=== PATIENT | female | born 2000 | race Caucasian/White ===

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

== ENCOUNTER 2020-03-06 09:38 | Outpatient (RCR) | payer MEDICAID, SELFPAY | END 2020-03-13 23:59 | LOC: EMPH 09:38 | PROVIDERS: Referring Provider Family Medicine Geriatric Medicine; Visit Provider Family Medicine Geriatric Medicine | DX: Z03.818 Encounter for observation for suspected exposure to other biological agents ruled out (principal) | CPT/HCPCS: 87426 ==

== ENCOUNTER 2020-04-12 14:08 | Outpatient (RCR) | payer MEDICAID, SELFPAY | END 2020-04-13 23:59 | LOC: EMPH 14:08 | PROVIDERS: Referring Provider Family Medicine Geriatric Medicine; Visit Provider Family Medicine Geriatric Medicine | DX: Z03.818 Encounter for observation for suspected exposure to other biological agents ruled out (principal) | CPT/HCPCS: 87426 ==

== ENCOUNTER 2020-05-25 10:51 | Outpatient (RCR) | payer MEDICAID, SELFPAY | END 2020-06-11 23:59 | LOC: EMPH 10:51 | PROVIDERS: Visit Provider Family Medicine Geriatric Medicine | DX: Z03.818 Encounter for observation for suspected exposure to other biological agents ruled out (principal) | CPT/HCPCS: 87426 ==

== ENCOUNTER 2020-06-01 08:47 | Emergency (ER) | payer OTHER, MEDICAID, SELFPAY ==
[2020-06-01 08:48] VITALS: BP 156/98; PULSE 98; RESP 18; TEMP 35.5; O2SAT 98; BMI 30.8
--- NOTE | 2020-06-01 09:03 | ED.DCSUM_ITS ---
- ER Visit Summary Date of Service: 06/01/20 Chief Complaint: Sore throat, cough, congestion History of Present Illness: The patient is a 19 F who presents with sore throat, cough, and congestion that has been getting worse over the past 5 days. Patient describes her pain as a burning sensation in her throat. Patient states nothing makes it worse. Patient states Advil does help with the pain. Patient states she does have some pain in her chest whenever she coughs. Patient states she is coughing up some green sputum. Patient admits to low-grade fever at home. Patient admits to nausea but denies any vomiting. Patient also admits to some bilateral ear pain. Physical Examination: Vital signs are stable. Patient is afebrile. Patient is in no acute distress. Oral mucosa is pink and moist. Oropharynx is mildly erythematous. There are no exudates noted. Neck is supple. Trachea is midline. There is some mild tender anterior cervical lymphadenopathy. Heart was regular rate and rhythm. Lungs are clear and equal bilateral. Abdomen is soft. Bowel sounds are normal. There is some mild lower abdominal tenderness. There is no rebound or guarding noted. Cranial nerves II through XII are intact. There are no focal motor or sensory deficits noted. Extremities are intact. There is no calf tenderness or edema. Test Results: CBC and comprehensive metabolic profile were obtained and were within normal limits. Portable 1 view chest x-ray was obtained. On my interpretation, lung mayres are clear. There is normal cardiac silhouette. Bony thorax is normal. There is no acute process noted. Radiologist also interpreted the x-ray and agrees. Rapid strep was negative. Influenza swab was negative. COVID-19 rapid antigen was obtained and was negative. Urinalysis was obtained and was within normal limits. Emergency Department Course and Treatment: Patient was advised of her findings. Patient was instructed to drink plenty of fluids. Patient was advised that this is most likely a viral upper respiratory infection. Patient was instructed to take Tylenol or ibuprofen as needed for any aches or fevers. Patient was instructed to follow-up with her primary care physician in 5 to 7 days. Patient understood and was agreeable with the plan. All questions were answered. Disposition: Discharge home Impression: 1. Viral upper respiratory infection This note was generated with [employer] dictation software. It may contain incorrect words, spelling, and punctuation that were not noted in review of the chart prior to signing ED Disposition - Plan for ED Patient: Disposition: Home or Assisted Living Diagnosis: Viral upper respiratory infection Instructions: ED URI, Viral, No Abx (Adult) Referrals: Dylan Harrison MD [STAFF PHYSICIAN] - 5-7 Days
[2020-06-01 09:16] VITALS: BP 156/98; PULSE 98; RESP 16; TEMP 35.5; O2SAT 98
[2020-06-01 09:17] LABS: Absolute Lymphocyte Count 1.29 X10^3/uL (0.83-4.51); Absolute Neutrophil Count 8.1 X10^3/uL (2.0-7.7); Basophil# 0.05 X10^3/uL; Basophil% 0.5 % (0-1); Eosinophil# 0.16 X10^3/uL; Eosinophils% 1.6 % (0-5); Hematocrit 40.3 % (37-47); Hemoglobin 13.8 g/dL (12.0-15.0); Lymphocyte # 1.29 X10^3/ul (4.0); Lymphocyte % 12.7 % (19-41); Mean Corp Hgb Conc 34.2 g/dL (32-36); Mean Corpuscular Hgb 30.5 pg (27.0-32.0); Mean Corpuscular Volume 89.2 fL (81-99); Mean Platelet Vol. 10.6 fl (6.2-12.0); Monocyte# 0.52 X10^3/uL; Monocyte% 5.1 % (0-10); NRBC Flagged by Analyzer 0 % (0-5); Neutrophil # 8.13 X10^3/uL (2.7-7.7); Neutrophil % 79.7 % (47-70); Platelet Count 244 K/mm3 (150-450); RBC Distribution Width CV 11.9 % (11.6-14.6); RBC Distribution Width SD 38.7 fl (35.1-43.9); Red Blood Count 4.52 M/mm3 (4.2-5.4); White Blood Count 10.2 K/mm3 (4.4-11.0)
--- NOTE | 2020-06-01 09:20 | RAD_ITS ---
STUDY: X-RAY CHEST REASON FOR EXAM: Female, 19 years old. SORE THROAT, COUGH, CONGESTION, AND CHEST PAIN TECHNIQUE: Single AP portable view of the chest. COMPARISON: None. FINDINGS: EKG electrodes are seen. The lungs are clear and expanded. There is no demonstrated pleural abnormality. Normal size heart. Normal mediastinum and josé miguel. Normal visualized pulmonary arteries. Normal visualized aortic arch and descending thoracic aorta. Normal visualized thoracic spine. Normal visualized ribs, clavicles, and shoulders. There is no demonstrated abnormality of the visualized soft tissue structures of the upper abdomen. RAD/Chest 1 View (Portable) IMPRESSION: Normal x-ray examination of the chest. Electronically Signed: Florian Kwan MD at 9:38 EST , Service support ,
[2020-06-01 09:34] LABS: ALB/GLOB Ratio 1.1 RATIO (0.9-2.4); AST(SGOT) 16 U/L (15-37); Alanine Aminotransfer ALT/SGPT 20 U/L (13-56); Albumin, Serum 3.9 g/dL (3.2-5.0); Alkaline Phosphatase 62 U/L (45-117); Anion Gap 5 (5-15); BUN 7 mg/dL (7-18); BUN/Creat Ratio 9.2 RATIO (10-20); Calcium,Total 8.9 mg/dL (8.5-10.1); Chloride 105 mmol/L (98-107); Creatinine, Serum 0.76 mg/dL (0.55-1.02); EST Glomerular Filtration Rate 103 mL/min (>60); Est Glom Filt Rate - Afr Amer 125 mL/min (>60); Estimated Creatinine Clearance 115.78 ml/min; Globulin 3.7 g/dL (2.2-4.2); Glucose 111 mg/dL (74-106); Potassium 3.8 mmol/L (3.5-5.1); Protein, Total 7.6 g/dL (6.4-8.2); Sodium Level 138 mmol/L (136-145)
[2020-06-01 09:58] LABS: Bacteria 0 SEEN /hpf (None Seen); Mucous, Urine 0 SEEN /hpf (<or=2+); Red Blood Cells-Urine 0 SEEN /hpf (0-5); Squamous Epithelial Cells - UA 0 SEEN /hpf (5-10); White Blood Cells 0 SEEN /hpf (0-5)
[2020-06-01 10:01] LABS: Color, Urine Yellow (Yellow); Glucose, Dipstick Normal (Normal); Ketone-Dipstick Negative (Negative); Leukocyte Esterase-Dipstick 25 /ul (Negative); Nitrite-Dipstick Negative (Negative); Occult Blood-Urine 250 /ul (Negative); Protein-Dipstick Negative (Negative); Specific Gravity, Urine 1.005 (1.002-1.030); Urine Bilirubin Dipstick Negative (Negative); Urine Clarity Clear (Clear); Urine Urobilinogen Normal (Normal)
[2020-06-01 10:32] VITALS: BP 134/97; PULSE 71; RESP 18; O2SAT 97
== END 2020-06-01 10:36 | disposition home or self-care (01) ==
PROVIDERS: Emergency Provider Emergency Medicine
DX: J06.9 Acute upper respiratory infection, unspecified (principal)
CPT/HCPCS: 71045; 80053; 81001; 85025; 87426; 87804; 87880; 99283; A4216

== ENCOUNTER 2020-06-20 13:15 | Outpatient (RCR) | payer OTHER, MEDICAID, SELFPAY | END 2020-07-12 23:59 | LOC: EMPH 13:15 | PROVIDERS: Visit Provider Family Medicine Geriatric Medicine | DX: Z03.818 Encounter for observation for suspected exposure to other biological agents ruled out (principal) | CPT/HCPCS: 87426 ==

== ENCOUNTER 2020-08-11 13:57 | Outpatient (RCR) | payer OTHER, MEDICAID, SELFPAY | END 2020-08-11 23:59 | LOC: EMPH 13:57 | PROVIDERS: Visit Provider Family Medicine Geriatric Medicine | DX: Z03.818 Encounter for observation for suspected exposure to other biological agents ruled out (principal) | CPT/HCPCS: 87426 ==

== ENCOUNTER 2020-08-24 12:36 | Outpatient (RCR) | payer OTHER, MEDICAID, SELFPAY | END 2020-09-11 23:59 | LOC: EMPH 12:36 | PROVIDERS: Referring Provider Family Medicine Geriatric Medicine; Visit Provider Family Medicine Geriatric Medicine | DX: Z03.818 Encounter for observation for suspected exposure to other biological agents ruled out (principal) | CPT/HCPCS: 87426 ==

== ENCOUNTER 2020-10-05 11:19 | Outpatient (RCR) | payer OTHER, MEDICAID, SELFPAY | END 2020-10-11 23:59 | LOC: EMPH 11:19 | PROVIDERS: Referring Provider Family Medicine Geriatric Medicine; Visit Provider Family Medicine Geriatric Medicine | DX: Z03.818 Encounter for observation for suspected exposure to other biological agents ruled out (principal) | CPT/HCPCS: 87426 ==

== ENCOUNTER 2020-10-08 15:56 | Emergency (ER) | payer OTHER, MEDICAID, SELFPAY ==
[2020-10-08 15:56] VITALS: BP 163/103; PULSE 66; RESP 16; TEMP 36.1; O2SAT 99; BMI 30.9
--- NOTE | 2020-10-08 16:07 | RAD_ITS ---
STUDY: X-RAY - LEFT FOOT CLINICAL: Female, 19 years old. injury TECHNIQUE: 3 view(s) of the foot. COMPARISON: None. FINDINGS: Normal talus, calcaneus, and tarsal bones. Normal visualized subtalar, talonavicular, calcaneocuboid, tarsal and tarsometatarsal articulations. Normal metatarsi. Normal metatarsophalangeal joint of the great toe. Normal tibial and fibular sesamoid bones. Normal interphalangeal joint of the great toe. Normal phalanges of the great toe. Normal second through fifth metatarsophalangeal joints. Normal interphalangeal joints and phalanges of the lesser toes. The soft tissue structures are unremarkable. There is no demonstrated fracture. RAD/Foot min 3 Views IMPRESSION: Normal x-ray examination of the foot. Electronically Signed: Bobby Zhao MD at 16:31 EDT , Service support ,
--- NOTE | 2020-10-08 16:08 | ED.VIS.LOWEX ---
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 She notes some pain to palpation. She denies any other injuries PFSH PFSH Home Medications amoxicillin 500 mg PO TID #21 tab 11/14/19 [Rx Last Taken Unknown] ciprofloxacin-dexamethasone 4 drp OTIC (EAR) BID #1 bottle 11/14/19 [Rx Last Taken Unknown] Allergy/AdvReac Type Severity Reaction Status Date / Time No Known Allergies Allergy Verified 10/08/20 15:59 Social History (Updated 10/08/20 @ 16:[address] Tramaine Swartz, DO) Smoking Status: Current every day smoker substance use type: does not use ROS ROS ED Constitutional Constitutional ED: Denies chills or weight loss Eyes Eyes: Denies change in vision or diplopia ENT ENT ED: Denies ear pain, rhinorrhea or sore throat Cardiovascular Cardiovascular: Denies chest pain, orthopnea, palpitations or racing heartbeat Respiratory/Chest Respiratory/Chest: Denies cough, dyspnea or orthopnea Gastrointestinal Gastrointestinal: Denies abdominal pain, diarrhea, nausea or vomiting Genitourinary Genitourinary ED: Denies dysuria, hematuria or urinary frequency Musculoskeletal Musculoskeletal: Reports other Details: See history of present illness ; Denies arthralgias or myalgias Integumentary Denies abscess or rash Neurologic Neurologic: Denies headache(s) or weakness Psychiatric Psychiatric: Denies anxiety, depression, suicidal ideation or suicidal thoughts Endocrine Endocrinology: Denies polydipsia, polyphagia or polyuria Allergic/Immunologic Allergic/Immunologic ED: Denies mouth swelling, tongue swelling or urticaria EXAM Physical Exam Const Vital Signs: 10/08/20 15:56 Temperature 97.0 F L Temperature Source Temporal Pulse Rate 66 Respiratory Rate 16 Blood Pressure 163/103 H Blood Pressure Mean 123 Pulse Ox 99 Oxygen Delivery Method Room Air Positive well nourished and well developed General Appearance ED: well developed HEENT Reports normocephalic, head/scalp atraumatic and moist mucous membranes Eyes PERRL and EOMs intact bilaterally Neck no lymphadenopathy, supple and no JVD Resp normal respiratory effort and clear to auscultation bilaterally Cardio regular rate, regular rhythm and no murmurs GI normal to inspection, nondistended, normoactive bowel sounds and non-tender Palpation: soft Back/Spine no CVA tenderness and normal ROM Extremity Extremity Narrative: Patient is tenderness palpation along the first metatarsal over the dorsal surface. There is mild ecchymosis seen General Extremety ED: Negative for edema General Extremity: Negative for edema Neuro oriented x3 and CN's II-XII intact bilaterally Sensorium / Orientation: alert Motor Exam: strength 5/5 throughout Psych mental status grossly normal Mood & Affect: Negative for depressed or tearful Skin no rashes or lesions noted and no wounds MDM MDM MDM Narrative Medical decision making narrative: My interpretation of the plain films of the left foot is no acute fracture. Patient be discharged home with conservative care. Return if worsening or concerns Discharge Plan Triage Chief Complaint: Lower Extremity Injury ED Provider: Tramaine Swartz Dx/Rx/DC Orders Clinical Impression: Contusion of foot, left Instructions: ED Foot Contusion Prescriptions: No Action amoxicillin 500 MG tablet 500 mg PO TID Qty: 21 RF: 0 ciprofloxacin-dexamethasone 1 DROP bottle 4 drp otic (ear) BID Qty: 1 RF: 0 Primary Care Provider: Care Physician,No Primary Referrals: [facility] [GROUP OF PHYSICIANS] - As Needed Care Physician,No Primary [Primary Care Provider] - Disposition Disposition: Home, Self Care
== END 2020-10-08 16:37 | disposition home or self-care (01) ==
LOC: ED 16:18
PROVIDERS: Emergency Provider Emergency Medicine
DX: S90.32XA Contusion of left foot, initial encounter (principal); W06.XXXA Fall from bed, initial encounter; W22.03XA Walked into furniture, initial encounter; F17.200 Nicotine dependence, unspecified, uncomplicated; Z79.52 Long term (current) use of systemic steroids
CPT/HCPCS: 73630; 99282

== ENCOUNTER 2020-10-22 20:30 | Emergency (ER) | payer OTHER, MEDICAID, SELFPAY ==
[2020-10-22 20:31] VITALS: BP 164/104; PULSE 91; RESP 18; TEMP 36.6; O2SAT 100; BMI 32.8
--- NOTE | 2020-10-22 20:53 | EX.ED.DYSGE1 ---
HPI History of Present Illness Chief Complaint: Abscess Detail of Chief Complaint: Lump on right thigh and muffled sounds to right ear Informant: patient Narrative Narrative: Patient presents to the emergency department with a lump on her right thigh that she noticed today. Patient states that she has had these lumps in the past. She is not had to have them drained. Patient denies any fevers. She also states that she has had some muffling sounds to the right ear for about 2 weeks off-and-on. Patient used to see an ear nose and throat physician 2 years ago but none since. Patient denies any ear pain. Prior similar symptoms: Yes PFSH PFSH Home Medications clindamycin HCl [Cleocin HCl] 300 mg PO Q6H #40 capsule 10/22/20 [Rx Last Taken Unknown] Allergy/AdvReac Type Severity Reaction Status Date / Time No Known Allergies Allergy Verified 10/22/20 20:32 Social History (Updated 10/08/20 @ 16:[address] Tramaine Swartz, DO) Smoking Status: Current every day smoker tobacco type: cigarettes substance use type: does not use ROS ROS ED Constitutional Constitutional ED: Reports systems reviewed and no addt'l complaints, except as documented; Denies body ache(s), change in weight or chills Eyes Eyes: Denies acute decrease in peripheral vision, change in vision, double vision or loss of vision ENT ENT ED: Reports none and other Details: Right ear sounds muffled ; Denies ear pain, lip swelling, loss taste/smell, neck pain, otalgia or sore throat Cardiovascular Cardiovascular: Reports none; Denies abdominal pain, chest pain with activity, leg edema, lightheadedness, palpitations, rapid heart rate or syncope Respiratory/Chest Respiratory/Chest: Reports none; Denies change in mental status, dry cough, dyspnea, hemoptysis, shortness of breath at rest or shortness of breath with exertion Gastrointestinal Gastrointestinal: Reports none; Denies abdominal pain, change in stool character, diarrhea, hematemesis, hematochezia, melena, rectal bleeding or vomiting Genitourinary Genitourinary ED: Reports none; Denies abdominal discomfort, anuria, dysuria, genital pain or polyuria Musculoskeletal Musculoskeletal: Reports none; Denies arthralgias, back pain, difficulty walking, extremity pain, muscle weakness or myalgias Integumentary Reports none and other Details: Lump on right thigh ; Denies abscess or rash Neurologic Neurologic: Reports none; Denies abnormal gait, confusion, focal weakness, frequent falls, headache(s), loss of vision, numbness, paresthesias, radicular pain, vertigo or weakness Psychiatric Psychiatric: Reports systems reviewed and no addt'l complaints, except as documented and none; Denies behavioral changes, confusion, difficulty concentrating, hallucinations, suicidal ideation, tactile hallucinations or visual hallucinations Endocrine Endocrinology: Denies none, cold intolerance, excessive sweating, fatigue or heat intolerance Hematologic/Lymphatic Hematologic/Lymphatic: Reports none; Denies anemia, easy bleeding or easy bruising Allergic/Immunologic Allergic/Immunologic ED: Denies as per HPI, none, lip swelling, mouth swelling, throat swelling, tongue swelling or hives EXAM Physical Exam Const Vital Signs: 10/22/20 20:31 Temperature 97.8 F Temperature Source Temporal Pulse Rate 91 Respiratory Rate 18 Blood Pressure 164/104 H Blood Pressure Mean 124 Pulse Ox 100 Oxygen Delivery Method Room Air Positive well nourished and well developed General Appearance ED: well developed and NAD HEENT Reports TM's clear and moist mucous membranes HEENT Narrative: Evaluation of the right ear reveals that the eardrum is retracted without signs of infection. normocephalic and atraumatic; Negative for trauma or tenderness Tympanic Membrane ED: Yes TM's clear Eyes PERRL and EOMs intact bilaterally General Eye ED: Negative for pale conjunctiva or scleral icterus Neck no lymphadenopathy, supple and no JVD General: Negative for tenderness Chest Wall inspection of chest normal and palpation of chest normal Chest: Negative for tenderness Resp normal respiratory effort and clear to auscultation bilaterally Effort and Inspection: Negative for respiratory distress or pain with movement Auscultation: Negative for rhonchi, wheezes or diminished lung sounds Cardio regular rate, regular rhythm, S1 normal heart sound, S2 normal heart sound and no murmurs Peripheral Pulses: pulses 2+ throughout GI normal to inspection, nondistended, normoactive bowel sounds, soft to palpation, non-tender, non-distended and no masses Back/Spine no CVA tenderness and no thoracic nor lumbar tenderness Extremity normal to inspection General Extremety ED: Negative for edema General Extremity: Negative for edema Neuro oriented x3, CN's II-XII intact bilaterally, no sensory deficits noted and gait normal Sensorium / Orientation: awake, alert, oriented to person, oriented to place and oriented to time Motor Exam: strength 5/5 throughout and strength abnormal Psych mental status grossly normal Skin no rashes or lesions noted and no wounds Skin Narrative: Patient has a soft tissue swelling on the right medial thigh proximally measuring approximately 1.5 cm in diameter and is somewhat firm and slightly indurated. There is no cellulitic changes noted. There is no fluctuance. MDM MDM MDM Narrative Medical decision making narrative: Regarding the lump on her thigh I suspect she has a start of an early abscess. We discussed attempted I&D although this is very early and there is no fluctuance. We discussed doing antibiotics only initially. Patient would prefer to try the antibiotics initially. Regarding her ear I suspect patient likely has eustachian tube dysfunction. She will be referred to ENT for follow-up. Patient advised to use Zyrtec or Claritin. Discharge Plan Triage Chief Complaint: Abscess ED Provider: Chan Lyons Dx/Rx/DC Orders Clinical Impression: Acute dysfunction of eustachian tube, Abscess Instructions: ED Abscess Antibiotic Treatment Only, ED Earache Without Infection (Adult) Prescriptions: New clindamycin HCl [Cleocin HCl] 300 MG capsule 300 mg PO Q6H Qty: 40 RF: 0 Primary Care Provider: Care Physician,No Primary Referrals: Jan Bartlett MD [STAFF PHYSICIAN] - 3-5 Days Care Physician,No Primary [Primary Care Provider] -
[2020-10-22] MEDS: Clindamycin HCl 150 MG Capsule 300 MG PO (21:14)
== END 2020-10-22 21:17 | disposition home or self-care (01) ==
LOC: ED 20:56
PROVIDERS: Emergency Provider Emergency Medicine
DX: L02.415 Cutaneous abscess of right lower limb (principal); F17.210 Nicotine dependence, cigarettes, uncomplicated
CPT/HCPCS: 99283

== ENCOUNTER 2020-11-03 09:57 | Outpatient (RCR) | payer OTHER, MEDICAID, SELFPAY | END 2020-11-11 23:59 | LOC: EMPH 09:57 | PROVIDERS: Referring Provider Family Medicine Geriatric Medicine; Visit Provider Family Medicine Geriatric Medicine | DX: Z03.818 Encounter for observation for suspected exposure to other biological agents ruled out (principal) | CPT/HCPCS: 87426 ==

== ENCOUNTER 2020-11-17 14:52 | Outpatient (RCR) | payer OTHER, MEDICAID, SELFPAY | END 2020-12-12 23:59 | LOC: EMPH 14:52 | PROVIDERS: Referring Provider Family Medicine Geriatric Medicine; Visit Provider Family Medicine Geriatric Medicine | DX: Z03.818 Encounter for observation for suspected exposure to other biological agents ruled out (principal) | CPT/HCPCS: 87426 ==

== ENCOUNTER 2020-12-25 09:49 | Outpatient (RCR) | payer OTHER, MEDICAID, SELFPAY ==
[2020-12-13 00:31] VITALS: BMI 32.8
== END 2021-01-11 23:59 ==
LOC: EMPH 09:49
PROVIDERS: Referring Provider Family Medicine Geriatric Medicine; Visit Provider Family Medicine Geriatric Medicine
DX: Z03.818 Encounter for observation for suspected exposure to other biological agents ruled out (principal)
CPT/HCPCS: 87426

== ENCOUNTER 2021-01-21 20:56 | Emergency (ER) | payer OTHER, MEDICAID, SELFPAY ==
[2021-01-21 20:57] VITALS: BP 155/97; PULSE 93; RESP 18; TEMP 37.1; O2SAT 99; BMI 32.1
[2021-01-21 21:30] LABS: Bacteria 0 SEEN /hpf (None Seen); Mucous, Urine 0 SEEN /hpf (<or=2+); Red Blood Cells-Urine 0 SEEN /hpf (0-5)
[2021-01-21 21:31] LABS: Color, Urine Yellow (Yellow); Glucose, Dipstick Normal (Normal); Ketone-Dipstick Negative (Negative); Leukocyte Esterase-Dipstick 25 /ul (Negative); Nitrite-Dipstick Negative (Negative); Occult Blood-Urine 150 /ul (Negative); Protein-Dipstick Negative (Negative); Urine Bilirubin Dipstick Negative (Negative); Urine Clarity Clear (Clear); Urine Urobilinogen Normal (Normal)
[2021-01-21 21:32] LABS: Hematocrit 39.2 % (37-47); Hemoglobin 13.4 g/dL (12.0-15.0); Mean Corp Hgb Conc 34.2 g/dL (32-36); Mean Corpuscular Volume 87.7 fL (81-99); Mean Platelet Vol. 10.4 fl (6.2-12.0); Platelet Count 251 K/mm3 (150-450); RBC Distribution Width CV 12.5 % (11.6-14.6); RBC Distribution Width SD 39.8 fl (35.1-43.9); Red Blood Count 4.47 M/mm3 (4.2-5.4); White Blood Count 9.1 K/mm3 (4.4-11.0)
[2021-01-21 21:49] LABS: Squamous Epithelial Cells - UA 0-5 SEEN /hpf (5-10); White Blood Cells 0-5 SEEN /hpf (0-5)
[2021-01-21 21:50] LABS: Internal QC Validated? YES +Cl - CLEAR BKGD; Pregnancy, Serum, hCG Quali. NEGATIVE Negative
--- NOTE | 2021-01-22 00:05 | ED.VIS.GI ---
HPI HPI - GI History of Present Illness Chief Complaint: Abd Pain Informant: patient Abdominal Pain/Flank Pain Onset: Hours Context: Sudden Onset Timing: Continuous Quality: Aching Location: - (Infraumbilical midline abdominal pain) Current Severity: Moderate Maximum Severity: Severe Worsened by: Nothing Relieved by: Nothing Nausea/Vomiting/Emesis GI Symptom: Negative for Nausea and Vomiting Diarrhea/Melena/Hematochezia GI Symptom: Negative for Diarrhea, Melena and Hematochezia Associated Symptoms Associated Symptoms: Negative for Dysuria, Frequency, Hematuria and Urgency LMP: Last month Narrative Narrative: Patient is a 20-year-old sexually active woman who does not use any form of control who presented because of significant midline and umbilical pain after intercourse. She denies vaginal bleeding or discharge. She denies symptoms of . She denies history of ovarian cyst, endometriosis or STI. She denies history of rough intercourse or use of instruments. She denies prior history of pain with intercourse. Prior similar symptoms: No Recent Illness/Hospitalization: No PFSH PFSH Medical History Former smoker Home Medications clindamycin HCl [Cleocin HCl] 300 mg PO Q6H #40 capsule 10/22/20 [Rx Last Taken Unknown] Allergy/AdvReac Type Severity Reaction Status Date / Time No Known Allergies Allergy Verified 01/21/21 20:57 Surgical History no surgical history no surgical history Social History (Updated 01/22/21 @ 00:[address] Aashish Iqbal MD) household members: none Smoking Status: Former smoker alcohol intake: current alcohol intake frequency: other substance use type: does not use ROS ROS ED Constitutional Constitutional ED: Denies chills, fever(s), subjective or sweats Gastrointestinal Gastrointestinal: Reports abdominal pain; Denies constipation, diarrhea, nausea or vomiting Genitourinary Genitourinary ED: Denies dysuria, hematuria or urinary frequency Musculoskeletal Musculoskeletal: Denies arthralgias, back pain, myalgias or neck pain Integumentary Denies rash Hematologic/Lymphatic Hematologic/Lymphatic: Denies easy bleeding or easy bruising EXAM Physical Exam Const Vital Signs: 01/21/21 20:57 Temperature 98.7 F Temperature Source Oral Pulse Rate 93 Respiratory Rate 18 Blood Pressure 155/97 H Blood Pressure Mean 116 Pulse Ox 99 Positive well nourished, well developed and obese General Appearance ED: well developed Nutritional Appearance: obese HEENT normocephalic and atraumatic Eyes PERRL and EOMs intact bilaterally General Eye ED: Negative for pale conjunctiva Neck no lymphadenopathy and supple Resp normal respiratory effort and clear to auscultation bilaterally Cardio regular rate, regular rhythm, S1 normal heart sound, S2 normal heart sound and no murmurs GI non-distended and no masses; Negative for non-tender Auscultation: normoactive bowel sounds Palpation: soft and tender other (Infraumbilical midline.); Negative for guarding or rigid Back/Spine no CVA tenderness Neuro CN's II-XII intact bilaterally Sensorium / Orientation: alert and oriented to person Psych mental status grossly normal and thought process normal Skin no wounds Lesions: no lesions Rashes: no rashes MDM MDM MDM Narrative Medical decision making narrative: She presents with abrupt onset of pain. This may be due to numerous things. Since she is sexually active will obtain process to rule out . Will obtain UA. With no history of any instrumentation or rough sex there is no concern for vaginal or uterine injury. Patient was reassessed at 0001. Patient was asleep. Her pain has improved. She was informed that her test results were unremarkable. Lab Data Attestation: I reviewed the patient's lab results. Labs: Laboratory Results - last 24 hr 01/21/21 01/21/21 01/21/21 21:25 21:25 21:25 WBC 9.1 RBC 4.47 Hgb 13.4 Hct 39.2 MCV 87.7 MCH 30.0 MCHC 34.2 RDW Std Deviation 39.8 RDW Coeff of Ej 12.5 Plt Count 251 MPV 10.4 Serum , Qual NEGATIVE Urine Color Yellow Urine Clarity Clear Urine pH 7.0 Ur Specific [place] 1.010 Urine Protein Negative Urine Glucose (UA) Normal Urine Ketones Negative Urine Occult Blood 150 H Urine Nitrite Negative Urine Bilirubin Negative Urine Urobilinogen Normal Ur Leukocyte Esterase 25 H Urine RBC 0 SEEN Urine WBC 0-5 SEEN Ur Squamous Epith Cells 0-5 SEEN Urine Bacteria 0 SEEN Urine Mucus 0 SEEN Discharge Plan Triage Chief Complaint: Abd Pain Other Complaint: Female C/O ED Provider: Aashish Iqbal Dx/Rx/DC Orders Clinical Impression: Bilateral lower abdominal pain Instructions: ED Abdominal Pain Unkn Cause Fem Prescriptions: No Action clindamycin HCl [Cleocin HCl] 300 MG capsule 300 mg PO Q6H Qty: 40 RF: 0 Primary Care Provider: Care Physician,No Primary Referrals: Leticia Castle MD [STAFF PHYSICIAN] - 3-5 Days if not improving Care Physician,No Primary [Primary Care Provider] - Activity Restrictions/Additional Instructions: Recommend taking either 4 Advil every 8 hours or 2 Aleve every 12 hours for the next 2 to 3 days for your pain
[2021-01-22 00:20] VITALS: PULSE 76; RESP 16; O2SAT 98
== END 2021-01-22 00:21 ==
PROVIDERS: Emergency Provider Emergency Medicine
DX: R10.30 Lower abdominal pain, unspecified (principal); Z87.891 Personal history of nicotine dependence; R10.33 Periumbilical pain
CPT/HCPCS: 81001; 84703; 85027; 99284; A4216

== ENCOUNTER → 2021-01-31 07:53 | Outpatient (CLI) | payer OTHER, MEDICAID, SELFPAY ==
--- NOTE | 2021-01-31 07:56 | CT_ITS ---
STUDY: CT ABDOMEN AND PELVIS WITH CONTRAST REASON FOR EXAM: Female, 20 years old. Left-sided abdominal pain and constipation. RADIATION DOSAGE (If Supplied By Facility): CTDIvol = ( 14.16 ) mGy, DLP = ( 831.71 ) mGycm TECHNIQUE: Transaxial images were obtained from the dome of the diaphragm to the symphysis pubis without oral contrast. Oral and amp;amp; IV Readi-CAT and amp;amp; 100mL Isovue-370 was administered. Sagittal and coronal images were reconstructed. Individualized dose optimization techniques were used for this CT. COMPARISON: None. FINDINGS: The visualized lung bases are unremarkable. The visualized portions of the heart are within normal limits. Normal liver. Normal gallbladder and extrahepatic biliary system. Borderline splenomegaly. Normal pancreas. Normal bilateral adrenal glands. Normal right kidney. Normal left kidney. Normal visualized stomach. Normal small intestine. Moderate amount of fecal material is seen in the colon. The appendix is visualized and appears normal. Small lymph nodes are seen in the mesenteric fat in the right lower quadrant. This is suggestive of mesenteric adenitis. Normal abdominal aorta. Normal inferior vena cava. Normal retroperitoneum. Normal urinary bladder. Small follicles are seen in the ovaries. Minimal amount of free fluid in the cul-de-sac. Normal abdominal wall. Normal osseous structures. CT/Abdomen/Pelvis WITH Contrast IMPRESSION: Small follicles are seen in both ovaries. Minimal amount of free fluid in the cul-de-sac. Electronically Signed: Florian Kwan MD at 9:12 EDT , Service support ,
== END ==
PROVIDERS: Referring Provider Family Medicine; Visit Provider Family Medicine
DX: R10.9 Unspecified abdominal pain (principal)
CPT/HCPCS: 74177; Q9967

== ENCOUNTER 2021-02-01 09:54 | Emergency (ER) | payer OTHER, MEDICAID, SELFPAY ==
[2021-02-01 09:55] VITALS: BP 161/112; PULSE 87; RESP 18; TEMP 36.3; O2SAT 97; BMI 32.0
--- NOTE | 2021-02-01 10:16 | EX.ED.DYSGE1 ---
HPI History of Present Illness Chief Complaint: Abd Pain Narrative Narrative: Patient presents with pelvic pain that has been intermittent for the past 2 weeks. No fevers chills cough or congestion. No upper abdominal pain. She was seen here had normal urinalysis was discharged with follow-up to PCP, she had an abdominal CAT scan done yesterday which was unremarkable other than ovarian follicles. Most of her pain is the left pelvic region. No flank pain. No dysuria hematuria. PFSH PFSH Medical History Former smoker Home Medications clindamycin HCl [Cleocin HCl] 300 mg PO Q6H #40 capsule 10/22/20 [Rx Last Taken Unknown] naproxen [Naprosyn] 500 mg PO BID #20 tab 02/01/21 [Rx Last Taken Unknown] Allergy/AdvReac Type Severity Reaction Status Date / Time No Known Allergies Allergy Verified 01/21/21 20:57 Social History (Updated 01/22/21 @ 00:[address] Asahish Iqbal MD) household members: none Smoking Status: Former smoker alcohol intake: current alcohol intake frequency: other substance use type: does not use ROS ROS ED ROS Narrative Past medical history: Reviewed Medications: Reviewed Social history: Noncontributory Review of systems: All systems negative except as indicated General: No fever Cardiovascular: No chest pain Respiratory: No shortness of breath or cough Gastrointestinal: Pelvic pain as in HPI Genitourinary: No dysuria. No hematuria. No vaginal discharge or dyspareunia. Musculoskeletal: Denies myalgias no difficulty with ambulation Skin: No rash Neurological: No memory loss, confusion or any focal weakness EXAM Physical Exam Narrative Exam Narrative: Physical exam General: Patient appears relatively comfortable in the bed. Head: Normocephalic, Atraumatic Cardiovascular: Regular rate, Regular rhythm Respiratory: No distress, CTA bilaterally Abdomen: Soft, most of the pain is in the pelvic region on the left side. It is suprapubic. There is no right upper quadrant or right lower quadrant tenderness especially no pain at McBurney's. No guarding or rebound. Back: Nontender, Normal Inspection. Negative for: CVA tenderness Skin: Normal color, No rash Neurological: Alert, Normal Strength, Normal Sensation Psychological: Normal affect Const Vital Signs: 02/01/21 09:55 Temperature 97.3 F L Temperature Source Temporal Pulse Rate 87 Respiratory Rate 18 Blood Pressure 161/112 H Blood Pressure Mean 128 Pulse Ox 97 Oxygen Delivery Method Room Air MDM MDM MDM Narrative Medical decision making narrative: Patient has a normal CT, she appears well, the CT does show some follicles, she does have features of possible polycystic ovarian disease she may need to be worked up for this. I will refer her to [facility]. She has no signs or symptoms of an infectious etiology at this time. Discharge Plan Triage Chief Complaint: Abd Pain ED Provider: Dylan Cotter Dx/Rx/DC Orders Clinical Impression: Pelvic pain Instructions: ED Abdominal Pain Unkn Cause Fem Prescriptions: New naproxen [Naprosyn] 500 mg tablet 500 mg PO BID Qty: 20 RF: 0 No Action clindamycin HCl [Cleocin HCl] 300 MG capsule 300 mg PO Q6H Qty: 40 RF: 0 Primary Care Provider: Care Physician,No Primary Referrals: Jono Booker MD [STAFF PHYSICIAN] - Care Physician,No Primary [Primary Care Provider] - Disposition Disposition: Home, Self Care
[2021-02-01] MEDS: Ketorolac 30 MG/ML Syringe IM (10:30)
--- NOTE | 2021-02-01 10:31 | ED.RN ---
STAFF UNABLE TO ACCESS [facility]. MEDS GIVEN PER RENETTA RN. CHARTED BY THIS RN, VERIFIED PER RENETTA RN AND THIS RN
[2021-02-01 10:47] VITALS: BP 150/90; PULSE 87; RESP 18
[2021-02-01 10:48] VITALS: BP 150/90; PULSE 78; RESP 18
== END 2021-02-01 10:50 | disposition home or self-care (01) ==
PROVIDERS: Emergency Provider Emergency Medicine
DX: R10.2 Pelvic and perineal pain (principal); Z87.891 Personal history of nicotine dependence
CPT/HCPCS: 96372; 99283

== ENCOUNTER 2021-02-13 15:37 | Outpatient (RCR) | payer OTHER, MEDICAID, SELFPAY ==
[2021-01-12 00:24] VITALS: BMI 32.8
== END 2021-03-13 23:59 ==
LOC: EMPH 15:37
PROVIDERS: Referring Provider Family Medicine Geriatric Medicine; Visit Provider Family Medicine Geriatric Medicine
DX: Z03.818 Encounter for observation for suspected exposure to other biological agents ruled out (principal)
CPT/HCPCS: 87426

== ENCOUNTER 2021-03-23 14:07 | Outpatient (RCR) | payer OTHER, MEDICAID, SELFPAY ==
[2021-03-14 00:07] VITALS: BMI 32.8
== END 2021-04-13 23:59 ==
LOC: EMPH 14:07
PROVIDERS: Referring Provider Family Medicine Geriatric Medicine; Visit Provider Family Medicine Geriatric Medicine
DX: Z03.818 Encounter for observation for suspected exposure to other biological agents ruled out (principal)
CPT/HCPCS: 87426; 87635; U0003

== ENCOUNTER 2021-04-08 08:41 | Emergency (ER) | payer OTHER, MEDICAID, SELFPAY ==
[2021-04-08 08:42] VITALS: BP 163/116; PULSE 106; RESP 16; TEMP 36.8; O2SAT 99; BMI 32.1
--- NOTE | 2021-04-08 09:00 | EKG12_ITS ---
Test Reason : CP W/ DEEP BREATHING Blood Pressure : / mmHG Vent. Rate : 084 BPM Atrial Rate : 084 BPM P-R Int : 158 ms QRS Dur : 082 ms QT Int : 364 ms P-R-T Axes : 038 060 050 degrees QTc Int : 430 ms Normal sinus rhythm Normal ECG Confirmed by TIKA PAULINO, ADELFO ([id number]), editorial director JADE CASTANO ([id number]) on 04/10/2021 9:56:07 AM Referred By: SHANE Confirmed By:ADELFO VILLELA MD
--- NOTE | 2021-04-08 09:01 | EX.ED.DYSGE1 ---
HPI History of Present Illness Chief Complaint: Chest Other Informant: patient Narrative Narrative: 20-year-old female presents to the emergency room with a chief complaint of chest pain. Patient states that about 5 days ago she got her second Covid vaccination and has been ill since. She notes cough due to tickle in the throat, fatigue and pain just to the left of her sternum when she takes a deep breath. Also hurts when she coughs. She notes tenderness to palpation. No fevers. PFSH PFSH Medical History Former smoker Allergy/AdvReac Type Severity Reaction Status Date / Time No Known Allergies Allergy Verified 04/08/21 08:42 Social History household members: none Smoking Status: Former smoker alcohol intake: current alcohol intake frequency: other substance use type: does not use ROS ROS ED ROS Narrative Fatigue Constitutional Constitutional ED: Denies chills or weight loss Eyes Eyes: Denies change in vision or diplopia ENT ENT ED: Denies ear pain, rhinorrhea or sore throat Cardiovascular Cardiovascular: Reports chest pain; Denies orthopnea, palpitations or racing heartbeat Respiratory/Chest Respiratory/Chest: Reports cough; Denies dyspnea or orthopnea Gastrointestinal Gastrointestinal: Denies abdominal pain, diarrhea, nausea or vomiting Genitourinary Genitourinary ED: Denies dysuria, hematuria or urinary frequency Musculoskeletal Musculoskeletal: Denies arthralgias or myalgias Integumentary Denies abscess or rash Neurologic Neurologic: Denies headache(s) or weakness Psychiatric Psychiatric: Denies anxiety, depression, suicidal ideation or suicidal thoughts Endocrine Endocrinology: Denies polydipsia, polyphagia or polyuria Allergic/Immunologic Allergic/Immunologic ED: Denies mouth swelling, tongue swelling or urticaria EXAM Physical Exam Const Vital Signs: 04/08/21 08:42 04/08/21 09:12 04/08/21 11:01 Temperature 98.2 F Temperature Source Temporal Pulse Rate 106 H 88 Respiratory Rate 16 18 Respiratory Effort Normal Non-Labored Blood Pressure 163/116 H 136/83 H Blood Pressure Mean 131 100 Pulse Ox 99 99 Oxygen Delivery Method Room Air Room Air Positive well nourished and well developed General Appearance ED: well developed HEENT Reports normocephalic, head/scalp atraumatic, TM's clear and moist mucous membranes Negative for trauma Tympanic Membrane ED: Yes TM's clear Eyes PERRL and EOMs intact bilaterally Neck no lymphadenopathy, supple and no JVD Chest Wall Chest Narrative: Tenderness to palpation just to the left of her middle aspect of the manubrium Resp normal respiratory effort and clear to auscultation bilaterally Cardio regular rate, regular rhythm and no murmurs GI normal to inspection, nondistended, normoactive bowel sounds and non-tender Palpation: soft Back/Spine no CVA tenderness and normal ROM Extremity normal to inspection General Extremety ED: Negative for edema General Extremity: Negative for edema Neuro oriented x3 and CN's II-XII intact bilaterally Sensorium / Orientation: alert Motor Exam: strength 5/5 throughout Psych mental status grossly normal Mood & Affect: Negative for depressed or tearful Skin no rashes or lesions noted and no wounds MDM MDM MDM Narrative Medical decision making narrative: Basic blood work showed a troponin level of 3 and elevated D-dimer 2.47. My interpretation of the chest x-ray is no acute process. Because the elevated D-dimer and her chest pain CTA was obtained which is negative for PE. At this point patient be discharged home. Tylenol Motrin for pain return if worsening or concerns Lab Data Attestation: I reviewed the patient's lab results. Labs: Laboratory Results - last 24 hr 04/08/21 04/08/21 04/08/21 09:10 09:10 09:10 WBC 4.7 RBC 4.70 Hgb 13.8 Hct 42.4 MCV 90.2 MCH 29.4 MCHC 32.5 RDW Std Deviation 41.8 RDW Coeff of Ej 12.6 Plt Count 202 MPV 11.1 Immature Gran % (Auto) 0.400 Neut % (Auto) 57.3 Lymph % (Auto) 28.5 [place] % (Auto) 9.7 Eos % (Auto) 3.2 Baso % (Auto) 0.9 Absolute Neuts (auto) 2.7 Absolute Lymphs (auto) 1.33 Nucleated RBC % 0 D-Dimer Quant (PE/DVT) 2.47 H* Sodium 139 Potassium 3.5 Chloride 105 Carbon Dioxide 26.0 Anion Gap 8 BUN 8 Creatinine 0.70 Estim Creat Clear Calc 120.01 Est GFR (MDRD) Af Amer 136 Est GFR (MDRD) Non-Af 112 BUN/Creatinine Ratio 11.4 Glucose 105 Calcium 8.8 Troponin I High Sens 3 Radiography Diagnostic Testing: Clinical Impression(s) from Imaging Studies Chest X-Ray 04/08/21 09:08 IMPRESSION: Normal x-ray examination of the chest. Electronically Signed: Ruddy Morrison MD at 10:46 EST Tel , Service support , Chest CTA 04/08/21 09:50 IMPRESSION: Normal CTA chest examination, without a demonstrated pulmonary embolism or arterial dissection. Electronically Signed: Ruddy Morrison MD at 10:59 EST Tel , Service support , EKG Initial EKG: Attestation: I personally reviewed and interpreted this EKG as follows: Comments: Normal sinus rhythm with a ventricular rate of 84 bpm Discharge Plan Triage Chief Complaint: Chest Other ED Provider: Tramaine Swartz Dx/Rx/DC Orders Clinical Impression: Chest pain Instructions: ED Chest Wall Pain, Costochondritis Primary Care Provider: Care Physician,No Primary Referrals: Care Physician,No Primary [Primary Care Provider] - Activity Restrictions/Additional Instructions: Follow-up with primary care if not improving return if worsening or concerns Disposition Disposition: Home, Self Care
--- NOTE | 2021-04-08 09:08 | RAD_ITS ---
STUDY: X-RAY CHEST REASON FOR EXAM: Female, 20 years old. chest pain TECHNIQUE: Single AP portable view of the chest. COMPARISON: FINDINGS: The lungs are clear and expanded. There is no demonstrated pleural abnormality. Normal size heart. Normal mediastinum and josé miguel. Normal visualized pulmonary arteries. Normal visualized aortic arch and descending thoracic aorta. Normal visualized thoracic spine. Normal visualized ribs, clavicles, and shoulders. There is no demonstrated abnormality of the visualized soft tissue structures of the upper abdomen. RAD/Chest 1 View (Portable) IMPRESSION: Normal x-ray examination of the chest. Electronically Signed: Ruddy Morrison MD at 10:46 EST Tel , Service support ,
--- NOTE | 2021-04-08 09:26 | NURSING ---
NO OLD EKG
[2021-04-08 09:33] LABS: Anion Gap 8 (5-15); BUN 8 mg/dL (7-18); BUN/Creat Ratio 11.4 RATIO (10-20); Calcium,Total 8.8 mg/dL (8.5-10.1); Chloride 105 mmol/L (98-107); EST Glomerular Filtration Rate 112 mL/min (>60); Est Glom Filt Rate - Afr Amer 136 mL/min (>60); Estimated Creatinine Clearance 120.01 ml/min; Glucose 105 mg/dL (74-106); Potassium 3.5 mmol/L (3.5-5.1); Sodium Level 139 mmol/L (136-145); Troponin-I HS 3 pg/mL (3.0-54.0)
[2021-04-08 09:36] LABS: Absolute Lymphocyte Count 1.33 X10^3/uL (0.83-4.51); Absolute Neutrophil Count 2.7 X10^3/uL (2.0-7.7); Basophil# 0.04 X10^3/uL; Basophil% 0.9 % (0-1); Eosinophil# 0.15 X10^3/uL; Eosinophils% 3.2 % (0-5); Hematocrit 42.4 % (37-47); Hemoglobin 13.8 g/dL (12.0-15.0); Lymphocyte # 1.33 X10^3/ul (0.83-4.51); Lymphocyte % 28.5 % (19-41); Mean Corp Hgb Conc 32.5 g/dL (32-36); Mean Corpuscular Hgb 29.4 pg (27.0-32.0); Mean Corpuscular Volume 90.2 fL (81-99); Mean Platelet Vol. 11.1 fl (6.2-12.0); Monocyte# 0.45 X10^3/uL; Monocyte% 9.7 % (0-10); NRBC Flagged by Analyzer 0 % (0-5); Neutrophil # 2.67 X10^3/uL (2.7-7.7); Neutrophil % 57.3 % (47-70); Platelet Count 202 K/mm3 (150-450); RBC Distribution Width CV 12.6 % (11.6-14.6); RBC Distribution Width SD 41.8 fl (35.1-43.9); White Blood Count 4.7 K/mm3 (4.4-11.0)
--- NOTE | 2021-04-08 09:50 | CT_ITS ---
STUDY: CTA CHEST REASON FOR EXAM: Female, 20 years old. chest pain elevated d dimer RADIATION DOSAGE (If Supplied By Facility): CTDIvol = ( 12.21 ) mGy, DLP = ( 482.28 ) mGycm TECHNIQUE: The examination was performed with the intravenous administration of IV 100mL Isovue-370. Post-processing of the angiographic images was performed, with multiplanar reformation and 3D reconstruction. Individualized dose optimization techniques were used for this CT. COMPARISON: Chest x-ray earlier today FINDINGS: Normal enhancement of the main pulmonary artery and right and left pulmonary arteries. Normal enhancement of the bilateral peripheral pulmonary arteries. There is no demonstrated pulmonary embolism. Normal thoracic aorta and visualized great vessels. There is no demonstrated aortic dissection. Normal heart and pericardium. Normal mediastinum. Normal hilar regions. Normal visualized trachea and bronchi. The lungs are well expanded. Normal pulmonary parenchyma. Normal pleura. Normal chest wall structures. Normal osseous structures. Normal visualized upper abdomen. CT/CTA Chest W/WO Contrast IMPRESSION: Normal CTA chest examination, without a demonstrated pulmonary embolism or arterial dissection. Electronically Signed: Ruddy Morrison MD at 10:59 EST Tel , Service support ,
[2021-04-08 09:51] LABS: D-Dimer Quantitative (DVT/PE) 2.47 FEU/ug/m (0.27-0.49)
[2021-04-08 11:01] VITALS: BP 136/83; PULSE 88; RESP 18; O2SAT 99
== END 2021-04-08 11:21 | disposition home or self-care (01) ==
PROVIDERS: Emergency Provider Emergency Medicine
DX: R07.9 Chest pain, unspecified (principal); R53.83 Other fatigue; R05.9 Cough, unspecified; Z87.891 Personal history of nicotine dependence
CPT/HCPCS: 71045; 71275; 80048; 84484; 85025; 85379; 93005; 99284; Q9967; A4216

== ENCOUNTER 2021-04-11 14:47 | Outpatient (CLI) | payer OTHER, MEDICAID, SELFPAY ==
[2021-04-11 15:18] VITALS: BP 144/98; PULSE 56; RESP 16; TEMP 36.6; O2SAT 100; BMI 32.4
[2021-04-11] MEDS: 0.9% Saline Lock 10 ML Syringe IV (15:22)
[2021-04-11 15:54] VITALS: BP 138/84; PULSE 67; RESP 16; TEMP 37; O2SAT 99
[2021-04-11 16:47] VITALS: BP 133/91; PULSE 76; RESP 16; TEMP 36.8; O2SAT 100
== END 2021-04-11 16:52 | disposition home or self-care (01) ==
LOC: MS3OUT 14:48 → MS3 14:48
PROVIDERS: Referring Provider Nurse Practitioner Adult Health; Visit Provider Nurse Practitioner Adult Health
DX: Z23 Encounter for immunization (principal); U07.1 COVID-19
CPT/HCPCS: J7050; M0245; Q0245; A4216

== ENCOUNTER 2021-06-01 15:32 | Outpatient (CLI) | payer OTHER, MEDICAID, SELFPAY ==
--- NOTE | 2021-06-01 15:34 | US_ITS ---
STUDY: ULTRASOUND OF THE FEMALE PELVIS - COMPLETE REASON FOR EXAM: Female, 20 years old. pain LMP: 04/14/2021 TECHNIQUE: Transabdominal and Transvaginal TECHNICAL QUALITY: Adequate. COMPARISON: None. FINDINGS: The uterus is anteverted and is in a midline position. The uterus measures 8.0 x 5.2 x 3.6 cm. Normal uterine cervix. The endometrium measures 8 mm in thickness, and is hyperechoic. There is no demonstrated endometrial mass. There is no demonstrated myometrial mass. I.U.D. - The patient does not have an I.U.D. The right ovary is visualized. The right ovary measures 3.3 x 2.4 x 2.5 cm. There is no right ovarian cyst or ovarian mass. There is no visualized right adnexal mass or complex lesion. There is normal arterial and normal venous vascularity. The left ovary is visualized. The left ovary measures 2.2 x 1.5 x 1.5 cm. There is no left ovarian cyst or ovarian mass. There is no visualized left adnexal mass or complex lesion. There is normal arterial and normal venous vascularity. There is no fluid in the cul-de-sac. The pre void volume of the bladder was ml. The post void volume of the bladder was ml. Polycystic ovary disease: No. US/Pelvic (Non ) IMPRESSION: Normal female pelvis. Electronically Signed: Ruddy Morrison MD at 6:15 EST ,
--- NOTE | 2021-06-01 15:34 | US_ITS ---
STUDY: ULTRASOUND OF THE FEMALE PELVIS - COMPLETE REASON FOR EXAM: Female, 20 years old. pain LMP: 04/14/2021 TECHNIQUE: Transabdominal and Transvaginal TECHNICAL QUALITY: Adequate. COMPARISON: None. FINDINGS: The uterus is anteverted and is in a midline position. The uterus measures 8.0 x 5.2 x 3.6 cm. Normal uterine cervix. The endometrium measures 8 mm in thickness, and is hyperechoic. There is no demonstrated endometrial mass. There is no demonstrated myometrial mass. I.U.D. - The patient does not have an I.U.D. The right ovary is visualized. The right ovary measures 3.3 x 2.4 x 2.5 cm. There is no right ovarian cyst or ovarian mass. There is no visualized right adnexal mass or complex lesion. There is normal arterial and normal venous vascularity. The left ovary is visualized. The left ovary measures 2.2 x 1.5 x 1.5 cm. There is no left ovarian cyst or ovarian mass. There is no visualized left adnexal mass or complex lesion. There is normal arterial and normal venous vascularity. There is no fluid in the cul-de-sac. The pre void volume of the bladder was ml. The post void volume of the bladder was ml. Polycystic ovary disease: No. US/Transvaginal Non- IMPRESSION: Normal female pelvis. Electronically Signed: Ruddy Morrison MD at 6:15 EST ,
== END 2021-06-01 23:59 | disposition home or self-care (01) ==
LOC: US 15:33
PROVIDERS: Referring Provider Nurse Practitioner Women's Health; Visit Provider Nurse Practitioner Women's Health
DX: R10.2 Pelvic and perineal pain (principal); Z87.42 Personal history of other diseases of the female genital tract
CPT/HCPCS: 76830; 76856; 93976

== ENCOUNTER 2021-08-07 17:39 | Emergency (ER) | payer OTHER, MEDICAID, SELFPAY ==
[2021-08-07 17:40] VITALS: BP 169/108; PULSE 68; RESP 18; TEMP 35.9; O2SAT 98; BMI 32.3
--- NOTE | 2021-08-07 17:57 | EDS_ITS ---
HPI History of Present Illness Chief Complaint: Lower Extremity Injury Detail of Chief Complaint: Patient presents with left ankle pain that started 2 weeks ago Informant: patient Narrative Narrative: Patient presents to the emergency department left ankle pain that started 2 weeks ago. She denies any injury. Patient states the pain had been intermittent but since last night it comes and goes in waves and is worse with walking. She denies any chest pain or shortness of breath. No history of blood clots. PFSH PFSH Medical History Former smoker Home Medications multivitamin with minerals-folic acid 200 mcg chewable tablet tab PO 05/24/21 [History Last Taken Unknown] norelgestromin 150 mcg-e.estradiol 35 mcg/24 hr weekly transderm patch 1 patch TRANSDERMAL Q7D #3 ea 05/24/21 [Rx Last Taken Unknown] naproxen 500 mg PO BID #14 tab 08/07/21 [Rx Last Taken Unknown] Allergy/AdvReac Type Severity Reaction Status Date / Time No Known Allergies Allergy Verified 08/07/21 17:43 Social History (Updated 05/24/21 @ 14:13 by Diamond Jamil) household members: significant other and none number of children: 0 current occupational status: employed current occupation: [employer] Smoking Status: Current every day smoker tobacco type: cigarettes alcohol intake: never substance use type: does not use what type of physical activity do you participate in: running and bicycling frequency: 1-2 times per week seatbelt use: always do you feel safe at home: Yes additional social history: single ROS ROS ED Constitutional Constitutional ED: Reports systems reviewed and no addt'l complaints, except as documented; Denies body ache(s), change in weight or chills Eyes Eyes: Denies acute decrease in peripheral vision, change in vision, double vision or loss of vision ENT ENT ED: Reports none; Denies ear pain, lip swelling, loss taste/smell, neck pain, otalgia or sore throat Cardiovascular Cardiovascular: Reports none; Denies abdominal pain, chest pain with activity, leg edema, lightheadedness, palpitations, rapid heart rate or syncope Respiratory/Chest Respiratory/Chest: Reports none; Denies change in mental status, dry cough, dyspnea, hemoptysis, shortness of breath at rest or shortness of breath with exertion Gastrointestinal Gastrointestinal: Reports none; Denies abdominal pain, change in stool character, diarrhea, hematemesis, hematochezia, melena, rectal bleeding or vomiting Genitourinary Genitourinary ED: Reports none; Denies abdominal discomfort, anuria, dysuria, ge nital pain or polyuria Musculoskeletal Musculoskeletal: Reports none and other Details: Left ankle pain ; Denies arthralgias, back pain, difficulty walking, extremity pain, muscle weakness or myalgias Integumentary Reports none; Denies abscess or rash Neurologic Neurologic: Reports none; Denies abnormal gait, confusion, focal weakness, frequent falls, headache(s), loss of vision, numbness, paresthesias, radicular pain, vertigo or weakness Psychiatric Psychiatric: Reports systems reviewed and no addt'l complaints, except as documented and none; Denies behavioral changes, confusion, difficulty concentrating, hallucinations, suicidal ideation, tactile hallucinations or visual hallucinations Endocrine Endocrinology: Denies none, cold intolerance, excessive sweating, fatigue or heat intolerance Hematologic/Lymphatic Hematologic/Lymphatic: Reports none; Denies anemia, easy bleeding or easy bruising Allergic/Immunologic Allergic/Immunologic ED: Denies as per HPI, none, lip swelling, mouth swelling, throat swelling, tongue swelling or hives EXAM Physical Exam Const Vital Signs: 08/07/21 17:40 Temperature 96.6 F L Temperature Source Temporal Pulse Rate 68 Respiratory Rate 18 Blood Pressure 169/108 H Blood Pressure Mean 128 Pulse Ox 98 Oxygen Delivery Method Room Air Positive well nourished and well developed General Appearance ED: well developed and NAD HEENT Reports TM's clear and moist mucous membranes normocephalic and atraumatic; Negative for trauma or tenderness Tympanic Membrane ED: Yes TM's clear Eyes PERRL and EOMs intact bilaterally General Eye ED: Negative for pale conjunctiva or scleral icterus Neck no lymphadenopathy, supple and no JVD General: Negative for tenderness Chest Wall inspection of chest normal and palpation of chest normal Chest: Negative for tenderness Resp normal respiratory effort and clear to auscultation bilaterally Effort and Inspection: Negative for respiratory distress or pain with movement Auscultation: Negative for rhonchi, wheezes or diminished lung sounds Cardio regular rate, regular rhythm, S1 normal heart sound, S2 normal heart sound and no murmurs Peripheral Pulses: pulses 2+ throughout GI normal to inspection, nondistended, normoactive bowel sounds, soft to palpation, non-tender, non-distended and no masses Back/Spine no CVA tenderness and no thoracic nor lumbar tenderness Extremity Extremity Narrative: Patient has tenderness palpation over the lateral malleolus. There is no ecchymosis or bruising. No significant soft tissue swelling noted. She is neurovascular intact distally. She has no ropes or cords palpated in the calf. No tenderness at the proximal fibular head or base of the fifth metatarsal. General Extremety ED: Negative for edema General Extremity: Negative for edema Neuro oriented x3, CN's II-XII intact bilaterally, no sensory deficits noted and gait normal Sensorium / Orientation: awake, alert, oriented to person, oriented to place and oriented to time Motor Exam: strength 5/5 throughout and strength abnormal Psych mental status grossly normal Skin no rashes or lesions noted and no wounds MDM MDM MDM Narrative Medical decision making narrative: Patient will be given an air splint and she did not want crutches. I will give her a prescription for naproxen and referral to podiatry for follow-up if symptoms do not improve. Etiology of her ankle pain is unclear. Radiography Diagnostic Testing: Three-view x-rays of the left ankle obtained interpreted by myself as no acute fractures or dislocations. No lytic lesions noted. Official report from radiology pending. Discharge Plan Triage Chief Complaint: Lower Extremity Injury ED Provider: Chan Lyons Dx/Rx/DC Orders Clinical Impression: Acute ankle pain Instructions: ED Pain, Acute, Uncertain Cause Prescriptions: New naproxen 500 MG tablet 500 mg PO BID Qty: 14 RF: 0 No Action Women's Multivitamin Gummies 200 mcg tablet,chewable PO RF: 0 Xulane 150-35 mcg/24 hr patch weekly 1 patch transdermal Q7D Qty: 3 RF: 3 Primary Care Provider: Care Physician,No Primary Referrals: Isauro Frey DPM [STAFF PHYSICIAN] - 3-5 Days Care Physician,No Primary [Primary Care Provider] - Disposition Disposition: Home, Self Care
--- NOTE | 2021-08-07 18:00 | RAD_ITS ---
STUDY: X-RAY - LEFT ANKLE REASON FOR EXAM: Female, 20 years old. Pain TECHNIQUE: 3 view(s) of the ankle. COMPARISON: None. FINDINGS: Normal visualized distal tibia and fibula. Normal medial and lateral malleoli. Normal tibiotalar articulation and ankle mortise. Normal visualized talus and calcaneus. The visualized subtalar, talonavicular, calcaneocuboid and tarsal articulations are normal. The soft tissue structures are unremarkable. RAD/Ankle min 3 Views IMPRESSION: Normal x-ray examination of the ankle. Electronically Signed: Anastacio Denney MD at 18:16 EDT ,
== END 2021-08-07 18:26 | disposition home or self-care (01) ==
LOC: ED 18:17
PROVIDERS: Emergency Provider Emergency Medicine; Visit Provider Emergency Medicine
DX: M25.572 Pain in left ankle and joints of left foot (principal); F17.210 Nicotine dependence, cigarettes, uncomplicated
CPT/HCPCS: 73610; 99283

== ENCOUNTER → 2021-08-21 | Outpatient (CLI) | payer OTHER, SELFPAY ==
[2021-08-21 17:04] LABS: Absolute Lymphocyte Count 2.44 X10^3/uL (0.83-4.51); Absolute Neutrophil Count 6.8 X10^3/uL (2.0-7.7); Basophil# 0.06 X10^3/uL; Basophil% 0.6 % (0-1); Eosinophil# 0.34 X10^3/uL; Eosinophils% 3.3 % (0-5); Hematocrit 38.9 % (37-47); Hemoglobin 12.9 g/dL (12.0-15.0); Lymphocyte # 2.44 X10^3/ul (0.83-4.51); Lymphocyte % 23.9 % (19-41); Mean Corp Hgb Conc 33.2 g/dL (32-36); Mean Corpuscular Hgb 30.1 pg (27.0-32.0); Mean Corpuscular Volume 90.7 fL (81-99); Mean Platelet Vol. 10.8 fl (6.2-12.0); Monocyte# 0.53 X10^3/uL; Monocyte% 5.2 % (0-10); NRBC Flagged by Analyzer 0 % (0-5); Neutrophil # 6.81 X10^3/uL (2.7-7.7); Neutrophil % 66.7 % (47-70); Platelet Count 250 K/mm3 (150-450); RBC Distribution Width CV 12.7 % (11.6-14.6); RBC Distribution Width SD 41.5 fl (35.1-43.9); Red Blood Count 4.29 M/mm3 (4.2-5.4); White Blood Count 10.2 K/mm3 (4.4-11.0)
[2021-08-21 17:57] LABS: ALB/GLOB Ratio 1.1 RATIO (0.9-2.4); AST(SGOT) 19 U/L (15-37); Alanine Aminotransfer ALT/SGPT 27 U/L (13-56); Albumin, Serum 3.9 g/dL (3.2-5.0); Alkaline Phosphatase 62 U/L (45-117); Anion Gap 7 (5-15); BUN 12 mg/dL (7-18); BUN/Creat Ratio 17.5 RATIO (10-20); Chloride 103 mmol/L (98-107); Cholesterol 193 mg/dL (200); Creatinine, Serum 0.69 mg/dL (0.55-1.02); EST Glomerular Filtration Rate 115 mL/min (>60); Est Glom Filt Rate - Afr Amer 139 mL/min (>60); Globulin 3.6 g/dL (2.2-4.2); Glucose 84 mg/dL (74-106); High Density Lipoprotein 35 mg/dL; Protein, Total 7.5 g/dL (6.4-8.2); Sodium Level 138 mmol/L (136-145); Thyroid Stim Hormone (TSH) 0.95 uIU/mL (0.358-3.74); Triglycerides 150 mg/dL; Very Low Density Lipoprotein 30 mg/dL (5-40)
== END | disposition home or self-care (01) ==
LOC: BIMLAB 16:13
PROVIDERS: PCP Internal Medicine; Referring Provider Physician Assistant; Visit Provider Physician Assistant
DX: I10 Essential (primary) hypertension (principal); F17.200 Nicotine dependence, unspecified, uncomplicated
CPT/HCPCS: 36415; 80053; 80061; 84443; 85025

== ENCOUNTER 2021-10-01 18:05 | Emergency (ER) | payer OTHER, MEDICAID, SELFPAY ==
[2021-10-01 18:05] VITALS: BP 163/101; PULSE 99; RESP 16; TEMP 36.4; O2SAT 100; BMI 32.3
[2021-10-01 18:14] VITALS: BP 167/102; PULSE 103; RESP 17; O2SAT 99
--- NOTE | 2021-10-01 18:41 | EKG12_ITS ---
Test Reason : CP Blood Pressure : / mmHG Vent. Rate : 099 BPM Atrial Rate : 099 BPM P-R Int : 152 ms QRS Dur : 094 ms QT Int : 370 ms P-R-T Axes : 041 054 056 degrees QTc Int : 474 ms Normal sinus rhythm with sinus arrhythmia Normal ECG Confirmed by JAIME PAULINO, EFFIE ([id number]), news editor JADE CASTANO ([id number]) on 10/02/2021 9:05:04 AM Referred By: LENORA Confirmed By:EFFIE SANDOVAL MD
--- NOTE | 2021-10-01 18:44 | EDS_ITS ---
HPI History of Present Illness Chief Complaint: Chest Pain Narrative Narrative: 20-year-old female presenting with chest pain. She describes it as sharp and retrosternal. She states is worse with a deep breath. She states she has no history of DVT/PE but does take control currently. She states he had an elevated D-dimer in March when she had COVID and had a negative CTA for PE but did have inflammation in her sternum. She states it feels similar. She denies any cardiac history. [facility] Medical History Former smoker Hypertension Home Medications multivitamin with minerals-folic acid 200 mcg chewable tablet (Women's Multivitamin Gummies) tab PO 05/24/21 [History Last Taken Unknown] naproxen 500 mg tablet 500 mg PO BID #14 tabs 08/07/21 [Rx Last Taken Unknown] norethindrone (contraceptive) 0.35 mg tablet (Stephanie) 0.35 mg PO QDAY #84 tabs 08/20/21 [Rx Last Taken Unknown] bupropion HCl 150 mg tablet,12 hr sustained-release 150 mg PO BID #180 ea 08/21/21 [Rx Last Taken Unknown] hydrochlorothiazide 12.5 mg tablet 12.5 mg PO QAM #90 tabs 08/21/21 [Rx Last Taken Unknown] miscellaneous medical supply (Blood Pressure Cuff) #1 ea 08/22/21 [Rx Last Taken Unknown] Allergy/AdvReac Type Severity Reaction Status Date / Time No Known Allergies Allergy Verified 10/01/21 18:07 Family History Father Hypertension Grandfather Myocardial infarction Social History household members: significant other and none number of children: 0 current occupational status: employed current occupation: [employer] Smoking Status: Former smoker Electronic Cigarette Use: with nicotine alcohol intake: never substance use type: does not use what type of physical activity do you participate in: running and bicycling frequency: 1-2 times per week seatbelt use: always do you feel safe at home: Yes additional social history: single ROS ROS ED Constitutional Constitutional ED: Denies chills or subjective Eyes Eyes: Denies none or blurry vision ENT ENT ED: Denies ear pain or rhinorrhea Cardiovascular Cardiovascular: Reports as per HPI Respiratory/Chest Respiratory/Chest: Denies cough or dyspnea Gastrointestinal Gastrointestinal: Denies abdominal pain or constipation Genitourinary Genitourinary ED: Denies dysuria or hematuria Musculoskeletal Musculoskeletal: Denies arthralgias or back pain Integumentary Denies abscess or Abrasions Neurologic Neurologic: Denies headache(s) or paresthesias Psychiatric Psychiatric: Denies anxiety or depression EXAM Physical Exam Const Vital Signs: 10/01/21 18:05 10/01/21 18:14 10/01/21 19:06 Temperature 97.6 F L Temperature Source Temporal Pulse Rate 99 103 H Respiratory Rate 16 17 Blood Pressure 163/101 H 167/102 H Blood Pressure Mean 121 123 Pulse Ox 100 99 Oxygen Delivery Method Room Air Room Air Room Air 10/01/21 20:30 Temperature Temperature Source Pulse Rate 73 Respiratory Rate Blood Pressure 147/80 H Blood Pressure Mean Pulse Ox Oxygen Delivery Method Positive well nourished General Appearance ED: NAD; Negative for pallor HEENT Reports moist mucous membranes normocephalic and atraumatic Eyes PERRL and EOMs intact bilaterally Chest Wall inspection of chest normal and palpation of chest normal Resp normal respiratory effort and clear to auscultation bilaterally Effort and Inspection: Negative for respiratory distress Auscultation: Negative for rales, rhonchi or wheezes Cardio regular rhythm Rate: tachycardic Peripheral Pulses: pulses 2+ throughout Extremity General Extremety ED: Yes pulses abnormal; Negative for edema or tenderness General Extremity: pulses abnormal; Negative for edema Neuro oriented x3, CN's II-XII intact bilaterally and no sensory deficits noted Sensorium / Orientation: awake, alert, oriented to person, oriented to place and oriented to time Motor Exam: strength 5/5 throughout Psych mental status grossly normal Attitude: No agitated Skin General Skin Exam: Negative for jaundice or pallor Heart Score History: Slightly/Non-Suspicious ECG: Normal Age: </= 45 years Risk Factors: No Risk Factors Troponin: </= Normal Limit Score: 0 MDM MDM MDM Narrative Medical decision making narrative: 20-year-old otherwise healthy female presenting with sharp chest pain which is retrosternal. She does not have any cardiac risk factors. She did not have family history of early heart disease. She is on control. She is tachycardic on arrival so I cannot PERC her. EKG obtained is sinus rhythm with a ventricular rate of 99 bpm without sign of ST elevation or depression. Chest x-ray on my interpretation shows no acute cardiopulmonary process in the radiologist does agree. CBC is unremarkable. BMP shows slight hypokalemia 3.3 but I do not believe I need to replete this in the ER. Renal function electrolytes are otherwise normal. High-sensitivity troponin is less than 3. I do not believe patient needs a delta troponin after days of chest pain. Her D- dimer was elevated at 1.72 today however CTA of the chest shows no evidence of PE or dissection. There is no acute pulmonary process interpreted by the radiologist and reviewed by myself. Given this patient is discharged home. She is given return precautions. She will follow-up with her PCP. Impression: 1. Chest pain 2. Costochondritis Lab Data Attestation: I reviewed the patient's lab results. Labs: Laboratory Results - last 24 hr 10/01/21 10/01/21 10/01/21 18:40 18:40 18:40 WBC 9.7 RBC 4.38 Hgb 13.2 Hct 38.2 MCV 87.2 MCH 30.1 MCHC 34.6 RDW Std Deviation 38.5 RDW Coeff of Ej 12.0 Plt Count 257 MPV 10.7 Immature Gran % (Auto) 0.300 Neut % (Auto) 67.0 Lymph % (Auto) 23.5 [place] % (Auto) 6.4 Eos % (Auto) 2.3 Baso % (Auto) 0.5 Absolute Neuts (auto) 6.5 Absolute Lymphs (auto) 2.27 Nucleated RBC % 0 D-Dimer Quant (PE/DVT) 1.72 H* Sodium 137 Potassium 3.3 L Chloride 105 Carbon Dioxide 26.0 Anion Gap 6 BUN 7 Creatinine 0.80 Estim Creat Clear Calc 105.01 Est GFR (MDRD) Af Amer 117 Est GFR (MDRD) Non-Af 97 BUN/Creatinine Ratio 8.8 L Glucose 107 H Calcium 8.6 Troponin I High Sens < 3 L Radiography Diagnostic Testing: Clinical Impression(s) from Imaging Studies Chest X-Ray 10/01/21 18:49 IMPRESSION: No acute cardiopulmonary process. Electronically Signed: Shubham Chandra MD at 20:14 EDT , Chest CTA 10/01/21 19:07 IMPRESSION: Suboptimal opacification of the pulmonary arteries with no demonstrated gross pulmonary embolism or arterial dissection. No acute cardiopulmonary process. Electronically Signed: Melody Richards MD at 20:01 EDT , Discharge Plan Triage Chief Complaint: Chest Pain ED Provider: Wilton Nielsen Dx/Rx/DC Orders Instructions: Costochondritis, ED Chest Pain, Noncardiac Prescriptions: No Action Women's Multivitamin Gummies 200 mcg tablet,chewable PO norethindrone (contraceptive) [Stephanie] 0.35 mg tablet 0.35 mg PO QDAY Qty: 84 4RF Rx Instructions: start day 1 of menstrual cycle bupropion HCl 150 mg tablet sustained-release 12 hr 150 mg PO BID Qty: 180 0RF Rx Instructions: Take 1 tablet once a day for 5 days then increase to twice a day. Separate doses by at least 8 hours. Stop smoking after 5-7 days of treatment. hydrochlorothiazide 12.5 mg tablet 12.5 mg PO QAM Qty: 90 0RF (DME) Blood Pressure Cuff Misc See Rx Instructions .ROUTE .MEDSUPPLY Qty: 1 0RF Rx Instructions: Check Blood Pressure Twice a Day naproxen 500 MG tablet 500 mg PO BID Qty: 14 0RF Primary Care Provider: Care Physician,No Primary Referrals: Xin Cardona MD [STAFF PHYSICIAN] - Disposition Disposition: Home, Self Care Discharge Date/Time: 10/01/21 20:31
--- NOTE | 2021-10-01 18:49 | RAD_ITS ---
STUDY: X-RAY CHEST REASON FOR EXAM: Female, 20 years old. chest pain TECHNIQUE: 1 view COMPARISON: 04/08/2021 FINDINGS: Cardiomediastinal silhouette is unremarkable. Costophrenic angles are sharp. Lungs are clear. The trachea is midline. There is no pneumothorax. The bones are grossly intact. RAD/Chest 1 View (Portable) IMPRESSION: No acute cardiopulmonary process. Electronically Signed: Shubham Chandra MD at 20:14 EDT ,
[2021-10-01 18:53] LABS: Absolute Lymphocyte Count 2.27 X10^3/uL (0.83-4.51); Absolute Neutrophil Count 6.5 X10^3/uL (2.0-7.7); Basophil# 0.05 X10^3/uL; Basophil% 0.5 % (0-1); Eosinophil# 0.22 X10^3/uL; Eosinophils% 2.3 % (0-5); Hematocrit 38.2 % (37-47); Hemoglobin 13.2 g/dL (12.0-15.0); Lymphocyte # 2.27 X10^3/ul (0.83-4.51); Lymphocyte % 23.5 % (19-41); Mean Corp Hgb Conc 34.6 g/dL (32-36); Mean Corpuscular Hgb 30.1 pg (27.0-32.0); Mean Corpuscular Volume 87.2 fL (81-99); Mean Platelet Vol. 10.7 fl (6.2-12.0); Monocyte# 0.62 X10^3/uL; Monocyte% 6.4 % (0-10); NRBC Flagged by Analyzer 0 % (0-5); Neutrophil # 6.48 X10^3/uL (2.7-7.7); Platelet Count 257 K/mm3 (150-450); RBC Distribution Width SD 38.5 fl (35.1-43.9); Red Blood Count 4.38 M/mm3 (4.2-5.4); White Blood Count 9.7 K/mm3 (4.4-11.0)
[2021-10-01 19:06] LABS: D-Dimer Quantitative (DVT/PE) 1.72 FEU/ug/m (0.27-0.49)
--- NOTE | 2021-10-01 19:07 | CT_ITS ---
STUDY: CTA CHEST REASON FOR EXAM: Female, 20 years old. Chest pain RADIATION DOSAGE (If Supplied By Facility): CTDIvol = ( 13.53 ) mGy, DLP = ( 499.47 ) mGycm TECHNIQUE: The examination was performed with the intravenous administration of IV 100mL Isovue-370. Post-processing of the angiographic images was performed, with multiplanar reformation and 3D reconstruction. Individualized dose optimization techniques were used for this CT. COMPARISON: 04/08/2021 FINDINGS: Motion artifact degrades anatomic detail. Normal enhancement of the main pulmonary artery and right and left pulmonary arteries. There is suboptimal enhancement of the bilateral peripheral pulmonary arteries. There is no demonstrated gross pulmonary embolism. Normal thoracic aorta and visualized great vessels. There is no demonstrated aortic dissection. Normal heart and pericardium. There are no coronary artery calcifications. Normal mediastinum. Normal hilar regions. Normal visualized trachea and bronchi. The lungs are well expanded. Normal pulmonary parenchyma. Normal pleura. Normal chest wall structures. Normal osseous structures. Normal visualized upper abdomen. CT/CTA Chest W/WO Contrast IMPRESSION: Suboptimal opacification of the pulmonary arteries with no demonstrated gross pulmonary embolism or arterial dissection. No acute cardiopulmonary process. Electronically Signed: Melody Richards MD at 20:01 EDT ,
[2021-10-01 19:13] LABS: Anion Gap 6 (5-15); BUN 7 mg/dL (7-18); BUN/Creat Ratio 8.8 RATIO (10-20); Calcium,Total 8.6 mg/dL (8.5-10.1); Chloride 105 mmol/L (98-107); EST Glomerular Filtration Rate 97 mL/min (>60); Est Glom Filt Rate - Afr Amer 117 mL/min (>60); Estimated Creatinine Clearance 105.01 ml/min; Glucose 107 mg/dL (74-106); Potassium 3.3 mmol/L (3.5-5.1); Sodium Level 137 mmol/L (136-145); Troponin-I HS (w/2H Reflex) < 3 pg/mL (3.0-54.0)
[2021-10-01 20:30] VITALS: BP 147/80; PULSE 73
[2021-10-01 20:49] LABS: Reflex Troponin-HS? (from REC) Y
== END 2021-10-01 20:31 | disposition home or self-care (01) ==
PROVIDERS: Emergency Provider Student in an Organized Health Care Education/Training Program; Visit Provider Student in an Organized Health Care Education/Training Program
DX: R07.9 Chest pain, unspecified (principal); M94.0 Chondrocostal junction syndrome [Tietze]; E87.6 Hypokalemia; Z87.891 Personal history of nicotine dependence; I10 Essential (primary) hypertension; Z82.49 Family history of ischemic heart disease and other diseases of the circulatory system
CPT/HCPCS: 71045; 71275; 80048; 84484; 85025; 85379; 93005; 99284; Q9967; A4216

== ENCOUNTER → 2021-11-16 | Outpatient (CLI) | payer OTHER, MEDICAID, SELFPAY ==
[2021-11-16 12:45] LABS: Anion Gap 4 (5-15); BUN 6 mg/dL (7-18); BUN/Creat Ratio 7.6 RATIO (10-20); Calcium,Total 8.7 mg/dL (8.5-10.1); Chloride 105 mmol/L (98-107); Creatinine, Serum 0.79 mg/dL (0.55-1.02); EST Glomerular Filtration Rate 98 mL/min (>60); Est Glom Filt Rate - Afr Amer 118 mL/min (>60); Glucose 102 mg/dL (74-106); Potassium 3.9 mmol/L (3.5-5.1); Sodium Level 137 mmol/L (136-145)
== END | disposition home or self-care (01) ==
LOC: BIMLAB 11:04
PROVIDERS: PCP Internal Medicine; Referring Provider Internal Medicine; Visit Provider Internal Medicine
DX: I10 Essential (primary) hypertension (principal)
CPT/HCPCS: 36415; 80048

== ENCOUNTER → 2021-11-22 | Outpatient (CLI) | payer OTHER, MEDICAID, SELFPAY ==
--- NOTE | 2021-11-22 13:16 | CT_ITS ---
STUDY: CT TEMPORAL BONES WITHOUT CONTRAST REASON FOR EXAM: Female, 21 years old. Right cholesteatoma. RADIATION DOSAGE (If Supplied By Facility): CTDIvol = ( 67.58 ) mGy, DLP = ( 582.46 ) mGycm TECHNIQUE: The patient was scanned in a multi detector CT scanner. High resolution transaxial imaging was performed without the administration of intravenous contrast material. Sagittal and coronal images were reconstructed. Individualized dose optimization techniques were used for this CT. COMPARISON: None. FINDINGS: RIGHT TEMPORAL BONE Normal right external auditory canal. Minimal erosion of the head of the malleus when compared to the left. Minimal erosion of the posterior and of the posterior aspect of the long process of the incus. The stapes is not visualized and may be eroded. Normal malleoincudal articulation. Nonvisualization of the incudostapedial articulation. Soft tissue density in the epitympanum. Normal mesotympanum and hypotympanum. Normal right posterior, superior and lateral semicircular canals. Normal right vestibule and cochlea. Normal tympanic segment of the facial nerve. Erosion in the lateral wall of the right aditus ad antrum when compared to the left. Partial erosion of the Korner''s septum. Minimal erosion in the lateral roof of the tegmen. Normal arcuate eminence. Mucosal edema of the right mastoid air cells are noncoalescent. Normal right petrous apex. Normal right petrous carotid artery. Normal right jugular fossa. Normal right internal auditory canal. Normal right vestibular and cochlear aqueducts. LEFT TEMPORAL BONE Normal left external auditory canal. Normal malleus, incus and stapedius. Normal malleoincudal and incudostapedial articulations. Normal epitympanum, mesotympanum, and hypotympanum. Normal left posterior, superior and lateral semicircular canals. Normal left vestibule and cochlea. Normal tympanic segment of the facial nerve. Normal Korner''s septum, tegmen tympani, arcuate eminence and aditus ad antrum. Normal left mastoid air cells. Normal left petrous apex. Normal left petrous carotid artery. Normal left jugular fossa. Normal left internal auditory canal. Normal left vestibular and cochlear aqueducts. OPINION: 1. Right middle ear cholesteatoma in the epitympanum with minimal erosion of the head of the malleus, the posterior aspect of the long process of the incus, presumably the stapes which is not visualized, the lateral roof of the tegmen and the lateral wall of the aditus ad antrum. Comparison with prior CT temporal bones will be helpful in determining interval changes if available. 2. Normal CT of the left temporal bone. 3. Incidentally included are retention cysts in the left sphenoid sinus. Electronically Signed: Sherman Segura MD at 16:27 EDT , CT/Orb Sella Post Fossa Ear w/o IMPRESSION: undefined
== END | disposition home or self-care (01) ==
LOC: CT 13:14
PROVIDERS: PCP Internal Medicine; Referring Provider Otolaryngology; Visit Provider Otolaryngology
DX: H71.91 Unspecified cholesteatoma, right ear (principal)
CPT/HCPCS: 70480

== ENCOUNTER 2022-01-22 10:47 | Day surgery (SDC) | payer OTHER, MEDICAID, SELFPAY ==
[2022-01-22] MEDS: Lactated Ringers 1,000 ML 15 ML IV ×2 (11:20→15:45)
[2022-01-22 11:33] LABS: Internal QC Validated? YES +Cl - CLEAR BKGD; Pregnancy, Urine Negative Negative
[2022-01-22 11:34] VITALS: BP 141/102; PULSE 86; RESP 18; TEMP 36.4; O2SAT 100; BMI 31.7
[2022-01-22] MEDS: Clindamycin 900 MG/50 ML BAG 75 MG IV (14:09)
--- NOTE | 2022-01-22 14:21 | PCM.OPRPT ---
Problems Associated Problem List Diagnoses (1) Cholesteatoma of attic of right ear: Report of Operation Date of Procedure: 01/22/22 Pre-Operative Diagnosis: right middle ear cholesteatoma Post-Operative Diagnosis: right middle ear cholesteatoma Surgery/Procedure Performed:: 1. tympanoplasty with mastoidectomy, right ear Surgeon: Joel Kingston Type of Anesthesia: General Description of Procedure: On the date of the procedure, after appropriate informed consent was obtained, the patient was brought to the operating room, placed in the supine position on the operating table. The patient was placed under general endotracheal anesthesia by the anesthesiologist.? The endotracheal tube was secured.? Facial nerve electrodes were placed in the patient's right side.? The postauricular area was shaved and the canal and postauricular area were both injected with 1% lidocaine with epinephrine.? A postauricular incision was made with a #15 blade down to the periosteum, where flaps were raised and the periosteum was exposed.? At this point, a T-shaped incision was made along the temporal line as well as the superior to inferior limb.? A #15 blade and iris scissor and Adson forceps were used to dissect into the temporal fascia and take a temporalis fascia graft.? This was placed on the fascia press and saved for future use.? A Salbadorpert periosteal elevator was used to remove the periosteum and expose the cortical mastoid bone.? Cortical mastoidectomy was performed using the saber drill.? The tegmen and sinodural angle were dissected and the horizontal semicircular canal was readily seen.? The antrum was drilled out and the cholesteatoma sac was visualized.? At this point, the attention was then taken to the ear canal, where a posterior canal incision was made with a large round knife and the annulus was lifted up; however, the superior portion of the annulus encompassing roughly 40% of the tympanic membrane was involved in cholesteatoma, this was excised and portion of the cholesteatoma was removed through the ear canal.? At this point, the tympanic membrane was raised, the annulus was elevated and tympanomeatal flap was created.? The chorda tympani was located and preserved.? Of note, the middle ear cholesteatoma was then elevated off of the promontory and it was seen to be abutting the facial nerve.? This was slowly dissected off of the tympanic segment of the facial nerve and the facial nerve was completely preserved. ?Remnants of the malleus and incus were seen and they were completely nonfunctional and necrosed, these were both removed.? Once the entirety of the cholesteatoma was removed, the middle ear and mastoid spaces were reexamined and no additional cholesteatoma was seen.? Of note, the saber drill was used to remove a portion of the posterior canal wall along the scutum that was not already eroded and no stapes remnant was seen the area where the foot plate of the stapes exists and thus the oval window was palpated, but due to scar tissue and inflamed middle ear mucosa, this could not be located.? The temporalis fascia graft was laid over top of the stapes remnant with no cartilage graft as a second look procedure in 6 months was probable.? The remainder of the tympanic membrane was laid over the fascia graft.? The mastoid was irrigated with normal saline.? Gelfoam was placed along the annulus and the external auditory canal was filled with bacitracin.? The postauricular incision was closed with a combination of 3-0 Vicryl and 3-0 nylon.? A cotton ball was placed and a mastoid dressing was placed.? The table was rotated 90 degrees toward the anesthesiologist where the patient was subsequently extubated uneventfully.? The patient was transferred to the postanesthesia care unit in stable condition.
[2022-01-22] MEDS: Lidocaine 1% (20 ml mdv) 20 ML Vial INFILT (14:45)
--- NOTE | 2022-01-22 15:21 | OP.PCM_ITS ---
Report of Operation Date of Procedure: 01/22/22 Pre-Operative Diagnosis: cholesteatoma, right middle ear Post-Operative Diagnosis: cholesteatoma, right middle ear Surgery/Procedure Performed:: mastoidectomy, right Surgeon: Joel Kingston Type of Anesthesia: General Specimen's removed: middle ear mass Description of Procedure: On the date of the procedure, after appropriate informed consent was obtained, the patient was brought to the operating room, placed in the supine position on the operating table. The patient was placed under general endotracheal anesthe brian by the anesthesiologist.? The endotracheal tube was secured.? Facial nerve electrodes were placed in the patient's right side.? The postauricular area was shaved and the canal and postauricular area were both injected with 1% lidocaine with epinephrine.? A postauricular incision was made with a #15 blade down to the periosteum, where flaps were raised and the periosteum was exposed.? At this point, a T-shaped incision was made along the temporal line as well as the superior to inferior limb.? A [place] periosteal elevator was used to remove the periosteum and expose the cortical mastoid bone.? Cortical mastoidectomy was performed using the saber drill.? The tegmen and sinodural angle were dissected and the cholesteatoma was encountered in the mastoid. this was roughly 1.5 cm in diameter. The antrum was drilled out and the cholesteatoma sac was visualized.? The incus was not visualized, as was assumed to be destroyed. a apple drill was used to further develop the mastoid cavity and the lateral canal was seen. using a gimmick and a 5 suction, the cholesteatoma sac was teased free, however it was very inflamed and adherent. a considerable amount of time was spent dissecting out the mass, which filled the middle ear space. At this point after seeing the extent of her disease, it was certain that she would need a second look and likely a canal wall down procedure with removal of all ossicles and placement of a prosthesis. Given this, the decision was made to remove the mass and all possible squamous fragments and return to the OR in six months for a second look. No ossicles were removed. A speculum was placed in the external auditory canal where the mass remnants could be seen through an attic retraction pocket. Any visualized debris was removed with a gimmick and the suction. Again, a canal incision was not made as this will be performed during the second look procedure. The mastoid bowl was revisited and no squamous debris could be visualized. The postauricular incision was closed with a combination of 3-0 Vicryl and 3-0 nylon.? A cotton ball was placed and a mastoid dressing was placed.? The table was rotated 90 degrees toward the anesthesiologist where the patient was subsequently extubated uneventfully.? The facial nerve was intact on the right. The patient was transferred to the postanesthesia care unit in stable condition.
[2022-01-22] MEDS: Ciprofloxacin 0.3% 2.5ml Bottle 1 DRP (15:54)
[2022-01-22] MEDS: Neomycin/Bacitracin/Polymyxin Ointment 1 APPLIC (15:55)
[2022-01-22 16:50] VITALS: BP 141/102; BP 166/99; PULSE 104; RESP 18; TEMP 36.9; O2SAT 96
--- NOTE | 2022-01-22 16:54 | DCINST_ITS ---
Discharge Instructions Diet Discharge Diet: No restrictions Activity Discharge Activity: Return to Normal Activity Dressing / Incision Call your doctor if your incision/area has: Continuous Slow Oozing and Foul Smelling Discharge Additional Dressing/Incision Instructions:: wear the head dressing until afternoon then remove it. after that, you may wash the incision with soap and water. use the ointment given on the incision twice daily. you were given ear drops - hold onto these, they will be used in the future, but do not use them now. Follow Up Care Please Follow Up With: Joel Kingston MD Test Results: Test results from this visit will be discussed in further detail at your follow- up appointment, if applicable. Discharge Plan Admission Attending Provider: Joel Kingston Primary Care Provider: Xin Cardona Discharge Orders/Prescriptions Prescriptions: No Action Women's Multivitamin Gummies 200 mcg tablet,chewable 1 tab PO DAILY (DME) Blood Pressure Cuff Misc See Rx Instructions .ROUTE .MEDSUPPLY Qty: 1 0RF Rx Instructions: Check Blood Pressure Twice a Day sertraline 25 mg tablet 25 mg PO DAILY Qty: 90 1RF triamterene-hydrochlorothiazid 37.5-25 mg tablet 2 tab PO QAM Referrals / Follow Up: Xin Cardona MD [Primary Care Provider] -
[2022-01-22 17:00] VITALS: BP 141/102; BP 152/91; PULSE 98; RESP 18; O2SAT 98
[2022-01-22 17:15] VITALS: BP 141/102; BP 148/91; PULSE 89; RESP 18; O2SAT 96
[2022-01-22 17:20] VITALS: BP 141/102; BP 160/80; PULSE 98; RESP 18; TEMP 36.9; O2SAT 97
[2022-01-22] MEDS: HYDROcodone Bitartrate/Apap 5/325 Tablet PO (18:03)
[2022-01-22 18:26] VITALS: BP 139/78; BP 141/102; PULSE 82; RESP 16; TEMP 36.7; O2SAT 97
--- NOTE | 2022-01-23 | MASS_PTH ---
PATIENT: HYACINTH CERRATO LOC: [facility] [place] U#:[id number] AGE/SX: 21/ ROOM: RE01/22/[address]: Dr. Joel Kingston MD : 2000 BED: DIS: 01/22/2022 SPEC #: [id number] RECD: 01/23/22 13:26 STATUS: DANNY REWes #: [id number] JAMES: 01/23/22 00:[address]: Joel Kingston DEPT: SURGICAL PATHOLOGY RECD BY: Adrian Cody ENTERED: 01/23/22 13:26 SP TYPE: Mass OTHR DR: Dr. Xin Cardona MD Tissues: Ear, NOS Procedures: Surgery Specimen Level III HEADER OPERATION: Mastoidectomy PRE-OP DIAGNOSIS: Cholesteatoma of attic, right ear TISSUE SUBMITTED: Right ear mass MICROSCOPIC DIAGNOSIS Right ear mass, biopsy: Fragments of epidermal inclusion cyst, mildly inflamed. AM:oriana 01/24/2022 MICROSCOPIC DESCRIPTION Slides are reviewed. GROSS DESCRIPTION Received in fixative is one container labeled with the patient's name and designated right ear mass. The specimen consists of multiple pieces of polanco-white to yellow soft tissue that in aggregate measure 1.5 x 1 x 0.2 cm. The specimen is totally submitted in one cassette. / SJ:oriana 01/23/2022 TC:5 CPT: 80956
== END 2022-01-22 18:29 | disposition home or self-care (01) ==
LOC: SDC 10:48 → AC 10:51
PROVIDERS: Anesthesiology; PCP Internal Medicine; Referring Provider Otolaryngology; Visit Provider Otolaryngology
PROC: (CPT 69643; principal; 2022-01-22 12:15)
DX: H71.01 Cholesteatoma of attic, right ear (principal); I10 Essential (primary) hypertension; K21.9 Gastro-esophageal reflux disease without esophagitis; Z87.42 Personal history of other diseases of the female genital tract; Z86.16 Personal history of COVID-19; F41.9 Anxiety disorder, unspecified
CPT/HCPCS: 69501; 00120; 81025; 88304; 88305; J7120; J2405

== ENCOUNTER 2022-02-20 23:09 | Emergency (ER) | payer OTHER, SELFPAY ==
[2022-02-20 23:11] VITALS: BP 167/102; PULSE 86; RESP 16; TEMP 36.7; O2SAT 100; BMI 33.7
--- NOTE | 2022-02-20 23:42 | EDS_ITS ---
HPI History of Present Illness Chief Complaint: Wound Check Narrative Narrative: 21-year-old female with history of Johanna stoma of the right ear status post surgery with Dr. Barriga about a month ago presenting with pain in the right ear. She states there is been some drainage coming out of the ear. She is on Ciprodex. She is applying bacitracin to the surgical scar behind her right ear. She states that she is having increasing pain over the last few days. She has not spoken with ENT. No systemic signs or symptoms. She is concerned she might of seen a worm around her incision site as well. [facility] Medical History Anxiety Former smoker Generalized anxiety disorder with panic attacks Heartburn Hypertension Restless legs Smoker Tobacco abuse counseling Home Medications multivitamin with minerals-folic acid 200 mcg chewable tablet (Women's Multivitamin Gummies) 1 tab PO DAILY 05/24/21 [History Last Taken Unknown] sertraline 25 mg tablet 25 mg PO DAILY #90 tabs 01/18/22 [Rx Last Taken Unknown] triamterene 37.5 mg-hydrochlorothiazide 25 mg tablet 2 tab PO QAM 01/22/22 [History Last Taken Unknown] amoxicillin 875 mg-potassium clavulanate 125 mg tablet 1 tab PO BID #20 tabs 02/21/22 [Rx Last Taken Unknown] Allergy/AdvReac Type Severity Reaction Status Date / Time No Known Allergies Allergy Verified 02/20/22 23:10 Family History Father Hypertension Grandfather Myocardial infarction Surgical History No pertinent past surgical history Social History household members: significant other and none number of children: 0 current occupational status: employed current occupation: [employer] Smoking Status: Light Smoker (<10/day) Electronic Cigarette Use: with nicotine alcohol intake: never substance use type: does not use what type of physical activity do you participate in: running and bicycling frequency: 1-2 times per week seatbelt use: always do you feel safe at home: Yes additional social history: single ROS ROS ED Constitutional Constitutional ED: Denies chills or fever(s) Eyes Eyes: Denies blurry vision or change in vision ENT ENT ED: Reports ear pain right; Denies rhinorrhea Cardiovascular Cardiovascular: Denies chest pain or palpitations Respiratory/Chest Respiratory/Chest: Denies cough or dyspnea Gastrointestinal Gastrointestinal: Denies abdominal pain or constipation Genitourinary Genitourinary ED: Denies dysuria or hematuria Musculoskeletal Musculoskeletal: Denies arthralgias Integumentary Denies abscess or Abrasions Neurologic Neurologic: Denies headache(s) or paresthesias EXAM Physical Exam Const Vital Signs: 02/20/22 23:11 Temperature 98.0 F Temperature Source Temporal Pulse Rate 86 Respiratory Rate 16 Blood Pressure 167/102 H Blood Pressure Mean 123 Pulse Ox 100 Oxygen Delivery Method Room Air Positive well nourished General Appearance ED: NAD; Negative for pallor HEENT Reports moist mucous membranes HEENT Narrative: Surgical scar behind the right ear appears to be clean, dry, intact. There is no drainage. I do not visualize any worms in the incision which was the patient's concerned. Right TM appears normal. There is no erythema, bulging, other abnormalities. External auditory canal minimally erythematous. There is no raul drainage that I can see, out of the ear. Patient does have general pain with movement of the ear. Negative for trauma Eyes PERRL and EOMs intact bilaterally Neck no lymphadenopathy and supple Resp normal respiratory effort Cardio regular rate and regular rhythm GI normal to inspection, nondistended, normoactive bowel sounds Extremity normal to inspection Neuro oriented x3 and CN's II-XII intact bilaterally Psych mental status grossly normal Skin General Skin Exam: Negative for jaundice or pallor MDM MDM MDM Narrative Medical decision making narrative: Patient presenting with right ear pain. She is on Ciprodex every day since the surgery. She also applies bacitracin ointment to the surgical scar behind her right ear. I do not see any evidence of any redness of the ear. There is pain with movement of the ear. The TM looks normal. She does have pain when I look into her right ear. Her surgical scar looks well-healing. I spoke with Dr. Barriga who recommended putting her on Augmentin. He can follow-up with her in the office. This was prescribed for her. She is amenable to this plan. She is discharged home in stable condition. Impression: 1. Right ear pain 2. Postop wound check Lab Data Attestation: I reviewed the patient's lab results. Discharge Plan Triage Chief Complaint: Wound Check ED Provider: Wilton Nielsen Dx/Rx/DC Orders Instructions: ED Post Op Wound Check, Pain Prescriptions: New amoxicillin-pot clavulanate 875-125 mg tablet 1 tab PO BID Qty: 20 0RF No Action Women's Multivitamin Gummies 200 mcg tablet,chewable 1 tab PO DAILY sertraline 25 mg tablet 25 mg PO DAILY Qty: 90 1RF triamterene-hydrochlorothiazid 37.5-25 mg tablet 2 tab PO QAM Primary Care Provider: Xin Cardona Referrals: Joel Kingston MD [Med Staff - Active Staff] - As soon as possible Xin Cardona MD [Primary Care Provider] - Disposition Disposition: Home, Self Care
[2022-02-21] MEDS: Amox/Clavulanate 875 MG Tablet PO (00:36)
== END 2022-02-21 00:51 | disposition home or self-care (01) ==
PROVIDERS: Emergency Provider Student in an Organized Health Care Education/Training Program; PCP Internal Medicine; Visit Provider Student in an Organized Health Care Education/Training Program
DX: H92.01 Otalgia, right ear (principal); I10 Essential (primary) hypertension; Z87.891 Personal history of nicotine dependence
CPT/HCPCS: 99283

== ENCOUNTER → 2022-06-18 | Outpatient (CLI) | payer OTHER, MEDICAID, SELFPAY ==
--- NOTE | 2022-06-18 08:00 | CT_ITS ---
STUDY: CT TEMPORAL BONES WITHOUT CONTRAST - ATTN: I.A.C. S REASON FOR EXAM: Female, 21 years old. R CHOLESTERETOMA RADIATION DOSAGE (If Supplied By Facility): CTDIvol = ( 67.58 ) mGy, DLP = ( 624.70 ) mGycm TECHNIQUE: The patient was scanned in a multi detector CT scanner. Transaxial imaging was performed without the administration of intravenous contrast material. Sagittal and coronal images were reconstructed. Individualized dose optimization techniques were used for this CT. COMPARISON: None. FINDINGS: RIGHT TEMPORAL BONE Normal right internal auditory canal. Normal visualized ossicles and tympanic cavity. Normal right cochlea and semicircular canals. Normal vestibular aqueduct. Normal right petrous carotid artery. Normal right jugular fossa. There are extensive inflammatory changes of the right mastoid air cells consistent with severe chronic otomastoiditis. There is bony destruction of the mastoid air cells and the right temporal bone. Normal right petrous apex. LEFT TEMPORAL BONE Normal left internal auditory canal. Normal visualized ossicles and tympanic cavity. Normal left cochlea and semicircular canals. Normal vestibular aqueduct. Normal left petrous carotid artery. Normal right jugular fossa. Normal left mastoid air cells. Normal left petrous apex. CT/Orb Sella Post Fossa Ear w/o IMPRESSION: Extensive soft tissue prominence in the right mastoid air cells and the temporal bone with bony destruction. The middle ear cavities are clear. Electronically Signed: Florian Kwan MD at 8:48 EST ,
== END | disposition home or self-care (01) ==
LOC: CT 07:58
PROVIDERS: PCP Internal Medicine; Referring Provider Otolaryngology; Visit Provider Otolaryngology
DX: H71.01 Cholesteatoma of attic, right ear (principal)
CPT/HCPCS: 70480

== ENCOUNTER 2022-06-24 21:14 | Emergency (ER) | payer OTHER, MEDICAID, SELFPAY ==
[2022-06-24 21:15] VITALS: BP 183/107; PULSE 86; RESP 18; TEMP 35.8; O2SAT 100; BMI 33.3
--- NOTE | 2022-06-24 21:28 | EDS_ITS ---
HPI HPI - GI History of Present Illness Chief Complaint: GI Bleed Informant: patient Narrative Narrative: Patient presents with bright red blood per rectum. About 30 minutes ago she had some bright red blood on the tissue when she was wiping. It was about an area inch to inch and half around. No clots. She had had a firm bowel movement a few hours earlier. Her stools have been harder recently. She has had this happen before but normally it is only a small streak of blood on the tissue and this was a larger amount. She does not have diarrhea. She does not have nausea vomiting. No history of abdominal surgery. No urinary symptoms. Last menstrual period ended on about the 10th she is not having bleeding or discharge now. There is no family history of ulcerative colitis or Crohn's disease. She has never had irritable bowel or chronic bowel problems. She is not on any blood thinners. She states that there is soreness at the rectum now. It does hurt a bit. She has not felt a mass. There is been no fevers or chills. PFSH [facility] Medical History Anxiety Contact with and (suspected) exposure to other viral communicable diseases Former smoker Generalized anxiety disorder with panic attacks Heartburn Hypertension Restless legs Smoker Tobacco abuse counseling URI (upper respiratory infection) Home Medications multivitamin with minerals-folic acid 200 mcg chewable tablet (Women's Multivitamin Gummies) 1 tab PO DAILY 05/24/21 [History Last Taken Unknown] triamterene 37.5 mg-hydrochlorothiazide 25 mg tablet 2 tab PO QAM 01/22/22 [History Last Taken Unknown] sertraline 25 mg tablet 25 mg PO DAILY #90 tabs 03/13/22 [Rx Last Taken Unknown] prednisone 10 mg tablet 10 mg PO BID #10 tabs 03/21/22 [Rx Last Taken Unknown] Allergy/AdvReac Type Severity Reaction Status Date / Time No Known Allergies Allergy Verified 06/24/22 21:16 Family History Father Hypertension Grandfather Myocardial infarction Surgical History No pertinent past surgical history Social History household members: significant other and none number of children: 0 current occupational status: employed current occupation: [employer] Smoking Status: Light Smoker (<10/day) Electronic Cigarette Use: with nicotine alcohol intake: never substance use type: does not use what type of physical activity do you participate in: running and bicycling frequency: 1-2 times per week seatbelt use: always do you feel safe at home: Yes additional social history: single ROS ROS ED Constitutional Constitutional ED: Denies chills or fever(s) Cardiovascular Cardiovascular: Denies chest pain or racing heartbeat Respiratory/Chest Respiratory/Chest: Denies cough or dyspnea Gastrointestinal Gastrointestinal: Reports constipation and other Details: See history of present illness ; Denies abdominal pain, diarrhea, melena, nausea or vomiting Genitourinary Genitourinary ED: Denies hematuria Musculoskeletal Musculoskeletal: Denies back pain Integumentary Denies Abrasions Neurologic Neurologic: Denies headache(s) Psychiatric Psychiatric: Denies anxiety Endocrine Endocrinology: Denies polyphagia or polyuria Hematologic/Lymphatic Hematologic/Lymphatic: Denies easy bleeding or easy bruising Allergic/Immunologic Allergic/Immunologic ED: Denies urticaria EXAM Physical Exam Narrative Exam Narrative: Patient awake alert no acute distress. She walked back to the room without any difficulties. HEENT shows moist mucous membranes. No rashes or trauma. Eyes show no pallor. Lungs are clear bilaterally. Saturations are 100% on room air. Heart is regular. Pulse is about 80. No murmur. Abdomen is soft completely nontender no rebound or guarding. Rectal exam will be done separately with nurse in attendance. Extremities show no tenderness or pallor Skin is not diaphoretic pale showing petechiae or purpura. Const Vital Signs: 06/24/22 21:15 Temperature 96.5 F L Temperature Source Temporal Pulse Rate 86 Respiratory Rate 18 Blood Pressure 183/107 H Blood Pressure Mean 132 Pulse Ox 100 Oxygen Delivery Method Room Air MDM MDM MDM Narrative Medical decision making narrative: Rectal exam was done with nurse Lynette in attendance. I explained the process to the patient. We kept her is covered as possible. Exam shows no sign at all of infection. There is no hemorrhoid. There is really no notable tenderness. There is no bleeding. She does have both a skin tag as a sign of a prior fissure and what looks to be an acute fissure. It is a little bit red and irritated. But is not bleeding at this time. Since she had a small amount of blood, no clots, her conjunctive is not pale and palms are not pale, heart rate is not high and she has no orthostatic symptoms, I do not think we need to do a CBC. I think we need to treat this fissure. It was explained that she can get [id number] medicine such as Preparation H will will calm the area down. But the primary treatment is hydration and stool softeners to avoid straining with hard stool. Discharge Plan Triage Chief Complaint: GI Bleed ED Provider: Joseph Andrade Dx/Rx/DC Orders Clinical Impression: Rectal fissure, History of rectal bleeding Instructions: ED Understanding Anal Fissures Prescriptions: No Action Women's Multivitamin Gummies 200 mcg tablet,chewable 1 tab PO DAILY prednisone 10 mg tablet 10 mg PO BID Qty: 10 0RF diphenhydramine HCl [Benadryl] 25 mg capsule 25 mg PO QHS PRN naproxen sodium [Aleve] 220 mg capsule 220 mg PO BID PRN triamterene-hydrochlorothiazid 37.5-25 mg tablet 2 tab PO QAM sertraline 25 mg tablet 25 mg PO DAILY Qty: 90 1RF Primary Care Provider: Xin Cardona Referrals: iXn Cardona MD [Primary Care Provider] - 1 Week Activity Restrictions/Additional Instructions: Increased water and fiber in diet. May use MiraLAX to keep stools soft. Disposition Disposition: Home, Self Care
== END 2022-06-24 21:51 | disposition home or self-care (01) ==
PROVIDERS: Emergency Provider Emergency Medicine; PCP Internal Medicine; Visit Provider Emergency Medicine
DX: K60.2 Anal fissure, unspecified (principal); I10 Essential (primary) hypertension
CPT/HCPCS: 99282

== ENCOUNTER 2022-07-07 14:37 | Emergency (ER) | payer OTHER, MEDICAID, SELFPAY ==
[2022-07-07 14:38] VITALS: BP 169/117; PULSE 138; RESP 18; TEMP 36.6; O2SAT 99; BMI 32.3
[2022-07-07 15:16] VITALS: BP 158/99
[2022-07-07 15:48] VITALS: BP 168/105
--- NOTE | 2022-07-07 17:08 | EDS_ITS ---
HPI <ANITA Foster - Last Filed: 07/07/22 17:19> History of Present Illness Chief Complaint: Ear Problem Narrative Narrative: Patient presenting today with pain in her right ear that she has had for the past day as well as throat pain that she has had for the past 2 weeks. She states that she has tried taking Benadryl, throat spray, and DayQuil without relief. She also reports having nasal congestion and a slight dry cough. She denies any fever, chills, facial pain, headaches, abdominal pain, nausea, and vomiting. She states that last week she was tested for COVID, flu, and RSV and was negative for all of them. PMH includes hypertension and cholesteatoma of R ear. PFSH <ANITA Foster - Last Filed: 07/07/22 17:19> PFSH Medical History Anxiety Contact with and (suspected) exposure to other viral communicable diseases Former smoker Generalized anxiety disorder with panic attacks Heartburn Hypertension Restless legs Smoker Tobacco abuse counseling URI (upper respiratory infection) Home Medications triamterene 37.5 mg-hydrochlorothiazide 25 mg tablet 2 tab PO QAM 01/22/22 [History Last Taken Unknown] sertraline 25 mg tablet 25 mg PO DAILY #90 tabs 03/13/22 [Rx Last Taken Unknown] fpeozdfm-ksnfay-DY-thonzonm 3.3 mg-3 mg-10 mg-0.5 mg/mL ear drops,susp (Cortisporin-TC) 1 applic RIGHT EAR Q6H 7 days #10 mL 07/07/22 [Rx Last Taken Unknown] ofloxacin 0.3 % ear drops 10 drp EACH EAR DAILY 7 days #5 mL 07/07/22 [Rx Last Taken Unknown] ofloxacin 0.3 % ear drops 10 drp RIGHT EAR DAILY 7 days #5 mL 07/07/22 [Rx Last Taken Unknown] Allergy/AdvReac Type Severity Reaction Status Date / Time No Known Allergies Allergy Verified 07/07/22 14:38 Family History Father Hypertension Grandfather Myocardial infarction Surgical History No pertinent past surgical history Social History household members: significant other and none number of children: 0 current occupational status: employed current occupation: [employer] Smoking Status: Former smoker Electronic Cigarette Use: with nicotine alcohol intake: never substance use type: does not use what type of physical activity do you participate in: running and bicycling frequency: 1-2 times per week seatbelt use: always do you feel safe at home: Yes additional social history: single ROS <ANITA Foster - Last Filed: 07/07/22 17:19> ROS ED Constitutional Constitutional ED: Denies chills, fever(s) or sweats Eyes Eyes: Denies blurry vision or diplopia ENT ENT ED: Reports ear pain right and sore throat Cardiovascular Cardiovascular: Denies chest pain or palpitations Respiratory/Chest Respiratory/Chest: Reports cough; Denies dyspnea Gastrointestinal Gastrointestinal: Denies abdominal pain, nausea or vomiting Musculoskeletal Musculoskeletal: Denies arthralgias, myalgias or neck pain Integumentary Denies abscess, Abrasions or rash Neurologic Neurologic: Denies weakness Psychiatric Psychiatric: Denies anxiety, depression, suicidal ideation or suicidal thoughts EXAM <ANITA Foster - Last Filed: 07/07/22 17:19> Physical Exam Const Vital Signs: 07/07/22 14:38 07/07/22 15:16 07/07/22 15:48 Temperature 98 F Temperature Source Temporal Pulse Rate 138 H Respiratory Rate 18 Blood Pressure 169/117 H 158/99 H 168/105 H Blood Pressure Mean 134 118 Pulse Ox 99 Oxygen Delivery Method Room Air Positive well nourished, well developed and no apparent distress General Appearance ED: well developed HEENT Reports normocephalic and head/scalp atraumatic HEENT Narrative: External auditory canal slightly erythemic on the right side. TMs clear bilaterally. Patient has pain and irritation with insertion of the otoscope on the right side. Posterior pharynx mildly erythemic without any tonsillar exudates, uvula midline, no trismus or drooling Mouth ED: Yes moist mucous membranes normal Eyes PERRL and EOMs intact bilaterally Neck full ROM and supple Chest Wall inspection of chest normal Resp normal respiratory effort and clear to auscultation bilaterally Cardio regular rate and regular rhythm GI soft to palpation, non-tender, non-distended and no masses Back/Spine normal ROM and normal to inspection Extremity normal to inspection and full ROM Neuro oriented x3, CN's II-XII intact bilaterally, moves all extremities, no focal motor deficits and no sensory deficits noted Sensorium / Orientation: awake and alert Psych mental status grossly normal and thought process normal Skin no rashes or lesions noted and no wounds <Dr. Luis Enrique Irizarry MD - Last Filed: 07/07/22 19:02> Physical Exam Const Vital Signs: 07/07/22 14:38 07/07/22 15:16 07/07/22 15:48 Temperature 98 F Temperature Source Temporal Pulse Rate 138 H Respiratory Rate 18 Blood Pressure 169/117 H 158/99 H 168/105 H Blood Pressure Mean 134 118 Pulse Ox 99 Oxygen Delivery Method Room Air MDM <ANITA Foster - Last Filed: 07/07/22 17:19> [facility] Narrative Medical decision making narrative: Patient presenting today with ear pain on the right side and a sore throat that she has had for the past 2 weeks. She is well-appearing and in no acute distress. She is afebrile. she does have otitis externa on the right side. I do not feel that strep test is indicated as patient has had symptoms for 2 weeks and she has a Centor score of 0. She will be given drops for her right ear and will be discharged home in stable condition. Patient does not have symptoms con sistent with sinusitis. She is to use supportive care measures. She likely has a viral illness. She is comfortable with plan. Patient is hypertensive here in the emergency department but she states that she missed her medication this afternoon. Pulse was rechecked and patient was no longer tachycardic. <Dr. Luis Enrique Irizarry MD - Last Filed: 07/07/22 19:02> [facility] Treatment and Re-Evaluation Comments:: Seen and evaluated independently and in conjunction with physician plastic surgery assistant. Agree with notes above unless documented otherwise. Patient with 1-2 weeks of URI symptoms no dyspnea, fevers, headache, sinus pressure, and for the last day or 2 she has had discomfort in her right ear without changes in her hearing. 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 She states that she has had water in her ear from the shower but no swimming anywhere else lately. Exam: Well-appearing, lungs clear to auscultation no sinus tenderness or retropharyngeal exudates. Right TM is abnormal appearing but without any erythema or signs of a purulent effusion. The right EAC is mildly erythematous and tender with speculum examination, no edema or purulent discharge. There is pain with manipulation of the pinna, patient states this is not typical for her. Suspect viral URI and otitis externa which we will prescribe antibiotic drops for. Discharge Plan Triage Chief Complaint: Ear Problem ED Midlevel Provider: Comfort Mccollum ED Provider: Luis Enrique Irizarry Dx/Rx/DC Orders Clinical Impression: Otitis externa, Viral URI Instructions: ED External Ear Infection (Adult) Prescriptions: New ofloxacin 0.3 % drops 10 drp EACH EAR DAILY 7 Days Qty: 5 0RF Cortisporin-TC 3.3-3-10-0.5 mg/mL drops,suspension 1 applic RIGHT EAR Q6H 7 Days Qty: 10 0RF Rx Instructions: 4 drops 4 times a day in the right ear ofloxacin 0.3 % drops 10 drp RIGHT EAR DAILY 7 Days Qty: 5 0RF No Action triamterene-hydrochlorothiazid 37.5-25 mg tablet 2 tab PO QAM sertraline 25 mg tablet 25 mg PO DAILY Qty: 90 1RF Primary Care Provider: Xin Cardona Referrals: Xin Cardona MD [Primary Care Provider] - 3-5 Days Activity Restrictions/Additional Instructions: Apply 10 drops to the right ear once daily for the next 7 days. Disposition Disposition: Home, Self Care Discharge Date/Time: 07/07/22 16:13
== END 2022-07-07 16:13 | disposition home or self-care (01) ==
PROVIDERS: Emergency Provider Emergency Medicine; PCP Internal Medicine; Visit Provider Emergency Medicine
DX: J06.9 Acute upper respiratory infection, unspecified (principal); H60.91 Unspecified otitis externa, right ear; H71.91 Unspecified cholesteatoma, right ear; I10 Essential (primary) hypertension; Z87.891 Personal history of nicotine dependence
CPT/HCPCS: 99282

== ENCOUNTER → 2022-07-31 | Outpatient (CLI) | payer OTHER, MEDICAID, SELFPAY ==
[2022-08-07 17:16] LABS: HPV Reflexed? NOT INDICATED
== END | disposition home or self-care (01) ==
LOC: LABSPEC 16:16
PROVIDERS: PCP Internal Medicine; Referring Provider Registered Nurse; Visit Provider Registered Nurse
DX: Z12.4 Encounter for screening for malignant neoplasm of cervix (principal)
CPT/HCPCS: 88175; G0145

== ENCOUNTER → 2022-09-25 | Outpatient (CLI) | payer OTHER, MEDICAID, SELFPAY | END | disposition home or self-care (01) | LOC: LABSPEC 16:30 | PROVIDERS: PCP Internal Medicine; Visit Provider Otolaryngology | DX: H92.10 Otorrhea, unspecified ear (principal) | CPT/HCPCS: 87070; 87075; 87077; 87186; 87205 ==

== ENCOUNTER → 2022-11-01 | Outpatient (CLI) | payer OTHER, MEDICAID, SELFPAY ==
[2022-11-01 12:32] LABS: Absolute Lymphocyte Count 1.82 X10^3/uL (0.83-4.51); Absolute Neutrophil Count 5.3 X10^3/uL (2.0-7.7); Basophil# 0.06 X10^3/uL; Basophil% 0.8 % (0-1); Eosinophils% 1.3 % (0-5); Hematocrit 42.1 % (37-47); Hemoglobin 13.8 g/dL (12.0-15.0); Lymphocyte # 1.82 X10^3/ul (0.83-4.51); Lymphocyte % 23.6 % (19-41); Mean Corp Hgb Conc 32.8 g/dL (32-36); Mean Corpuscular Hgb 29.7 pg (27.0-32.0); Mean Corpuscular Volume 90.7 fL (81-99); Mean Platelet Vol. 11.5 fl (6.2-12.0); Monocyte# 0.37 X10^3/uL; Monocyte% 4.8 % (0-10); NRBC Flagged by Analyzer 0 % (0-5); Neutrophil # 5.32 X10^3/uL (2.7-7.7); Platelet Count 247 K/mm3 (150-450); RBC Distribution Width CV 12.5 % (11.6-14.6); RBC Distribution Width SD 41.1 fl (35.1-43.9); Red Blood Count 4.64 M/mm3 (4.2-5.4); White Blood Count 7.7 K/mm3 (4.4-11.0)
[2022-11-01 13:27] LABS: AST(SGOT) 16 U/L (15-37); Alanine Aminotransfer ALT/SGPT 29 U/L (13-56); Albumin, Serum 3.8 g/dL (3.2-5.0); Alkaline Phosphatase 56 U/L (45-117); Anion Gap 6 (5-15); BUN 9 mg/dL (7-18); BUN/Creat Ratio 11.4 RATIO (10-20); Calcium,Total 8.8 mg/dL (8.5-10.1); Chloride 105 mmol/L (98-107); Cholesterol 155 mg/dL (200); Creatinine, Serum 0.79 mg/dL (0.55-1.02); EST Glomerular Filtration Rate 96 mL/min (>60); Est Glom Filt Rate - Afr Amer 117 mL/min (>60); Globulin 3.9 g/dL (2.2-4.2); Glucose 110 mg/dL (74-106); High Density Lipoprotein 36 mg/dL; Potassium 4.1 mmol/L (3.5-5.1); Protein, Total 7.7 g/dL (6.4-8.2); Sodium Level 137 mmol/L (136-145); Triglycerides 257 mg/dL; Very Low Density Lipoprotein 51 mg/dL (5-40)
== END | disposition home or self-care (01) ==
LOC: BIMLAB 09:46
PROVIDERS: PCP Internal Medicine; Referring Provider Internal Medicine; Visit Provider Internal Medicine
DX: I10 Essential (primary) hypertension (principal)
CPT/HCPCS: 36415; 80053; 80061; 85025

== ENCOUNTER → 2023-02-28 | Outpatient (CLI) | payer OTHER, SELFPAY | END | disposition home or self-care (01) | LOC: LABSPEC 17:06 | PROVIDERS: PCP Internal Medicine; Referring Provider Registered Nurse; Visit Provider Registered Nurse | DX: Z20.2 Contact with and (suspected) exposure to infections with a predominantly sexual mode of transmission (principal); N91.2 Amenorrhea, unspecified | CPT/HCPCS: 87491; 87591 ==

== ENCOUNTER 2023-07-25 16:07 | Emergency (ER) | payer OTHER, SELFPAY ==
[2023-07-25 16:08] VITALS: BP 138/108; PULSE 101; RESP 18; TEMP 35.6
[2023-07-25 16:09] VITALS: BP 138/106; PULSE 101; RESP 16; TEMP 35.6; BMI 31.5
--- NOTE | 2023-07-25 16:28 | EKG12_ITS ---
Test Reason : Blood Pressure : / mmHG Vent. Rate : 082 BPM Atrial Rate : 082 BPM P-R Int : 154 ms QRS Dur : 090 ms QT Int : 376 ms P-R-T Axes : 042 059 060 degrees QTc Int : 439 ms Normal sinus rhythm Normal ECG Confirmed by Neftali Shukla ([id number]), market editor CHAZ BURKS ([id number]) on 07/28/2023 6:35:00 AM Referred By: Confirmed By:Neftali Shukla
--- NOTE | 2023-07-25 16:28 | EX.ED.DYSGE1 ---
HPI History of Present Illness Chief Complaint: Palpitations Detail of Chief Complaint: Palpitations Informant: patient Narrative Narrative: Patient presents to the emergency department complaint of palpitations. Patient states that it has been relatively frequent over the last 4 days. Patient states his symptoms can last about 2 minutes or so. She describes it like a cramp in her chest or a headache up. Denies racing heart. Denies feeling syncopal. She does have history of anxiety and hypertension. She takes spironolactone with hydrochlorothiazide in it. She does not have any thyroid history. [facility] Medical History (Updated 07/25/23 @ 18:[address] Chan Lyons, DO) Acne Anxiety Contact with and (suspected) exposure to other viral communicable diseases Former smoker Generalized anxiety disorder with panic attacks Heartburn Hyperlipidemia Hypertension Insomnia Obesity (BMI 30-39.9) Restless legs Smoker Strain of left elbow Tobacco abuse counseling URI (upper respiratory infection) Home Medications spironolactone 25 mg-hydrochlorothiazide 25 mg tablet 1 tab PO DAILY #90 tabs 07/11/23 [Rx Last Taken Unknown] sertraline 50 mg tablet 50 mg PO DAILY #90 tabs 07/17/23 [Rx Last Taken Unknown] Allergy/AdvReac Type Severity Reaction Status Date / Time No Known Allergies Allergy Verified 07/25/23 16:09 Family History Father Hypertension Grandfather Myocardial infarction Grandmother Cancer great grandmother ovarian cancer Surgical History History of mastoidectomy No pertinent past surgical history Social History household members: significant other and none number of children: 0 current occupational status: employed current occupation: [employer] Smoking Status: Former smoker Electronic Cigarette Use: with nicotine alcohol intake: never substance use type: does not use what type of physical activity do you participate in: running and bicycling frequency: 1-2 times per week seatbelt use: always do you feel safe at home: Yes additional social history: single ROS ROS ED Review of Systems ROS Unobtainable: other Constitutional Constitutional ED: Reports lethargy; Denies chills, fever(s), sweats or weight loss Eyes Eyes: Denies blurry vision, change in vision or diplopia ENT ENT ED: Denies rhinorrhea or sore throat Cardiovascular Cardiovascular: Reports palpitations; Denies chest pain, orthopnea or racing heartbeat Respiratory/Chest Respiratory/Chest: Denies cough, dyspnea, dyspnea on exertion, orthopnea or sputum Gastrointestinal Gastrointestinal: Denies abdominal pain, diarrhea, nausea or vomiting Genitourinary Genitourinary ED: Denies dysuria, hematuria or urinary frequency Musculoskeletal Musculoskeletal: Denies arthralgias, back pain, myalgias or neck pain Integumentary Denies abscess, Abrasions or rash Neurologic Neurologic: Denies headache(s) or weakness Psychiatric Psychiatric: Denies anxiety, depression or suicidal thoughts Endocrine Endocrinology: Denies polydipsia, polyphagia or polyuria Hematologic/Lymphatic Hematologic/Lymphatic: Denies easy bleeding, easy bruising or lymphadenopathy Allergic/Immunologic Allergic/Immunologic ED: Denies mouth swelling, tongue swelling or urticaria EXAM Physical Exam Const Vital Signs: 07/25/23 16:09 07/25/23 16:08 07/25/23 17:20 Temperature 96.0 F L 96.0 F L Temperature Source Temporal Temporal Pulse Rate 101 H 101 H 90 Respiratory Rate 16 18 18 Blood Pressure 138/106 H 138/108 H 144/88 H Blood Pressure Mean 116 118 106 Pulse Ox 96 Oxygen Delivery Method Room Air Positive well nourished and well developed General Appearance ED: well developed and NAD HEENT Reports TM's clear and moist mucous membranes normocephalic and atraumatic; Negative for trauma or tenderness Tympanic Membrane ED: Yes TM's clear Eyes PERRL and EOMs intact bilaterally General Eye ED: Negative for pale conjunctiva or scleral icterus Neck no lymphadenopathy, supple and no JVD General: Negative for tenderness Chest Wall inspection of chest normal and palpation of chest normal Chest: Negative for tenderness Resp normal respiratory effort and clear to auscultation bilaterally Effort and Inspection: Negative for respiratory distress or pain with movement Auscultation: Negative for rhonchi, wheezes or diminished lung sounds Cardio regular rate, regular rhythm, S1 normal heart sound, S2 normal heart sound and no murmurs Peripheral Pulses: pulses 2+ throughout GI normal to inspection, nondistended, normoactive bowel sounds, soft to palpation, non-tender, non-distended and no masses Back/Spine no CVA tenderness and no thoracic nor lumbar tenderness Extremity normal to inspection General Extremety ED: Negative for edema General Extremity: Negative for edema Neuro oriented x3, CN's II-XII intact bilaterally, no sensory deficits noted and gait normal Sensorium / Orientation: awake, alert, oriented to person, oriented to place and oriented to time Motor Exam: strength 5/5 throughout and strength abnormal Psych mental status grossly normal Skin no rashes or lesions noted and no wounds MDM MDM MDM Narrative Medical decision making narrative: Patient presents with palpitations x 4 days. No history of syncope or chest pain. IV line established. EKG obtained arrival shows sinus rhythm with rate of 82 bpm with no acute ST segment changes. There was no evidence of PVCs or PACs. CBC with differential obtained for white count 10.1 with hemoglobin 14.8 and platelet count of 307. Chemistries significant for slightly depressed potassium at 3.1. TSH was normal at 0.86 and was negative. Patient was given 40 mEq of potassium chloride p.o. Discussed results with patient. Will order a Holter monitor. Will refer to cardiology for follow-up. Etiology of palpitations unclear I suspect may be benign. Lab Data Attestation: I reviewed the patient's lab results. Labs: Laboratory Results - last 24 hr 07/25/23 16:40 WBC 10.1 RBC 4.95 Hgb 14.8 Hct 42.3 MCV 85.5 MCH 29.9 MCHC 35.0 RDW Std Deviation 36.7 RDW Coeff of Ej 11.9 Plt Count 307 MPV 11.1 Immature Gran % (Auto) 0.300 Neut % (Auto) 67.2 Lymph % (Auto) 24.6 [place] % (Auto) 6.2 Eos % (Auto) 0.8 Baso % (Auto) 0.9 Absolute Neuts (auto) 6.8 Absolute Lymphs (auto) 2.48 Nucleated RBC % 0 Sodium 134 L Potassium 3.1 L Chloride 103 Carbon Dioxide 26.0 Anion Gap 5 BUN 9 Creatinine 0.87 Estim Creat Clear Calc 117.72 Est GFR (MDRD) Af Amer 104 Est GFR (MDRD) Non-Af 86 BUN/Creatinine Ratio 10.4 Glucose 105 Calcium 9.5 TSH 0.86 Serum , Qual NEGATIVE EKG Initial EKG: Attestation: I personally reviewed and interpreted this EKG as follows: Comments: Sinus rhythm with rate of 82 bpm with no acute ST segment changes Discharge Plan Triage Chief Complaint: Palpitations ED Provider: Chan Lyons Dx/Rx/DC Orders Clinical Impression: Heart palpitations Instructions: ED Palpitations Prescriptions: No Action spironolacton-hydrochlorothiaz 25-25 mg tablet 1 tab PO DAILY Qty: 90 0RF sertraline 50 mg tablet 50 mg PO DAILY Qty: 90 1RF Primary Care Provider: Xin Cardona Referrals: Xin Cardona MD [Primary Care Provider] - 5-7 Days Neftali Shukla MD [Med Staff - Active Staff] - 5-7 Days Disposition Disposition: Home, Self Care
[2023-07-25 16:49] LABS: Absolute Lymphocyte Count 2.48 X10^3/uL (0.83-4.51); Absolute Neutrophil Count 6.8 X10^3/uL (2.0-7.7); Basophil# 0.09 X10^3/uL; Basophil% 0.9 % (0-1); Eosinophil# 0.08 X10^3/uL; Eosinophils% 0.8 % (0-5); Hematocrit 42.3 % (37-47); Hemoglobin 14.8 g/dL (12.0-15.0); Lymphocyte # 2.48 X10^3/ul (0.83-4.51); Lymphocyte % 24.6 % (19-41); Mean Corpuscular Hgb 29.9 pg (27.0-32.0); Mean Corpuscular Volume 85.5 fL (81-99); Mean Platelet Vol. 11.1 fl (6.2-12.0); Monocyte# 0.63 X10^3/uL; Monocyte% 6.2 % (0-10); NRBC Flagged by Analyzer 0 % (0-5); Neutrophil # 6.78 X10^3/uL (2.7-7.7); Neutrophil % 67.2 % (47-70); Platelet Count 307 K/mm3 (150-450); RBC Distribution Width CV 11.9 % (11.6-14.6); RBC Distribution Width SD 36.7 fl (35.1-43.9); Red Blood Count 4.95 M/mm3 (4.2-5.4); White Blood Count 10.1 K/mm3 (4.4-11.0)
[2023-07-25 17:02] LABS: Internal QC Validated? YES +Cl - CLEAR BKGD; Pregnancy, Serum, hCG Quali. NEGATIVE Negative
[2023-07-25 17:14] LABS: Anion Gap 5 (5-15); BUN 9 mg/dL (7-18); BUN/Creat Ratio 10.4 RATIO (10-20); Calcium,Total 9.5 mg/dL (8.5-10.1); Chloride 103 mmol/L (98-107); Creatinine, Serum 0.87 mg/dL (0.55-1.02); EST Glomerular Filtration Rate 86 mL/min (>60); Est Glom Filt Rate - Afr Amer 104 mL/min (>60); Estimated Creatinine Clearance 117.72 ml/min; Glucose 105 mg/dL (74-106); Potassium 3.1 mmol/L (3.5-5.1); Sodium Level 134 mmol/L (136-145); Thyroid Stim Hormone (TSH) 0.86 uIU/mL (0.358-3.74)
[2023-07-25 17:20] VITALS: BP 144/88; PULSE 90; RESP 18; O2SAT 96
[2023-07-25] MEDS: Potassium Chloride Oral Tablet 20 MEQ 40 MEQ PO (18:31)
[2023-07-25 18:33] VITALS: BP 134/80; PULSE 70; RESP 16; TEMP 37.2; O2SAT 98
== END 2023-07-25 18:59 | disposition home or self-care (01) ==
PROVIDERS: Emergency Provider Emergency Medicine; PCP Internal Medicine; Visit Provider Emergency Medicine
DX: R00.2 Palpitations (principal); F41.9 Anxiety disorder, unspecified; I10 Essential (primary) hypertension; Z87.891 Personal history of nicotine dependence
CPT/HCPCS: 80048; 84443; 84703; 85025; 93005; 99284; A4216

== ENCOUNTER → 2023-07-25 | Outpatient (CLI) | payer OTHER, SELFPAY | END | disposition home or self-care (01) | LOC: CVS 18:44 | PROVIDERS: PCP Internal Medicine; Referring Provider Emergency Medicine; Visit Provider Emergency Medicine | DX: R00.2 Palpitations (principal) | CPT/HCPCS: 93225; 93226 ==

== ENCOUNTER → 2023-07-31 | Outpatient (CLI) | payer OTHER, SELFPAY ==
[2023-07-31 15:22] LABS: Absolute Lymphocyte Count 1.74 X10^3/uL (0.83-4.51); Absolute Neutrophil Count 4.8 X10^3/uL (2.0-7.7); Basophil# 0.04 X10^3/uL; Basophil% 0.6 % (0-1); Eosinophil# 0.08 X10^3/uL; Eosinophils% 1.1 % (0-5); Hematocrit 41.2 % (37-47); Lymphocyte # 1.74 X10^3/ul (0.83-4.51); Lymphocyte % 24.8 % (19-41); Mean Corpuscular Hgb 29.7 pg (27.0-32.0); Mean Corpuscular Volume 87.5 fL (81-99); Mean Platelet Vol. 11.5 fl (6.2-12.0); Monocyte# 0.35 X10^3/uL; NRBC Flagged by Analyzer 0 % (0-5); Neutrophil # 4.78 X10^3/uL (2.7-7.7); Neutrophil % 68.2 % (47-70); Platelet Count 275 K/mm3 (150-450); RBC Distribution Width SD 38.7 fl (35.1-43.9); Red Blood Count 4.71 M/mm3 (4.2-5.4)
[2023-07-31 16:19] LABS: ALB/GLOB Ratio 1.1 RATIO (0.9-2.4); AST(SGOT) 15 U/L (15-37); Alanine Aminotransfer ALT/SGPT 28 U/L (13-56); Alkaline Phosphatase 57 U/L (45-117); Anion Gap 5 (5-15); BUN 7 mg/dL (7-18); BUN/Creat Ratio 8.4 RATIO (10-20); Calcium,Total 9.5 mg/dL (8.5-10.1); Chloride 106 mmol/L (98-107); Creatinine, Serum 0.83 mg/dL (0.55-1.02); EST Glomerular Filtration Rate 90 mL/min (>60); Est Glom Filt Rate - Afr Amer 109 mL/min (>60); Globulin 3.7 g/dL (2.2-4.2); Glucose 117 mg/dL (74-106); Potassium 3.9 mmol/L (3.5-5.1); Protein, Total 7.7 g/dL (6.4-8.2); Sodium Level 137 mmol/L (136-145)
[2023-07-31 16:21] LABS: Cholesterol 172 mg/dL (200); High Density Lipoprotein 39 mg/dL; Triglycerides 129 mg/dL; Very Low Density Lipoprotein 26 mg/dL (5-40)
[2023-08-01 10:16] LABS: Hemoglobin A1c 5.2 % (3.8-5.6)
== END | disposition home or self-care (01) ==
LOC: BIMLAB 13:59
PROVIDERS: PCP Internal Medicine; Referring Provider Nurse Practitioner; Visit Provider Nurse Practitioner
DX: R73.9 Hyperglycemia, unspecified (principal); E78.5 Hyperlipidemia, unspecified; R00.2 Palpitations
CPT/HCPCS: 36415; 80053; 80061; 83036; 83735; 85025

== ENCOUNTER → 2023-08-14 | Outpatient (CLI) | payer OTHER, SELFPAY ==
[2023-08-14 16:24] LABS: Free T3 3.4 pg/mL (2.18-3.98); T4 Free Direct 1.09 ng/dL (0.76-1.46); Thyroid Stim Hormone (TSH) 0.73 uIU/mL (0.358-3.74)
== END | disposition home or self-care (01) ==
LOC: LAB 13:59
PROVIDERS: PCP Internal Medicine; Referring Provider Registered Nurse; Visit Provider Registered Nurse
DX: N92.6 Irregular menstruation, unspecified (principal)
CPT/HCPCS: 36415; 84439; 84443; 84481

== ENCOUNTER → 2023-10-14 | Outpatient (CLI) | payer OTHER, SELFPAY ==
[2023-10-17 21:07] LABS: Chlamydia By Nucleic Acid AMP Negative (Negative); Gonococcus By Nucleic Acid AMP Negative (Negative)
== END | disposition home or self-care (01) ==
LOC: LABSPEC 15:41
PROVIDERS: PCP Internal Medicine; Referring Provider Advanced Practice Midwife; Visit Provider Advanced Practice Midwife
DX: O09.90 Supervision of high risk pregnancy, unspecified, unspecified trimester (principal); O99.211 Obesity complicating pregnancy, first trimester
CPT/HCPCS: 87086; 87088; 87491; 87591

== ENCOUNTER → 2023-10-20 | Outpatient (CLI) | payer OTHER, SELFPAY ==
[2023-10-20 14:47] LABS: Absolute Lymphocyte Count 1.39 X10^3/uL (0.83-4.51); Absolute Neutrophil Count 8.3 X10^3/uL (2.0-7.7); Basophil# 0.03 X10^3/uL; Basophil% 0.3 % (0-1); Eosinophil# 0.08 X10^3/uL; Eosinophils% 0.8 % (0-5); Hematocrit 37.7 % (37-47); Hemoglobin 12.9 g/dL (12.0-15.0); Lymphocyte # 1.39 X10^3/ul (0.83-4.51); Lymphocyte % 13.6 % (19-41); Mean Corp Hgb Conc 34.2 g/dL (32-36); Mean Corpuscular Hgb 29.9 pg (27.0-32.0); Mean Corpuscular Volume 87.5 fL (81-99); Mean Platelet Vol. 10.9 fl (6.2-12.0); Monocyte# 0.42 X10^3/uL; Monocyte% 4.1 % (0-10); NRBC Flagged by Analyzer 0 % (0-5); Neutrophil # 8.27 X10^3/uL (2.7-7.7); Neutrophil % 80.8 % (47-70); Platelet Count 237 K/mm3 (150-450); RBC Distribution Width CV 12.4 % (11.6-14.6); RBC Distribution Width SD 39.8 fl (35.1-43.9); Red Blood Count 4.31 M/mm3 (4.2-5.4); White Blood Count 10.2 K/mm3 (4.4-11.0)
[2023-10-20 15:07] LABS: Protein, Urine (Random) 16.4 mg/dL (<11.9); Protein:Creat Ratio 101 mg/g CRE (0-200)
[2023-10-20 15:22] LABS: ALB/GLOB Ratio 0.9 RATIO (0.9-2.4); AST(SGOT) 11 U/L (15-37); Alanine Aminotransfer ALT/SGPT 15 U/L (13-56); Albumin, Serum 3.6 g/dL (3.2-5.0); Alkaline Phosphatase 47 U/L (45-117); Anion Gap 8 (5-15); BUN 7 mg/dL (7-18); BUN/Creat Ratio 12.8 RATIO (10-20); Calcium,Total 9.6 mg/dL (8.5-10.1); Chloride 104 mmol/L (98-107); Creatinine, Serum 0.55 mg/dL (0.55-1.02); EST Glomerular Filtration Rate 146 mL/min (>60); Est Glom Filt Rate - Afr Amer 177 mL/min (>60); Globulin 3.8 g/dL (2.2-4.2); Glucose 98 mg/dL (74-106); Protein, Total 7.4 g/dL (6.4-8.2); Sodium Level 135 mmol/L (136-145)
[2023-10-20 16:16] LABS: HIV - WCH Non-Reactive (Nonreactive); Hepatitis B Surface Antigen Non-Reactive (Nonreactive); Hepatitis C Antibody Non-Reactive (Nonreactive); Rubella IgG Reactive (Nonreactive); Syphilis Antibodies Non-reactive
== END | disposition home or self-care (01) ==
LOC: LAB 13:54
PROVIDERS: PCP Internal Medicine; Referring Provider Advanced Practice Midwife; Visit Provider Advanced Practice Midwife
DX: O99.210 Obesity complicating pregnancy, unspecified trimester (principal); Z3A.00 Weeks of gestation of pregnancy not specified
CPT/HCPCS: 36415; 80053; 82570; 83036; 84156; 85025; 86703; 86762; 86780; 86803; 86850; 86900; 86901; 87340

== ENCOUNTER → 2023-12-31 | Outpatient (CLI) | payer OTHER, SELFPAY ==
--- NOTE | 2023-12-31 14:55 | US_ITS ---
STUDY: SECOND AND THIRD TRIMESTER OBSTETRICAL ULTRASOUND REASON FOR EXAM: Female, 23 years old anatomy LMP: August 13, 2023. TECHNIQUE: Transabdominal and Transvaginal TECHNICAL QUALITY: Adequate. PRIOR ULTRASOUND: None. FINDINGS: There is a single intrauterine fetus. The fetus is in a variable presentation. There is demonstrated cardiac activity with a heart rate of 145 bpm. There is a normal amniotic fluid volume. The largest amniotic fluid pocket measures 7.8 cm. The amniotic fluid index (CARLA) is within normal limits. The placenta is fundal and posterior in location. There are Grade 0 placental changes. The cervix measures 4.1 cm in length. The bilateral adnexal regions are normal. BIOMETRY: BPD: 4.73 cm: 20 weeks, 2 days: 62.5% HC: 18.62 cm: 21 weeks, 0 days. 82.6% AC: 15.5 cm: 20 weeks, 5 days. 69% FL: 3.2 cm: 20 weeks, 0 days. 40.8% CI: 72.4% FL/BPD: 68% FL/HC: 17.2% FL/AC: 20.6% HC/AC: 1.2 age by current US: 20 weeks, 3 days. CONSTANCE by current US: May 16, 2024. Estimated weight: 350 grams, +/- 53 grams, 67 %. Age by LMP: 20 weeks, 0 days. CONSTANCE by LMP: May 19, 2024. ANATOMY: Gender: Female Cranium: Normal lateral ventricles. Normal choroid plexus. Normal cerebellum. Normal cisterna magna. Normal face, nose and lips. Chest: Normal 4-chamber heart. Abdomen/Pelvis: Normal diaphragm. Normal stomach. Normal abdominal wall. Normal cord insertion. Normal 3 vessel cord. Normal kidneys. Normal bladder. Spine: Normal cervical spine. Normal thoracic spine. Normal lumbar spine. Normal sacrum. Extremities: Normal bilateral upper extremities. Normal bilateral lower extremities. US/OB Anatomy w/ Transvaginal IMPRESSION: Single live uterine gestation with a mean gestational age of 20 weeks and 3 days. Electronically Signed: Florian Kwan MD at 10:22 EDT ,
== END | disposition home or self-care (01) ==
LOC: US 14:54
PROVIDERS: PCP Internal Medicine; Referring Provider Obstetrics & Gynecology; Visit Provider Obstetrics & Gynecology
DX: O09.90 Supervision of high risk pregnancy, unspecified, unspecified trimester (principal); Z3A.00 Weeks of gestation of pregnancy not specified
CPT/HCPCS: 76805; 76817

== ENCOUNTER → 2024-02-26 | Outpatient (CLI) | payer OTHER, SELFPAY ==
[2024-02-26 12:25] LABS: Absolute Lymphocyte Count 0.68 X10^3/uL (0.83-4.51); Absolute Neutrophil Count 9.5 X10^3/uL (2.0-7.7); Basophil# 0.03 X10^3/uL; Basophil% 0.3 % (0-1); Eosinophil# 0.03 X10^3/uL; Eosinophils% 0.3 % (0-5); Hemoglobin 10.9 g/dL (12.0-15.0); Lymphocyte # 0.68 X10^3/ul (0.83-4.51); Lymphocyte % 6.4 % (19-41); Mean Corpuscular Hgb 29.5 pg (27.0-32.0); Mean Corpuscular Volume 89.4 fL (81-99); Mean Platelet Vol. 11.2 fl (6.2-12.0); Monocyte# 0.37 X10^3/uL; Monocyte% 3.5 % (0-10); NRBC Flagged by Analyzer 0 % (0-5); Neutrophil # 9.48 X10^3/uL (2.7-7.7); Neutrophil % 88.8 % (47-70); Platelet Count 206 K/mm3 (150-450); RBC Distribution Width CV 13.6 % (11.6-14.6); RBC Distribution Width SD 44.5 fl (35.1-43.9); Red Blood Count 3.69 M/mm3 (4.2-5.4); White Blood Count 10.7 K/mm3 (4.4-11.0)
[2024-02-26 12:54] LABS: Glucose Challenge Gest 1H 50g 183 mg/dL (70-140)
[2024-02-26 13:43] LABS: HIV - WCH Non-Reactive (Nonreactive); Syphilis Antibodies Non-reactive
== END | disposition home or self-care (01) ==
LOC: BWCLAB 12:10
PROVIDERS: PCP Internal Medicine; Referring Provider Obstetrics & Gynecology; Visit Provider Obstetrics & Gynecology
DX: O09.92 Supervision of high risk pregnancy, unspecified, second trimester (principal); Z13.1 Encounter for screening for diabetes mellitus; Z3A.00 Weeks of gestation of pregnancy not specified
CPT/HCPCS: 36415; 82950; 85025; 86703; 86780; 86850; 86900; 86901

== ENCOUNTER 2024-03-08 13:00 | Outpatient (RCR) | payer OTHER, SELFPAY | END 2024-03-13 23:59 | LOC: NS 13:00 | PROVIDERS: PCP Internal Medicine; Referring Provider Obstetrics & Gynecology; Visit Provider Obstetrics & Gynecology | DX: Z71.3 Dietary counseling and surveillance (principal); O24.419 Gestational diabetes mellitus in pregnancy, unspecified control | CPT/HCPCS: 97802; 97803 ==

== ENCOUNTER 2024-03-22 11:40 | Outpatient (RCR) | payer OTHER, SELFPAY | END 2024-04-13 23:59 | LOC: NS 11:40 | PROVIDERS: PCP Internal Medicine; Referring Provider Obstetrics & Gynecology; Visit Provider Obstetrics & Gynecology | DX: Z71.3 Dietary counseling and surveillance (principal); O24.419 Gestational diabetes mellitus in pregnancy, unspecified control | CPT/HCPCS: 97803 ==

== ENCOUNTER → 2024-03-24 | Outpatient (CLI) | payer OTHER, SELFPAY ==
--- NOTE | 2024-03-24 13:12 | US_ITS ---
EXAM: US , LIMITED CLINICAL INDICATION: 32 week growth US TECHNIQUE: Real-time limited ultrasound of the maternal uterus with image documentation. COMPARISON: 12/31/2023 FINDINGS: FETUS: Single viable IUP. Estimated age: 32 weeks, 1 day. CONSTANCE: 05/18/2024. EFW: Estimated weight: 2063 g +/- 3 109 g (66%). BPD: 8.2 cm (33 weeks, 0 days) 71%. HC: 29.2 cm (32 weeks, 1 day) 19%. AC: 29.2 cm (33 weeks, 1 day) 81%. FL: 6.1 cm (31 weeks, 6 days) 32%. POSITION: Cephalic presentation. HEART RATE: heart rate: 143 beats per. PLACENTA: Fundal placenta. AMNIOTIC FLUID: Amniotic fluid volume is normal measuring 14.3 cm with maximal vertical pocket of 6.3 cm. CERVIX: The cervix is not visualized. US/OB Limited With Biometrics IMPRESSION: Interval growth. Estimated weight at 2063 g (66%). No acute findings. Electronically Signed: Johnathon Montelongo, at 22:49 EST ,
== END | disposition home or self-care (01) ==
LOC: US 13:11
PROVIDERS: PCP Internal Medicine; Referring Provider Advanced Practice Midwife; Visit Provider Advanced Practice Midwife
DX: O16.4 Unspecified maternal hypertension, complicating childbirth (principal); Z3A.32 32 weeks gestation of pregnancy
CPT/HCPCS: 76816

== ENCOUNTER 2024-04-02 14:02 | Outpatient (CLI) | payer OTHER, SELFPAY ==
[2024-04-02] VITALS (9 sets, daily range): BP systolic 126–143; BP diastolic 74–87; PULSE 96–109; BMI 36.3
[2024-04-02 14:27] LABS: Protein, Urine (Random) 23.2 mg/dL (<11.9); Protein:Creat Ratio 100 mg/g CRE (0-200)
[2024-04-02 14:52] LABS: Hematocrit 34.4 % (37-47); Hemoglobin 11.2 g/dL (12.0-15.0); Mean Corp Hgb Conc 32.6 g/dL (32-36); Mean Corpuscular Hgb 28.5 pg (27.0-32.0); Mean Corpuscular Volume 87.5 fL (81-99); Mean Platelet Vol. 11.6 fl (6.2-12.0); Platelet Count 234 K/mm3 (150-450); RBC Distribution Width CV 13.9 % (11.6-14.6); RBC Distribution Width SD 44.6 fl (35.1-43.9); Red Blood Count 3.93 M/mm3 (4.2-5.4); White Blood Count 10.1 K/mm3 (4.4-11.0)
[2024-04-02] MEDS: Betamethasone/Betamethasone 30 MG/5 ML Vial 12 MG IM (15:13)
[2024-04-02 15:20] LABS: AST(SGOT) 14 U/L (15-37); Alanine Aminotransfer ALT/SGPT 11 U/L (13-56); Creatinine, Serum 0.53 mg/dL (0.55-1.02); EST Glomerular Filtration Rate 151 mL/min (>60); Est Glom Filt Rate - Afr Amer 183 mL/min (>60); Estimated Creatinine Clearance 205.88 ml/min; Uric Acid 3.6 mg/dL (2.6-6.0)
--- NOTE | 2024-04-02 16:04 | OB.TRI.PN ---
Progress Notes Date of Service: 04/02/24 Progress Note: Patient presents for triage evaluation secondary to elevated bps FHT: 140 Moderate variability reactive no decelerations category I tracing [place]: no regular Contractions Assessment and plan: ghtn labs reviewed give celestone course 33 weeks Reactive NST, reassuring maternal and status patient discharged to home to follow-up as neemaepifanio. See problem list details for additional plan information. Laboratory Studies: Laboratory Tests 04/02/24 04/02/24 04/02/24 Range/Units Unknown 14:35 14:04 WBC 10.1 Corrected WBC RBC 3.93 L Hgb 11.2 L Hct 34.4 L MCV 87.5 MCH 28.5 MCHC 32.6 RDW Std Deviation 44.6 H RDW Coeff of Ej 13.9 Plt Count 234 MPV 11.6 Immature Gran % (Auto) Neut % (Auto) Lymph % (Auto) [place] % (Auto) Eos % (Auto) Baso % (Auto) Absolute Neuts (auto) Absolute Lymphs (auto) Total Counted Neutrophils % (Manual) Band Neutrophils % Lymphocytes % (Manual) Monocytes % (Manual) Eosinophils % (Manual) Basophils % (Manual) Metamyelocytes % Myelocytes % Promyelocytes % Blast Cells % Plasma Cell % (Manual) Other Cells % Nucleated RBC % Nucleated RBCs/100 WBC Differential Comment Diff Path Review Hypersegmented Neuts Atypical Lymphocytes Reactive Lymphocytes Smudge Cells Toxic Granulation Toxic Vacuolation Dohle Bodies Michael Rods Platelet Estimate Plt Morphology Comment RBC Morphology Cancelled Polychromasia Cancelled Hypochromasia Cancelled Basophilic Stippling Cancelled Anisocytosis Cancelled Microcytosis Cancelled Macrocytosis Cancelled Spherocytes Cancelled Sickle Cells Cancelled Target Cells Cancelled Tear Drop Cells Cancelled Ovalocytes Cancelled Stomatocytes Cancelled [place] Bodies Cancelled Conger Cells Cancelled Bite Cells Cancelled Crenated Cell Cancelled Acanthocytes (Spur) Cancelled Rouleaux Cancelled Schistocytes Cancelled Sodium Cancelled Potassium Cancelled Chloride Cancelled Carbon Dioxide Cancelled Anion Gap Cancelled BUN Cancelled Creatinine 0.53 L Cancelled Estim Creat Clear Calc 205.88 Cancelled Est GFR (MDRD) Af Amer 183 Cancelled Est GFR (MDRD) Non-Af 151 Cancelled BUN/Creatinine Ratio Cancelled Glucose Cancelled Uric Acid 3.6 (2.6-6.0) mg/dL Calcium Cancelled Total Bilirubin Cancelled AST 14 L Cancelled ALT 11 L Cancelled Alkaline Phosphatase Cancelled Total Protein Cancelled Albumin Cancelled Globulin Cancelled Albumin/Globulin Ratio Cancelled U Random Total Protein 23.2 H (<11.9) mg/dL Urine Creatinine 231.00 (NO RANGE EST.) mg/dL Protein/Creatinin Ratio 100 (0-200) mg/g CRE 04/02/24 Range/Units 14:04 WBC Cancelled Corrected WBC Cancelled RBC Cancelled Hgb Cancelled Hct Cancelled MCV Cancelled MCH Cancelled MCHC Cancelled RDW Std Deviation Cancelled RDW Coeff of Ej Cancelled Plt Count Cancelled MPV Cancelled Immature Gran % (Auto) Cancelled Neut % (Auto) Cancelled Lymph % (Auto) Cancelled [place] % (Auto) Cancelled Eos % (Auto) Cancelled Baso % (Auto) Cancelled Absolute Neuts (auto) Cancelled Absolute Lymphs (auto) Cancelled Total Counted Cancelled Neutrophils % (Manual) Cancelled Band Neutrophils % Cancelled Lymphocytes % (Manual) Cancelled Monocytes % (Manual) Cancelled Eosinophils % (Manual) Cancelled Basophils % (Manual) Cancelled Metamyelocytes % Cancelled Myelocytes % Cancelled Promyelocytes % Cancelled Blast Cells % Cancelled Plasma Cell % (Manual) Cancelled Other Cells % Cancelled Nucleated RBC % Cancelled Nucleated RBCs/100 WBC Cancelled Differential Comment Cancelled Diff Path Review Cancelled Hypersegmented Neuts Cancelled Atypical Lymphocytes Cancelled Reactive Lymphocytes Cancelled Smudge Cells Cancelled Toxic Granulation Cancelled Toxic Vacuolation Cancelled Dohle Bodies Cancelled Michael Rods Cancelled Platelet Estimate Cancelled Plt Morphology Comment Cancelled RBC Morphology Cancelled Polychromasia Hypochromasia Basophilic Stippling Anisocytosis Microcytosis Macrocytosis Spherocytes Sickle Cells Target Cells Tear Drop Cells Ovalocytes Stomatocytes [place] Bodies Conger Cells Bite Cells Crenated Cell Acanthocytes (Spur) Rouleaux Schistocytes Sodium Potassium Chloride Carbon Dioxide Anion Gap BUN Creatinine Estim Creat Clear Calc Est GFR (MDRD) Af Amer Est GFR (MDRD) Non-Af BUN/Creatinine Ratio Glucose Uric Acid (2.6-6.0) mg/dL Calcium Total Bilirubin AST ALT Alkaline Phosphatase Total Protein Albumin Globulin Albumin/Globulin Ratio U Random Total Protein (<11.9) mg/dL Urine Creatinine (NO RANGE EST.) mg/dL Protein/Creatinin Ratio (0-200) mg/g CRE Charges/Coding Procedures Urinary/Genital [id number]: [id number] non-stress test Interp Assessment & Plan (1) Gestational hypertension: COMMENT: celestone given 04/02. (2) Supervision of high-risk : QUALIFIERS: Trimester: third trimester Qualified Code(s): O09.93 - Supervision of high risk , unspecified, third trimester COMMENT: PRR, , CONSTANCE 05/19/24, Rell Timmons (3) : QUALIFIERS: Weeks of gestation: 33 weeks Qualified Code(s): Z3A.33 - 33 weeks gestation of COMMENT: discussed genetic & carrier testing, undecided
== END 2024-04-02 16:10 | disposition home or self-care (01) ==
LOC: BWCLAB 14:03 → WPOUT 14:21 → WP 14:22
PROVIDERS: Advanced Practice Midwife; PCP Internal Medicine; Referring Provider Registered Nurse; Visit Provider Obstetrics & Gynecology
DX: O13.4 Gestational [pregnancy-induced] hypertension without significant proteinuria, complicating childbirth (principal); Z3A.33 33 weeks gestation of pregnancy
CPT/HCPCS: 36415; 59025; 59050; 82565; 82570; 84156; 84450; 84460; 84550; 85027; 96372; 99221; G0378; J0702

== ENCOUNTER 2024-04-03 14:42 | Outpatient (CLI) | payer OTHER, SELFPAY ==
[2024-04-03] MEDS: Betamethasone/Betamethasone 30 MG/5 ML Vial 12 MG IM (15:07)
--- NOTE | 2024-04-04 06:44 | OB.TRI.PN ---
Progress Notes Date of Service: 04/03/24 Progress Note: celestone shot given for GHTN 32 week Assessment & Plan (1) : QUALIFIERS: Weeks of gestation: 33 weeks Qualified Code(s): Z3A.33 - 33 weeks gestation of COMMENT: discussed genetic & carrier testing, undecided (2) Gestational hypertension: COMMENT: celestone given 04/02.
== END 2024-04-03 15:10 | disposition home or self-care (01) ==
LOC: WPOUT 14:49 → WP 14:53
PROVIDERS: PCP Internal Medicine; Referring Provider Obstetrics & Gynecology; Visit Provider Obstetrics & Gynecology
DX: O13.4 Gestational [pregnancy-induced] hypertension without significant proteinuria, complicating childbirth (principal); Z3A.33 33 weeks gestation of pregnancy
CPT/HCPCS: 96372; 99221; G0378; J0702

== ENCOUNTER → 2024-04-15 | Outpatient (CLI) | payer OTHER, SELFPAY | END | disposition home or self-care (01) | LOC: LABSPEC 11:41 | PROVIDERS: PCP Internal Medicine; Referring Provider Advanced Practice Midwife; Visit Provider Advanced Practice Midwife | DX: R30.0 Dysuria (principal) | CPT/HCPCS: 87086; 87088 ==

== ENCOUNTER → 2024-04-19 | Outpatient (CLI) | payer OTHER, SELFPAY ==
[2024-04-19 17:00] LABS: Protein, Urine (Random) 34.1 mg/dL (<11.9); Protein:Creat Ratio 115 mg/g CRE (0-200)
== END | disposition home or self-care (01) ==
LOC: LABSPEC 13:53
PROVIDERS: PCP Internal Medicine; Referring Provider Obstetrics & Gynecology; Visit Provider Obstetrics & Gynecology
DX: R80.9 Proteinuria, unspecified (principal)
CPT/HCPCS: 82570; 84156

== ENCOUNTER → 2024-04-21 | Outpatient (CLI) | payer OTHER, SELFPAY ==
--- NOTE | 2024-04-21 13:27 | US_ITS ---
STUDY: SECOND AND THIRD TRIMESTER OBSTETRICAL ULTRASOUND-limited REASON FOR EXAM: Female, 23 years old routine survey, growth check LMP: 08/13/2023 TECHNIQUE: Transabdominal TECHNICAL QUALITY: Adequate. PRIOR ULTRASOUND: 03/24/2024 FINDINGS: There is a single intrauterine fetus. The fetus is in a cephalic presentation. There is demonstrated cardiac activity with a heart rate of 145 bpm. There is a normal amniotic fluid volume. The largest amniotic fluid pocket measures 5.5 cm. The amniotic fluid index (CARLA) is 17 cm. The placenta is fundal in location. There are Grade 3 placental changes. The cervix was not visualized BIOMETRY: BPD: 8.9 centimeters: 36 weeks, 0 days HC: 31.9 cm: 35 weeks, 6 days AC: 32.8 cm: 36 weeks, 5 days FL: 7.1 cm: 36 weeks, 3 days age by current US: 35 weeks, 6 days. CONSTANCE by current US: 05/20/2024. Estimated weight: 2998 grams, +/- 450 grams, 69 %. age by prior US: 36 weeks, 1 days. CONSTANCE by prior US: 05/18/2024. US/OB Limited With Biometrics IMPRESSION: Single live intrauterine at 35 weeks, 6 days by current ultrasound CONSTANCE of 05/20/2024. Heart rate at 145 bpm. No suspicious sonographic findings, normal growth noted since the previous study. Electronically Signed: Sotero Sewell MD at 23:51 EST ,
== END | disposition home or self-care (01) ==
LOC: US 13:27
PROVIDERS: PCP Internal Medicine; Referring Provider Advanced Practice Midwife; Visit Provider Advanced Practice Midwife
DX: O16.4 Unspecified maternal hypertension, complicating childbirth (principal); Z3A.36 36 weeks gestation of pregnancy
CPT/HCPCS: 76816

== ENCOUNTER → 2024-04-22 | Outpatient (CLI) | payer OTHER, SELFPAY ==
--- NOTE | 2024-04-22 12:51 | ECHOD_ITS ---
Reason For Study: SHORTNESS OF BREATH Procedure This was a 2D Doppler, Color Flow transthoracic echocardiogram. Myocardial strain analysis was performed in this exam to aid in the assessment of cardiac function. The study was technically difficult. Exam performed in department. Left Ventricle Normal LV size. Mild concentric left ventricular hypertrophy. The left ventricular ejection fraction is 55 %. No regional wall motion abnormalities noted. Right Ventricle Normal RV size. Normal systolic function. Atria Normal left atrium. Normal right atrium. Mitral Valve Normal mitral valve. Tricuspid Valve Normal tricuspid valve. Aortic Valve Trisinus/trileaflet aortic valve. Pulmonic Valve Normal pulmonic valve. Great Vessels Normal aortic root. The pulmonary artery is normal size. Inferior vena cava collapse with respiration. Pericardium/Pleural Epicardial fat. MMode/2D Measurements & Calculations LVIDd: 4.4 cm IVSd: 1.2 cm LVOT diam: 2.1 cm LVIDs: 2.9 cm LVPWd: 1.2 cm LVOT area: 3.4 cm2 RVDd: 3.8 cm FS: 34.5 % asc Aorta Diam: 2.4 cm LAV(MOD-bp): 44.9 ml LVAd ap4: 28.2 cm2 LAV(MOD-bp) Indexed: 20.7 ml/m2 LVLd ap4: 8.3 cm LAV(MOD-sp2): 43.7 ml EDV(MOD-sp4): 80.0 ml LAV(MOD-sp4): 45.0 ml EDV(sp4-el): 81.0 ml LVAs ap4: 16.6 cm2 LVLs ap4: 6.7 cm ESV(MOD-sp4): 35.5 ml ESV(sp4-el): 35.3 ml EF(MOD-sp4): 55.6 % EF(sp4-el): 56.4 % LVAd ap2: 26.6 cm2 SV(MOD-sp4): 44.5 ml SV(MOD-sp2): 40.7 ml LVLd ap2: 8.1 cm SI(MOD-sp4): 20.5 ml/m2 SI(MOD-sp2): 18.7 ml/m2 EDV(MOD-sp2): 73.2 ml EDV(sp2-el): 74.1 ml LVAs ap2: 16.1 cm2 LVLs ap2: 6.9 cm ESV(MOD-sp2): 32.5 ml ESV(sp2-el): 31.6 ml EF(MOD-sp2): 55.6 % SV(sp4-el): 45.7 ml Ao sinus diam: 2.[address] Junction: 2.3 cm LA dimension(2D): 3.9 cm LA A4 area: 17.9 cm2 RA A4 area: 11.0 cm2 TAPSE: 1.8 cm Time Measurements MV dec time: 0.17 sec Doppler Measurements & Calculations MV E max brett: 77.4 cm/sec Lat Peak E' Brett: 10.0 cm/sec Med Peak E' Brett: 10.5 cm/sec MV A max brett: 62.6 cm/sec E/E' lat: 7.7 E/E' med: 7.3 MV E/A: 1.2 MV dec slope: 451.5 cm/sec2 Ao V2 max: 168.1 cm/sec LV V1 max: 131.1 cm/sec Ao max P.3 mmHg LV V1 max P.9 mmHg Ao V2 mean: 121.7 cm/sec LV V1 mean P.3 mmHg Ao mean P.7 mmHg LV V1 mean: 98.9 cm/sec Ao V2 VTI: 31.3 cm LV V1 VTI: 21.5 cm AV (velocity ratio): 0.69 MARY(I,D): 2.3 cm2 MARY(V,D): 2.6 cm2 SV(LVOT): 72.3 ml PA V2 max: 111.8 cm/sec ECHO/Echo Complete Interpretation Summary The left ventricular ejection fraction is 55 %. Normal LV size. Mild concentric left ventricular hypertrophy. Epicardial fat. The global longitudinal strain is mildly abnormal. The global longitudinal stra in = -14.9% (abnormal). Ordering Physician: Deangelo Garsia Referring Physician: Xin Cardona Performed By: Elba Dawn RDCS
== END | disposition home or self-care (01) ==
PROVIDERS: PCP Internal Medicine; Referring Provider Nurse Practitioner Family; Visit Provider Nurse Practitioner Family
DX: Z87.898 Personal history of other specified conditions (principal); R06.09 Other forms of dyspnea
CPT/HCPCS: 93225; 93226; 93306

== ENCOUNTER → 2024-04-22 | Outpatient (CLI) | payer OTHER, SELFPAY ==
[2024-04-22 12:22] LABS: Protein, Urine (Random) 26.7 mg/dL (<11.9); Protein:Creat Ratio 189 mg/g CRE (0-200)
== END | disposition home or self-care (01) ==
LOC: LABSPEC 11:42
PROVIDERS: PCP Internal Medicine; Referring Provider Obstetrics & Gynecology; Visit Provider Obstetrics & Gynecology
DX: O09.93 Supervision of high risk pregnancy, unspecified, third trimester (principal); Z3A.00 Weeks of gestation of pregnancy not specified; I10 Essential (primary) hypertension
CPT/HCPCS: 82570; 84156; 87081

== ENCOUNTER 2024-04-26 16:00 | Inpatient (IN) | payer OTHER, SELFPAY ==
[2024-04-26] VITALS (16 sets, daily range): BP systolic 133–169; BP diastolic 69–98; PULSE 83–121; RESP 16–18; TEMP 36.2–36.5; O2SAT 98–99; BMI 36.9
[2024-04-26 14:54] LABS: Hemoglobin 10.8 g/dL (12.0-15.0); Mean Corp Hgb Conc 33.8 g/dL (32-36); Mean Corpuscular Hgb 28.3 pg (27.0-32.0); Mean Platelet Vol. 11.9 fl (6.2-12.0); Platelet Count 207 K/mm3 (150-450); RBC Distribution Width CV 14.3 % (11.6-14.6); RBC Distribution Width SD 43.3 fl (35.1-43.9); Red Blood Count 3.81 M/mm3 (4.2-5.4); White Blood Count 8.6 K/mm3 (4.4-11.0)
[2024-04-26 15:21] LABS: AST(SGOT) 13 U/L (15-37); Alanine Aminotransfer ALT/SGPT 10 U/L (13-56); EST Glomerular Filtration Rate 163 mL/min (>60); Est Glom Filt Rate - Afr Amer 197 mL/min (>60); Estimated Creatinine Clearance 220.34 ml/min; Uric Acid 4.1 mg/dL (2.6-6.0)
[2024-04-26 15:43] LABS: Protein, Urine (Random) 30.7 mg/dL (<11.9); Protein:Creat Ratio 105 mg/g CRE (0-200)
--- NOTE | 2024-04-26 16:11 | HP.PCM.OB_ITS ---
HPI - General General Date of Admission: 04/26/24 HPI Narrative HYACINTH CERRATO, is a 23 F 36.5 weeks who presents to unit from office after being seen by Dr Brandon in the office. She is having elevated BPs with visual changes plan for induction today Maternal Data Information CONSTANCE Calculator Estimated Delivery Date Method Current WG Current Estimate 05/19/24 LMP (Certain) 36w 5d Final CONSTANCE: 05/19/24 Final CONSTANCE Source: US >20 weeks Gestational age: 36.5 PFSH PFSH Medical History History of ovarian cyst Infertility associated with anovulation Pelvic pain Blood glucose elevated Hyperlipidemia Strain of left elbow Acne Insomnia Contact with and (suspected) exposure to other viral communicable diseases URI (upper respiratory infection) Anxiety Restless legs Heartburn Generalized anxiety disorder with panic attacks Tobacco abuse counseling Hypertension Former smoker Home Medications ?Medication ?Instructions ?Recorded ?Last Taken ?Type vit 168-iron 27 mg-folic 1 cap PO DAILY 09/10/23 Unknown History acid 800 mcg-omega3 235 mg capsule (One-A-Day -1) ondansetron 4 mg disintegrating 4 mg PO Q6H PRN nausea and 10/14/23 Unknown Rx tablet vomiting #60 tabs labetalol 100 mg tablet 100 mg PO TID 90 days #270 tabs 12/10/23 04/26/24 09:00 Rx 100 mg blood sugar diagnostic (Blood #120 ea 03/09/24 Unknown Rx Glucose Test strips) blood-glucose meter #1 ea 03/09/24 Unknown Rx lancets 30 gauge (Droplet Lancets) #200 ea 03/09/24 Unknown Rx ciprofloxacin 0.3 %-dexamethasone drp otic (ear) PRN 04/13/24 Unknown History 0.1 % ear drops,suspension ferrous sulfate 137 mg (45 mg 137 mg PO QDAY 04/13/24 Unknown History iron) tablet,extended release (Slow Fe) Allergy/AdvReac Type Severity Reaction Status Date / Time No Known Allergies Allergy Verified 04/26/24 14:01 Family History Father Hypertension Grandfather Myocardial infarction Grandmother Cancer great grandmother ovarian cancer Surgical History History of mastoidectomy No pertinent past surgical history Social History adopted: No household members: significant other and none number of children: 0 current occupational status: employed current occupation: [employer] current occupational exposures/hazards: No pets and animals: No history of recent travel: No sexually active: Yes Smoking Status: Former smoker Electronic Cigarette Use: with nicotine alcohol intake: never substance use type: does not use well-balanced diet: about half the time caffeine: No during the past year weight has: decreased > 10 lbs what type of physical activity do you participate in: walking frequency: daily duration: 15-30 minutes/day cece/mu-ism: None seatbelt use: always do you feel safe at home: Yes 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 History 0 Elective abortions Hx Para 0 Spontaneous abortions Hx # Term Pregnancies Ectopic pregnancies Hx # Pregnancies Multiple births # of living children Visit Details Expected Delivery Route/Plan Labor Preferences- CB/BF classes: no labor support person: Iain labor intervention preferences: [] pain management options preferred:epidural cut cord/dad catch: yes : yes PP control planned: discussed discussed possible routes of delivery and associated risks: [] special requests: [] Plans Covid status: [] Flu vaccine: employer Tdap vaccine: [] Rhogam: [] LARC form signed: yes Problem list reviewed and updated with the most current plan of care details and appropriate orders placed. Relevant counseling for the gestational age provided. Continue routine care and follow up unless otherwise noted in visit notes/problem list details OB Flowsheet Initial Weight: Not Recorded Date -?-?-?-?-?-?-?-?-?-?-?-?- EGA Weight BP Urine Prot -?-?-?-?-?-?-?-?-?-?-?-?- Glucose FHR FuHt Pres Dilation -?-?-?-?-?-?-?-?-?-?-?-?- Effaced St Visit Note 10/14/23 -?-?-?-?-?-?-?-?-?-?-?-?- 8w 6d 208 lb 137/85 -?-?-?-?-?-?-?-?-?-?-?-?- 175 -?-?-?-?-?-?-?-?-?-?-?-?- KW- CRL 9.3 week s. 23mm. Declines NIPT. 11/11/23 -?-?-?-?-?-?-?-?-?-?-?-?- 12w 6d 214 lb 135/87 Negative -?-?-?-?-?-?-?-?-?-?-?-?- Negative 155 -?-?-?-?-?-?-?-?-?-?-?-?- JV- no cramping or spotting. CRL consistent with GA. declines nipt. PRR. still having palpitations. increase labetalol to tid and if no improvement (improved the first time she started labetalol) then will reconsult cardiology 12/10/23 -?-?-?-?-?-?-?-?-?-?-?-?- 17w 0d 214 lb 4 oz 133/86 Nega tive -?-?-?-?-?-?-?-?-?-?-?-?- Negative 150 -?-?-?-?-?-?-?-?-?-?-?-?- JV- no lof, vagi nal bleeding, or cramping. increasing labetalol to TID. has anatomy scan ordered. 01/15/24 -?-?-?-?-?-?-?-?-?-?-?-?- 22w 1d 225 lb 144/87 121/77 Negative -?-?-?-?-?-?-?-?-?-?-?-?- Negative 140 -?-?--?-?-?-?-?-?-?-?-?-?- KW- no vb/lof/ct x. good fm. Discussed NSTs, growth US, and 37 week IOL for cHTN. Will continue to monitor BPs at home. 02/04/24 -?-?-?-?-?-?-?-?-?-?-?-?- 25w 0d 230 lb 4 oz 122/74 Nega tive -?-?-?-?-?-?-?-?-?-?-?-?- Negative 157 -?-?-?-?-?-?-?-?-?-?-?-?- MH-No Vb, LOF. G ood FM. Larc. 02/26/24 -?-?-?-?-?-?-?-?-?-?-?-?- 28w 1d 233 lb 4 oz 135/85 Nega tive -?-?-?-?-?-?-?-?-?-?-?-?- Negative 150 29 -?-?-?-?-?-?-?-?-?-?-?-?- JV- pt is now ge stational dm, meng system ordered. nystatin for rash under breasts. got rhogam today. wants to think about tdap. 03/19/24 -?-?-?-?-?-?-?-?-?-?-?-?- 31w 2d 230 lb 4 oz 139/88 Trac e -?-?-?-?-?-?-?-?-?-?-?-?- Negative 159 31 -?-?-?-?-?-?-?-?-?-?-?-?- JV- fasting leve ls are all normal with exception of this am 102. Bp's are stable but has chtn. plan delivery at 38 weeks (05/05). growth scan next week. 03/30/24 -?-?-?-?-?-?-?-?-?-?-?-?- 32w 6d 232 lb 6 oz 135/77 Nega tive -?-?-?-?-?-?-?-?-?-?-?-?- Negative 140 33 -?-?-?-?-?-?-?-?-?-?-?-?- MH-No VB, lof. G ood FM. All glucose WNL. Reactive NST 04/02/24 -?-?-?-?-?--?-?-?-?-?-?-?- 33w 2d 234 lb 2 oz 133/87 153/97 1+ -?-?-?-?-?-?-?-?-?-?-?-?- Negative 145 -?-?-?-?-?-?-?-?-?-?-?-?- LC- elevated BP with proteinuria. urine sent stat, to for BP monitoring, steroids. denies chen/visual changes or ruq pain LC- NST only.elevated BP wit h proteinuria. urine sent stat, to [facility] for BP monitoring, steroids. denies chen/visual changes or ruq pain 04/05/24 -?-?-?-?-?-?-?-?-?-?-?-?- 33w 5d 233 lb 129/84 Trace -?-?-?-?-?-?-?-?-?-?-?-?- Negative 140 34 -?-?-?-?-?-?-?-?-?-?-?-?- KW- no vb/lof/ct x. good fm. had full dose of steroids last week. 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 04/08/24 -?-?-?-?-?-?-?-?-?-?-?-?- 34w 1d 233 lb 123/79 Trace -?-?-?-?-?-?-?-?-?-?-?-?- Negative 150 -?-?-?-?-?-?-?-?-?-?-?-?- MH-NST only reac tive. States glucose reading nl. MH-NST only reactive. States glucose reading nl. No headache, vision changes 04/12/24 -?-?-?-?-?-?-?-?-?-?-?-?- 34w 5d 230 lb 6 oz 128/85 Nega tive -?-?-?-?-?-?-?-?-?-?-?-?- Negative 150 35 -?-?-?-?-?-?-?-?-?-?-?-?- JV- nst reactive . glucose log reviewed. patient has some levels over 120 but is related to eating things like tacos or meatballs with bread and pancakes. Plans to eat more healthy. has growth scan at 36 weeks. returns later this week. 04/15/24 -?-?-?-?-?-?-?-?-?-?-?-?- 35w 1d 232 lb 4 oz 138/83 1+ -?-?-?-?-?-?-?-?-?-?-?-?- Negative 140 -?-?-?-?-?-?-?-?-?-?-?-?- KW- NST only-addi ctive. does have burning with urination and leuks in urine. will send for culture and start atb. 04/19/24 -?-?-?-?-?-?-?-?-?-?-?-?- 35w 5d 233 lb 123/83 1+ -?-?-?-?-?-?-?-?-?-?-?-?- Negative 140 -?-?-?-?-?-?-?-?-?-?-?-?- SM-no vb lof goo d fm no reuglar ctx BS controlled 04/22/24 -?-?-?-?-?-?-?-?-?-?-?-?- 36w 1d 237 lb 8 oz 143/92 138/90 Negative -?-?-?-?-?-?-?-?-?-?-?-?- Negative 130 37 Cephalic 1 -?-?-?-?-?-?-?-?-?-?-?-?- 20 -3 JV-no lof, vaginal bleeding, or dec fm. NST reactive. GBS collected. IOL for 37 weeks scheduled. 04/26/24 -?-?-?-?-?-?-?-?-?-?-?-?- 36w 5d 237 lb 4 oz 125/80 1+ -?-?-?-?-?-?-?-?-?-?-?-?- Negative 130 -?-?-?-?-?-?-?-?-?-?-?-?- JV- pt is not ex periencing visual changes, not feeling well overall. Sending to L&D for IOL now for chronic htn, superimposed pre-e with severe features. NST not reactive today. NST FHR Rate Baby A Baseline: 130 Variability:: Moderate Accelerations:: 15 x 15 Decelerations:: Variable NST Reactive:: Yes FHR Category:: Category II Uterine Activity:: none ROS Constitutional Constitutional: Denies change in weight, fatigue, fever(s), headache(s), poor appetite or weakness Eyes Eyes: Denies blurry vision, change in vision, floaters, seeing flashes or spots in vision ENT HEENT: Denies dizziness, headache(s), loss taste/smell or sore throat Cardiovascular Cardiovascular: Denies chest pain, dizziness, dyspnea, irregular heart rhythm, lightheadedness, palpitations or rapid heart rate Respiratory/Chest Respiratory/Chest: Denies change in mental status, chest tightness, cough, dyspnea or breast pain Gastrointestinal Gastrointestinal: Denies anorexia, chewing difficulty, constipation, diarrhea or weight changes Genitourinary Genitourinary: Denies difficulty urinating, dysuria, flank pain, genital pain, urinary frequency or urinary urgency Musculoskeletal Musculoskeletal: Denies back pain, difficulty walking, extremity pain, joint pain, muscle cramps or muscle weakness Integumentary Integumentary: Denies lesions or unusual bruising Neurologic Neurologic: Denies abnormal movements, abnormal speech, dizziness, numbness, seizure-like activity, syncope or weakness Psychiatric Psychiatric: Denies behavioral changes, change in appetite, confusion, depression, homicidal ideation, suicidal ideation or suicidal thoughts Endocrine Endocrinology: Denies excessive sweating, polydipsia or polyuria Hematologic/Lymphatic Hematologic/Lymphatic: Denies anemia Allergic/Immunologic Allergic/Immunologic: Denies itchy eyes, lip swelling, throat swelling, tongue swelling or wheezing Vital Signs Vital Signs Vital Signs: 04/26/24 14:13 04/26/24 14:13 04/26/24 14:13 Temperature Temperature Source Temporal Pulse Rate 121 H Respiratory Rate Blood Pressure 139/79 H BP Systolic 139 BP Diastolic 79 04/26/24 14:13 04/26/24 14:13 04/26/24 14:49 Temperature 97.7 F L Temperature Source Pulse Rate Respiratory Rate 18 Blood Pressure 146/88 H BP Systolic 146 BP Diastolic 88 04/26/24 14:49 04/26/24 14:49 04/26/24 14:49 Temperature Temperature Source Tympanic Pulse Rate 95 Respiratory Rate 16 Blood Pressure BP Systolic BP Diastolic 04/26/24 14:49 04/26/24 15:05 04/26/24 15:05 Temperature 97.2 F L Temperature Source Pulse Rate 104 H Respiratory Rate Blood Pressure 153/98 H BP Systolic 153 BP Diastolic 98 04/26/24 15:20 04/26/24 15:20 04/26/24 15:35 Temperature Temperature Source Pulse Rate 112 H Respiratory Rate Blood Pressure 140/82 H 146/90 H BP Systolic 140 146 BP Diastolic 82 90 04/26/24 15:35 04/26/24 15:50 04/26/24 15:50 Temperature Temperature Source Pulse Rate 96 86 Respiratory Rate Blood Pressure 158/88 H BP Systolic 158 BP Diastolic 88 04/26/24 16:05 04/26/24 16:05 Temperature Temperature Source Pulse Rate 89 Respiratory Rate Blood Pressure 161/85 H BP Systolic 161 BP Diastolic 85 Weight Weight: 235 lb 14.314 oz Body Mass Index (BMI) 36.9 Physical Exam Const alert, oriented x3 and no apparent distress General Appearance: cooperative Orientation / Consciousness: awake HEENT normocephalic Neck full ROM Lymph Lymphatic: no lymphadenopathy noted Chest inspection of chest normal Resp normal respiratory effort and normal air movement Effort and Inspection: able to speak in complete sentences and symmetric chest movement GI soft to palpation and non-tender Inspection: gravid Palpation: soft; Negative for tender external exam normal Back/Spine normal to inspection Extremity normal to inspection and full ROM Skin no rashes or lesions noted Psych mental status grossly normal Appearance: grossly normal Speech: normal speech Labs Labs Labs: Blood Type O NEGATIVE Antibody Screen NEGATIVE Hct 32.0 % (37-47) L Hgb 10.8 g/dL (12.0-15.0) L Obstetrics Ultrasound Syphilis Total Ab Non-reactive VZV IgG Antibody 412 index (Immune >165) Rubella IgG Antibody Reactive (Nonreactive) Hep Bs Antigen Non-Reactive (Nonreactive) Hepatitis C Antibody Non-Reactive (Nonreactive) Chlamydia DNA (LOUISE) Negative (Negative) N.gonorrhoeae DNA (LOUISE) Negative (Negative) HIV 1&2 Antibody Non-Reactive (Nonreactive) Glucose 1 Hr 50 gm 183 mg/dL (70-140) H Miscellaneous Test Assessment & Plan (1) Anemia during : COMMENT: add FE (2) Gestational diabetes: QUALIFIERS: Gestational diabetes mellitus control: diet-controlled Trimester: third trimester Qualified Code(s): O24.410 - Gestational diabetes mellitus in , diet controlled COMMENT: US at 36wk (3) Rh negative status during : QUALIFIERS: Trimester: second trimester Qualified Code(s): O26.892 - Other specified related conditions, second trimester; Z67.91 - Unspecified blood type, Rh negative COMMENT: rhogam at 28 weeks and PRN (4) Supervision of high-risk : QUALIFIERS: Trimester: third trimester Qualified Code(s): O09.93 - Supervision of high risk , unspecified, third trimester COMMENT: PRR, , CONSTANCE 05/19/24, Rell Timmons (5) : QUALIFIERS: Weeks of gestation: 36 weeks Qualified Code(s): Z3A.36 - 36 weeks gestation of COMMENT: discussed genetic & carrier testing, undecided (6) Obesity (BMI 30.0-34.9): (7) History of palpitations: (8) Hyperlipidemia: QUALIFIERS: Hyperlipidemia type: unspecified Qualified Code(s): E78.5 - Hyperlipidemia, unspecified (9) Acne: QUALIFIERS: Acne type: unspecified acne Qualified Code(s): L70.9 - Acne, unspecified (10) Insomnia: QUALIFIERS: Insomnia type: unspecified Qualified Code(s): G47.00 - Insomnia, unspecified (11) Generalized anxiety disorder with panic attacks: (12) Hypertension: QUALIFIERS: Hypertension type: primary hypertension Qualified Code(s): I10 - Essential (primary) hypertension COMMENT: on medication, twice weekly NSTs and growth US at 32 weeks and 36 weeks. IOL at 38 weeks if stable (13) Encounter for induction of labor: PLAN: Patient presents IOL, plan management for with cytotec, chanel bulb and pitocin/AROM. Pain management: plans epidural. GBS negative. Management of any complications: see problem list I have reviewed the [facility] and made any clinically relevant updates. Dr Brandon aware of assessment and plan and agrees with above Charges/Coding Multi Select Codes Urinary/Genital Urinary/Genital CPT Codes: No Charge
[2024-04-26] MEDS: Labetalol 100 MG Tablet PO ×2 (16:41→22:11)
[2024-04-26] MEDS: Lactated Ringers 1,000 ML 50 ML IV (17:06)
[2024-04-26] MEDS: miSOPROStol 25 MCG TABLET VAGINAL ×2 (17:41→22:11)
[2024-04-26 17:52] LABS: Bedside Glucose 89 mg/dL (74-106)
[2024-04-26 22:32] LABS: Bedside Glucose 88 mg/dL (74-106)
--- NOTE | 2024-04-26 23:57 | PCM.PN.BLA ---
Progress Note Coping well with contractions-on cytotec current tracing: FHT: 130 Moderate variability reactive no decelerations category I tracing [place]: iregular Contractions Membranes:intact SVE:unchanged A/P: BPs were reviewed with Dr Arreola at 1700 after having 2 over protocol. Agreed with plan for cuff readjustment and scheduled BP med and continue to monitor at that time Continue with position changes continue Cytotec until pitocin appropriate Epidural per anesthesia GBS neg Anticipate Dr Arreola aware of above assessment and agrees with plan of care Assessment & Plan Assessment/Plan (1) Encounter for induction of labor: (2) Anemia during : (3) Gestational diabetes: QUALIFIERS: Gestational diabetes mellitus control: diet-controlled Trimester: third trimester Qualified Code(s): O24.410 - Gestational diabetes mellitus in , diet controlled (4) Rh negative status during : QUALIFIERS: Trimester: second trimester Qualified Code(s): O26.892 - Other specified related conditions, second trimester; Z67.91 - Unspecified blood type, Rh negative (5) Supervision of high-risk : QUALIFIERS: Trimester: third trimester Qualified Code(s): O09.93 - Supervision of high risk , unspecified, third trimester (6) : QUALIFIERS: Weeks of gestation: 36 weeks Qualified Code(s): Z3A.36 - 36 weeks gestation of (7) Obesity (BMI 30.0-34.9): (8) History of palpitations: (9) Hyperlipidemia: QUALIFIERS: Hyperlipidemia type: unspecified Qualified Code(s): E78.5 - Hyperlipidemia, unspecified (10) Acne: QUALIFIERS: Acne type: unspecified acne Qualified Code(s): L70.9 - Acne, unspecified (11) Insomnia: QUALIFIERS: Insomnia type: unspecified Qualified Code(s): G47.00 - Insomnia, unspecified (12) Generalized anxiety disorder with panic attacks: (13) Hypertension: QUALIFIERS: Hypertension type: primary hypertension Qualified Code(s): I10 - Essential (primary) hypertension (14) Pre-eclampsia added to pre-existing hypertension: Multi Select Codes Urinary/Genital Urinary/Genital CPT Codes: No Charge
[2024-04-27] VITALS (74 sets, daily range): BP systolic 96–176; BP diastolic 52–99; PULSE 70–109; RESP 15–16; TEMP 36.2–37.4; O2SAT 92–99
[2024-04-27] MEDS: miSOPROStol 25 MCG TABLET VAGINAL (02:09)
[2024-04-27 02:31] LABS: Bedside Glucose 83 mg/dL (74-106)
[2024-04-27] MEDS: Labetalol 100 MG Tablet PO ×2 (05:59→17:28)
[2024-04-27 06:23] LABS: Bedside Glucose 90 mg/dL (74-106)
[2024-04-27] MEDS: Lactated Ringers 1,000 ML 999 ML IV (06:47)
[2024-04-27] MEDS: fentaNYL-bupivacaine (epidural) 100 ML BAG EPIDURAL ×2 (08:10→12:35)
--- NOTE | 2024-04-27 08:52 | PCM.PN.BLA ---
Progress Note fb placed cat I tracing bps WNL s/p epidural
[2024-04-27] MEDS: Lactated Ringers 1,000 ML 200 ML IV ×2 (09:00→14:18)
[2024-04-27] MEDS: Oxytocin 15 Units/NS 250ml 15 UNITS/250 ML IV.SOLN 2 UNITS IV (10:25)
[2024-04-27 11:41] LABS: Bedside Glucose 72 mg/dL (74-106)
[2024-04-27] MEDS: Amnioinfusion- 0.9% NS 1,000 ML IV.SOLN. 1000 ML INTRA-UTER (14:55)
[2024-04-27 15:41] LABS: Bedside Glucose 70 mg/dL (74-106)
[2024-04-27] MEDS: Oxytocin 15 Units/NS 250ml 15 UNITS/250 ML IV.SOLN 83 UNITS IV (16:57)
[2024-04-27 17:41] LABS: Bedside Glucose 92 mg/dL (74-106)
[2024-04-27 17:41] LABS: Bedside Glucose 72 mg/dL (74-106)
--- NOTE | 2024-04-27 21:33 | OB.VAGDELI_ITS ---
Assessment & Plan (1) Vaginal delivery: COMMENT: SM IOL preeclampsia gdm rh neg girl destin Maternal Data Information CONSTANCE Calculator Estimated Delivery Date Method Current WG Current Estimate 05/19/24 LMP (Certain) 36w 6d Vaginal Delivery Maternal Presentation Maternal Presentation: see assessment and plan Vaginal Delivery Information Procedure Performed: Spontaneous Vaginal Delivery Surgeon/Practitioner: Shirlene Mittal Pre-Procedure Diagnosis: see assessment and plan Post-Procedure Diagnosis: same Type of anesthesia: Epidural Estimated Blood Loss: 200 Findings Description of procedure: Patient began pushing and delivered the head in the [place] presentation. The head was delivered atraumatically and a loose nuchal cord ?1 was identified and easily reduced over the 's head. The anterior and posterior shoulders delivered without complication followed by the rest of the infant and the infant was placed on the maternal abdomen. Delayed cord clamping was employed for approximately 60 seconds. Cord was clamped and cut and gentle traction was applied to the cord and the placenta delivered spontaneously immediately following it was noted to be intact with three-vessel cord. The perineum and vagina were inspected and noted to have no laceration. EBL was 200. Patient and infant tolerated delivery well. Presentation: Vertex Placental Delivery Description: Spontaneous Specimen collected: Yes Description of specimen(s) removed: placenta Delayed Cord Clamping: Yes Lease Operator senior warehouse clerk: No Post Vaginal Deli Medications given after delivery: Other (pitocin) Complication Complications: No Multi Select Codes Urinary/Genital Urinary/Genital CPT Codes: 15480 Vaginal Delivery [facility] [place]
--- NOTE | 2024-04-27 21:35 | DCINST_ITS ---
Discharge Instructions Diet Discharge Diet: No restrictions DC O2, CPAP, BIPAP needs Home O2 Discharge instructions: No Dressing / Incision Discharge Activity: Return to Normal Activity, May Not Drive (while taking narcotic pain medications.) and May Shower May resume sexual activity in: 4-6 weeks Dressing / Incision Call your doctor if your incision/area has: Continuous Slow Oozing, Sudden Increased Bleeding, Increased Pain/ Swelling, Increased Redness and Foul Smelling Discharge Follow Up Care Please Follow Up With: Shirlene Mittal MD When: Call [phone] to make an appointment with your doctor in 6 weeks. If you had elevated blood pressure or 4th degree laceration, you will need to be seen in 2 weeks. Test Results: Test results from this visit will be discussed in further detail at your follow- up appointment, if applicable. Discharge Plan Admission Admit Date/Time: 04/26/24 16:00 Attending Provider: Shirlene Mittal Primary Care Provider: Xin Cardona Discharge Orders/Prescriptions Prescriptions: No Action One-A-Day -1 27 mg iron- 800 mcg-235 mg capsule 1 cap PO DAILY ondansetron 4 mg tablet,disintegrating 4 mg PO Q6H PRN (Reason: nausea and vomiting) Qty: 60 0RF labetalol 100 mg tablet 100 mg PO TID 90 Days Qty: 270 4RF ciprofloxacin-dexamethasone 0.3-0.1 % drops,suspension otic (ear) PRN Slow Fe 137 mg (45 mg iron) tablet extended release 137 mg PO QDAY (DME) blood-glucose meter Misc See Rx Instructions .ROUTE .MEDSUPPLY Qty: 1 0RF Rx Instructions: As directed (DME) Blood Glucose Test Strip See Rx Instructions .ROUTE .MEDSUPPLY Qty: 120 6RF Rx Instructions: Check blood sugars Fasting and 2 hours after breakfast, lunch, and dinner. (DME) lancets [Droplet Lancets] 30 gauge misc See Rx Instructions .ROUTE .MEDSUPPLY Qty: 200 6RF Rx Instructions: Check blood sugars fasting and 2 hours after breakfast, lunch, and supper. Referrals / Follow Up: Xin Cardona MD [Primary Care Provider] -
[2024-04-27] MEDS: 0.9% Saline Lock 10 ML Syringe IV (23:13)
[2024-04-27] MEDS: Rho(D) Immune Globulin 300 MCG (1500 Unit) Syringe IV (23:13)
[2024-04-28] MEDS: Acetaminophen 500 MG Tablet 1000 MG PO ×4 (02:50→22:22)
[2024-04-28 03:29] VITALS: BP 140/70; PULSE 81; RESP 16; TEMP 36.4; O2SAT 98
[2024-04-28] MEDS: Labetalol 100 MG Tablet PO ×3 (05:58→22:20)
[2024-04-28 06:23] LABS: Bedside Glucose 104 mg/dL (74-106)
--- NOTE | 2024-04-28 08:12 | PN.OBGYN_ITS ---
Subjective Subjective Patient doing well without complaints. Tolerating PO. Ambulating and voiding without difficulty. Feeding well. Denies chest pain, shortness of breath, calf pain/swelling, fevers, chills, lightheadedness. Objective Data Objective Data Vital Signs: Vital Signs Temp Pulse Resp BP Pulse Ox O2 Del Method 97.6 F L 81 16 140/70 H 98 Room Air 04/28/24 03:29 04/28/24 03:29 04/28/24 03:29 04/28/24 03:29 04/28/24 03:29 04/28/24 03:29 Oxygen Delivery Method Room Air Weight: 235 lb 14.314 oz Body Mass Index (BMI) 36.9 Intake & Output: Intake and Output for Last 24 Hours 04/26/24 04/27/24 04/28/24 23:59 23:59 23:59 Intake Total 3451.17 / 3451.17 1000 / 1000 Output Total 400 / 400 2600 / 2600 Balance -400 / -400 851.17 / 851.17 1000 / 1000 Lab / Micro Data 04/26/24 14:40 04/26/24 14:40 Labs: Laboratory Results - last 24 hr 04/26/24 14:40: Blood Type O NEGATIVE, Antibody Screen NEGATIVE 04/26/24 : Syphilis Total Ab Cancelled 04/27/24 11:19: POC Glucose 72 L 04/27/24 15:15: POC Glucose 70 L 04/27/24 16:00: POC Glucose 72 L 04/27/24 17:23: POC Glucose 92 04/27/24 18:50: Screen NEGATIVE, Baby's Blood Type A POSITIVE, Baby's JAROD NEGATIVE 04/28/24 06:05: POC Glucose 104 Physical Exam Const alert and oriented x3 HEENT normocephalic Eyes PERRL Neck full ROM Resp normal respiratory effort GI soft to palpation GI Narrative: FF below U Assessment & Plan (1) Vaginal delivery: COMMENT: SM IOL preeclampsia gdm rh neg girl destin (2) Pre-eclampsia added to pre-existing hypertension: (3) Gestational diabetes: QUALIFIERS: Gestational diabetes mellitus control: diet-controlled Trimester: third trimester Qualified Code(s): O24.410 - Gestational diabetes mellitus in , diet controlled COMMENT: US at 36wk (4) Rh negative status during : QUALIFIERS: Trimester: second trimester Qualified Code(s): O 26.892 - Other specified related conditions, second trimester; Z67.91 - Unspecified blood type, Rh negative COMMENT: rhogam at 28 weeks and PRN PLAN: Plan s/p PPD # 1 1. routine post delivery care 2. breast feeding- support given 3. rh negative 4. rubella immune 5. BP and glucose stable
[2024-04-28 08:19] VITALS: BP 130/78; PULSE 79; RESP 16; TEMP 36.1; O2SAT 97
[2024-04-28 12:38] VITALS: BP 152/97; PULSE 89; RESP 16; TEMP 36.1; O2SAT 98
[2024-04-28 20:00] VITALS: BP 147/81; PULSE 81; RESP 16; TEMP 36.3; O2SAT 99
[2024-04-29] VITALS (9 sets, daily range): BP systolic 137–165; BP diastolic 74–96; PULSE 79–91; RESP 16–18; TEMP 36.4–36.8; O2SAT 97–99
[2024-04-29] MEDS: Acetaminophen 500 MG Tablet 1000 MG PO ×3 (04:41→21:38)
[2024-04-29] MEDS: Labetalol 100 MG Tablet PO ×3 (06:05→18:10)
--- NOTE | 2024-04-29 08:53 | PCM.PN.OB ---
Subjective Subjective Patient doing well without complaints. Tolerating PO. Ambulating and voiding without difficulty. feeding well. Denies chest pain, shortness of breath, calf pain/swelling, fevers, chills, lightheadedness. Objective Data Objective Data Vital Signs: Vital Signs Temp Pulse Resp BP Pulse Ox O2 Del Method 97.8 F 88 16 146/95 H 98 Room Air 04/29/24 08:35 04/29/24 08:35 04/29/24 08:35 04/29/24 08:35 04/29/24 08:35 04/29/24 08:35 Oxygen Delivery Method Room Air Weight: 235 lb 14.314 oz Body Mass Index (BMI) 36.9 Intake & Output: Intake and Output for Last 24 Hours 04/27/24 04/28/24 04/29/24 23:59 23:59 23:59 Intake Total 3451.17 / 3451.17 1000 / 1000 Output Total 2600 / 2600 Balance 851.17 / 851.17 1000 / 1000 Lab / Micro Data 04/26/24 14:40 04/26/24 14:40 ROS Constitutional Constitutional: Reports systems reviewed and no addt'l complaints, except as documented Cardiovascular Cardiovascular: Reports systems reviewed and no addt'l complaints, except as documented Respiratory/Chest Respiratory/Chest: Reports systems reviewed and no addt'l complaints, except as documented Gastrointestinal Gastrointestinal: Reports systems reviewed and no addt'l complaints, except as documented Physical Exam Const alert, oriented x3 and no apparent distress HEENT Head and Scalp: atraumatic Resp normal respiratory effort GI soft to palpation and non-tender Bimanual Exam - Vag & Uterus: uterus non-tender Uterus Palpation: uterus fundus firm (below Umbilicus) Assessment & Plan (1) Vaginal delivery: COMMENT: SM IOL preeclampsia gdm rh neg girl destin PLAN: Plan s/p PPD # 2 1. routine post delivery care 2. breast feeding- support given 3. rh neg rhogam PRN 4. rubella immune
[2024-04-29] MEDS: Labetalol 200 MG Tablet PO (12:48)
[2024-04-29 16:19] LABS: Hematocrit 30.2 % (37-47); Mean Corp Hgb Conc 33.1 g/dL (32-36); Mean Corpuscular Hgb 28.4 pg (27.0-32.0); Mean Corpuscular Volume 85.8 fL (81-99); Mean Platelet Vol. 11.7 fl (6.2-12.0); Platelet Count 221 K/mm3 (150-450); RBC Distribution Width CV 14.4 % (11.6-14.6); RBC Distribution Width SD 44.2 fl (35.1-43.9); Red Blood Count 3.52 M/mm3 (4.2-5.4); White Blood Count 9.4 K/mm3 (4.4-11.0)
[2024-04-29 16:48] LABS: ALB/GLOB Ratio 0.6 RATIO (0.9-2.4); AST(SGOT) 18 U/L (15-37); Alanine Aminotransfer ALT/SGPT 12 U/L (13-56); Albumin, Serum 2.4 g/dL (3.2-5.0); Alkaline Phosphatase 105 U/L (45-117); Anion Gap 7 (5-15); BUN 7 mg/dL (7-18); BUN/Creat Ratio 10.9 RATIO (10-20); Calcium,Total 8.6 mg/dL (8.5-10.1); Chloride 110 mmol/L (98-107); Creatinine, Serum 0.64 mg/dL (0.55-1.02); EST Glomerular Filtration Rate 121 mL/min (>60); Est Glom Filt Rate - Afr Amer 147 mL/min (>60); Estimated Creatinine Clearance 172.14 ml/min; Globulin 3.7 g/dL (2.2-4.2); Glucose 136 mg/dL (74-106); Potassium 3.4 mmol/L (3.5-5.1); Protein, Total 6.1 g/dL (6.4-8.2); Sodium Level 141 mmol/L (136-145)
--- NOTE | 2024-04-29 17:57 | PN.OBGYN_ITS ---
Subjective Subjective repeat bps elevated, increase dmedicaoitn dosing and will keep ovenright to monitor, dc home tomorrow if stbale Objective Data Objective Data Vital Signs: Vital Signs Temp Pulse Resp BP Pulse Ox O2 Del Method 98.2 F 88 16 151/92 H 99 Room Air 04/29/24 12:10 04/29/24 12:10 04/29/24 12:10 04/29/24 14:30 04/29/24 12:10 04/29/24 12:10 Oxygen Delivery Method Room Air Weight: 235 lb 14.314 oz Body Mass Index (BMI) 36.9 Intake & Output: Intake and Output for Last 24 Hours 04/27/24 04/28/24 04/29/24 23:59 23:59 23:59 Intake Total 3451.17 / 3451.17 1000 / 1000 Output Total 2600 / 2600 Balance 851.17 / 851.17 1000 / 1000 Lab / Micro Data 04/29/24 15:55 04/29/24 15:55 Labs: Laboratory Results - last 24 hr 04/29/24 15:55: WBC 9.4, RBC 3.52 L, Hgb 10.0 L, Hct 30.2 L, MCV 85.8, MCH 28.4, MCHC 33.1, RDW Std Deviation 44.2 H, RDW Coeff of Ej 14.4, Plt Count 221, MPV 11.7, Sodium 141, Potassium 3.4 L, Chloride 110 H, Carbon Dioxide 24.0, Anion Gap 7, BUN 7, Creatinine 0.64, Estim Creat Clear Calc 172.14, Est GFR (MDRD) Af Amer 147, Est GFR (MDRD) Non-Af 121, BUN/Creatinine Ratio 10.9, Glucose 136 H, Calcium 8.6, Total Bilirubin 0.20, AST 18, ALT 12 L, Alkaline Phosphatase 105, T otal Protein 6.1 L, Albumin 2.4 L, Globulin 3.7, Albumin/Globulin Ratio 0.6 L Assessment & Plan (1) Vaginal delivery: COMMENT: SM IOL preeclampsia gdm rh neg girl haisley (2) Pre-eclampsia added to pre-existing hypertension: COMMENT: labetalol 300 TID PLAN: Plan labs repeated, stable. increased labetalol to 300
[2024-04-29] MEDS: Labetalol 200 MG Tablet 300 MG PO (22:16)
[2024-04-30 04:25] VITALS: BP 146/76; PULSE 89; RESP 16; TEMP 37; O2SAT 99
[2024-04-30 05:58] VITALS: BP 144/75; PULSE 98; RESP 16; O2SAT 98
[2024-04-30] MEDS: Labetalol 200 MG Tablet 300 MG PO (06:02)
--- NOTE | 2024-04-30 08:38 | DS.PCM_ITS ---
Providers Date of Admission: 04/26/24 Primary Care Physician: Dr. Xin Cardona MD Reason For Visit: VAGINAL Diagnosis Discharge Diagnosis (1) Vaginal delivery: Status: Acute Code(s): O80 - Encounter for full-term uncomplicated delivery (2) Pre-eclampsia added to pre-existing hypertension: Status: Acute Code(s): O11.9 - Pre-existing hypertension with pre-eclampsia, unspecified trimester Medications at Discharge Home Medications vit 168-iron 27 mg-folic acid 800 mcg-omega3 235 mg capsule (One-A-Day -1) 1 cap PO DAILY 09/10/23 ondansetron 4 mg disintegrating tablet 4 mg PO Q6H PRN nausea and vomiting #60 tabs 10/14/23 labetalol 100 mg tablet 100 mg PO TID 90 days #270 tabs 12/10/23 blood sugar diagnostic (Blood Glucose Test strips) #120 ea 03/09/24 blood-glucose meter #1 ea 03/09/24 lancets 30 gauge (Droplet Lancets) #200 ea 03/09/24 ciprofloxacin 0.3 %-dexamethasone 0.1 % ear drops,suspension drp otic (ear) PRN 04/13/24 ferrous sulfate 137 mg (45 mg iron) tablet,extended release (Slow Fe) 137 mg PO QDAY 04/13/24 labetalol 200 mg tablet 200 mg PO BID #60 tabs 04/29/24 Hospital Course Operations None and section Summary of Care Provided Minutes Spent on Discharge: 30 Hospital Course: The patient was admitted for a induction of labor on 04/26/24 for gestational hypertension and severe features. There were no complications and delivered vaginally on 04/27/24. On day #1 she was tolerating pain well and ambulating, on day #2 she was breast feeding baby and ambulating with mild cramping only. On day #3 she was ready for discharge Physical Exam HEENT normocephalic Resp normal respiratory effort and normal air movement GI soft to palpation, non-tender and non-distended Rectal Exam: other Other Details: Incision is clean, dry, and intact no CVA tenderness Extremity normal to inspection General Extremity: edema bilateral (trace ) Weight / BMI Weight Weight: 235 lb 14.314 oz Body Mass Index (BMI) 36.9 ABG / Lab / Microbiology Data 04/29/24 15:55 04/29/24 15:55 Laboratory: Laboratory Results - last 24 hr 04/29/24 15:55: WBC 9.4, RBC 3.52 L, Hgb 10.0 L, Hct 30.2 L, MCV 85.8, MCH 28.4, MCHC 33.1, RDW Std Deviation 44.2 H, RDW Coeff of Ej 14.4, Plt Count 221, MPV 11.7, Sodium 141, Potassium 3.4 L, Chloride 110 H, Carbon Dioxide 24.0, Anion Gap 7, BUN 7, Creatinine 0.64, Estim Creat Clear Calc 172.14, Est GFR (MDRD) Af Amer 147, Est GFR (MDRD) Non-Af 121, BUN/Creatinine Ratio 10.9, Glucose 136 H, Calcium 8.6, Total Bilirubin 0.20, AST 18, ALT 12 L, Alkaline Phosphatase 105, T otal Protein 6.1 L, Albumin 2.4 L, Globulin 3.7, Albumin/Globulin Ratio 0.6 L D/C Instructions Discharge Diet: No restrictions May resume sexual activity in: 4-6 weeks Weight Bearing Status: Full weight bearing Call your doctor if your incision/area has: Continuous Slow Oozing, Sudden Increased Bleeding, Increased Pain/ Swelling, Increased Redness and Foul Smelling Discharge Call your doctor if you observe: Fever of 101 or Higher and Using more than 1 pad per hour Suture Line Care: Avoid Pulling/Pushing and Avoid Pinching/Bending Cleanse incision/area with: Soap & Water and Keep Dressing Clean & Dry DC O2, CPAP, BIPAP Needs Home O2 Discharge instructions: No Please Follow Up With: Shirlene Mittal MD When: Call [phone] to make an appointment with your doctor in 6 weeks. If you had elevated blood pressure or 4th degree laceration, you will need to be seen in 2 weeks. Meaningful Use Info Meaningful Use Meaningful Use Diagnoses (Choose all that apply): None applicable Ischemic Stroke Statin Dosing Therapy Reference: STATIN DOSE THERAPY REFERENCE: * Patients > 75 years receive moderate or high dose statin therapy. * Patients 75 years or YOUNGER should receive HIGH intensity statin dose unless contraindicated. You will be required to document reason for non-treatment if statin daily dose does not meet guidelines. HIGH DOSE STATIN THERAPY DAILY Atorvastatin > than or = to 40 mg Rosuvastatin > than or = to 20 mg Amlodipine + Atorvastatin > than or = to 2.5/40 mg Ezetimibe + Simvastatin 10/80 mg Simvastatin 80mg Discharge Plan Admission Admit Date/Time: 04/26/24 16:00 Attending Provider: Shirlene Mittal Primary Care Provider: Xin Cardona Instructions Patient Instructions: After a Vaginal Discharge Orders/Prescriptions Prescriptions: New labetalol 200 mg tablet 200 mg PO BID Qty: 60 0RF No Action One-A-Day -1 27 mg iron- 800 mcg-235 mg capsule 1 cap PO DAILY ondansetron 4 mg tablet,disintegrating 4 mg PO Q6H PRN (Reason: nausea and vomiting) Qty: 60 0RF labetalol 100 mg tablet 100 mg PO TID 90 Days Qty: 270 4RF ciprofloxacin-dexamethasone 0.3-0.1 % drops,suspension otic (ear) PRN Slow Fe 137 mg (45 mg iron) tablet extended release 137 mg PO QDAY (DME) blood-glucose meter Misc See Rx Instructions .ROUTE .MEDSUPPLY Qty: 1 0RF Rx Instructions: As directed (DME) Blood Glucose Test Strip See Rx Instructions .ROUTE .MEDSUPPLY Qty: 120 6RF Rx Instructions: Check blood sugars Fasting and 2 hours after breakfast, lunch, and dinner. (DME) lancets [Droplet Lancets] 30 gauge misc See Rx Instructions .ROUTE .MEDSUPPLY Qty: 200 6RF Rx Instructions: Check blood sugars fasting and 2 hours after breakfast, lunch, and supper. Referrals / Follow Up: Xin Cardona MD [Primary Care Provider] - Disposition Disposition (needs filled in before D/C Order can be placed): Home, Self Care
[2024-04-30 10:00] VITALS: BP 147/75; PULSE 102; RESP 16; TEMP 36.7; O2SAT 100
== END 2024-04-30 10:20 | disposition home or self-care (01) | DRG 806 ==
LOC: WPOUT 16:16 → WP 16:16
PROVIDERS: Advanced Practice Midwife; Obstetrics & Gynecology; Admitting Provider Obstetrics & Gynecology; PCP Internal Medicine; Referring Provider Obstetrics & Gynecology; Visit Provider Obstetrics & Gynecology
DX: O11.4 Pre-existing hypertension with pre-eclampsia, complicating childbirth (principal); Z37.0 Single live birth; O99.354 Diseases of the nervous system complicating childbirth; O24.420 Gestational diabetes mellitus in childbirth, diet controlled; O10.02 Pre-existing essential hypertension complicating childbirth; O99.214 Obesity complicating childbirth; E78.5 Hyperlipidemia, unspecified; L70.9 Acne, unspecified; O99.344 Other mental disorders complicating childbirth; G47.00 Insomnia, unspecified; Z87.891 Personal history of nicotine dependence; O99.284 Endocrine, nutritional and metabolic diseases complicating childbirth; F41.0 Panic disorder [episodic paroxysmal anxiety]; F41.1 Generalized anxiety disorder; Z67.91 Unspecified blood type, Rh negative; O99.72 Diseases of the skin and subcutaneous tissue complicating childbirth; Z3A.36 36 weeks gestation of pregnancy
CPT/HCPCS: 36415; 59025; 59050; 80053; 82565; 82570; 82962; 84156; 84450; 84460; 84550; 85027; 85461; 86850; 86900; 86901; 90384; 99221; A4216; G0378; J2790; J2791

== ENCOUNTER 2024-05-03 10:49 | Emergency (ER) | payer OTHER, SELFPAY ==
[2024-05-03] VITALS (7 sets, daily range): BP systolic 125–179; BP diastolic 80–92; PULSE 43–79; RESP 12–18; TEMP 36.6–36.8; O2SAT 97–100; BMI 35.5
--- NOTE | 2024-05-03 11:57 | EKG12_ITS ---
Test Reason : GENERAL Blood Pressure : */* mmHG Vent. Rate : 49 BPM Atrial Rate : 49 BPM P-R Int : 142 ms QRS Dur : 82 ms QT Int : 456 ms P-R-T Axes : 34 75 71 degrees QTcB Int : 411 ms Sinus bradycardia Otherwise normal ECG Confirmed by LUCIANA PAULINO, MALA ([id number]), industrial editor JADE CASTANO ([id number]) on 05/11/2024 6:37:59 AM Referred By: Confirmed By: MALA CHOWDHURY MD
--- NOTE | 2024-05-03 11:57 | CT_ITS ---
STUDY: CTA CHEST REASON FOR EXAM: Female, 23 years old. Pleuritic cp post RADIATION DOSAGE (If Supplied By Facility): CTDIvol = ( 13.8 ) mGy, DLP = ( 444.23 ) mGycm TECHNIQUE: The examination was performed with the intravenous administration of 100CC ISOVUE 370. Post-processing of the angiographic images was performed, with multiplanar reformation and 3D reconstruction. Individualized dose optimization techniques were used for this CT. COMPARISON: Comparison is made with prior CT of the chest dated October 01, 2021. FINDINGS: Normal enhancement of the main pulmonary artery and right and left pulmonary arteries. Normal enhancement of the bilateral peripheral pulmonary arteries. There is no demonstrated pulmonary embolism. Normal thoracic aorta and visualized great vessels. There is no demonstrated aortic dissection. Normal heart and pericardium. Normal mediastinum. Normal hilar regions. Normal visualized trachea and bronchi. The lungs are well expanded. Tiny bilateral pleural effusions with mild degree of atelectasis. Normal chest wall structures. Normal osseous structures. Small hiatal hernia. CT/CTA Chest W/WO Contrast IMPRESSION: Small bilateral pleural effusions with bibasilar atelectasis. No evidence of pneumothorax. Small hiatal hernia. Electronically Signed: Florian Kwan MD at 13:07 EST ,
--- NOTE | 2024-05-03 12:01 | EDS_ITS ---
HPI History of Present Illness Chief Complaint: Shortness of Breath Informant: patient Onset/Context/Timing Onset: Days Context: gradual Timing: Intermittent Current Severity: Mild Maximum Severity: Mild Worsened by: Nothing Relieved by: Nothing Associated Symptoms Negative for cough Chest Pain: Positive for Sharp and - (Pleuritic with deep breathing. No hemoptysis.) Narrative Narrative: 23-year-old female history of anxiety and hypertension. Recently was . Had a vaginal delivery last week at 36 weeks due to preeclampsia. Was discharged from the hospital on Friday. States she has developed shortness of breath with pleuritic upper chest and back pain. No hemoptysis. No history of DVT or PE but has had elevated D-dimers in the past. States she had a little boy he is doing well. She denies any recent URI. She denies any sputum. She denies any calf pain. Does have mild ankle edema. PE Risk Factors: Positive for Recent immobilization and - (Recent hospitali zation for vaginal delivery.); Negative for Cancer, OCP + Smoking + > 35, Prior DVT or PE, Recent surgery or Recent travel Prior similar symptoms: No Recent Illness/Hospitalization: No PFSH PFSH Medical History History of ovarian cyst Infertility associated with anovulation Pelvic pain Blood glucose elevated Hyperlipidemia Strain of left elbow Acne Insomnia Contact with and (suspected) exposure to other viral communicable diseases URI (upper respiratory infection) Anxiety Restless legs Heartburn Generalized anxiety disorder with panic attacks Tobacco abuse counseling Hypertension Former smoker Home Medications ?Medication ?Instructions ?Recorded ?Last Taken ?Type vit 168-iron 27 mg-folic 1 cap PO DAILY 09/10/23 Unknown History acid 800 mcg-omega3 235 mg capsule (One-A-Day -1) ondansetron 4 mg disintegrating 4 mg PO Q6H PRN nausea and 10/14/23 Unknown Rx tablet vomiting #60 tabs labetalol 100 mg tablet 100 mg PO TID 90 days #270 tabs 12/10/23 04/26/24 09:00 Rx 100 mg blood sugar diagnostic (Blood #120 ea 03/09/24 Unknown Rx Glucose Test strips) blood-glucose meter #1 ea 03/09/24 Unknown Rx lancets 30 gauge (Droplet Lancets) #200 ea 03/09/24 Unknown Rx ciprofloxacin 0.3 %-dexamethasone drp otic (ear) PRN 04/13/24 Unknown History 0.1 % ear drops,suspension ferrous sulfate 137 mg (45 mg 137 mg PO QDAY 04/13/24 Unknown History iron) tablet,extended release (Slow Fe) labetalol 200 mg tablet 200 mg PO BID #60 tabs 04/29/24 Unknown Rx labetalol 300 mg tablet 300 mg PO TID 30 days #90 tabs 04/30/24 Unknown Rx Allergy/AdvReac Type Severity Reaction Status Date / Time No Known Allergies Allergy Verified 05/03/24 10:50 Family History Father Hypertension Grandfather Myocardial infarction Grandmother Cancer great grandmother ovarian cancer Surgical History History of mastoidectomy No pertinent past surgical history Social History adopted: No household members: significant other and none number of children: 0 current occupational status: employed current occupation: [employer] Weather current occupational exposures/hazards: No pets and animals: No history of recent travel: No sexually active: Yes Smoking Status: Former smoker Electronic Cigarette Use: with nicotine alcohol intake: never substance use type: does not use well-balanced diet: about half the time caffeine: No during the past year weight has: decreased > 10 lbs what type of physical activity do you participate in: walking frequency: daily duration: 15-30 minutes/day cece/alevism: None seatbelt use: always do you feel safe at home: Yes 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 Shortness of breath. No recent URI. Constitutional Constitutional ED: Denies chills or fever(s) Eyes Eyes: Denies blurry vision ENT ENT ED: Denies ear pain Cardiovascular Cardiovascular: Reports chest pain Respiratory/Chest Respiratory/Chest: Reports dyspnea Gastrointestinal Gastrointestinal: Denies abdominal pain Genitourinary Genitourinary ED: Denies dysuria Musculoskeletal Musculoskeletal: Denies arthralgias Integumentary Denies abscess Neurologic Neurologic: Denies headache(s) Psychiatric Psychiatric: Denies anxiety Endocrine Endocrinology: Denies cold intolerance Hematologic/Lymphatic Hematologic/Lymphatic: Denies easy bleeding Allergic/Immunologic Allergic/Immunologic ED: Denies mouth swelling EXAM Physical Exam Narrative Exam Narrative: Well-appearing 22-year-old female. Vital signs stable afebrile. Heart rate 79. Pulse ox 100% on room air no signs of hypoxia. No distress. H EENT exam moist weeks membranes. Pupils round reactive light. Neck nontender no JVD. Lungs clear to auscultation bilaterally. Heart regular rate and rhythm rate about 80 no murmur. Chest wall ribs nontender. Abdomen soft nontender. Moving all 4 extremities. Calves are nontender without cords. She has trace bilateral ankle edema. Normal dorsi plantarflexion. Normal auto body straightener strength. Back nontender. Neurologically she is awake and alert no focal motor deficits. Clinically looks well. Benign exam. Const Vital Signs: 05/03/24 10:50 05/03/24 11:52 05/03/24 12:49 Temperature 98.3 F Temperature Source Oral Pulse Rate 79 46 L Respiratory Rate 16 12 Respiratory Effort Respiratory Depth Respiratory Pattern Blood Pressure 125/85 H 179/80 H Blood Pressure Mean 98 113 Pulse Ox 100 99 Oxygen Delivery Method Room Air Room Air Room Air 05/03/24 12:57 05/03/24 13:17 05/03/24 14:31 Temperature Temperature Source Pulse Rate 43 L 45 L Respiratory Rate 14 16 Respiratory Effort Normal Non-Labored Respiratory Depth Normal Respiratory Pattern Normal Blood Pressure 155/85 H 166/90 H Blood Pressure Mean 108 115 Pulse Ox 98 98 Oxygen Delivery Method Room Air Room Air Room Air 05/03/24 14:48 Temperature Temperature Source Pulse Rate 43 L Respiratory Rate 18 Respiratory Effort Respiratory Depth Respiratory Pattern Blood Pressure 147/81 H Blood Pressure Mean 103 Pulse Ox 97 Oxygen Delivery Method Room Air Positive well nourished and well developed; Negative for cachectic, contractures or unkempt General Appearance ED: well developed and NAD; Negative for unkempt, cachectic, contractures or pallor Nutritional Appearance: Negative for cachectic HEENT Reports moist mucous membranes atraumatic; Negative for trauma or tenderness Eyes PERRL and EOMs intact bilaterally General Eye ED: Negative for pale conjunctiva Neck no lymphadenopathy, supple, no meningeal signs and no JVD Resp normal respiratory effort and clear to auscultation bilaterally Effort and Inspection: Negative for pain with movement Auscultation: Negative for rales, rhonchi, wheezes or diminished lung sounds Cardio regular rate, regular rhythm, S1 normal heart sound, S2 normal heart sound and no murmurs Rate: Negative for bradycardia or tachycardic Rhythm: Negative for abnormal rhythm GI non-tender, non-distended and no masses Palpation: soft; Negative for tender, guarding or rebound tenderness present Back/Spine no CVA tenderness and normal to inspection Extremity normal to inspection Extremity Narrative: Calves nontender. No cords. Trace bilateral ankle edema. General Extremety ED: Negative for tenderness Neuro oriented x3 and CN's II-XII intact bilaterally Sensorium / Orientation: alert, oriented to person, oriented to place and oriented to time; Negative for orientation impaired, confused or lethargic Speech: speech normal Motor Exam: strength 5/5 throughout Psych mental status grossly normal Appearance: Negative for unkempt Attitude: No agitated Mood & Affect: Negative for depressed Thought Process: normal thought process Skin no wounds General Skin Exam: Negative for jaundice or pallor Lesions: no lesions Rashes: no rashes Trauma: Negative for abrasion, laceration or puncture MDM MDM MDM Narrative Medical decision making narrative: Healthy 23-year-old with chest discomfort and shortness of breath subjectively. Clinically benign exam. Rule out pulmonary emboli. EKG and labs. CTA chest will be obtained to rule out pulmonary embolus. She has had elevated D-dimers in the past. Repeat exam patient is doing well at 2:30 PM. We went over test results. I am comfortable with her being discharged home. She has chronic hypertension she is currently on labetalol. Her heart rates been in the 40s and 50s. She is following up with her [employer] [facility] office tomorrow for blood pressure checks. I did speak to Annette Simmons one of the nurse practitioner she and I are comfortable the patient being discharged to home with outpatient follow-up. I reviewed the CTA myself after I read the radiologist interpretation. History & Record Review Discussion w/independent historian: Patient Additional record(s) reviewed:: Prior inpatient record, Prior outpatient record, Prior ED visit and Prior labs Lab Data Attestation: I reviewed the patient's lab results. Lab results narrative: CBC shows a white count of 5.3. H&H 9.7 and 30. Platelets 217. Electrolytes show gap 5. BUN of 8 creatinine 0.5. Glucose 89. Troponin was 8. CTA chest shows small bilateral pleural effusions but no pulmonary emboli. Read by the radiologist. Reviewed by me. Labs: Laboratory Results - last 24 hr 05/03/24 11:48 WBC 5.3 RBC 3.47 L Hgb 9.7 L Hct 30.5 L MCV 87.9 MCH 28.0 MCHC 31.8 L RDW Std Deviation 45.6 H RDW Coeff of Ej 14.3 Plt Count 217 MPV 10.8 Immature Gran % (Auto) 0.400 Neut % (Auto) 75.5 H Lymph % (Auto) 17.0 L [place] % (Auto) 4.0 Eos % (Auto) 2.5 Baso % (Auto) 0.6 Absolute Neuts (auto) 4.0 Absolute Lymphs (auto) 0.90 Nucleated RBC % 0 Sodium 142 Potassium 3.7 Chloride 111 H Carbon Dioxide 26.0 Anion Gap 5 BUN 8 Creatinine 0.50 L Estim Creat Clear Calc 215.88 Est GFR (MDRD) Af Amer 194 Est GFR (MDRD) Non-Af 160 BUN/Creatinine Ratio 15.8 Glucose 89 Calcium 8.7 Troponin I High Sens 8 Radiography Diagnostic Testing: Clinical Impression(s) from Imaging Studies Chest CTA 05/03/24 11:57 IMPRESSION: Small bilateral pleural effusions with bibasilar atelectasis. No evidence of pneumothorax. Small hiatal hernia. Electronically Signed: Florian Kwan MD at 13:07 EST , Rhythm Strip Rhythm Strip: Sinus bradycardia Rate: 49 Ectopy: None EKG Initial EKG: Attestation: I personally reviewed and interpreted this EKG as follows: Interpretation: No Acute Injury Pattern and Sinus Bradycardia Comments: Sinus bradycardia rate of 49 no acute signs of MD or ischemia. Discharge Plan Triage Chief Complaint: Shortness of Breath ED Provider: Anthony Reich Dx/Rx/DC Orders Clinical Impression: Chest pain, anemia, Chronic hypertension Instructions: ED Chest Pain, Uncertain Cause Prescriptions: No Action One-A-Day -1 27 mg iron- 800 mcg-235 mg capsule 1 cap PO DAILY ondansetron 4 mg tablet,disintegrating 4 mg PO Q6H PRN (Reason: nausea and vomiting) Qty: 60 0RF labetalol 100 mg tablet 100 mg PO TID 90 Days Qty: 270 4RF ciprofloxacin-dexamethasone 0.3-0.1 % drops,suspension otic (ear) PRN Slow Fe 137 mg (45 mg iron) tablet extended release 137 mg PO QDAY labetalol 200 mg tablet 200 mg PO BID Qty: 60 0RF labetalol 300 mg tablet 300 mg PO TID 30 Days Qty: 90 6RF (DME) blood-glucose meter Misc See Rx Instructions .ROUTE .MEDSUPPLY Qty: 1 0RF Rx Instructions: As directed (DME) Blood Glucose Test Strip See Rx Instructions .ROUTE .MEDSUPPLY Qty: 120 6RF Rx Instructions: Check blood sugars Fasting and 2 hours after breakfast, lunch, and dinner. (DME) lancets [Droplet Lancets] 30 gauge misc See Rx Instructions .ROUTE .MEDSUPPLY Qty: 200 6RF Rx Instructions: Check blood sugars fasting and 2 hours after breakfast, lunch, and supper. Primary Care Provider: Xin Cardona Referrals: Xin Cardona MD [Primary Care Provider] - Shirlene Mittal MD [Med Staff - Active Staff] - Keep Tiffanie appointment (Keep your scheduled appointment for tomorrow. Continue your current blood pressure medications.) Activity Restrictions/Additional Instructions: I spoke to the [employer] nurse practitioner Annette Simmons. She endochondral you are being discharged home to follow-up with their office tomorrow. Continue your current blood pressure medications. Print Language: Bruneian Disposition Disposition: Home, Self Care
[2024-05-03 12:05] LABS: Basophil# 0.03 X10^3/uL; Basophil% 0.6 % (0-1); Eosinophil# 0.13 X10^3/uL; Eosinophils% 2.5 % (0-5); Hematocrit 30.5 % (37-47); Hemoglobin 9.7 g/dL (12.0-15.0); Mean Corp Hgb Conc 31.8 g/dL (32-36); Mean Corpuscular Volume 87.9 fL (81-99); Mean Platelet Vol. 10.8 fl (6.2-12.0); Monocyte# 0.21 X10^3/uL; NRBC Flagged by Analyzer 0 % (0-5); Neutrophil # 4.01 X10^3/uL (2.7-7.7); Neutrophil % 75.5 % (47-70); Platelet Count 217 K/mm3 (150-450); RBC Distribution Width CV 14.3 % (11.6-14.6); RBC Distribution Width SD 45.6 fl (35.1-43.9); Red Blood Count 3.47 M/mm3 (4.2-5.4); White Blood Count 5.3 K/mm3 (4.4-11.0)
[2024-05-03 12:18] LABS: Anion Gap 5 (5-15); BUN 8 mg/dL (7-18); BUN/Creat Ratio 15.8 RATIO (10-20); Calcium,Total 8.7 mg/dL (8.5-10.1); Chloride 111 mmol/L (98-107); EST Glomerular Filtration Rate 160 mL/min (>60); Est Glom Filt Rate - Afr Amer 194 mL/min (>60); Estimated Creatinine Clearance 215.88 ml/min; Glucose 89 mg/dL (74-106); Potassium 3.7 mmol/L (3.5-5.1); Sodium Level 142 mmol/L (136-145)
[2024-05-03 15:17] LABS: Troponin-I HS 8 pg/mL (3.0-54.0)
== END 2024-05-03 15:29 | disposition home or self-care (01) ==
PROVIDERS: Emergency Provider Emergency Medicine; PCP Internal Medicine; Visit Provider Emergency Medicine
DX: O99.893 Other specified diseases and conditions complicating puerperium (principal); R07.9 Chest pain, unspecified; Z87.891 Personal history of nicotine dependence; O90.81 Anemia of the puerperium; O16.5 Unspecified maternal hypertension, complicating the puerperium; R06.02 Shortness of breath; Z79.899 Other long term (current) drug therapy
CPT/HCPCS: 71275; 80048; 84484; 85025; 93005; 94760; 99283; Q9967; A4216

== ENCOUNTER → 2024-05-04 | Outpatient (CLI) | payer OTHER, SELFPAY ==
[2024-05-04 19:00] LABS: Protein, Urine (Random) 37.9 mg/dL (<11.9); Protein:Creat Ratio 196 mg/g CRE (0-200)
== END | disposition home or self-care (01) ==
LOC: LABSPEC 15:32
PROVIDERS: PCP Internal Medicine; Referring Provider Nurse Practitioner Women's Health; Visit Provider Nurse Practitioner Women's Health
DX: O11.9 Pre-existing hypertension with pre-eclampsia, unspecified trimester (principal); Z3A.00 Weeks of gestation of pregnancy not specified
CPT/HCPCS: 82570; 84156

== ENCOUNTER 2024-05-10 13:25 | Outpatient (CLI) | payer OTHER, SELFPAY ==
[2024-05-10] VITALS (15 sets, daily range): BP systolic 125–167; BP diastolic 69–100; PULSE 55–89; RESP 16–18; TEMP 36.7; O2SAT 96–100; BMI 33.5
[2024-05-10] MEDS: NIFEdipine 10 MG Capsule PO (14:20)
[2024-05-10] MEDS: NIFEdipine 30 MG Tablet PO (15:09)
[2024-05-10] MEDS: 0.9% Saline Lock 10 ML Syringe IV (15:25)
[2024-05-10 15:43] LABS: Hematocrit 41.6 % (37-47); Hemoglobin 13.3 g/dL (12.0-15.0); Mean Corpuscular Hgb 27.1 pg (27.0-32.0); Mean Corpuscular Volume 84.9 fL (81-99); Mean Platelet Vol. 10.8 fl (6.2-12.0); Platelet Count 301 K/mm3 (150-450); RBC Distribution Width CV 13.8 % (11.6-14.6); White Blood Count 9.4 K/mm3 (4.4-11.0)
[2024-05-10 16:05] LABS: AST(SGOT) 24 U/L (15-37); Alanine Aminotransfer ALT/SGPT 25 U/L (13-56); Creatinine, Serum 0.74 mg/dL (0.55-1.02); EST Glomerular Filtration Rate 104 mL/min (>60); Est Glom Filt Rate - Afr Amer 126 mL/min (>60); Estimated Creatinine Clearance 141.39 ml/min; Uric Acid 6.3 mg/dL (2.6-6.0)
[2024-05-10 16:08] LABS: ALB/GLOB Ratio 0.8 RATIO (0.9-2.4); AST(SGOT) 27 U/L (15-37); Alanine Aminotransfer ALT/SGPT 28 U/L (13-56); Albumin, Serum 3.8 g/dL (3.2-5.0); Alkaline Phosphatase 107 U/L (45-117); Anion Gap 6 (5-15); BUN 10 mg/dL (7-18); BUN/Creat Ratio 12.4 RATIO (10-20); Calcium,Total 9.6 mg/dL (8.5-10.1); Chloride 108 mmol/L (98-107); EST Glomerular Filtration Rate 94 mL/min (>60); Est Glom Filt Rate - Afr Amer 113 mL/min (>60); Estimated Creatinine Clearance 130.79 ml/min; Globulin 4.6 g/dL (2.2-4.2); Glucose 85 mg/dL (74-106); Potassium 4.2 mmol/L (3.5-5.1); Protein, Total 8.4 g/dL (6.4-8.2); Sodium Level 139 mmol/L (136-145)
--- NOTE | 2024-05-10 17:54 | OB.TRI.PN ---
Progress Notes Date of Service: 05/10/24 Progress Note: seen for elevated bps persistent . was on 400 labetalol TID. added procardia now and better control, headaches resolve with tylenol no visual changes, patient checking bps at home. labs checked and uric acid elevated others stable. reveiwed precautions, will manage as OP with close follow up and aggressive titration of procardia. dc juliet on procardia 30xl daily and 400 TID labetalol Laboratory Studies: Laboratory Tests 05/10/24 05/10/24 05/10/24 Range/Units 15:25 15:25 15:25 WBC (4.4-11.0) K/mm3 RBC (4.2-5.4) M/mm3 Hgb (12.0-15.0) g/dL Hct (37-47) % MCV (81-99) fL MCH (27.0-32.0) pg MCHC (32-36) g/dL RDW Std Deviation (35.1-43.9) fl RDW Coeff of Ej (11.6-14.6) % Plt Count (150-450) K/mm3 MPV (6.2-12.0) fl Sodium (136-145) mmol/L Potassium (3.5-5.1) mmol/L Chloride (98-107) mmol/L Carbon Dioxide (21.0-32.0) mmol/L Anion Gap (5-15) BUN (7-18) mg/dL Creatinine (0.55-1.02) mg/dL Estim Creat Clear Calc ml/min Est GFR (MDRD) Af Amer (>60) mL/min Est GFR (MDRD) Non-Af 94 (>60) mL/min BUN/Creatinine Ratio 12.4 (10-20) RATIO Glucose 85 (74-106) mg/dL Uric Acid 6.3 H (2.6-6.0) mg/dL Calcium 9.6 (8.5-10.1) mg/dL Total Bilirubin 0.40 (0.20-1.00) mg/dL AST 27 24 (15-37) U/L ALT 28 25 (13-56) U/L Alkaline Phosphatase 107 (45-117) U/L Total Protein 8.4 H (6.4-8.2) g/dL Albumin 3.8 (3.2-5.0) g/dL Globulin 4.6 H (2.2-4.2) g/dL Albumin/Globulin Ratio 0.8 L (0.9-2.4) RATIO 05/10/24 05/10/24 05/10/24 Range/Units 15:25 15:25 15:25 WBC (4.4-11.0) K/mm3 RBC (4.2-5.4) M/mm3 Hgb (12.0-15.0) g/dL Hct (37-47) % MCV (81-99) fL MCH (27.0-32.0) pg MCHC (32-36) g/dL RDW Std Deviation (35.1-43.9) fl RDW Coeff of Ej (11.6-14.6) % Plt Count (150-450) K/mm3 MPV (6.2-12.0) fl Sodium (136-145) mmol/L Potassium (3.5-5.1) mmol/L Chloride (98-107) mmol/L Carbon Dioxide (21.0-32.0) mmol/L Anion Gap (5-15) BUN (7-18) mg/dL Creatinine 0.80 (0.55-1.02) mg/dL Estim Creat Clear Calc 130.79 141.39 ml/min Est GFR (MDRD) Af Amer 113 126 (>60) mL/min Est GFR (MDRD) Non-Af 104 (>60) mL/min BUN/Creatinine Ratio (10-20) RATIO Glucose (74-106) mg/dL Uric Acid (2.6-6.0) mg/dL Calcium (8.5-10.1) mg/dL Total Bilirubin (0.20-1.00) mg/dL AST (15-37) U/L ALT (13-56) U/L Alkaline Phosphatase (45-117) U/L Total Protein (6.4-8.2) g/dL Albumin (3.2-5.0) g/dL Globulin (2.2-4.2) g/dL Albumin/Globulin Ratio (0.9-2.4) RATIO 05/10/24 Range/Units 15:25 WBC 9.4 (4.4-11.0) K/mm3 RBC 4.90 (4.2-5.4) M/mm3 Hgb 13.3 (12.0-15.0) g/dL Hct 41.6 (37-47) % MCV 84.9 (81-99) fL MCH 27.1 (27.0-32.0) pg MCHC 32.0 (32-36) g/dL RDW Std Deviation 43.0 (35.1-43.9) fl RDW Coeff of Ej 13.8 (11.6-14.6) % Plt Count 301 (150-450) K/mm3 MPV 10.8 (6.2-12.0) fl Sodium 139 (136-145) mmol/L Potassium 4.2 (3.5-5.1) mmol/L Chloride 108 H (98-107) mmol/L Carbon Dioxide 25.0 (21.0-32.0) mmol/L Anion Gap 6 (5-15) BUN 10 (7-18) mg/dL Creatinine 0.74 (0.55-1.02) mg/dL Estim Creat Clear Calc ml/min Est GFR (MDRD) Af Amer (>60) mL/min Est GFR (MDRD) Non-Af (>60) mL/min BUN/Creatinine Ratio (10-20) RATIO Glucose (74-106) mg/dL Uric Acid (2.6-6.0) mg/dL Calcium (8.5-10.1) mg/dL Total Bilirubin (0.20-1.00) mg/dL AST (15-37) U/L ALT (13-56) U/L Alkaline Phosphatase (45-117) U/L Total Protein (6.4-8.2) g/dL Albumin (3.2-5.0) g/dL Globulin (2.2-4.2) g/dL Albumin/Globulin Ratio (0.9-2.4) RATIO Charges/Coding Procedures Urinary/Genital [id number]: No Charge
== END 2024-05-10 17:03 | disposition home or self-care (01) ==
LOC: WPOUT 13:31 → WP 13:32
PROVIDERS: PCP Internal Medicine; Referring Provider Obstetrics & Gynecology; Visit Provider Obstetrics & Gynecology
DX: O99.893 Other specified diseases and conditions complicating puerperium (principal); R03.0 Elevated blood-pressure reading, without diagnosis of hypertension
CPT/HCPCS: 36415; 80053; 82565; 84450; 84460; 84550; 85027; 99221; A4216; G0378

== ENCOUNTER → 2024-08-25 | Outpatient (CLI) | payer OTHER, SELFPAY ==
--- NOTE | 2024-08-25 08:54 | RDU_ITS ---
Reason For Study Reason For Study: Uncontrolled HTN Right Renal Artery Left Renal Artery Right renal artery ostium 162.2/52 Left renal artery ostium 125.3/49.9 RSV/EDV. PSV/EDV. Right renal artery proximal 177.8/61.6 Left renal artery proximal PSV/EDV PSV/EDV. 144.1/53.1 . Right renal artery mid 164.9/55.1 Left renal artery mid 168.9/70.2 PSV/EDV. PSV/EDV . Right renal artery distal 177.7/71.5 Left renal artery distal 166.1/81.5 PSV/EDV. PSV/EDV. Right Renal Parenchyma Left Renal Parenchyma Upper Pole Medula 39.8/17 PSV/EDV. Left upper pole medulla 54.8/20.7 Right upper pole medulla EDR 0.4 . PSV/EDV . Right upper pole medulla R.I. 0.57 . Left upper pole medulla EDR 0.4 . Upper [place] Cortx 25.1/8 PSV/EDV. Left upper pole medulla R.I. 0.62 . Right upper pole cortex EDR 0.3 . UP Cortex 33.9/13.1 PSV/EDV. Right upper pole cortex R.I. 0.68 . Left upper pole cortex EDR 0.4 . Right lower Pole medulla 42.6/18.5 Left upper pole cortex R.I. 0.61 . PSV/EDV . Left lower Pole medulla 39.2/17.3 Right lower pole medulla EDR 0.4 . PSV/EDV . Right lower pole medulla R.I. 0.57 . Left lower pole medulla EDR 0.4 . Lower Pole Cortex 32.2/13 PSV/EDV. Left lower pole medulla R.I. 0.6 . Right lower pole cortex EDR 0.4 . Lower Pole Cortx 23.3/8.5 PSV/EDV. Right lower pole cortex R.I. 0.60 . Left lower pole cortex EDR 0.4 . Right Renal Hilar Left lower pole cortex R.I. 0.63 . Right Hilar avg 94.1/35.8 PSV/EDV. Left Renal Hilar Right hilar acceleration time 40 m/sec. LT Hilar avg 119.5/45.1 PSV/EDV . Right Renal Dimensions Left hilar acceleration time 30 m/sec. Right kidney size 10.88 cm . Left Renal Dimensions Right cortical dimension 1.57 cm . Left kidney size 11.67 cm . Left cortical dimension 1.60 cm . Aorta Proximal abdominal aorta 1.53 x 1.51 cm . Proximal abdominal aorta peak systolic velocity is 152.7 cm/sec . Distal abdominal aorta 1.40 x 1.37 cm . Distal abdominal aorta peak systolic velocity is 130.7 cm/sec . VL/Renal Artery Duplex Ultrasound Interpretation Summary Right renal artery patent with normal velocities and no evidence of stenosis. Left renal artery patent with normal velocities and no evidence of stenosis. Right renal vein patent. Left renal vein patent. Right kidney normal in size. Left kidney normal in size. Ordering Physician: Neftali Shukla Referring Physician: Xin Cardona Performed By: Rosalind Urrutia RVT
== END | disposition home or self-care (01) ==
LOC: CVS 08:53
PROVIDERS: PCP Internal Medicine; Referring Provider Internal Medicine Cardiovascular Disease; Visit Provider Internal Medicine Cardiovascular Disease
DX: I10 Essential (primary) hypertension (principal)
CPT/HCPCS: 93975

== ENCOUNTER → 2025-03-01 | Outpatient (CLI) | payer OTHER, SELFPAY ==
[2025-03-01 11:45] LABS: Hematocrit 40.5 % (37-47); Hemoglobin 13.4 g/dL (12.0-15.0); Immature Granulocytes Count 0.040 X10^3/uL (0.0-0.0); Mean Corp Hgb Conc 33.1 g/dL (32-36); Mean Corpuscular Volume 88.0 fL (81-99); Mean Platelet Vol. 11.0 fl (6.2-12.0); NRBC Flagged by Analyzer 0 % (0-5); Platelet Count 268 K/mm3 (150-450); RBC Distribution Width CV 12.4 % (11.6-14.6); RBC Distribution Width SD 39.7 fl (35.1-43.9); Red Blood Count 4.60 M/mm3 (4.2-5.4); White Blood Count 6.4 K/mm3 (4.4-11.0)
[2025-03-01 12:25] LABS: AST(SGOT) 18 U/L (<=31); Alanine Aminotransfer ALT/SGPT 13 U/L (<=34); Albumin, Serum 4.4 g/dL (3.5-5.0); Alkaline Phosphatase 60 U/L (35-104); Anion Gap 10 (5-15); BUN 7 mg/dL (4-19); BUN/Creat Ratio 9.1 RATIO (10-20); Calcium,Total 8.9 mg/dL (7.6-11.0); Carbon Dioxide 24.2 mmol/L (21.0-32.0); Chloride 103 mmol/L (98-108); Globulin 3.1 g/dL (2.2-4.2); Glucose 90 mg/dL (70-99); Potassium 4.0 mmol/L (3.3-5.1)
[2025-03-03 08:09] LABS: ANTINUCLEAR ANTIBODIES DIRECT Negative (Negative)
== END | disposition home or self-care (01) ==
LOC: LAB 10:54
PROVIDERS: PCP Internal Medicine; Referring Provider Physician Assistant; Visit Provider Physician Assistant
DX: R25.1 Tremor, unspecified (principal); I10 Essential (primary) hypertension; Z86.32 Personal history of gestational diabetes
CPT/HCPCS: 36415; 80053; 83036; 84443; 85025; 86038; 86225

== ENCOUNTER → 2025-03-25 | Outpatient (CLI) | payer OTHER, SELFPAY ==
--- OUTSIDE RECORDS SUMMARY | 2025-03-25 19:54 | XMS RPT_ITS | CCD ---
Author Organization [facility] Care Team Providers Care Banquet Manager Name Role Phone JOAN DIOR Unavailable Unavailable CANDI TORRES Unavailable Unavailable JOAN DIOR Unavailable Unavailable YI LIPSCOMB Attending Unavailable PORSCHE HURTADO Referring Unavailable KLEBER TORRES Primary Care Unavailable Nilton Ervin Attending Unavailable Kleber Torres Primary Care Unavailable Nilton Ervin Admitting Unavailable Yi Lipscomb Admitting Unavailable Yi Lipscomb Attending Unavailable Kleber Torres Primary Care Unavailable Kleber Torres Primary Care Unavailable Sylvia Delarosai Antoinette Admitting Unavailable Isaura Vika A Attending Unavailable CANDACE TERRY Attending Unavailable NO, PHYSICIAN Primary Care Unavailable No, Physician Primary Care Provider Unavailabl e Care Physician, No Primary Primary Care Provider Unavailable Care Physician, No Primary Referring Provider Un available Dr. Papito Pulido Attending Provider [phone] Gypsy IN FLIGHT TECHNICIAN, ANAID Castillo Attending Provider [phone] Care Physician, No Primary Primary Care Provider Unavailable Care Physician, No Primary Referring Provider Un available ANITA Ovalle Attending Provider Unavailab le Care Physician, No Primary Primary Care Provider Unavailable Care Physician, No Primary Referring Provider Un available Gypsy IN FLIGHT TECHNICIAN, CHRISTY-Jose Castillo Attending Provider [phone] Dr. Xin Cardona Attending Provider [phone] Care Physician, No Primary Primary Care Provider Unavailable Care Physician, No Primary Referring Provider Un available Dr. Xin Cardona Attending Provider [phone] Xin Cardona Primary Care Provider [phone] Dr. Xin Cardona Referring Provider [phone] Dr. Xin Cardona Primary Care Provider 1(33 [phone]) Brendan, Dr. Lauren Referring Provider [phone] ANITA Barrow Attending Provider [phone] ANITA Vivar Attending Provider Dr. Xin Cardona Primary Care Provider 1(33 0) Brendan, Dr. Lauren Referring Provider [phone] ANITA Barrow Attending Provider [phone] ANITA Vivar Attending Provider Dr. Xin Cardona Primary Care Provider 1(33 0) Brendan, Dr. Lauren Referring Provider [phone] ANITA Barrow Attending Provider PRABHJOT Kelly Attending Provider Tello IN FLIGHT TECHNICIAN, IN FLIGHT TECHNICIAN-C Kolby Attending Provider [phone] Dr. Xin Cardona Primary Care Provider 1(33 0) Brendan, Dr. Lauren Referring Provider [phone] None, No PCP Unavailable Unavailable Unavailable Unavailable Pierre, Dr. Kelvin Huston Referring Unavail able Michele, Yassine Joselineantoinette Khan Attending Xiomara vailable Pierre, Dr. Kelvin Huston Attending Unavail able Pierre, Dr. Kelvin Huston Referring Unavail able Vashti, Dr. Joel Ramirez Referring Unavailable Pierre, Dr. Kelvin Huston Attending Unavail able Pierre, Dr. Kelvin Huston Admitting Unavail able Pierre, Dr. Kelvin Huston Attending Unavail able Pierre, Dr. Kelvin Huston Referring Unavail able Unavailable Primary Care Provider Unavailcarolyn e Brendan, Dr. Lauren Primary Care Provider [phone]) Dr. Xin Cardona Referring Provider [phone] ANITA Barrow Attending Provider PRABHJOT Kelly Attending Provider PIERRE, MAROUN T Attending Unavailable PIERRE, MAROUN T Attending Unavailable JOSELINE SOLIZ Attending Unavailable PIERRE, MAROUN T Admitting Unavailable EULALIA JAYOUN T Attending Unavailable Dr. Xin Cardona Primary Care Provider [phone]) Dr. Xin Cardona Referring Provider [phone] Boogie IN FLIGHT TECHNICIAN-C Maryse Attending Provider [phone] Brendan PAULINO, Dr. Lauren Primary Care Provider Damir PAULINO, Dr. Cruz Attending Provider Damir PAULINO, Dr. Cruz Emergency Provider [phone] Brendan PAULINO, Dr. Lauren Referring Provider 1([phone]) Gypsy HARRISON-CAnna Attending Provider [phone] Gypsy IN FLIGHT TECHNICIAN-CAnna Referring Provider Daxa PAULINO, Dr. Garber Attending Provider Daxa PAULINO, Dr. Garber Referring Provider Daxa PAULINO, Dr. Garber Other Provider Alex Ordaz Attending Provider [phone] Brendan PAULINO, Dr. Lauren Attending Provider [phone]) Dr. Neftali Shukla MD Attending Provider Dr. Neftali Shukla MD Referring Provider Dr. Jan Perry MD Attending Provider [phone] Brendan PAULINO, Dr. Lauren Primary Care Provider Brendan PAULINO, Dr. Lauren Referring Provider [phone]) Alex Ordaz Attending Provider [phone] Lillie Leonard Referring Unavailabl e Xin Cardona Primary Care Unavailable Lillie Leonard Attending Unavailabl e Oleghe, Efewongbe Primary Care Unavailable Ladonna Kelly Referring Unavailable Shirlene Mittal Attending Unavailable Oleghe, Efewongbe Primary Care Unavailable Shirlene Mittal Attending Unavailable Shirlene Mittal Admitting Unavailable Shirlene Mittal Referring Unavailable Shirlene Mittal Attending Unavailable Shirlene Mittal Referring Unavailable Oleghe, Efewongbe Primary Care Unavailable Alex Ordaz Attending Unavailable Oleghe, Efewongbe Referring Unavailable Oleghe, Efewongbe Primary Care Unavailable VandLillie Nelson Attending Unavailabl e Oleghe, Efewongbe Primary Care Unavailable Oleghe, Efewongbe Referring Unavailable Gypsy IN FLIGHT TECHNICIAN, Anna Attending Unavailable Oleghe, Efewongbe Primary Care Unavailable Oleghe, Efewongbe Referring Unavailable [place] IN FLIGHT TECHNICIAN, Anna Attending Unavailable Oleghe, Efewongbe Referring Unavailable Oleghe, Efewongbe Primary Care Unavailable Oleghe, Efewongbe Primary Care Unavailable Ladonna Kelly Referring Unavailable Shirlene Mittal Consulting Unavailable Shirlene Mittal Attending Unavailable Neftali Shukla Referring Unavailable Neftali Shukla Attending Unavailable Oleghe, Efewongbe Primary Care Unavailable Oleghe, Efewongbe Primary Care Unavailable Shirlene Mittal Attending Unavailable Shirlene Mittal Referring Unavailable Anthony Reich Attending Unavailable Oleghe, Efewongbe Primary Care Unavailable Annette Simmons Referring Unavailable Annette Simmons Attending Unavailable Oleghe, Efewongbe Primary Care Unavailable Annette Simmons Referring Unavailable Oleghe, Efewongbe Primary Care Unavailable Annette Simmons Attending Unavailable Lillie Leonard Referring Unavailabl e Vande VelLillie frausto Attending Unavailabl e Oleghe, Efewongbe Primary Care Unavailable Vande VelLillie frausto Referring Unavailabl e Oleghe, Efewongbe Primary Care Unavailable VandLillie Nelson Attending Unavailabl e Rayshawn Garsia NP Attending Unavailable Oleghe, Efewongbe Primary Care Unavailable Oleghe, Efewongbe Referring Unavailable Annette Simmons Attending Unavailable Oleghe, Efewongbe Primary Care Unavailable Oleghe, Efewongbe Referring Unavailable Vande Lillie Lucero Attending Unavailabl e Oleghe, Efewongbe Primary Care Unavailable Oleghe, Efewongbe Referring Unavailable Oleghe, Efewongbe Primary Care Unavailable Ladonna eKlly Attending Unavailable Oleghe, Efewongbe Referring Unavailable Anna Betancur NP Attending Unavailable Oleghe, Efewongbe Primary Care Unavailable Oleghe, Efewongbe Referring Unavailable Oleghe, Efewongbe Primary Care Unavailable Alex Ordaz Attending Unavailable Oleghe, Efewongbe Referring Unavailable Oleghe, Efewongbe Primary Care Unavailable Alex Ordaz Attending Unavailable Oleghe, Efewongbe Referring Unavailable Neftali Shukla Attending Unavailable Oleghe, Efewongbe Primary Care Unavailable Oleghe, Efewongbe Referring Unavailable Lillie Leonard Attending Unavailabl e Oleghe, Efewongbe Primary Care Unavailable Oleghe, Efewongbe Referring Unavailable Annette Simmons Attending Unavailable Oleghe, Efewongbe Referring Unavailable Oleghe, Efewongbe Primary Care Unavailable Anna Betancur NP Attending Unavailable Oleghe, Efewongbe Referring Unavailable Oleghe, Efewongbe Primary Care Unavailable Lillie Leonard Attending Unavailabl e Oleghe, Efewongbe Primary Care Unavailable Oleghe, Efewongbe Referring Unavailable Kleber Barrow Attending Unavailable Oleghe, Efewongbe Primary Care Unavailable Oleghe, Efewongbe Referring Unavailable Oleghe, Efewongbe Primary Care Unavailable Kleber Barrow Attending Unavailable Oleghe, Efewongbe Referring Unavailable Annette Simmons Attending Unavailable Oleghe, Efewongbe Primary Care Unavailable Oleghe, Efewongbe Referring Unavailable Oleghe, Efewongbe Primary Care Unavailable Lillie Leonard Attending Unavailabl e Oleghe, Efewongbe Referring Unavailable Oleghe, Efewongbe Primary Care Unavailable Shirlene Mittal Attending Unavailable Oleghe, Efewongbe Referring Unavailable Oleghe, Efewongbe Attending Unavailable Oleghe, Efewongbe Primary Care Unavailable Oleghe, Efewongbe Referring Unavailable Anna Betancur NP Attending Unavailable Oleghe, Efewongbe Referring Unavailable Oleghe, Efewongbe Primary Care Unavailable Oleghe, Efewongbe Primary Care Unavailable Willem Joel Attending Unavailable Rayshawn Garsia NP Referring Unavailable Willem Joel Attending Unavailable Oleghe, Efewongbe Primary Care Unavailable Neftali Shukla Referring Unavailable Jan Perry Attending Unavailable Oleghe, Efewongbe Primary Care Unavailable Annette Simmons Attending Unavailable Oleghe, Efewongbe Primary Care Unavailable Oleghe, Efewongbe Referring Unavailable Shirlene Mittal Attending Unavailable Shirlene Mittal Admitting Unavailable Oleghe, Efewongbe Primary Care Unavailable Shirlene Mittal Referring Unavailable Shirlene Mittal Consulting Unavailable [place] IN FLIGHT TECHNICIAN, Anna Attending Unavailable Annette Simmons Referring Unavailable Annette Simmons Admitting Unavailable Annette Simmons Consulting Unavailable Annette Simmons Attending Unavailable Oleghe, Efewongbe Primary Care Unavailable VandLillie Nelson Attending Unavailabl e Oleghe, Efewongbe Referring Unavailable Shirlene Mittal Attending Unavailable Shirlene Mittal Referring Unavailable Shirlene Mittal Consulting Unavailable Oleghe, Efewongbe Primary Care Unavailable Oleghe, Efewongbe Primary Care Unavailable Rayshawn Garsia NP Attending Unavailable Rayshawn Garsia NP Referring Unavailable Annette Simmons Attending Unavailable Annette Simmons Referring Unavailable Oleghe, Efewongbe Primary Care Unavailable Vande Velde, Lillie Referring Unavailabl e Vande Velde Lillie Attending Unavailabl e Oleghe, Efewongbe Primary Care Unavailable Oleghe, Efewongbe Primary Care Unavailable Shirlene Mittal Attending Unavailable Shirlene Mittal Referring Unavailable Vande Velde Lillie Attending Unavailabl e Oleghe, Efewongbe Primary Care Unavailable Shirlene Mittal Consulting Unavailable Shirlene Mittal Attending Unavailable Shirlene Mittal Referring Unavailable [place] IN FLIGHT TECHNICIAN, Anna Attending Unavailable Oleghe, Efewongbe Primary Care Unavailable Oleghe, Efewongbe Referring Unavailable Gypsy IN FLIGHT TECHNICIAN, Anna Referring Unavailable Gypsy IN FLIGHT TECHNICIAN, Anna Attending Unavailable Oleghe, Efewongbe Primary Care Unavailable Kleber Barrow Attending Unavailable Oleghe, Efewongbe Primary Care Unavailable Oleghe, Efewongbe Referring Unavailable Vande Velde, Lillie Referring Unavailabl e Vande Velde, Lillie Attending Unavailabl e Oleghe, Efewongbe Primary Care Unavailable Vande Velde, Lillie Referring Unavailabl e Vande Velde, Lillie Attending Xin Sanches Primary Care Unavailable Allergies Allergy Classification Reported Allergen(s) Allergy Type Date of Onset Reaction(s) Facility (3 sources) NIFEdipine Drug Allergy 08-13-2024 Other [facility] Comment on above: pt reports stomach p ain while on this medication (1 source) NIFEdipine Drug Allergy 12-01-2024 [facility] Repository Medications Current Medications Medication Drug Class(es) Dates Sig (Normalized) Sig (Original) acetaminophen 500 mg oral tablet (2 sources) Start: 11-06-2022 End: 11-06-2023 take 2 tablets by mouth every eight hours acetaminophen (Tylenol) 500 mg tablet TAKE 2 TABLETS BY MOUTH EVERY 8 HOURS 90 tablet 0 11/06/2022 11/06/2023 Active carvedilol 6.25 mg oral tablet (14 sources) alpha-Adrenergic Cole, beta-Adrenergic Cole Start: 08-13-2024 End: 09-30-2024 take 1 tablet by mouth twice daily at mealtime Carvedilol 6.25 mg tablet Active 6.25 mg PO TWICE A DAY 180 September 30, 2024 3:36pm must administer with a meal/food Start: 06-29-2024 End: 08-13-2024 take 1 tablet by mouth twice daily at mealtime Carvedilol 12.5 mg tablet Discontinued 12.5 mg PO TWICE A DAY 60 June 29, 2024 5:15pm August 13, 2024 11:01am Hypertension Essential (primary) hypertension HTN must administer with a meal/food Start: 06-15-2024 End: 06-29-2024 take 1 tablet by mouth twice daily at mealtime Carvedilol 6.25 mg tablet Discontinued 6.25 mg PO TWICE A DAY 60 0 June 15, 2024 4:25pm June 29, 2024 5:16pm Hypertension Essential (primary) hypertension HTN must administer with a meal/food Start: 09-01-2023 End: 09-05-2023 take 1 tablet by mouth twice daily at mealtime Carvedilol 6.25 mg tablet Discontinued 6.25 mg PO TWICE A DAY 60 September 01, 2023 12:00am September 05, 2023 1:11pm Hypertension Essential (primary) hypertension HTN must administer with a meal/food cephalexin 500 mg oral capsule (2 sources) Cephalosporin Antibacterial Start: 11-06-2022 End: 11-06-2023 take 1 capsule by mouth twice daily cephalexin (Keflex) 500 mg capsule TAKE 1 CAPSULE BY MOUTH TWO TIMES A DAY 14 capsule 0 11/06/2022 11/06/2023 Active ciprofloxacin 3 mg/ml / dexamethasone 1 mg/ml otic suspension (2 sources) Corticosteroid, Quinolone Antimicrobial Start: 11-06-2022 End: 11-06-2023 ciprofloxacin-dex amethasone (CiproDEX) otic suspension INSTILL 4 DROPS IN THE RIGHT EAR TWO TIMES A DAY, START 11/12/22 7.5 mL 1 11/06/2022 11/06/2023 Active clindamycin 0.01 mg/mg topical gel (10 sources) Lincosamide Antibacterial Start: 11-01-2022 clindamycin (Cleocin T) 1 % gel Start: 11-01-2022 End: 02-28-2023 Clindamycin Phosphate 1 % ge l Discontinued 1 NMA TOPICAL TWICE A DAY 60 November 01, 2022 12:00am February 28, 2023 10:57am diphenhydrAMINE hydrochloride 25 mg oral capsule (1 source) Histamine-1 Receptor Antagonist Start: 04-19-2022 take 1 capsule by mouth at bedtime Diphenhydramine Hcl (Benadryl) 25 mg capsule Active 25 MG PO AT BEDTIME April 19, 2022 12:00am fluticasone propionate 0.05 mg/actuat metered dose nasal spray (2 sources) Corticosteroid Start: 11-03-2024 take 50 ug nasal route once daily Fluticasone Propionate (Flonase Allergy Relief) 50 mcg/actuation spray,suspension Active 2 NMA INTRANASAL daily 16 November 03, 2024 12:00am administer into each nostril hydroCHLOROthiazide 12.5 mg / losartan potassium 50 mg oral tablet (5 sources) Thiazide Diuretic, Angiotensin 2 Receptor Cole Start: 08-13-2024 End: 09-30-2024 Losartan-Hydrochlor othiazide 50-12.5 mg tablet Active 1 {tbl} PO daily 90 September 30, 2024 3:37pm Miscellaneous Medical Supply (Blood Pressure Cuff) [facility] [place] (4 sources) Start: 05-11-2022 Miscellaneous Medical Supply (Blood Pressure Cuff) [facility] [place] Active 0 .ROUTE .MEDSUPPLY August 22, 2021 9:13am Check Blood Pressure Twice a Day Start: 08-22-2021 Miscellaneous Medical Supply (Blood Pressure Cuff) [facility] [place] Active 0 .ROUTE .MEDSUPPLY August 22, 2021 12:00am Check Blood Pressure Twice a Day Multivit With Min-Folic Acid (Women's Multivitamin Gummies) 200 mcg tablet,chewable (8 sources) Start: 05-24-2021 take 1 tablet by mouth once Multivit With Min-Folic Acid (Women's Multivitamin Gummies) 200 mcg tablet,chewable Active TABLET PO May 24, 2021 3:10pm Start: 05-24-2021 take 1 tablet by john th once daily Multivit With Min-Folic Acid (Women's Multivitamin Gummies) 200 mcg tablet,chewable Active 1 TABLET PO DAILY May 24, 2021 1:00am Start: 05-24-2021 take 1 tablet by john th once daily Multivit With Min-Folic Acid (Women's Multivitamin Gummies) 200 mcg tablet,chewable Active 1 TABLET PO DAILY May 24, 2021 12:00am Start: 05-24-2021 take 1 tablet by mouth once Mu ltivit With Min-Folic Acid (Women's Multivitamin Gummies) 200 mcg tablet,chewable Active TABLET PO May 24, 2021 1:00am naproxen sodium 220 mg oral capsule (20 sources) Nonsteroidal Anti-inflammatory Drug Start: 04-19-2022 take 1 capsule by mouth twice daily Naproxen Sodium (Aleve) 220 mg capsule Active 220 MG PO TWICE A DAY April 19, 2022 12:00am Start: 08-07-2021 End: 11-16-2021 take 1 tablet by mouth twice daily Naproxen 500 MG tablet Discontinued 500 mg PO TWICE A DAY August 07, 2021 12:00am November 16, 2021 10:22am predniSONE 10 mg oral tablet (2 sources) Start: 03-21-2022 take 10 mg by mouth twice daily Prednisone Active 10 MG PO TWICE A DAY March 21, 2022 1:00am sennosides, shelter 8.6 mg oral tablet (2 sources) Start: 11-06-2022 End: 11-06-2023 take 1 tablet by mouth at bedtime sennosides (Senokot) 8.6 mg tablet TAKE 1 TABLET BY MOUTH AT BEDTIME 10 tablet 0 11/06/2022 11/06/2023 Active sertraline 25 mg oral tablet (20 sources) Serotonin Reuptake Inhibitor Start: 11-03-2024 take 1 tablet by mouth once daily Sertraline 25 mg tablet Active 25 mg PO daily 30 November 03, 2024 12:00am Start: 08-02-2022 Sertraline HCl - 50 MG Oral Tablet Quantity: 90 Refills: 0 Ordered: 02-Aug-2022 DO Start : 02-Aug-2022 Active Start: 08-02-2022 End: 10-10-2023 take 1 tablet by mouth once daily Sertraline 50 mg tablet Discontinued 50 mg PO DAILY 90 July 17, 2023 4:42pm October 10, 2023 2:24pm Start: 08-01-2022 Sertraline HCl - 25 MG Oral Tablet Quantity: 90 Refills: 0 Ordered: 01-Aug-2022 DO Start : 01-Aug-2022 Active Start: 12-21-2021 End: 08-02-2022 take 1 tablet by mouth once daily Sertraline 25 mg tablet Discontinued 25 mg PO DAILY 90 August 01, 2022 4:25pm August 02, 2022 9:14am traMADol hydrochloride 50 mg oral tablet (1 source) Opioid Agonist Start: 11-06-2022 End: 05-09-2023 take 1 tablet by mouth every six hours traMADol (Ultram) 50 mg tablet TAKE 1 TABLET BY MOUTH EVERY 6 HOURS 20 tablet 0 11/06/2022 05/09/2023 Active Varenicline (Chantix Starting Box) 0.5 mg (11)- 1 mg (42) tablets,dose pack (2 sources) Start: 11-16-2021 take 1 tablet by mouth once Varenicline (Chantix Starting Box) 0.5 mg (11)- 1 mg (42) tablets,dose pack Active 0 PO per package directions 53 November 16, 2021 12:00am PO PER PKG DIR Completed/Discontinued Medications Medication Drug Class(es) Dates Sig (Normalized) Sig (Original) acetaminophen 325 mg / HYDROcodone bitartrate 5 mg oral tablet (19 sources) Opioid Agonist Start: 11-14-2019 End: 11-16-2019 Hydrocodone-Acetami nophen 1 TABLET tablet Discontinued 1 {tbl} PO EVERY 4 HOURS NEEDED as needed for Pain 10 2 0 November 14, 2019 November 15, 2019 12:00am November 16, 2019 12:02am Otitis externa Unspecified otitis externa, unspecified ear Start: 11-14-2019 End: 11-16-2019 take 1 tablet by mouth every four hours as needed Hydrocodone-Acetaminophen Discontinued 1 TABLET PO EVERY 4 HOURS NEEDED 10 2 November 14, 2019 November 16, 2019 12:02am adapalene 0.003 mg/mg topical gel (10 sources) Retinoid Start: 11-01-2022 End: 02-28-2023 Adapalene 0.3 % gel Discontinued 1 NMA TOPICAL EVERY EVENING 45 3 November 01, 2022 12:00am February 28, 2023 10:57am amoxicillin 875 mg / clavulanate 125 mg oral tablet (14 sources) Penicillin-class Antibacterial Start: 02-21-2022 End: 03-21-2022 Amoxicillin-Pot Clavulanate 875-125 mg tablet Discontinued 1 {tbl} PO TWICE A DAY 20 0 February 21, 2022 1:00am March 21, 2022 4:11pm Start: 02-21-2022 End: 03-21-2022 take 1 tablet by mouth twice daily Amoxicillin-Pot Clavulanate Discontinued 1 TABLET PO TWICE A DAY February 21, 2022 1:00am March 21, 2022 4:11pm Blood-Glucose Meter misc (3 sources) Start: 03-09-2024 End: 05-10-2024 Blood-Glucose Meter misc Dis continued 0 .ROUTE .MEDSUPPLY 1 0 March 09, 2024 1:00am May 10, 2024 2:20pm As directed Start: 03-09-2024 End: 05-10-2024 Blood-Glucose Meter misc Dis continued 0 .ROUTE .MEDSUPPLY 1 March 09, 2024 1:00am May 10, 2024 2:20pm As directed 12 hr buPROPion hydrochloride 150 mg extended release oral tablet (18 sources) Aminoketone Start: 08-21-2021 End: 11-16-2021 Bupropion Hcl 150 mg tablet sustained-release 12 hr Discontinued 150 mg PO TWICE A DAY 180 0 August 21, 2021 12:00am November 16, 2021 10:58am Take 1 tablet once a day for 5 days then increase to twice a day. Separate doses by at least 8 hours. Stop smoking after 5-7 days of treatment. busPIRone hydrochloride 7.5 mg oral tablet (3 sources) Start: 05-05-2024 End: 06-29-2024 take 1 tablet by mouth twice daily Buspirone 7.5 mg tablet Discontinued 7.5 mg PO TWICE A DAY 60 1 May 05, 2024 1:00am June 29, 2024 1:07pm Ciprofloxacin-Dexam ethasone 0.3-0.1 % drops,suspension (3 sources) Start: 04-13-2024 End: 05-10-2024 Ciprofloxacin-Dexamet hasone 0.3-0.1 % drops,suspension Discontinued NMA OTIC as needed April 13, 2024 1:00am May 10, 2024 2:19pm colistin 3 mg/ml / hydrocortisone 10 mg/ml / neomycin 3.3 mg/ml / thonzonium bromide 0.5 mg/ml otic suspension (11 sources) Aminoglycoside Antibacterial, Corticosteroid Start: 07-07-2022 End: 08-02-2022 Axeqwikk-Yglfpv-Hg-Th onzonium (Cortisporin-Tc) 3.3-3-10-0.5 mg/mL drops,suspension Discontinued 1 NMA RIGHT EAR EVERY 6 HOURS 10 7 0 July 07, 2022 12:00am August 02, 2022 8:48am 4 drops 4 times a day in the right ear Start: 07-07-2022 End: 08-02-2022 Ngbptqbc-Zzxlco-Bz-Thonzoniu m (Cortisporin-Tc) 3.3-3-10-0.5 mg/mL drops,suspension Discontinued 1 APPLIC RIGHT EAR EVERY 6 HOURS 10 7 July 07, 2022 12:00am August 02, 2022 8:48am 4 drops 4 times a day in the right ear 168 hr ethinyl estradiol 0.52504 mg/hr / norelgestromin 0.24224 mg/hr transdermal system (19 sources) Progestin, Estrogen Start: 05-24-2021 End: 08-20-2021 Norelgestromin-Ethin.Estradi ol (Xulane) 150-35 mcg/24 hr patch weekly Discontinued 1 NMA TD Q7D 3 3 May 24, 2021 1:00am August 20, 2021 3:33pm apply once weekly for 3 weeks of a 4-week cycle Start: 05-24-2021 End: 08-20-2021 Norelgestromin-Ethin.Estradi ol (Xulane) 150-35 mcg/24 hr patch weekly Discontinued 1 PATCH TD Q7D 3 May 24, 2021 1:00am August 20, 2021 3:33pm apply once weekly for 3 weeks of a 4-week cycle 24 hr ferrous sulfate 142 mg extended release oral tablet (3 sources) Start: 04-13-2024 End: 05-10-2024 take 1 tablet by mouth once daily Ferrous Sulfate (Slow Fe) 137 mg (45 mg iron) tablet extended release Discontinued 137 mg PO daily April 13, 2024 1:00am May 10, 2024 2:19pm Flash Glucose Scanning Chappell (Freestyle Kathleen 2 Chappell) misc (3 sources) Start: 02-26-2024 End: 03-09-2024 Flash Glucose Scanning Chappell (Freestyle Kathleen 2 Chappell) misc Discontinued 0 .ROUTE .MEDSUPPLY 1 0 February 26, 2024 1:00am March 09, 2024 4:24pm As directed Start: 02-26-2024 End: 03-09-2024 Flash Glucose Scanning Reade r (Freestyle Kathleen 2 Chappell) misc Discontinued 0 .ROUTE .MEDSUPPLY 1 February 26, 2024 1:00am March 09, 2024 4:24pm As directed Flash Glucose Sensor (Freest yle Kathleen 2 Sensor) kit (3 sources) Start: 02-26-2024 End: 03-09-2024 Flash Glucose Sensor (Freest yle Kathleen 2 Sensor) kit Discontinued 0 .ROUTE .MEDSUPPLY 1 0 February 26, 2024 1:00am March 09, 2024 4:25pm As directed Start: 02-26-2024 End: 03-09-2024 Flash Glucose Sensor (Freest yle Kathleen 2 Sensor) kit Discontinued 0 .ROUTE .MEDSUPPLY 1 February 26, 2024 1:00am March 09, 2024 4:25pm As directed hydroCHLOROthiazide 12.5 mg oral tablet (20 sources) Thiazide Diuretic Start: 08-21-2021 End: 01-18-2022 take 1 tablet by mouth once daily in the morning Hydrochlorothiazide 12.5 mg tablet Discontinued 12.5 mg PO EVERY MORNING December 21, 2021 10:01am January 18, 2022 10:10am hydroCHLOROthiazide 25 mg / spironolactone 25 mg oral tablet (15 sources) Thiazide Diuretic, Aldosterone Antagonist Start: 11-01-2022 End: 08-26-2023 take 1 tablet by mouth once daily Spironolacton-Hydrochl orothiaz 25-25 mg tablet Discontinued 1 {tbl} PO DAILY July 11, 2023 8:14am August 26, 2023 11:54am Start: 11-01-2022 End: 07-11-2023 take 1 tablet by mouth once daily Spironolacton-Hydrochlorothiaz Active 1 TABLET PO DAILY July 11, 2023 8:14am hydroCHLOROthiazide 25 mg / triamterene 37.5 mg oral tablet (20 sources) Potassium-sparing Diuretic, Thiazide Diuretic Start: 08-02-2022 Triamterene-HCTZ 37.5-25 MG Oral Tablet Quantity: 90 Refills: 0 Ordered: 02-Aug-2022 DO Start : 02-Aug-2022 Active Start: 01-18-2022 End: 11-01-2022 Triamterene-Hydrochlorothiaz id 37.5-25 mg tablet Discontinued 2 {tbl} PO EVERY MORNING January 22, 2022 11:33am August 02, 2022 9:14am Start: 01-18-2022 End: 11-01-2022 take 2 tablets by mouth once daily in the morning Triamterene-Hydrochlorothiazid Discontin ued 2 TABLET PO EVERY MORNING January 22, 2022 11:33am August 02, 2022 9:14am hydrOXYzine hydrochloride 25 mg oral tablet (14 sources) Antihistamine Start: 12-21-2021 End: 01-14-2022 take 1 tablet by mouth three times daily as needed Hydroxyzine Hcl 25 mg tablet Discontinued 25 mg PO THREE TIMES A DAY as needed for panic attacks December 21, 2021 12:00am January 14, 2022 10:24am labetalol hydrochloride 300 mg oral tablet (15 sources) beta-Adrenergic Cole Start: 05-10-2024 End: 06-29-2024 Labetalol 300 mg tablet Discontinued 400 mg PO THREE TIMES A DAY May 10, 2024 1:00am June 29, 2024 1:07pm hypertension Start: 04-30-2024 End: 05-10-2024 take 1 tablet by mouth three times daily Labetalol 300 mg tablet Discontinued 300 mg PO THREE TIMES A DAY 90 30 April 30, 2024 1:00am May 10, 2024 2:54pm Start: 04-29-2024 End: 05-04-2024 take 1 tablet by mouth twice daily Labetalol 200 mg tablet Discontinued 200 mg PO TWICE A DAY 60 0 April 29, 2024 1:00am May 04, 2024 2:27pm Start: 12-10-2023 End: 05-04-2024 take 1 tablet by mouth three times daily Labetalol 100 mg tablet Discontinued 100 mg PO THREE TIMES A DAY 270 90 4 December 10, 2023 1:40pm May 04, 2024 2:27pm Start: 09-05-2023 End: 12-10-2023 take 1 tablet by mouth twice daily Labetalol 100 mg tablet Discontinued 100 mg PO TWICE A DAY 60 September 05, 2023 12:00am December 10, 2023 1:41pm methylPREDNISolone 4 mg oral tablet (8 sources) Corticosteroid Start: 12-17-2022 End: 02-28-2023 take 1 tablet by mouth once Methylprednisolone (Medrol (Raz)) 4 mg tablets,dose pack Discontinued 0 PO per package directions 21 December 17, 2022 12:00am February 28, 2023 10:57am PO PER PKG DIR metoprolol tartrate 25 mg oral tablet (4 sources) beta-Adrenergic Cole Start: 08-18-2023 End: 09-01-2023 Metoprolol Tartrate 25 mg tablet Discontinued 12.5 mg PO TWICE A DAY 30 August 18, 2023 12:00am September 01, 2023 12:54pm Start: 08-18-2023 take 12.5 mg by mout h twice daily Metoprolol Tartrate Active 12.5 MG PO TWICE A DAY August 18, 2023 12:00am NIFEdipine 30 mg osmotic 24 hr extended release oral tablet (6 sources) Dihydropyridine Calcium Channel Cole Start: 06-10-2024 End: 06-29-2024 take 1 tablet by mouth twice daily Nifedipine (Procardia Xl) 30 mg tablet extended release 24hr Discontinued 30 mg PO TWICE A DAY June 10, 2024 1:00am June 29, 2024 1:07pm Start: 05-10-2024 End: 06-10-2024 take 1 tablet by mouth once daily Nifedipine (Procardia Xl) 30 mg tablet extended release 24hr Discontinued 30 mg PO DAILY 30 May 10, 2024 1:00am June 10, 2024 11:53am nitrofurantoin, macrocrystals 25 mg / nitrofurantoin, monohydrate 75 mg oral capsule (3 sources) Nitrofuran Antibacterial Start: 04-15-2024 End: 04-22-2024 take 1 capsule by mouth twice daily at mealtime Nitrofurantoin Monohyd/M-Cryst (Macrobid) 100 mg capsule Discontinued 100 mg PO TWICE A DAY 14 7 0 April 15, 2024 1:00am April 21, 2024 1:00am April 22, 2024 1:11am Urinary tract infection Urinary tract infection, site not specified must administer with a meal/food norethindrone 0.35 mg oral tablet (20 sources) Start: 06-10-2024 End: 08-13-2024 take 1 tablet by mouth once daily Norethindrone (Contraceptive) (Stephanie) 0.35 mg tablet Discontinued 0.35 mg PO daily 84 June 10, 2024 1:00am August 13, 2024 11:01am start day 1 of menstrual cycle Start: 08-20-2021 End: 12-21-2021 take 1 tablet by mouth once daily Norethindrone (Contraceptive) (Stephanie) 0.35 mg tablet Discontinued 0.35 mg PO daily 84 August 20, 2021 12:00December 21, 2021 9:47am start day 1 of menstrual cycle nystatin [id number] unt/ml topical cream (3 sources) Polyene Antifungal Start: 02-26-2024 End: 04-13-2024 Nystatin 100,000 unit/gram cream Discontinued 1 NMA TOPICAL daily 30 February 26, 2024 1:00am April 13, 2024 2:02pm ofloxacin 3 mg/ml otic solution (20 sources) Quinolone Antimicrobial Start: 07-07-2022 End: 08-02-2022 Ofloxacin 0.3 % drops Discontinued 10 NMA EACH EAR DAILY 5 7 0 July 07, 2022 12:00am August 02, 2022 8:48am ondansetron 4 mg disintegrating oral tablet (3 sources) Serotonin-3 Receptor Antagonist Start: 10-14-2023 End: 05-10-2024 take 1 tablet by mouth every six hours as needed for nausea and vomiting Ondansetron 4 mg tablet,disintegra ting Discontinued 4 mg PO EVERY 6 HOURS as needed for nausea and vomiting 60 0 October 14, 2023 12:00am May 10, 2024 2:19pm Supervision of high-risk Supervision of high risk , unspecified, unspecified trimester [id number]-Jvcr Fum-Folic Ac-Om3 (One Daily ) 28-800-440 mg-mcg-mg combo pack (6 sources) Start: 09-10-2023 End: 10-10-2023 Kvtidq15-Scoa Fum-Folic Ac-Om3 (One Daily ) 28-800-440 mg-mcg-mg combo pack Discontinued 1 NMA PO DAILY September 10, 2023 10:35am October 10, 2023 2:24pm Start: 09-10-2023 End: 09-10-2023 Clwrkl25-Rkdr Fum-Folic Ac-O m3 (One Daily ) 28-800-440 mg-mcg-mg combo pack Discontinued NMA PO DAILY September 10, 2023 12:00am September 10, 2023 10:36am 280-Nzrz-Splvw-Omega3 (One-A-Day -1) 27 mg iron- 800 mcg-235 mg capsule (3 sources) Start: 09-10-2023 End: 05-10-2024 take 1 capsule by mouth once daily 664-Itka-Ojkvs-Omega3 (One-A-Day -1) 27 mg iron- 800 mcg-235 mg capsule Discontinued 1 NMA PO DAILY September 10, 2023 12:00am May 10, 2024 2:19pm spironolactone 25 mg oral tablet (5 sources) Aldosterone Antagonist Start: 08-26-2023 End: 09-05-2023 take 1 tablet by mouth once daily Spironolactone 25 mg tablet Discontinued 25 mg PO DAILY 30 0 August 26, 2023 12:00am September 05, 2023 1:13pm Start: 11-01-2022 spironolactone (Aldactone) 25 mg tablet Problems Active Problems Problem Classification Problem Date Documented Da te Episodic/Chronic Abdominal pain (20 sources) Pain in pelvis; Translations: [Pelvic and perineal pain] Episodic Administrative/social admission (19 sources) Counseling procedure with explicit context; Translations: [Tobacco abuse counseling] Episodic Anal and rectal conditions (12 sources) Disorder of rectum; Translations: [Anal fissure, unspecified] 06-24-2022 Episodic Anxiety disorders (20 sources) Generalized anxiety disorder; Translations: [Generalized anxiety disorder] Onset: 04-26-2024 Chronic Comment on above: stable Cardiac dysrhythmias (7 sources) Palpitations; Translations: [Palpitations] 07-25-2023 Episodic Conditions associated with dizziness or vertigo (2 sources) Disorder of inner ear; Translations: [Unspecified disease of inner ear, unspecified ear] 11-03-2024 Episodic Disorders of lipid metabolism (10 sources) Hyperlipidemia; Translations: [Hyperlipidemia, unspecified] Onset: 04-26-2024 03-10-2023 Chronic Essential hypertension (20 sources) Hypertensive disorder; Translations: [Essential (primary) hypertension] Onset: 05-10-2024 Chronic Female infertility (10 sources) Female infertility associated with anovulation; Translations: [Female infertility associated with anovulation] Onset: 01-15-2024 02-28-2023 Chronic Comment on above: no conception x1 delilaha rYassine to obtain: ovarian reserve kit, hbgA1c, thyroid study, progesterone at day 24 due to 31 day cycle. semen analysis. is interested in clomid based on labs. [facility] Excellent supply and good quality Headache; including migraine (13 sources) Headache; Translations: [Headache] 03-21-2022 Episodic Hypertension complicating ; childbirth and the puerperium (8 sources) Pre-eclampsia added to pre-existing hypertension; Translations: [Pre-existing hypertension with pre-eclampsia, unspecified trimester] Onset: 05-05-2024 06-10-2024 Chronic Comment on above: labetalol 400 TID Nonspecific chest pain (20 sources) Chest pain; Translations: [Chest pain, unspecified] 04-16-2021 Episodic Other complications of ; puerperium affecting management of mother (3 sources) Anemia during the puerperium; Translations: [Anemia of the puerperium] 05-11-2024 Chronic Other complications of (3 sources) Anemia; Translations: [Anemia complicating , unspecified trimester] 02-26-2024 Chronic Comment on above: add FE Other complications of (2 sources) Anemia complicating , unspecified trimester; Translations: [Anemia complicating , unspecified trimester] Onset: 04-26-2024 Chronic Other complications of (3 sources) High risk ; Translations: [Supervision of high risk , unspecified, unspecified trimester] 06-10-2024 Episodic Comment on above: PRR, , CONSTANCE 05/19, Rell Timmons Other complications of (3 sources) RhD negative; Translations: [Other specified related conditions, unspecified trimester] 06-10-2024 Episodic Comment on above: rhogam at 28 weeks a nd PRN Other connective tissue disease (1 source) Tendinitis of wrist; Translations: [Tendinitis of wrist] Episodic Other ear and sense organ disorders (11 sources) Otitis externa; Translations: [Unspecified otitis externa, unspecified ear] 07-07-2022 Chronic Other ear and sense organ disorders (2 sources) Conductive hearing loss, unilateral, right ear, with unrestricted hearing on the contralateral side; Translations: [Condctv hear loss, uni, right ear, w unrestr hear cntra side] Onset: 11-06-2022 Chronic Other ear and sense organ disorders (4 sources) Conductive hearing loss, bilateral; Translations: [Conductive hearing loss, bilateral] Onset: 06-26-2023 06-26-2023 Chronic Other ear and sense organ disorders (2 sources) Conductive hearing loss, bilateral; Translations: [Conductive hearing loss, bilateral] Onset: 06-26-2023 Chronic Other ear and sense organ disorders (14 sources) Cholesteatoma of attic; Translations: [Cholesteatoma of attic, right ear] 01-22-2022 Episodic Comment on above: Patient is scheduled to have a mastoidectomy done in the near future. Given this timeline we need to aggressively titrate her blood pressure meds to attain a more acceptable blood pressure for perioperative clearance. Other ear and sense organ disorders (6 sources) Cholesteatoma; Translations: [Cholesteatoma, unspecified] Onset: 02-05-2023 02-06-2023 Episodic Other ear and sense organ disorders (8 sources) Unspecified cholesteatoma, right ear; Translations: [Unspecified cholesteatoma, right ear] Onset: 11-06-2022 Episodic Other female genital disorders (19 sources) History of gynecological disorder; Translations: [Personal history of other diseases of the female genital tract] 05-24-2021 Episodic Other gastrointestinal disorders (12 sources) History of rectal bleeding; Translations: [Personal history of other diseases of the digestive system] 06-24-2022 Episodic Other lower respiratory disease (13 sources) Cough; Translations: [Cough] 03-21-2022 Episodic Other lower respiratory disease (3 sources) Dyspnea on exertion; Translations: [Other forms of dyspnea] 04-19-2024 Episodic Other non-traumatic joint disorders (19 sources) Acute ankle pain; Translations: [Pain in unspecified ankle and joints of unspecified foot] 08-15-2021 Episodic Other nutritional; endocrine; and metabolic disorders (20 sources) Body mass index 30+ - obesity; Translations: [Body mass index (BMI) 32.0-32.9, adult] 04-10-2021 Chronic Other nutritional; endocrine; and metabolic disorders (4 sources) Body mass index (BMI) 32.0-32.9, adult; Translations: [Body Mass Index 32.0-32.9, adult] Chronic Other nutritional; endocrine; and metabolic disorders (3 sources) Obese class I; Translations: [Class 1 obesity] 10-10-2023 Chronic Other nutritional; endocrine; and metabolic disorders (2 sources) Obesity, unspecified; Translations: [Obesity, unspecified] Onset: 04-26-2024 Chronic Other skin disorders (8 sources) Acne; Translations: [Acne, unspecified] 11-01-2022 Episodic Other upper respiratory disease (13 sources) Congestion of nasal sinus; Translations: [Nasal congestion] 03-21-2022 Episodic Otitis media and related conditions (6 sources) Otitis media, unspecified, right ear; Translations: [Chronic otitis media of right ear] Onset: 11-06-2022 02-06-2023 Episodic Residual codes; unclassified (3 sources) Tobacco use; Translations: [Tobacco use disorder] Episodic Residual codes; unclassified (8 sources) Insomnia; Translations: [Insomnia, unspecified] 11-01-2022 Episodic Residual codes; unclassified (6 sources) History of palpitations; Translations: [Personal history of other specified conditions] 09-10-2023 Episodic Sprains and strains (9 sources) Strain of muscle and/or tendon of elbow region; Translations: [Strain of unspecified muscle, fascia and tendon at shoulder and upper arm level, left arm, initial encounter] 12-17-2022 Episodic Unclassified (1 source) Keep your scheduled appointment for tomorrow. Unclassified (1 source) Other specified diseases and conditions complicating puerperium; Translations: [Other specified diseases and conditions complicating puerperium] Onset: 05-26-2024 Viral infection (20 sources) Disease caused by 2019-nCoV; Translations: [COVID-19] 04-10-2021 Episodic Past or Other Problems Problem Classification Problem Date Documented Date Episodic/Chronic Diabetes mellitus without complication (6 sources) Hyperglycemia; Translations: [Hyperglycemia, unspecified] Onset: 01-15-2024 07-31-2023 Episodic Diabetes or abnormal glucose tolerance complicating ; childbirth; or the puerperium (10 sources) Gestational diabetes mellitus; Translations: [Gestational diabetes mellitus in , unspecified control] Onset: 03-30-2024 06-10-2024 Episodic Comment on above: needs 2 hr pp glucos e 2 hr pp glucose Genitourinary symptoms and ill-defined conditions (3 sources) Proteinuria, unspecified; Translations: [Dysuria] Onset: 05-04-2024 Episodic Hypertension complicating ; childbirth and the puerperium (7 sources) -induced hypertension; Translations: [Gestational [-induced] hypertension without significant proteinuria, unspecified trimester] Onset: 04-05-2024 04-19-2024 Episodic Comment on above: celestone given 03/15 0. Immunizations and screening for infectious disease (17 sources) Contact with and (suspected) exposure to other viral communicable diseases; Translations: [Contact with or suspected exposure to other viral communicable disease] Onset: 03-19-2024 03-21-2022 Episodic Other circulatory disease (4 sources) Elevated blood-pressure reading, without diagnosis of hypertension; Translations: [Elevated blood pressure reading without diagnosis of hypertension] Onset: 05-29-2024 Episodic Other complications of (1 source) Supervision of other high risk pregnancies, third trimester; Translations: [Supervision of other high risk pregnancies, third trimester] Onset: 05-10-2024 Episodic Other complications of (2 sources) Supervision of high risk , unspecified, third trimester; Translations: [Supervision of high risk , unspecified, third trimester] Onset: 05-10-2024 Episodic Other complications of (2 sources) Other specified related conditions, second trimester; Translations: [Other specified related conditions, second trimester] Onset: 04-26-2024 Episodic Other complications of (1 source) Supervision of high risk , unspecified, second trimester; Translations: [Supervision of high risk , unspecified, second trimester] Onset: 03-25-2024 Episodic Other complications of (1 source) Other specified related conditions, unspecified trimester; Translations: [Other specified related conditions, unspecified trimester] Onset: 01-15-2024 Episodic Other complications of (1 source) Supervision of high risk , unspecified, unspecified trimester; Translations: [Supervision of high risk , unspecified, unspecified trimester] Onset: 01-22-2024 Episodic Other female genital disorders (7 sources) Personal history of other diseases of the female genital tract; Translations: [Personal history of other genital system and obstetric disorders] Onset: 01-15-2024 Episodic Other lower respiratory disease (1 source) Other forms of dyspnea; Translations: [Other forms of dyspnea] Onset: 04-15-2024 Episodic Other and delivery including normal (9 sources) Vaginal delivery; Translations: [Encounter for full-term uncomplicated delivery] Onset: 05-05-2024 06-10-2024 Episodic Comment on above: SM IOL preeclamp brian gdm rh neg girl destin discussed genetic & carrier testing, undecided Other skin disorders (2 sources) Acne, unspecified; Translations: [Acne, unspecified] Onset: 04-26-2024 Episodic Other upper respiratory infections (20 sources) Viral upper respiratory tract infection; Translations: [Acute upper respiratory infection, unspecified] Onset: 03-01-2024 03-21-2022 Episodic Residual codes; unclassified (2 sources) Personal history of other specified conditions; Translations: [Personal history of other specified conditions] Onset: 05-10-2024 Episodic Residual codes; unclassified (2 sources) Unspecified blood type, Rh negative; Translations: [Unspecified blood type, Rh negative] Onset: 04-26-2024 Episodic Residual codes; unclassified (2 sources) 36 weeks gestation of ; Translations: [36 weeks gestation of ] Onset: 04-26-2024 Episodic Residual codes; unclassified (2 sources) Insomnia, unspecified; Translations: [Insomnia, unspecified] Onset: 04-26-2024 Episodic Residual codes; unclassified (1 source) 35 weeks gestation of ; Translations: [35 weeks gestation of ] Onset: 04-15-2024 Episodic Residual codes; unclassified (1 source) 34 weeks gestation of ; Translations: [34 weeks gestation of ] Onset: 04-13-2024 Episodic Residual codes; unclassified (2 sources) 33 weeks gestation of ; Translations: [33 weeks gestation of ] Onset: 04-05-2024 Episodic Residual codes; unclassified (1 source) 31 weeks gestation of ; Translations: [31 weeks gestation of ] Onset: 03-19-2024 Episodic Residual codes; unclassified (1 source) 22 weeks gestation of ; Translations: [22 weeks gestation of ] Onset: 01-15-2024 Episodic Unclassified (2 sources) Onset: 02-06-2023 Resolved: 06-26-2023 02-06-2023 Urinary tract infections (1 source) Urinary tract infection, site not specified; Translations: [Urinary tract infection, site not specified] Onset: 04-15-2024 Episodic Results Test Name Value Interpretation Reference Range Facility Internal Medicine Office Vis ito 12-01-2024 Internal Medicine Office Visit Normal [facility] Internal Medicine Office Vis ito 11-03-2024 Internal Medicine Office Visit Normal [facility] Duplex ultrasound of renal a rtery reportOrdered By: Jan Perry on 08-25-2024 Study report [facility] [address] [place] [address] Renal Artery Duplex Ultrasound 08/25/24 0858 MR#: [id number] Acct: [id number] Name: PASTORA DOBBS Rep #:[id number] : 2000 23 From: Jan Cifuentes Attending Dr: Dr. Neftali Shukla MD Status: REG CLI Ordering Dr: Neftali Shukla MD Date: 08/25/24 Location: [facility] Sex: F C Admitted: Reason For Study Reason For Study: Uncontrolled HTN Right Renal Artery Left Renal Artery Right renal artery ostium 162.2/52 Left renal artery ostium 125.3/49.9 RSV/EDV. PSV/EDV. Right renal artery proximal 177.8/61.6 Left renal artery proximal PSV/EDV PSV/EDV. 144.1/53.1 . Right renal artery mid 164.9/55.1 Left renal artery mid 168.9/70.2 PSV/EDV. PSV/EDV . Right renal artery distal 177.7/71.5 Left renal artery distal 166.1/81.5 PSV/EDV. PSV/EDV. Right Renal Parenchyma Left Renal Parenchyma Upper Pole Medula 39.8/17 PSV/EDV. Left upper pole medulla 54.8/20.7 Right upper pole medulla EDR 0.4 . PSV/EDV . Right upper pole medulla R.I. 0.57 . Left upper pole medulla EDR 0.4 . Upper [place] Cortx 25.1/8 PSV/EDV. Left upper pole medulla R.I. 0.62 . Right upper pole cortex EDR 0.3 . UPCortex 33.9/13.1 PSV/EDV. Right upper pole cortex R.I. 0.68 . Left upper pole cortex EDR 0.4 . Right lower Pole medulla 42.6/18.5 Left upper pole cortex R.I. 0.61 . PSV/EDV . Left lower Pole medulla 39.2/17.3 Right lower pole medulla EDR 0.4 . PSV/EDV . Right lower pole medulla R.I. 0.57 . Left lower pole medulla EDR 0.4 . Lower Pole Cortex 32.2/13 PSV/EDV. Left lower pole medulla R.I. 0.6 . Right lower pole cortex EDR 0.4 . Lower Pole Cortx 23.3/8.5 PSV/EDV. Right lower pole cortex R.I. 0.60 . Left lower pole cortex EDR 0.4 . Right Renal Hilar Left lower pole cortex R.I. 0.63 . Right Hilar avg 94.1/35.8 PSV/EDV. Left Renal Hilar Right hilar acceleration time 40 m/sec. LTHilar avg 119.5/45.1 PSV/EDV . Right Renal Dimensions Left hilar acceleration time 30 m/sec. Right kidney size 10.88 cm . Left Renal Dimensions Right cortical dimension 1.57 cm . Left kidney size 11.67 cm . Left cortical dimension 1.60 cm . Aorta Proximal abdominal aorta 1.53 x 1.51 cm . Proximal abdominal aorta peak systolicvelocity is 152.7 cm/sec . Distal abdominal aorta 1.40 x 1.37 cm . Distal abdominal aorta peak systolic velocity is 130.7 cm/sec . VL/Renal Artery Duplex Ultrasound Interpretation Summary Right renal artery patent with normal velocities and no evidence of stenosis. Left renal artery patent with normal velocities and no evidence of stenosis. Right renal vein patent. Left renal vein patent. Right kidney normal in size. Left kidney normal in size. Ordering Physician: Neftali Shukla Referring Physician: Xin Cardona Performed By: Rosalind Urrutia RVT 08/25/24 182 Date _ Jan Perry MD CC: Dr. Xin Cardona MD; Dr. Neftali Shukla MD ~ Date Dictated: 08/25/24 0858 Date Transcribed: 08/25/241822 Banking Paralegal: Signed [facility] Work Phone: Renal Artery Duplex Ultrasou ndon 08-25-2024 Renal Artery Duplex Ultrasound Normal [facility] 12 Lead EKG performed by BMS on 08-13-2024 12 Lead EKG performed by BMS Normal [facility] Cardiology Visit Reporton Cardiology Visit Report Normal [facility] Office Visit Reporton 2024 Office Visit Report Normal [facility] [employer] Office Visit Reporton 06-10-2024 [employer] Office Visit Report Normal [facility] Internal Medicine Office Vis iton 05-26-2024 Internal Medicine Office Visit Normal [facility] AST(SGOT)on 05-10-2024 AST [Catalytic activity/Vol] 24 U/L Normal 15-37 [facility] Comment on above: Result Comment: Slig ht Hemolysis, Result may be falsely increased. Performed By: #### L 501.4100, L501.4405, L501.1105, L501.1400, L100.0500 ####[facility] [id number] [place], [place], [id number] Alanine Aminotransferas (SGP T)on 05-10-2024 ALT [Catalytic activity/Vol] 25 U/L Normal 13-56 [facility] Comment on above: Performed By: #### L 501.4100, L501.4405, L501.1105, L501.1400, L100.0500 ####[facility] [id number] [place], [address] Albumin to globulin ratioOrd ered By: Shirlene Mittal on 05-10-2024 Albumin/Globulin [Mass ratio] 0.8 {ratio} Low 0.9-2.4 [facility] Bilirubin, totalOrdered By: Shirlene Mittal on 05-10-2024 Bilirubin [Mass/Vol] 0.40 mg/dL 0.20-1.00 [facility] [place] Comment on above: For patients on eltr ombopag therapy, use of Dimension Beaver TBIL is not recommended. Blood urea nitrogen (BUN)/cr eatinine ratioOrdered By: Shirlene Mittal on 05-10-2024 Urea nitrogen/Creatinine [Mass ratio] 12.4 mg/mg 10- [facility] CBC-Complete Blood Cnt No Di ffon 05-10-2024 Erythrocyte distribution width (RBC) [Ratio] 13.8 % Normal 11.6-14.6 [facility] Comment on above: Performed By: #### L 501.4100, L501.4405, L501.1105, L501.1400, L100.0500 ####[facility] [id number] [place], [address] Hematocrit (Bld) [Volume fraction] 41.6 % Normal 37-47 [facility] Comment on above: Performed By: #### L 501.4100, L501.4405, L501.1105, L501.1400, L100.0500 ####[facility] [address] [place], [address] Hemoglobin (Bld) [Mass/Vol] 13.3 g/dL Normal 12.0-15.0 [facility] Comment on above: Performed By: #### L 501.4100, L501.4405, L501.1105, L501.1400, L100.0500 ####[facility] [id number] [place], [address] MCH (RBC) [Entitic mass] 27.1 pg Normal 27.0-32.0 [facility] Comment on above: Performed By: #### L 501.4100, L501.4405, L501.1105, L501.1400, L100.0500 ####[facility] [address] [place], [address] MCHC (RBC) [Mass/Vol] 32.0 g/dL Normal 32-36 [facility] Comment on above: Performed By: #### L 501.4100, L501.4405, L501.1105, L501.1400, L100.0500 ####[facility] [address] [place], [address] MCV (RBC) [Entitic vol] 84.9 fL Normal 81-99 [facility] Comment on above: Performed By: #### L 501.4100, L501.4405, L501.1105, L501.1400, L100.0500 ####[facility] [address] [place], [address] Platelet mean volume (Bld) [Entitic vol] 10.8 fL Normal 6.2-12.0 [facility] Comment on above: Performed By: #### L 501.4100, L501.4405, L501.1105, L501.1400, L100.0500 ####[facility] [address] [place], [address] Platelets (Bld) [#/Vol] 301 10*3/uL Normal 150-450 [facility] Comment on above: Performed By: #### L 501.4100, L501.4405, L501.1105, L501.1400, L100.0500 ####[facility] [address] [place], [address] RBC (Bld) [#/Vol] 4.90 10*6/uL Normal 4.2-5.4 [facility] Comment on above: Performed By: #### L 501.4100, L501.4405, L501.1105, L501.1400, L100.0500 ####[facility] [address] [place], [address] RDW SD 43.0 fl Normal 35.1-43.9 [facility] Comment on above: Performed By: #### L 501.4100, L501.4405, L501.1105, L501.1400, L100.0500 ####[facility] [address] [place], [address] WBC (Bld) [#/Vol] 9.4 10*3/uL Normal 4.4-11.0 [facility] Comment on above: Performed By: #### L 501.4100, L501.4405, L501.1105, L501.1400, L100.0500 ####[facility] [address] [place], [address] Carbon dioxide measurementOr dered By: Shirlene Mittal on 05-10-2024 CO2 [Moles/Vol] 25.0 mmol/L 21.0-32.0 [facility] Chloride measurementOrdered By: Shirlene Mittal on 05-10-2024 Chloride [Moles/Vol] 108 mmol/L High 98-107 [facility] [place] Comprehensive Metabolic Prof ilon 05-10-2024 Albumin [Mass/Vol] 3.8 g/dL Normal 3.2-5.0 [facility] Comment on above: Performed By: #### L 500.4050 ####[facility] [address] [place], [address] Albumin/Globulin [Mass ratio] 0.8 {ratio} Low 0.9-2.4 [facility] Comment on above: Performed By: #### L 500.4050 ####[facility] [address] [place], [address] ALK P 107 U/L Normal 45-117 [facility] Comment on above: Performed By: #### L 500.4050 ####[facility] [address] [place], [address] ALT [Catalytic activity/Vol] 28 U/L Normal 13-56 [facility] Comment on above: Performed By: #### L 500.4050 ####[facility] [address] [place], [address] AST [Catalytic activity/Vol] 27 U/L Normal 15-37 [facility] Comment on above: Result Comment: Slig ht Hemolysis, Result may be falsely increased. Performed By: #### L 500.4050 ####[facility] [address] [place], [address] Bilirubin [Mass/Vol] 0.40 mg/dL Normal 0.20-1.00 [facility] [place] Comment on above: Result Comment: For patients on eltrombopag therapy, use of Dimension Beaver TBIL is not recommended. Performed By: #### L 500.4050 ####[facility] [address] [place], [address] BUN/CRE 12.4 RATIO Normal 10-20 [facility] Comment on above: Performed By: #### L 500.4050 ####[facility] [address] [place], [address] CA,Total 9.6 mg/dL Normal 8.5-10.1 [facility] Comment on above: Performed By: #### L 500.4050 ####[facility] [address] [place], [address] Chloride [Moles/Vol] 108 mmol/L High 98-107 [facility] [place] Comment on above: Performed By: #### L 500.4050 ####[facility] [address] [place], [address] CO2 [Moles/Vol] 25.0 mmol/L Normal 21.0-32.0 [facility] Comment on above: Performed By: #### L 500.4050 ####[facility] [address] [place], [address] Creatinine [Mass/Vol] 0.80 mg/dL Normal 0.55-1.02 [facility] Comment on above: Result Comment: The validity of the calculated GFR GFRAA in patients over70 years has not been determined. Clinical correlation isessential. Performed By: #### L 500.4050 ####[facility] [address] [place], [address] ECRCL 130.79 ml/min Normal [facility] Comment on above: Performed By: #### L 500.4050 ####[facility] [address] [place], [address] EST GFR - AA 113 mL/min Normal >60 [facility] Comment on above: Result Comment: Afri can [place] Citizen GFR Calc Performed By: #### L 500.4050 ####[facility] [address] [place], [address] GAP 6 Normal 5-15 [facility] Comment on above: Performed By: #### L 500.4050 ####[facility] [address] [place], [address] GFR/1.73 sq M.predicted among non-blacks MDRD (S/P/Bld) [Vol rate/Area] 94 mL/min/{1.73_m2} Normal >60 [facility] Comment on above: Result Comment: Non- GFR Calc Performed By: #### L 500.4050 ####[facility] [address] [place], [address] Globulin (S) [Mass/Vol] 4.6 g/dL High 2.2-4.2 [facility] Comment on above: Performed By: #### L 500.4050 ####[facility] [address] [place], [address] Glucose [Mass/Vol] 85 mg/dL Normal 74-106 [facility] Comment on above: Performed By: #### L 500.4050 ####[facility] [address] [place], [address] Potassium [Moles/Vol] 4.2 mmol/L Normal 3.5-5.1 [facility] Comment on above: Result Comment: Slig ht Hemolysis, Result may be falsely increased. Performed By: #### L 500.4050 ####[facility] [address] [place], [place], [address] Sodium [Moles/Vol] 139 mmol/L Normal 136-145 [facility] Comment on above: Performed By: #### L 500.4050 ####[facility] [address] [place], [place], [id number] T PROT 8.4 g/dL High 6.4-8.2 [facility] Comment on above: Performed By: #### L 500.4050 ####[facility] [address] [place], [place], [address] Urea nitrogen [Mass/Vol] 10 mg/dL Normal 7-18 [facility] Comment on above: Performed By: #### L 500.4050 ####[facility] [address] [place], [place], [address] Erythrocyte distribution wid th ratioOrdered By: Shirlene Mittal on 05-10-2024 Erythrocyte distribution width (RBC) [Ratio] 13.8 % 11.6-14.6 [facility] Erythrocyte distribution wid th standard deviationOrdered By: Shirlene Mittal on 05-10-2024 Erythrocyte distribution width (RBC) [Ratio] 43.0 fl 35.1-43.9 [facility] Glomerular filtration rate ( GFR) estimationOrdered By: Shirlene Mittal on 05-10-2024 GFR/1.73 sq M.predicted among non-blacks MDRD (S/P/Bld) [Vol rate/Area] 94 mL/min/{1.73_m2} >60 [facility] Comment on above: Non- GFR Calc Glucose measurementOrdered B y: Shirlene Mittal on 05-10-2024 Glucose [Mass/Vol] 85 mg/dL 74-106 [facility] Hematocrit Auto (Bld) [Volum e fraction]Ordered By: Shirlene Mittal on 05-10-2024 Hematocrit (Bld) [Volume fraction] 41.6 % 37-47 [facility] Hemoglobin measurementOrdere d By: Shirlene Mittal on 05-10-2024 Hemoglobin (Bld) [Mass/Vol] 13.3 g/dL 12.0-15.0 [facility] Laboratory - Chemistry and C hemistry - challengeOrdered By: Shirlene Mittal on 05-10-2024 AST [Catalytic activity/Vol] 27 U/L 15-37 [facility] Comment on above: Slight Hemolysis, Re sult may be falsely increased. MCV (mean corpuscular volume ) determinationOrdered By: Shirlene Mittal on 05-10-2024 MCV (RBC) [Entitic vol] 84.9 fL 81-99 [facility] Mean corpuscular hemoglobin (MCH) determinationOrdered By: Shirlene Mittal on 05-10-2024 MCH (RBC) [Entitic mass] 27.1 pg 27.0-32.0 [facility] Mean corpuscular hemoglobin concentration (MCHC) determinationOrdered By: Shirlene Mittal on 05-10-2024 MCHC (RBC) [Mass/Vol] 32.0 g/dL 32-36 [facility] Mean platelet volume determi nationOrdered By: Shirlene Mittal on 05-10-2024 Platelet mean volume (Bld) [Entitic vol] 10.8 fL 6.2-12.0 [facility] OB Triage Progress Noteon OB Triage Progress Note Normal [facility] Office Visit Reporton 2024 Office Visit Report Normal [facility] Platelet countOrdered By: Oly Mittal on 05-10-2024 Platelets (Bld) [#/Vol] 301 10*3/uL 150-450 [facility] Potassium measurementOrdered By: Shirlene Mittal on 05-10-2024 Potassium [Moles/Vol] 4.2 mmol/L 3.5-5.1 [facility] Comment on above: Slight Hemolysis, Re sult may be falsely increased. RBC Auto (Bld) [#/Vol]Ordere d By: Shirlene Mittal on 05-10-2024 RBC (Bld) [#/Vol] 4.90 10*6/uL 4.2-5.4 [facility] Serum Creatinine AND GFRon 0 05-10-2024 Creatinine [Mass/Vol] 0.74 mg/dL Normal 0.55-1.02 [facility] Comment on above: Result Comment: The validity of the calculated GFR GFRAA in patients over70 years has not been determined. Clinical correlation isessential. Performed By: #### L 501.4100, L501.4405, L501.1105, L501.1400, L100.0500 ####[facility] [address] [place], [address] ECRCL 141.39 ml/min Normal [facility] Comment on above: Performed By: #### L 501.4100, L501.4405, L501.1105, L501.1400, L100.0500 ####[facility] [address] [place], [address] EST GFR - AA 126 mL/min Normal >60 [facility] Comment on above: Result Comment: Afri can [place] Citizen GFR Calc Performed By: #### L 501.4100, L501.4405, L501.1105, L501.1400, L100.0500 ####[facility] [address] [place], [address] GFR/1.73 sq M.predicted among non-blacks MDRD (S/P/Bld) [Vol rate/Area] 104 mL/min/{1.73_m2} Normal >60 [facility] Comment on above: Result Comment: Non- GFR Calc Performed By: #### L 501.4100, L501.4405, L501.1105, L501.1400, L100.0500 ####[facility] [address] [place], [address] Serum anion gap measurementO rdered By: Shirlene Mittal on 05-10-2024 Anion gap [Moles/Vol] 6 mmol/L 5-15 [facility] Serum globulin measurementOr dered By: Shirlene Mittal on 05-10-2024 Globulin (S) [Mass/Vol] 4.6 g/dL High 2.2-4.2 [facility] Serum or plasma alanine bah otransferase (ALT) measurementOrdered By: Shirlene Mittal on 05-10-2024 ALT [Catalytic activity/Vol] 28 U/L 13-56 [facility] Serum or plasma albumin javier urement (mass/volume)Ordered By: Shirlene Mittal on 05-10-2024 Albumin [Mass/Vol] 3.8 g/dL 3.2-5.0 [facility] Serum or plasma alkaline ariana sphatase measurementOrdered By: Shirlene Mittal on 05-10-2024 ALP [Catalytic activity/Vol] 107 U/L 45-117 [facility] Serum or plasma calcium javier urement (mass/volume)Ordered By: Shirlene Mittal on 05-10-2024 Calcium [Mass/Vol] 9.6 mg/dL 8.5-10.1 [facility] Serum or plasma creatinine m easurement (mass/volume)Ordered By: Shirlene Mittal on 05-10-2024 Creatinine [Mass/Vol] 0.80 mg/dL 0.55-1.02 [facility] Comment on above: The validity of the calculated GFR & GFRAA in patients over 70 years has not been determined. Clinical correlation is essential. Serum or plasma urea nitroge n measurement (mass/volume)Ordered By: Shirlene Mittal on 05-10-2024 Urea nitrogen [Mass/Vol] 10 mg/dL 7-18 [facility] Serum or plasma uric acid me asurement (mass/volume)Ordered By: Shirlene Mittal on 05-10-2024 Urate [Mass/Vol] 6.3 mg/dL High 2.6-6.0 [facility] Comment on above: The drugs N-Acetylcy steine and Metamizole may falsely depress this assay. Sodium levelOrdered By: Delano Mittal on 05-10-2024 Sodium [Moles/Vol] 139 mmol/L 136-145 [facility] Total proteinOrdered By: Kodi Mittal on 05-10-2024 Protein [Mass/Vol] 8.4 g/dL High 6.4-8.2 [facility] Uric Acidon 05-10-2024 URIC 6.3 mg/dL High 2.6-6.0 [facility] Comment on above: Result Comment: The drugs N-Acetylcysteine and Metamizole may falselydepress this assay. Performed By: #### L 501.4100, L501.4405, L501.1105, L501.1400, L100.0500 ####[facility] [address] [place], [address] White blood cell (WBC) count Ordered By: Shirlene Mittal on 05-10-2024 WBC (Bld) [#/Vol] 9.4 10*3/uL 4.4-11.0 [facility] Laboratory - Chemistry and C hemistry - challengeon 05-04-2024 Glucose Ql (U) Negative [facility] Laboratory - Urinalysison Protein Ql (U) 1+ [facility] Office Visit Reporton 2024 Office Visit Report Normal [facility] Protein+Creatinine Ratio,Uri neon 05-04-2024 PROT:CRE RATIO 196 mg/g CRE Normal 0-200 [facility] Comment on above: Performed By: #### L 501.0900 ####[facility] [address] [place], [address] UR CREAT 193.00 mg/dL Normal NO RANGE EST. [facility] Comment on above: Performed By: #### L 501.0900 ####[facility] [address] [place], [address] Random urine protein measure mentOrdered By: Anna Betancur on 05-04-2024 Protein (U) [Mass/Vol] 37.9 mg/dL High <11.9 [facility] Comment on above: Performed By: #### L 501.0900 ####[facility] [address] [place], [address] Urine creatinine measurement (mass/volume)Ordered By: Anna Betancur on 05-04-2024 Creatinine (U) [Mass/Vol] 193.00 mg/dL NO RANGE EST. [facility] Urine protein/creatinine mas s ratioOrdered By: Anna Betancur on 05-04-2024 Protein/Creatinine (U) [Mass ratio] 196 mg/g CRE 0-200 [facility] 12 Lead EKGon 05-03-2024 12 Lead EKG Normal [facility] Absolute lymphocyte countOrd ered By: Anthony Reich on 05-03-2024 Lymphocytes Auto (Unsp spec) [#/Vol] 0.90 10*3/uL 0.83-4.51 [facility] Absolute neutrophil countOrd ered By: Anthony Reich on 05-03-2024 Neutrophils (Bld) [#/Vol] 4.0 10*3/uL 2.0-7.7 [facility] Automated lymphocyte count a s percentage of total leukocytesOrdered By: Anthony Reich on 05-03-2024 Lymphocytes/100 WBC Auto (Unsp spec) 17.0 % Low 19-41 [facility] Basic Metabolic Profile (BMP )on 05-03-2024 BUN/CRE 15.8 RATIO Normal 10-20 [facility] Comment on above: Performed By: #### L 100.0100, L500.2500 ####[facility] [address] [place], [address] CA,Total 8.7 mg/dL Normal 8.5-10.1 [facility] Comment on above: Performed By: #### L 100.0100, L500.2500 ####[facility] [address] [place], [address] Chloride [Moles/Vol] 111 mmol/L High 98-107 [facility] [place] Comment on above: Performed By: #### L 100.0100, L500.2500 ####[facility] [address] [facility] [address] CO2 [Moles/Vol] 26.0 mmol/L Normal 21.0-32.0 [facility] Comment on above: Performed By: #### L 100.0100, L500.2500 ####[facility] [address] [place], [address] Creatinine [Mass/Vol] 0.50 mg/dL Low 0.55-1.02 [facility] Comment on above: Result Comment: The validity of the calculated GFR GFRAA in patients over70 years has not been determined. Clinical correlation isessential. Performed By: #### L 100.0100, L500.2500 ####[facility] [address] [place], [address] ECRCL 215.88 ml/min Normal [facility] Comment on above: Performed By: #### L 100.0100, L500.2500 ####[facility] [address] [place], [address] EST GFR - AA 194 mL/min Normal >60 [facility] Comment on above: Result Comment: Afri can [place] Citizen GFR Calc Performed By: #### L 100.0100, L500.2500 ####[facility] [address] [place], [address] GAP 5 Normal 5-15 [facility] Comment on above: Performed By: #### L 100.0100, L500.2500 ####[facility] [address] [place], [address] GFR/1.73 sq M.predicted among non-blacks MDRD (S/P/Bld) [Vol rate/Area] 160 mL/min/{1.73_m2} Normal >60 [facility] Comment on above: Result Comment: Non- GFR Calc Performed By: #### L 100.0100, L500.2500 ####[facility] [address] [place], [address] Glucose [Mass/Vol] 89 mg/dL Normal 74-106 [facility] Comment on above: Performed By: #### L 100.0100, L500.2500 ####[facility] [address] [place], [address] Potassium [Moles/Vol] 3.7 mmol/L Normal 3.5-5.1 [facility] Comment on above: Performed By: #### L 100.0100, L500.2500 ####[facility] [address] [place], [address] Sodium [Moles/Vol] 142 mmol/L Normal 136-145 [facility] Comment on above: Performed By: #### L 100.0100, L500.2500 ####[facility] [address] [place], [address] Urea nitrogen [Mass/Vol] 8 mg/dL Normal 7-18 [facility] Comment on above: Performed By: #### L 100.0100, L500.2500 ####[facility] [address] [place], [address] Basophil percentageOrdered B y: Anthony Reich on 05-03-2024 Basophils/100 WBC (Bld) 0.6 % 0-1 [facility] Blood urea nitrogen (BUN)/cr eatinine ratioOrdered By: Anthony Reich on 05-03-2024 Urea nitrogen/Creatinine [Mass ratio] 15.8 mg/mg 01-31 [facility] CBC W/Diff, Automatedon 04-15 Absolute Lymph 0.90 X10 3/uL Normal 0.83-4.51 [facility] Comment on above: Performed By: #### L 100.0100, L500.2500 ####[facility] [address] [place], [address] Absolute Neut 4.0 X10 3/uL Normal 2.0-7.7 [facility] Comment on above: Performed By: #### L 100.0100, L500.2500 ####[facility] [address] [place], [address] Basophils/100 WBC (Bld) 0.6 % Normal 0-1 [facility] Comment on above: Performed By: #### L 100.0100, L500.2500 ####[facility] [address] [place], [address] Eosinophils/100 WBC (Bld) 2.5 % Normal 0-5 [facility] Comment on above: Performed By: #### L 100.0100, L500.2500 ####[facility] [address] [place], [address] Erythrocyte distribution width (RBC) [Ratio] 14.3 % Normal 11.6-14.6 [facility] Comment on above: Performed By: #### L 100.0100, L500.2500 ####[facility] [address] [place], [address] Hematocrit (Bld) [Volume fraction] 30.5 % Low 37-47 [facility] Comment on above: Performed By: #### L 100.0100, L500.2500 ####[facility] [address] [place], [address] Hemoglobin (Bld) [Mass/Vol] 9.7 g/dL Low 12.0-15.0 [facility] Comment on above: Performed By: #### L 100.0100, L500.2500 ####[facility] [address] [place], [address] IG% 0.400 Normal 0.0-0.9 [facility] Comment on above: Result Comment: IG% - Immature Granulocytes (promyelocytes, myelocytes andmetamyelocytes) > 1% indicates that a LEFT SHIFT is Present. Performed By: #### L 100.0100, L500.2500 ####[facility] [address] [place], [address] Lymphocytes/100 WBC (Bld) 17.0 % Low 19-41 [facility] Comment on above: Performed By: #### L 100.0100, L500.2500 ####[facility] [address] [place], [address] MCH (RBC) [Entitic mass] 28.0 pg Normal 27.0-32.0 [facility] Comment on above: Performed By: #### L 100.0100, L500.2500 ####[facility] [address] [place], [address] MCHC (RBC) [Mass/Vol] 31.8 g/dL Low 32-36 [facility] Comment on above: Performed By: #### L 100.0100, L500.2500 ####[facility] [address] [place], [address] MCV (RBC) [Entitic vol] 87.9 fL Normal 81-99 [facility] Comment on above: Performed By: #### L 100.0100, L500.2500 ####[facility] [address] [place], [address] Monocytes/100 WBC (Bld) 4.0 % Normal 0-10 [facility] Comment on above: Performed By: #### L 100.0100, L500.2500 ####[facility] [address] [place], [address] Neutrophils/100 WBC (Bld) 75.5 % High 47-70 [facility] Comment on above: Performed By: #### L 100.0100, L500.2500 ####[facility] [address] [place], [address] Nucleated RBC (Bld) [#/Vol] 0 10*3/uL Normal 0-5 [facility] Comment on above: Performed By: #### L 100.0100, L500.2500 ####[facility] [address] [place], [address] Platelet mean volume (Bld) [Entitic vol] 10.8 fL Normal 6.2-12.0 [facility] Comment on above: Performed By: #### L 100.0100, L500.2500 ####[facility] [address] [place], [address] Platelets (Bld) [#/Vol] 217 10*3/uL Normal 150-450 [facility] Comment on above: Performed By: #### L 100.0100, L500.2500 ####[facility] [address] [place], [address] RBC (Bld) [#/Vol] 3.47 10*6/uL Low 4.2-5.4 [facility] Comment on above: Performed By: #### L 100.0100, L500.2500 ####[facility] [address] [place], [address] RDW SD 45.6 fl High 35.1-43.9 [facility] Comment on above: Performed By: #### L 100.0100, L500.2500 ####[facility] [address] [place], [address] WBC (Bld) [#/Vol] 5.3 10*3/uL Normal 4.4-11.0 [facility] Comment on above: Performed By: #### L 100.0100, L500.2500 ####[facility] [address] [place], [address] CTA Chest W/WO Contraston CTA Chest W/WO Contrast Normal [facility] Carbon dioxide measurementOr dered By: Anthony Reich on 05-03-2024 CO2 [Moles/Vol] 26.0 mmol/L 21.0-32.0 [facility] Chloride measurementOrdered By: Anthony Reich on 05-03-2024 Chloride [Moles/Vol] 111 mmol/L High 98-107 [facility] Emergency Department Summary on 05-03-2024 Emergency Department Summary Normal [facility] Eosinophil percentageOrdered By: Anthony Reich on 05-03-2024 Eosinophils/100 WBC (Bld) 2.5 % 0-5 [facility] Erythrocyte distribution wid th ratioOrdered By: Anthony Reich on 05-03-2024 Erythrocyte distribution width (RBC) [Ratio] 14.3 % 11.6-14.6 [facility] Erythrocyte distribution wid th standard deviationOrdered By: Anthony Reich on 05-03-2024 Erythrocyte distribution width (RBC) [Ratio] 45.6 fl High 35.1-43.9 [facility] Glomerular filtration rate ( GFR) estimationOrdered By: Anthony Reich on 05-03-2024 GFR/1.73 sq M.predicted among non-blacks MDRD (S/P/Bld) [Vol rate/Area] 160 mL/min/{1.73_m2} >60 [facility] Comment on above: Non- GFR Calc Glucose measurementOrdered B y: Anthony Reich on 05-03-2024 Glucose [Mass/Vol] 89 mg/dL 74-106 [facility] Hematocrit Auto (Bld) [Volum e fraction]Ordered By: Anthony Reich on 05-03-2024 Hematocrit (Bld) [Volume fraction] 30.5 % Low 37-47 [facility] Hemoglobin measurementOrdere d By: Anthony Reich on 05-03-2024 Hemoglobin (Bld) [Mass/Vol] 9.7 g/dL Low 12.0-15.0 [facility] Immature granulocytes/100 WB C Auto (Bld)Ordered By: Anthony Reich on 05-03-2024 Immature granulocytes/100 WBC (Bld) 0.400 % 0.0-0.9 [facility] Comment on above: IG% - Immature Granu locytes (promyelocytes, myelocytes and metamyelocytes) > 1% indicates that a LEFT SHIFT is Present. L501.4020on 05-03-2024 TROPONIN-I HS 8 pg/mL Normal 3.0-54.0 [facility] Comment on above: Order Comment: 'TROP ' Serial specimen #1, #2 or #3: 1 Result Comment: Ben dorantes Note: New Test Units and Gender Specific Reference Ranges. For more information see Policy Stat Procedure [place] High Sensitivity Troponin (TNIH) and attachments. Performed By: #### L 501.4020 ####[facility] [address] [place], [address] MCV (mean corpuscular volume ) determinationOrdered By: Anthony Reich on 05-03-2024 MCV (RBC) [Entitic vol] 87.9 fL 81-99 [facility] Mean corpuscular hemoglobin (MCH) determinationOrdered By: Anthony Reich on 05-03-2024 MCH (RBC) [Entitic mass] 28.0 pg 27.0-32.0 [facility] Mean corpuscular hemoglobin concentration (MCHC) determinationOrdered By: Anthony Reich on 05-03-2024 MCHC (RBC) [Mass/Vol] 31.8 g/dL Low 32-36 [facility] Mean platelet volume determi nationOrdered By: Anthony Reich on 05-03-2024 Platelet mean volume (Bld) [Entitic vol] 10.8 fL 6.2-12.0 [facility] Monocyte percentageOrdered B y: Anthony Reich on 05-03-2024 Monocytes/100 WBC (Bld) 4.0 % 0-10 [facility] Neutrophil percentageOrdered By: Anthony Reich on 05-03-2024 Neutrophils/100 WBC (Bld) 75.5 % High 47-70 [facility] Nucleated red blood cell per centageOrdered By: Anthony Reich on 05-03-2024 Nucleated RBC/100 WBC (Bld) [Ratio] 0 % 0-5 [facility] Platelet countOrdered By: Terrence Reich on 05-03-2024 Platelets (Bld) [#/Vol] 217 10*3/uL 150-450 [facility] Potassium measurementOrdered By: Anthony Reich on 05-03-2024 Potassium [Moles/Vol] 3.7 mmol/L 3.5-5.1 [facility] RBC Auto (Bld) [#/Vol]Ordere d By: Anthony Reich on 05-03-2024 RBC (Bld) [#/Vol] 3.47 10*6/uL Low 4.2-5.4 [facility] Serum anion gap measurementO rdered By: Anthony Reich on 05-03-2024 Anion gap [Moles/Vol] 5 mmol/L 5-15 [facility] Serum or plasma calcium javier urement (mass/volume)Ordered By: Anthony Reich on 05-03-2024 Calcium [Mass/Vol] 8.7 mg/dL 8.5-10.1 [facility] Serum or plasma creatinine m easurement (mass/volume)Ordered By: Anthony Reich on 05-03-2024 Creatinine [Mass/Vol] 0.50 mg/dL Low 0.55-1.02 [facility] Comment on above: The validity of the calculated GFR & GFRAA in patients over 70 years has not been determined. Clinical correlation is essential. Serum or plasma urea nitroge n measurement (mass/volume)Ordered By: Anthony Reich on 05-03-2024 Urea nitrogen [Mass/Vol] 8 mg/dL 7-18 [facility] Sodium levelOrdered By: Anthony Reich on 05-03-2024 Sodium [Moles/Vol] 142 mmol/L 136-145 [facility] Troponin IOrdered By: Anthony irizarry on 05-03-2024 Troponin I 8 pg/mL 3.0-54.0 [facility] Comment on above: Please Note: New Pepper t Units and Gender Specific Reference Ranges. For more information see Policy Stat Procedure [place] High Sensitivity Troponin (TNIH) and attachments. White blood cell (WBC) count Ordered By: Anthony Reich on 05-03-2024 WBC (Bld) [#/Vol] 5.3 10*3/uL 4.4-11.0 [facility] CBC-Complete Blood Cnt No Di ffon 04-29-2024 Erythrocyte distribution width (RBC) [Ratio] 14.4 % Normal 11.6-14.6 [facility] Comment on above: Performed By: #### L 100.0500, L500.4050 ####[facility] [address] [place], [address] Hematocrit (Bld) [Volume fraction] 30.2 % Low 37-47 [facility] Comment on above: Performed By: #### L 100.0500, L500.4050 ####[facility] [address] [place], [address] Hemoglobin (Bld) [Mass/Vol] 10.0 g/dL Low 12.0-15.0 [facility] Comment on above: Performed By: #### L 100.0500, L500.4050 ####[facility] [address] [place], [address] MCH (RBC) [Entitic mass] 28.4 pg Normal 27.0-32.0 [facility] Comment on above: Performed By: #### L 100.0500, L500.4050 ####[facility] [address] [place], [address] MCHC (RBC) [Mass/Vol] 33.1 g/dL Normal 32-36 [facility] Comment on above: Performed By: #### L 100.0500, L500.4050 ####[facility] [address] [place], [address] MCV (RBC) [Entitic vol] 85.8 fL Normal 81-99 [facility] Comment on above: Performed By: #### L 100.0500, L500.4050 ####[facility] [address] [place], [address] Platelet mean volume (Bld) [Entitic vol] 11.7 fL Normal 6.2-12.0 [facility] Comment on above: Performed By: #### L 100.0500, L500.4050 ####[facility] [address] [place], [address] Platelets (Bld) [#/Vol] 221 10*3/uL Normal 150-450 [facility] Comment on above: Performed By: #### L 100.0500, L500.4050 ####[facility] [address] [place], [address] RBC (Bld) [#/Vol] 3.52 10*6/uL Low 4.2-5.4 [facility] Comment on above: Performed By: #### L 100.0500, L500.4050 ####[facility] [address] [place], [address] RDW SD 44.2 fl High 35.1-43.9 [facility] Comment on above: Performed By: #### L 100.0500, L500.4050 ####[facility] [address] [place], [address] WBC (Bld) [#/Vol] 9.4 10*3/uL Normal 4.4-11.0 [facility] Comment on above: Performed By: #### L 100.0500, L500.4050 ####[facility] [address] [place], [address] Comprehensive Metabolic Prof ilon 04-29-2024 Albumin [Mass/Vol] 2.4 g/dL Low 3.2-5.0 [facility] Comment on above: Performed By: #### L 100.0500, L500.4050 ####[facility] [address] [place], [address] Albumin/Globulin [Mass ratio] 0.6 {ratio} Low 0.9-2.4 [facility] Comment on above: Performed By: #### L 100.0500, L500.4050 ####[facility] [address] [place], [address] ALK P 105 U/L Normal 45-117 [facility] Comment on above: Performed By: #### L 100.0500, L500.4050 ####[facility] [address] [place], [address] ALT [Catalytic activity/Vol] 12 U/L Low 13-56 [facility] Comment on above: Performed By: #### L 100.0500, L500.4050 ####[facility] [address] [place], [address] AST [Catalytic activity/Vol] 18 U/L Normal 15-37 [facility] Comment on above: Performed By: #### L 100.0500, L500.4050 ####[facility] [address] [place], [address] Bilirubin [Mass/Vol] 0.20 mg/dL Normal 0.20-1.00 [facility] Comment on above: Result Comment: For patients on eltrombopag therapy, use of Dimension [place]aver TBIL is not recommended. Performed By: #### L 100.0500, L500.4050 ####[facility] [address] [place], [address] BUN/CRE 10.9 RATIO Normal 10-20 [facility] Comment on above: Performed By: #### L 100.0500, L500.4050 ####[facility] [address] [place], [address] CA,Total 8.6 mg/dL Normal 8.5-10.1 [facility] Comment on above: Performed By: #### L 100.0500, L500.4050 ####[facility] [address] [place], [address] Chloride [Moles/Vol] 110 mmol/L High 98-107 [facility] Comment on above: Performed By: #### L 100.0500, L500.4050 ####[facility] [address] [place], [address] CO2 [Moles/Vol] 24.0 mmol/L Normal 21.0-32.0 [facility] Comment on above: Performed By: #### L 100.0500, L500.4050 ####[facility] [address] [place], [address] Creatinine [Mass/Vol] 0.64 mg/dL Normal 0.55-1.02 [facility] Comment on above: Result Comment: The validity of the calculated GFR GFRAA in patients over70 years has not been determined. Clinical correlation isessential. Performed By: #### L 100.0500, L500.4050 ####[facility] [address] [place], [address] ECRCL 172.14 ml/min Normal [facility] Comment on above: Performed By: #### L 100.0500, L500.4050 ####[facility] [address] [place], [address] EST GFR - AA 147 mL/min Normal >60 [facility] Comment on above: Result Comment: Afri can [place] Citizen GFR Calc Performed By: #### L 100.0500, L500.4050 ####[facility] [address] [place], [address] GAP 7 Normal 5-15 [facility] Comment on above: Performed By: #### L 100.0500, L500.4050 ####[facility] [address] [place], [address] GFR/1.73 sq M.predicted among non-blacks MDRD (S/P/Bld) [Vol rate/Area] 121 mL/min/{1.73_m2} Normal >60 [facility] Comment on above: Result Comment: Non- GFR Calc Performed By: #### L 100.0500, L500.4050 ####[facility] [address] [place], [address] Globulin (S) [Mass/Vol] 3.7 g/dL Normal 2.2-4.2 [facility] Comment on above: Performed By: #### L 100.0500, L500.4050 ####[facility] [address] [place], [address] Glucose [Mass/Vol] 136 mg/dL High 74-106 [facility] Comment on above: Result Comment: Fast ing Glucose result greater than or equal to 126 mg/dLsuggests DIABETES MELLITUS per A.D.A. criteria. Performed By: #### L 100.0500, L500.4050 ####[facility] [address] [place], [address] Potassium [Moles/Vol] 3.4 mmol/L Low 3.5-5.1 [facility] Comment on above: Performed By: #### L 100.0500, L500.4050 ####[facility] [address] [place], [address] Sodium [Moles/Vol] 141 mmol/L Normal 136-145 [facility] Comment on above: Performed By: #### L 100.0500, L500.4050 ####[facility] [address] [place], [address] T PROT 6.1 g/dL Low 6.4-8.2 [facility] Comment on above: Performed By: #### L 100.0500, L500.4050 ####[facility] [address] [place], [address] Urea nitrogen [Mass/Vol] 7 mg/dL Normal 7-18 [facility] Comment on above: Performed By: #### L 100.0500, L500.4050 ####[facility] [address] [place], [address] Bedside Glucoseon 04-28-2024 FINGERSTICK GLU 104 mg/dL Normal 74-106 [facility] Comment on above: Result Comment: ANTONETTE VEE OF PATIENT CARE PER NURSING PROTOCOL Performed By: #### L 501.080 ####[facility] [address] [place], [address] BRho(D) IGon 04-27-2024 Rho(D) IG Normal [facility] Comment on above: Result Comment: RH10 7071 Rho(D) IG PRSMD TRFSD 04/27/242152 Performed By: #### B RHNM, BRho(D) IG ####[facility] [address] [place], [address] Bedside Glucoseon 04-27-2024 FINGERSTICK GLU 92 mg/dL Normal 74-106 [facility] Comment on above: Result Comment: ANTONETTE GEMENT OF PATIENT CARE PER NURSING PROTOCOL Performed By: #### L 501.080 ####[facility] [address] [place], [address] FINGERSTICK GLU 72 mg/dL Low 74-106 [facility] Comment on above: Result Comment: ANTONETTE GEMENT OF PATIENT CARE PER NURSING PROTOCOL Performed By: #### L 501.080 ####[facility] [address] [place], [address] FINGERSTICK GLU 70 mg/dL Low 74-106 [facility] Comment on above: Result Comment: ANTONETTE GEMENT OF PATIENT CARE PER NURSING PROTOCOL Performed By: #### L 501.080 ####[facility] [address] [place], [address] FINGERSTICK GLU 72 mg/dL Low 74-106 [facility] Comment on above: Result Comment: ANTONETTE GEMENT OF PATIENT CARE PER NURSING PROTOCOL Performed By: #### L 501.080 ####[facility] [address] [place], [address] FINGERSTICK GLU 90 mg/dL Normal 74-106 [facility] Comment on above: Result Comment: ANTONETTE GEMENT OF PATIENT CARE PER NURSING PROTOCOL Performed By: #### L 501.080 ####[facility] [address] [place], [address] FINGERSTICK GLU 83 mg/dL Normal 74-106 [facility] Comment on above: Result Comment: ANTONETTE GEMENT OF PATIENT CARE PER NURSING PROTOCOL Performed By: #### L 501.080 ####[facility] [address] [place], [address] Discharge Instructionon 04-14 Discharge Instruction Normal [facility] MR/OB.VAGDELIon 04-27-2024 MR/OB.VAGDELI Normal [facility] Rh Negative Mom Workupon ABO and Rh group Nom (Bld) Blood group A Rh(D) positive Normal [facility] Comment on above: Order Comment: Comme nts: Age > 13 [place] girl00 Performed By: #### B RHNM, BRho(D) IG ####[facility] [address] [place], [address] DIRECT ANTIGLOB Negative Normal NEGATIVE [facility] Comment on above: Order Comment: Comme nts: Age > 13 [place] girl00 Performed By: #### B RHNM, BRho(D) IG ####[facility] [address] [place], [address] ABO and Rh group Nom (Bld) Blood group O Rh(D) negative [facility] Comment on above: Order Comment: Comme nts: Age > 13 [place] girl00 Performed By: #### B RHNM, BRho(D) IG ####[facility] [address] [place], [address] SCREEN Negative Normal NEGATIVE [facility] Comment on above: Order Comment: Comme nts: Age > 13 [place] girl00 Performed By: #### B RHNM, BRho(D) IG ####[facility] [address] [place], [address] MOM'S ABS Negative [facility] Comment on above: Order Comment: Comme nts: Age > 13 [place] girl00 Performed By: #### B RHNM, BRho(D) IG ####[facility] [address] [place], [address] Type AND Screenon 04-27-2024 Ab SCREEN GEL Negative Normal [facility] Comment on above: Order Comment: Labor Performed By: #### Arianne TS, L100.0100 ####[facility] [address] [place], [address] AST(SGOT)on 04-26-2024 AST [Catalytic activity/Vol] 13 U/L Low 15-37 [facility] Comment on above: Performed By: #### L 501.1105, L501.4405, L100.0500, L501.4100, L501.1400, L501.0900 ####[facility] [address] [place], [address] Alanine Aminotransferas (SGP T)on 04-26-2024 ALT [Catalytic activity/Vol] 10 U/L Low 13-56 [facility] Comment on above: Performed By: #### L 501.1105, L501.4405, L100.0500, L501.4100, L501.1400, L501.0900 ####[facility] [address] [place], [address] Bedside Glucoseon 04-26-2024 FINGERSTICK GLU 88 mg/dL Normal 74-106 [facility] Comment on above: Result Comment: ANTONETTE GEMENT OF PATIENT CARE PER NURSING PROTOCOL Performed By: #### L 501.080 ####[facility] [address] [place], [address] FINGERSTICK GLU 89 mg/dL Normal 74-106 [facility] Comment on above: Result Comment: ANTONETTE GEMENT OF PATIENT CARE PER NURSING PROTOCOL Performed By: #### L 501.080 ####[facility] [address] [place], [address] CBC W/Diff, Automatedon 04-14 Absolute Neut Normal 2.0-7.7 [facility] Comment on above: Result Comment: DUPL ICATE PER RN Performed By: #### Arianne BLANCO, L100.0100 ####[facility] [address] [place], [address] HCT Normal 37-47 [facility] Comment on above: Result Comment: DUPL ICATE PER RN Performed By: #### Arianne TS, L100.0100 ####[facility] [address] [place], [address] HGB Normal 12.0-15.0 [facility] Comment on above: Result Comment: DUPL ICATE PER RN Performed By: #### Arianne TS, L100.0100 ####[facility] [address] [place], [address] MCH Normal 27.0-32.0 [facility] Comment on above: Result Comment: DUPL ICATE PER RN Performed By: #### Arianne TS, L100.0100 ####[facility] [address] [place], [address] MCHC Normal 32-36 [facility] Comment on above: Result Comment: DUPL ICATE PER RN Performed By: #### Arianne BLANCO, L100.0100 ####[facility] [address] [place], [address] MCV Normal 81-99 [facility] Comment on above: Result Comment: DUPL ICATE PER RN Performed By: #### Arianne TS, L100.0100 ####[facility] [address] [place], [address] NEUT% Normal 47-70 [facility] Comment on above: Result Comment: DUPL ICATE PER RN Performed By: #### Arianne TS, L100.0100 ####[facility] [address] [place], [address] PLT Normal 150-450 [facility] Comment on above: Result Comment: DUPL ICATE PER RN Performed By: #### Arianne TS, L100.0100 ####[facility] [address] [place], [address] RBC Normal 4.2-5.4 [facility] Comment on above: Result Comment: DUPL ICATE PER RN Performed By: #### B TS, L100.0100 ####[facility] [address] [place], [address] RDW CV Normal 11.6-14.6 [facility] Comment on above: Result Comment: DUPL ICATE PER RN Performed By: #### Arianne TS, L100.0100 ####[facility] [address] [place], [address] RDW SD Normal 35.1-43.9 [facility] Comment on above: Result Comment: DUPL ICATE PER RN Performed By: #### Arianne TS, L100.0100 ####[facility] [address] [place], [address] WBC Normal 4.4-11.0 [facility] Comment on above: Result Comment: DUPL ICATE PER RN Performed By: #### Arianne TS, L100.0100 ####[facility] [address] [place], [address] CBC-Complete Blood Cnt No Di ffon 04-26-2024 Erythrocyte distribution width (RBC) [Ratio] 14.3 % Normal 11.6-14.6 [facility] Comment on above: Performed By: #### L 501.1105, L501.4405, L100.0500, L501.4100, L501.1400, L501.0900 ####[facility] [address] [place], [address] Hematocrit (Bld) [Volume fraction] 32.0 % Low 37-47 [facility] Comment on above: Performed By: #### L 501.1105, L501.4405, L100.0500, L501.4100, L501.1400, L501.0900 ####[facility] [address] [place], [address] Hemoglobin (Bld) [Mass/Vol] 10.8 g/dL Low 12.0-15.0 [facility] Comment on above: Performed By: #### L 501.1105, L501.4405, L100.0500, L501.4100, L501.1400, L501.0900 ####[facility] [address] [place], [address] MCH (RBC) [Entitic mass] 28.3 pg Normal 27.0-32.0 [facility] Comment on above: Performed By: #### L 501.1105, L501.4405, L100.0500, L501.4100, L501.1400, L501.0900 ####[facility] [address] [place], [address] MCHC (RBC) [Mass/Vol] 33.8 g/dL Normal 32-36 [facility] Comment on above: Performed By: #### L 501.1105, L501.4405, L100.0500, L501.4100, L501.1400, L501.0900 ####[facility] [address] [place], [address] MCV (RBC) [Entitic vol] 84.0 fL Normal 81-99 [facility] Comment on above: Performed By: #### L 501.1105, L501.4405, L100.0500, L501.4100, L501.1400, L501.0900 ####[facility] [address] [place], [address] Platelet mean volume (Bld) [Entitic vol] 11.9 fL Normal 6.2-12.0 [facility] Comment on above: Performed By: #### L 501.1105, L501.4405, L100.0500, L501.4100, L501.1400, L501.0900 ####[facility] [address] [place], [address] Platelets (Bld) [#/Vol] 207 10*3/uL Normal 150-450 [facility] Comment on above: Performed By: #### L 501.1105, L501.4405, L100.0500, L501.4100, L501.1400, L501.0900 ####[facility] [address] [place], [address] RBC (Bld) [#/Vol] 3.81 10*6/uL Low 4.2-5.4 [facility] Comment on above: Performed By: #### L 501.1105, L501.4405, L100.0500, L501.4100, L501.1400, L501.0900 ####[facility] [address] [place], [address] RDW SD 43.3 fl Normal 35.1-43.9 [facility] Comment on above: Performed By: #### L 501.1105, L501.4405, L100.0500, L501.4100, L501.1400, L501.0900 ####[facility] [address] [place], [address] WBC (Bld) [#/Vol] 8.6 10*3/uL Normal 4.4-11.0 [facility] Comment on above: Performed By: #### L 501.1105, L501.4405, L100.0500, L501.4100, L501.1400, L501.0900 ####[facility] [address] 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, [address] Protein (U) [Mass/Vol] 30.7 mg/dL High <11.9 [facility] Comment on above: Performed By: #### L 501.1105, L501.4405, L100.0500, L501.4100, L501.1400, L501.0900 ####[facility] [address] [place], [address] UR CREAT 293.00 mg/dL Normal NO RANGE EST. [facility] Comment on above: Performed By: #### L 501.1105, L501.4405, L100.0500, L501.4100, L501.1400, L501.0900 ####[facility] [address] [place], [address] Serum Creatinine AND GFRon 0 - Creatinine [Mass/Vol] 0.50 mg/dL Low 0.55-1.02 [facility] Comment on above: Result Comment: The validity of the calculated GFR GFRAA in patients over70 years has not been determined. Clinical correlation isessential. Performed By: #### L 501.1105, L501.4405, L100.0500, L501.4100, L501.1400, L501.0900 ####[facility] [address] [place], [address] ECRCL 220.34 ml/min Normal [facility] Comment on above: Performed By: #### L 501.1105, L501.4405, L100.0500, L501.4100, L501.1400, L501.0900 ####[facility] [address] [place], [address] EST GFR - AA 197 mL/min Normal >60 [facility] Comment on above: Result Comment: Afri can [place] Citizen GFR Calc Performed By: #### L 501.1105, L501.4405, L100.0500, L501.4100, L501.1400, L501.0900 ####[facility] [address] [place], [address] GFR/1.73 sq M.predicted among non-blacks MDRD (S/P/Bld) [Vol rate/Area] 163 mL/min/{1.73_m2} Normal >60 [facility] Comment on above: Result Comment: Non- GFR Calc Performed By: #### L 501.1105, L501.4405, L100.0500, L501.4100, L501.1400, L501.0900 ####[facility] [address] [place], [address] Uric Acidon 04-26-2024 URIC 4.1 mg/dL Normal 2.6-6.0 [facility] Comment on above: Result Comment: The drugs N-Acetylcysteine and Metamizole may falselydepress this assay. Performed By: #### L 501.1105, L501.4405, L100.0500, L501.4100, L501.1400, L501.0900 ####[facility] [address] [place], [address] Rule out Beta Strep (Grp. B) on 04-24-2024 KAL Group B Beta Streptococcus is not isolated. Normal [facility] Comment on above: Performed By: #### M 100.3400, L501.0900 ####[facility] [address] [place], [address] Echo Completeon 04-22-2024 Echo Complete Normal [facility] [employer] Office Visit Reporton 04-22-2024 Assembler [employer] Office Visit Report Normal [facility] Protein+Creatinine Ratio,Uri neon 04-22-2024 PROT:CRE RATIO 189 mg/g CRE Normal 0-200 [facility] Comment on above: Performed By: #### M 100.3400, L501.0900 ####[facility] [address] [place], [address] Protein (U) [Mass/Vol] 26.7 mg/dL High <11.9 [facility] Comment on above: Performed By: #### M 100.3400, L501.0900 ####[facility] [address] [place], [address] UR CREAT 141.00 mg/dL Normal NO RANGE EST. [facility] Comment on above: Performed By: #### M 100.3400, L501.0900 ####[facility] [address] [place], [address] OB Limited With Biometricson 04-21-2024 OB Limited With Biometrics Normal [facility] [employer] Office Visit Reporton 04-19-2024 Assembler [employer] Office Visit Report Normal [facility] Protein+Creatinine Ratio,Uri neon 04-19-2024 PROT:CRE RATIO 115 mg/g CRE Normal 0-200 [facility] Comment on above: Performed By: #### L 501.0900 ####[facility] [address] [place], [address] Protein (U) [Mass/Vol] 34.1 mg/dL High <11.9 [facility] Comment on above: Performed By: #### L 501.0900 ####[facility] [address] [place], [address] UR CREAT 297.00 mg/dL Normal NO RANGE EST. [facility] Comment on above: Performed By: #### L 501.0900 ####[facility] [address] [place], [address] Urine Cultureon 04-16-2024 URC Mixed Gram Positive Organisms Sterling Count 25,000-50,000 MIXC Mixed contaminants. Submit a new specimen if indicated. Normal [facility] Comment on above: Performed By: #### M 100.2205 ####[facility] [address] [place], [address] Assembler [employer] Office Visit Reporton 04-15-2024 Assembler [employer] Office Visit Report Normal [facility] Cardiology Visit Reporton Cardiology Visit Report Normal [facility] [employer] Office Visit Reporton 04-12-2024 Assembler [employer] Office Visit Report Normal [facility] [employer] Office Visit Reporton 04-08-2024 Assembler [employer] Office Visit Report Normal [facility] [employer] Office Visit Reporton 04-05-2024 Assembler [employer] Office Visit Report Normal [facility] OB Triage Progress Noteon OB Triage Progress Note Normal [facility] AST(SGOT)on 04-02-2024 AST [Catalytic activity/Vol] 14 U/L Low 15-37 [facility] Comment on above: Performed By: #### L 501.1400, L501.4100, L501.4405, L501.1105, L100.0500 ####[facility] [address] [place], [address] Alanine Aminotransferas (SGP T)on 04-02-2024 ALT [Catalytic activity/Vol] 11 U/L Low 13-56 [facility] Comment on above: Performed By: #### L 501.1400, L501.4100, L501.4405, L501.1105, L100.0500 ####[facility] [address] [place], [address] CBC W/Diff, Automatedon 2 Absolute Neut Normal 2.0-7.7 [facility] Comment on above: Result Comment: PT G OING TO LABOR AND DELIVERY. Performed By: #### L 500.4050, L501.0900, L100.0100 ####[facility] [address] [place], [address] HCT Normal 37-47 [facility] Comment on above: Result Comment: PT G OING TO LABOR AND DELIVERY. Performed By: #### L 500.4050, L501.0900, L100.0100 ####[facility] [address] [place], [address] HGB Normal 12.0-15.0 [facility] Comment on above: Result Comment: PT G OING TO LABOR AND DELIVERY. Performed By: #### L 500.4050, L501.0900, L100.0100 ####[facility] [address] [place], [address] MCH Normal 27.0-32.0 [facility] Comment on above: Result Comment: PT G OING TO LABOR AND DELIVERY. Performed By: #### L 500.4050, L501.0900, L100.0100 ####[facility] [address] [place], [address] MCHC Normal 32-36 [facility] Comment on above: Result Comment: PT G OING TO LABOR AND DELIVERY. Performed By: #### L 500.4050, L501.0900, L100.0100 ####[facility] [address] [place], [address] MCV Normal 81-99 [facility] Comment on above: Result Comment: PT G OING TO LABOR AND DELIVERY. Performed By: #### L 500.4050, L501.0900, L100.0100 ####[facility] [address] [place], [address] NEUT% Normal 47-70 [facility] Comment on above: Result Comment: PT G OING TO LABOR AND DELIVERY. Performed By: #### L 500.4050, L501.0900, L100.0100 ####[facility] [address] [place], [address] PLT Normal 150-450 [facility] Comment on above: Result Comment: PT G OING TO LABOR AND DELIVERY. Performed By: #### L 500.4050, L501.0900, L100.0100 ####[facility] [address] [place], [address] RBC Normal 4.2-5.4 [facility] Comment on above: Result Comment: PT G OING TO LABOR AND DELIVERY. Performed By: #### L 500.4050, L501.0900, L100.0100 ####[facility] [address] [place], [address] RDW CV Normal 11.6-14.6 [facility] Comment on above: Result Comment: PT G OING TO LABOR AND DELIVERY. Performed By: #### L 500.4050, L501.0900, L100.0100 ####[facility] [address] [place], [address] RDW SD Normal 35.1-43.9 [facility] Comment on above: Result Comment: PT G OING TO LABOR AND DELIVERY. Performed By: #### L 500.4050, L501.0900, L100.0100 ####[facility] [address] [place], [address] WBC Normal 4.4-11.0 [facility] Comment on above: Result Comment: PT G OING TO LABOR AND DELIVERY. Performed By: #### L 500.4050, L501.0900, L100.0100 ####[facility] [address] [place], [address] CBC-Complete Blood Cnt No Di ffon 04-02-2024 Erythrocyte distribution width (RBC) [Ratio] 13.9 % Normal 11.6-14.6 [facility] Comment on above: Performed By: #### L 501.1400, L501.4100, L501.4405, L501.1105, L100.0500 ####[facility] [address] [place], [address] Hematocrit (Bld) [Volume fraction] 34.4 % Low 37-47 [facility] Comment on above: Performed By: #### L 501.1400, L501.4100, L501.4405, L501.1105, L100.0500 ####[facility] [address] [place], [address] Hemoglobin (Bld) [Mass/Vol] 11.2 g/dL Low 12.0-15.0 [facility] Comment on above: Performed By: #### L 501.1400, L501.4100, L501.4405, L501.1105, L100.0500 ####[facility] [address] [place], [address] MCH (RBC) [Entitic mass] 28.5 pg Normal 27.0-32.0 [facility] Comment on above: Performed By: #### L 501.1400, L501.4100, L501.4405, L501.1105, L100.0500 ####[facility] [address] [place], [address] MCHC (RBC) [Mass/Vol] 32.6 g/dL Normal 32-36 [facility] Comment on above: Performed By: #### L 501.1400, L501.4100, L501.4405, L501.1105, L100.0500 ####[facility] [address] [place], [address] MCV (RBC) [Entitic vol] 87.5 fL Normal 81-99 [facility] Comment on above: Performed By: #### L 501.1400, L501.4100, L501.4405, L501.1105, L100.0500 ####[facility] [address] [place], [address] Platelet mean volume (Bld) [Entitic vol] 11.6 fL Normal 6.2-12.0 [facility] Comment on above: Performed By: #### L 501.1400, L501.4100, L501.4405, L501.1105, L100.0500 ####[facility] [address] [place], [address] Platelets (Bld) [#/Vol] 234 10*3/uL Normal 150-450 [facility] Comment on above: Performed By: #### L 501.1400, L501.4100, L501.4405, L501.1105, L100.0500 ####[facility] [address] [place], [address] RBC (Bld) [#/Vol] 3.93 10*6/uL Low 4.2-5.4 [facility] Comment on above: Performed By: #### L 501.1400, L501.4100, L501.4405, L501.1105, L100.0500 ####[facility] [address] [place], [address] RDW SD 44.6 fl High 35.1-43.9 [facility] Comment on above: Performed By: #### L 501.1400, L501.4100, L501.4405, L501.1105, L100.0500 ####[facility] [address] [place], [address] WBC (Bld) [#/Vol] 10.1 10*3/uL Normal 4.4-11.0 [facility] Comment on above: Performed By: #### L 501.1400, L501.4100, L501.4405, L501.1105, L100.0500 ####[facility] [address] [place], [address] HCT Normal 37-47 [facility] Comment on above: Result Comment: Canc elled via OM: Incorrect ordering MD Performed By: #### L 100.0500 ####[facility] [address] [place], [address] HGB Normal 12.0-15.0 [facility] Comment on above: Result Comment: Canc elled via OM: Incorrect ordering MD Performed By: #### L 100.0500 ####[facility] [address] [place], [address] MCH Normal 27.0-32.0 [facility] Comment on above: Result Comment: Canc elled via OM: Incorrect ordering MD Performed By: #### L 100.0500 ####[facility] [address] [place], [address] MCHC Normal 32-36 [facility] Comment on above: Result Comment: Canc elled via OM: Incorrect ordering MD Performed By: #### L 100.0500 ####[facility] [address] [place], [address] MCV Normal 81-99 [facility] Comment on above: Result Comment: Canc elled via OM: Incorrect ordering MD Performed By: #### L 100.0500 ####[facility] [address] [place], [address] PLT Normal 150-450 [facility] Comment on above: Result Comment: Canc elled via OM: Incorrect ordering MD Performed By: #### L 100.0500 ####[facility] [address] [place], [address] RBC Normal 4.2-5.4 [facility] Comment on above: Result Comment: Canc elled via OM: Incorrect ordering MD Performed By: #### L 100.0500 ####[facility] [address] [place], [address] RDW CV Normal 11.6-14.6 [facility] Comment on above: Result Comment: Canc elled via OM: Incorrect ordering MD Performed By: #### L 100.0500 ####[facility] [address] [place], [address] RDW SD Normal 35.1-43.9 [facility] Comment on above: Result Comment: Canc elled via OM: Incorrect ordering MD Performed By: #### L 100.0500 ####[facility] [address] [place], [address] WBC Normal 4.4-11.0 [facility] Comment on above: Result Comment: Canc elled via OM: Incorrect ordering MD Performed By: #### L 100.0500 ####[facility] [address] [place], [address] Comprehensive Metabolic Prof ilon 04-02-2024 ALB Normal 3.2-5.0 [facility] Comment on above: Result Comment: PT G OING TO LABOR AND DELIVERY. Performed By: #### L 500.4050, L501.0900, L100.0100 ####[facility] [address] [place], [address] ALK P Normal 45-117 [facility] Comment on above: Result Comment: PT G OING TO LABOR AND DELIVERY. Performed By: #### L 500.4050, L501.0900, L100.0100 ####[facility] [address] [place], [address] ALT Normal 13-56 [facility] Comment on above: Result Comment: PT G OING TO LABOR AND DELIVERY. Performed By: #### L 500.4050, L501.0900, L100.0100 ####[facility] [address] [place], [address] AST Normal 15-37 [facility] Comment on above: Result Comment: PT G OING TO LABOR AND DELIVERY. Performed By: #### L 500.4050, L501.0900, L100.0100 ####[facility] [address] [place], [address] BUN Normal 7-18 [facility] Comment on above: Result Comment: PT G OING TO LABOR AND DELIVERY. Performed By: #### L 500.4050, L501.0900, L100.0100 ####[facility] [address] [place], [address] BUN/CRE Normal 10-20 [facility] Comment on above: Result Comment: PT G OING TO LABOR AND DELIVERY. Performed By: #### L 500.4050, L501.0900, L100.0100 ####[facility] [address] [place], [address] CA,Total Normal 8.5-10.1 [facility] Comment on above: Result Comment: PT G OING TO LABOR AND DELIVERY. Performed By: #### L 500.4050, L501.0900, L100.0100 ####[facility] [address] [place], [address] CL Normal 98-107 [facility] Comment on above: Result Comment: PT G OING TO LABOR AND DELIVERY. Performed By: #### L 500.4050, L501.0900, L100.0100 ####[facility] [address] [place], [address] CO2 Normal 21.0-32.0 [facility] Comment on above: Result Comment: PT G OING TO LABOR AND DELIVERY. Performed By: #### L 500.4050, L501.0900, L100.0100 ####[facility] [address] [place], [address] CREAT,SERUM Normal 0.55-1.02 [facility] Comment on above: Result Comment: PT G OING TO LABOR AND DELIVERY. Performed By: #### L 500.4050, L501.0900, L100.0100 ####[facility] [address] [place], [address] EST GFR Normal >60 [facility] Comment on above: Result Comment: PT G OING TO LABOR AND DELIVERY. Performed By: #### L 500.4050, L501.0900, L100.0100 ####[facility] [address] [place], [address] EST GFR - AA Normal >60 [facility] Comment on above: Result Comment: PT G OING TO LABOR AND DELIVERY. Performed By: #### L 500.4050, L501.0900, L100.0100 ####[facility] [address] [place], [address] GAP Normal 5-15 [facility] Comment on above: Result Comment: PT G OING TO LABOR AND DELIVERY. Performed By: #### L 500.4050, L501.0900, L100.0100 ####[facility] [address] [place], [address] GLU Normal 74-106 [facility] Comment on above: Result Comment: PT G OING TO LABOR AND DELIVERY. Performed By: #### L 500.4050, L501.0900, L100.0100 ####[facility] [address] [place], [address] Potassium Normal 3.5-5.1 [facility] Comment on above: Result Comment: PT G OING TO LABOR AND DELIVERY. Performed By: #### L 500.4050, L501.0900, L100.0100 ####[facility] [address] [place], [address] T BILI Normal 0.20-1.00 [facility] Comment on above: Result Comment: PT G OING TO LABOR AND DELIVERY. Performed By: #### L 500.4050, L501.0900, L100.0100 ####[facility] [address] [place], [address] T PROT Normal 6.4-8.2 [facility] Comment on above: Result Comment: PT G OING TO LABOR AND DELIVERY. Performed By: #### L 500.4050, L501.0900, L100.0100 ####[facility] [address] [place], [address] Comprehensive Metabolic Profil Normal 136-145 [facility] Comment on above: Result Comment: PT G OING TO LABOR AND DELIVERY. Performed By: #### L 500.4050, L501.0900, L100.0100 ####[facility] [address] [place], [address] OB Triage Progress Noteon OB Triage Progress Note Normal [facility] [employer] Office Visit Reporton 04-02-2024 Assembler Garment Form Office Visit Report Normal [facility] Protein+Creatinine Ratio,Uri neon 04-02-2024 PROT:CRE RATIO 100 mg/g CRE Normal 0-200 [facility] Comment on above: Performed By: #### L 500.4050, L501.0900, L100.0100 ####[facility] [address] [place], [address] Protein (U) [Mass/Vol] 23.2 mg/dL High <11.9 [facility] Comment on above: Performed By: #### L 500.4050, L501.0900, L100.0100 ####[facility] [address] [place], [address] UR CREAT 231.00 mg/dL Normal NO RANGE EST. [facility] Comment on above: Performed By: #### L 500.4050, L501.0900, L100.0100 ####[facility] [address] [place], [address] Serum Creatinine AND GFRon 1 06-03-2023 Creatinine [Mass/Vol] 0.53 mg/dL Low 0.55-1.02 [facility] Comment on above: Result Comment: The validity of the calculated GFR GFRAA in patients over70 years has not been determined. Clinical correlation isessential. Performed By: #### L 501.1400, L501.4100, L501.4405, L501.1105, L100.0500 ####[facility] [address] [place], [address] ECRCL 205.88 ml/min Normal [facility] Comment on above: Performed By: #### L 501.1400, L501.4100, L501.4405, L501.1105, L100.0500 ####[facility] [address] [place], [address] EST GFR - AA 183 mL/min Normal >60 [facility] Comment on above: Result Comment: Afri can [place] Citizen GFR Calc Performed By: #### L 501.1400, L501.4100, L501.4405, L501.1105, L100.0500 ####[facility] [address] [place], [address] GFR/1.73 sq M.predicted among non-blacks MDRD (S/P/Bld) [Vol rate/Area] 151 mL/min/{1.73_m2} Normal >60 [facility] Comment on above: Result Comment: Non- GFR Calc Performed By: #### L 501.1400, L501.4100, L501.4405, L501.1105, L100.0500 ####[facility] [address] [place], [address] Uric Acidon 04-02-2024 URIC 3.6 mg/dL Normal 2.6-6.0 [facility] Comment on above: Result Comment: The drugs N-Acetylcysteine and Metamizole may falselydepress this assay. Performed By: #### L 501.1400, L501.4100, L501.4405, L501.1105, L100.0500 ####[facility] [address] [place], [address] As[employer]er [employer] Office Visit Reporton 03-30-2024 Assembler Garment Form Office Visit Report Normal [facility] OB Limited With Biometricson 03-24-2024 OB Limited With Biometrics Normal [facility] [employer] Office Visit Reporton 03-19-2024 Assembler Garment Form Office Visit Report Normal [facility] Office Visit Reporton 2023 Office Visit Report Normal [facility] Urgent Care Visit Reporton 05-01-2023 Urgent Care Visit Report Normal [facility] CBC W/Diff, Automatedon 02-12 Absolute Lymph 0.68 X10 3/uL Low 0.83-4.51 [facility] Comment on above: Performed By: #### L 509.8000, L3890.6005, BTS, L100.0100, L501.0250 ####[facility] [address] [place], [address] Absolute Neut 9.5 X10 3/uL High 2.0-7.7 [facility] Comment on above: Performed By: #### L 509.8000, L3890.6005, BTS, L100.0100, L501.0250 ####[facility] [address] [place], [address] Basophils/100 WBC (Bld) 0.3 % Normal 0-1 [facility] Comment on above: Performed By: #### L 509.8000, L3890.6005, BTS, L100.0100, L501.0250 ####[facility] [address] [place], [address] Eosinophils/100 WBC (Bld) 0.3 % Normal 0-5 [facility] Comment on above: Performed By: #### L 509.8000, L3890.6005, BTS, L100.0100, L501.0250 ####[facility] [address] [place], [address] Erythrocyte distribution width (RBC) [Ratio] 13.6 % Normal 11.6-14.6 [facility] Comment on above: Performed By: #### L 509.8000, L3890.6005, BTS, L100.0100, L501.0250 ####[facility] [address] [place], [address] Hematocrit (Bld) [Volume fraction] 33.0 % Low 37-47 [facility] Comment on above: Performed By: #### L 509.8000, L3890.6005, BTS, L100.0100, L501.0250 ####[facility] [address] [place], [address] Hemoglobin (Bld) [Mass/Vol] 10.9 g/dL Low 12.0-15.0 [facility] Comment on above: Performed By: #### L 509.8000, L3890.6005, BTS, L100.0100, L501.0250 ####[facility] [address] [place], [address] IG% 0.700 Normal 0.0-0.9 [facility] Comment on above: Result Comment: IG% - Immature Granulocytes (promyelocytes, myelocytes andmetamyelocytes) > 1% indicates that a LEFT SHIFT is Present. Performed By: #### L 509.8000, L3890.6005, BTS, L100.0100, L501.0250 ####[facility] [address] [place], [address] Lymphocytes/100 WBC (Bld) 6.4 % Low 19-41 [facility] Comment on above: Performed By: #### L 509.8000, L3890.6005, BTS, L100.0100, L501.0250 ####[facility] [address] [place], [address] MCH (RBC) [Entitic mass] 29.5 pg Normal 27.0-32.0 [facility] Comment on above: Performed By: #### L 509.8000, L3890.6005, BTS, L100.0100, L501.0250 ####[facility] [address] [place], [address] MCHC (RBC) [Mass/Vol] 33.0 g/dL Normal 32-36 [facility] Comment on above: Performed By: #### L 509.8000, L3890.6005, BTS, L100.0100, L501.0250 ####[facility] [address] [place], [address] MCV (RBC) [Entitic vol] 89.4 fL Normal 81-99 [facility] Comment on above: Performed By: #### L 509.8000, L3890.6005, BTS, L100.0100, L501.0250 ####[facility] [address] [place], [address] Monocytes/100 WBC (Bld) 3.5 % Normal 0-10 [facility] Comment on above: Performed By: #### L 509.8000, L3890.6005, BTS, L100.0100, L501.0250 ####[facility] [address] [place], [address] Neutrophils/100 WBC (Bld) 88.8 % High 47-70 [facility] Comment on above: Performed By: #### L 509.8000, L3890.6005, BTS, L100.0100, L501.0250 ####[facility] [address] [place], [address] Nucleated RBC (Bld) [#/Vol] 0 10*3/uL Normal 0-5 [facility] Comment on above: Performed By: #### L 509.8000, L3890.6005, BTS, L100.0100, L501.0250 ####[facility] [address] [place], [address] Platelet mean volume (Bld) [Entitic vol] 11.2 fL Normal 6.2-12.0 [facility] Comment on above: Performed By: #### L 509.8000, L3890.6005, BTS, L100.0100, L501.0250 ####[facility] [address] [place], [address] Platelets (Bld) [#/Vol] 206 10*3/uL Normal 150-450 [facility] Comment on above: Performed By: #### L 509.8000, L3890.6005, BTS, L100.0100, L501.0250 ####[facility] [address] [place], [address] RBC (Bld) [#/Vol] 3.69 10*6/uL Low 4.2-5.4 [facility] Comment on above: Performed By: #### L 509.8000, L3890.6005, BTS, L100.0100, L501.0250 ####[facility] [address] [place], [address] RDW SD 44.5 fl High 35.1-43.9 [facility] Comment on above: Performed By: #### L 509.8000, L3890.6005, BTS, L100.0100, L501.0250 ####[facility] [address] [place], [address] WBC (Bld) [#/Vol] 10.7 10*3/uL Normal 4.4-11.0 [facility] Comment on above: Performed By: #### L 509.8000, L3890.6005, BTS, L100.0100, L501.0250 ####[facility] [address] [place], [address] Glucose Challenge Gest 1H 50 brando 02-26-2024 GLU GEST 50g 1H 183 mg/dL High 70-140 [facility] Comment on above: Performed By: #### L 509.8000, L3890.6005, BTS, L100.0100, L501.0250 ####[facility] [address] [place], [address] HIV - WCHon 02-26-2024 HIV Non-Reactive Normal Nonreactive [facility] Comment on above: Performed By: #### L 509.8000, L3890.6005, BTS, L100.0100, L501.0250 ####[facility] [address] [place], [address] L509.8000on 02-26-2024 Syphilis Abs Non-Reactive Normal [facility] Comment on above: Performed By: #### L 509.8000, L3890.6005, BTS, L100.0100, L501.0250 ####[facility] [address] [place], [address] [employer] Office Visit Reporton 02-26-2024 [employer] Form Office Visit Report Normal [facility] Type AND Screenon 02-26-2024 ABO and Rh group Nom (Bld) Blood group O Rh(D) negative Normal [facility] Comment on above: Order Comment: PN Performed By: #### L 509.8000, L3890.6005, BTS, L100.0100, L501.0250 ####[facility] [address] [place], [address] [employer] Office Visit Reporton 02-04-2024 [employer] Office Visit Report Normal [facility] [employer] Office Visit Reporton 01-15-2024 [employer] Office Visit Report Normal [facility] Office Visit Reporton 2023 Office Visit Report Normal [facility] OB Anatomy w/ Transvaginalon 12-31-2023 OB Anatomy w/ Transvaginal Normal [facility] [employer] Office Visit Reporton 12-10-2023 [employer] Office Visit Report Normal [facility] No Panel InformationOrdered By: Ladonna Kelly on 08-14-2023 Miscellaneous Test See comment [facility] Comment on above: Sent directly to [facility] per ordering physician. Free Triiodothyronine (T3) pg/dL 3.4 pg/mL 2.18-3.98 [facility] Serum or plasma thyroid stim ulating hormone (TSH) measurement (units/volume)Ordered By: Ladonna Kelly on 08-14-2023 TSH Qn 0.73 uIU/mL 0.358-3.74 [facility] Thin prep Papanicolaou smear with manual screeningOrdered By: Ladonna Kelly on 08-14-2023 Thin prep Papanicolaou smear with manual screening 1.09 ng/dL 0.76-1.46 [facility] Absolute lymphocyte countOrd ered By: Xin Cardona on 07-31-2023 Lymphocytes Auto (Unsp spec) [#/Vol] 1.74 10*3/uL 0.83-4.51 [facility] Automated lymphocyte count a s percentage of total leukocytesOrdered By: Xin Cardona on 07-31-2023 Lymphocytes/100 WBC Auto (Unsp spec) 24.8 % 19-41 [facility] Basophil percentageOrdered B y: Xin Cardona on 07-31-2023 Cholesterol [Mass/Vol] 172 mg/dL <200 [facility] Comment on above: <200 mg/dL Desirable 200-240 mg/dL Borderline >240 mg/dL High Risk Triglyceride [Mass/Vol] 129 mg/dL <199 [facility] Comment on above: The drugs N-Acetylcy steine and Metamizole may falsely depress this assay.Serum Triglycerides Reference Interval Normal <150 mg/dL Borderline high 150 - 199 mg/dL High 200 - 499 mg/dL Very High > or = 500 mg/dL Basophils/100 WBC (Bld) 0.6 % 0-1 [facility] Bilirubin [Mass/Vol] 0.30 mg/dL 0.20-1.00 [facility] Comment on above: For patients on eltr ombopag therapy, use of Dimension Beaver TBIL is not recommended. Chloride [Moles/Vol] 106 mmol/L 98-107 [facility] Eosinophils/100 WBC (Bld) 1.1 % 0-5 [facility] Glucose [Mass/Vol] 117 mg/dL 74-106 [facility] Comment on above: Fasting Glucose resu lt from 100 to 125 mg/dL suggests IMPAIRED HOMEOSTASIS per A.D.A. criteria. Hemoglobin (Bld) [Mass/Vol] 14.0 g/dL 12.0-15.0 [facility] Monocytes/100 WBC (Bld) 5.0 % 0-10 [facility] Neutrophils (Bld) [#/Vol] 4.8 10*3/uL 2.0-7.7 [facility] Neutrophils/100 WBC (Bld) 68.2 % 47-70 [facility] Potassium [Moles/Vol] 3.9 mmol/L 3.5-5.1 [facility] Protein [Mass/Vol] 7.7 g/dL 6.4-8.2 [facility] Sodium [Moles/Vol] 137 mmol/L 136-145 [facility] WBC (Bld) [#/Vol] 7.0 10*3/uL 4.4-11.0 [facility] Determination of erythrocyte mean corpuscular volume (MCV)Ordered By: Xin Cardona on 07-31-2023 MCV (RBC) [Entitic vol] 87.5 fL 81-99 [facility] Erythrocyte distribution wid th ratioOrdered By: Patriciaschuylervillebarney Cardona on 07-31-2023 Erythrocyte distribution width (RBC) [Ratio] 12.0 % 11.6-14.6 [facility] Erythrocyte distribution wid th standard deviationOrdered By: Patriciaschuylervillebarney Estradaclaudio on 07-31-2023 Erythrocyte distribution width (RBC) [Entitic vol] 38.7 fL 35.1-43.9 [facility] Hematocrit Auto (Bld) [Volum e fraction]Ordered By: Xin Cardona on 07-31-2023 Hematocrit (Bld) [Volume fraction] 41.2 % 37-47 [facility] Immature granulocytes/100 WB C Auto (Bld)Ordered By: Xin Cardona on 07-31-2023 Immature granulocytes/100 WBC (Bld) 0.300 % 0.0-0.9 [facility] Comment on above: IG% - Immature Granu locytes (promyelocytes, myelocytes and metamyelocytes) > 1% indicates that a LEFT SHIFT is Present. Laboratory - Chemistry and C hemistry - challengeOrdered By: Xin Cardona on 07-31-2023 Cholesterol in HDL [Mass/Vol] 39 mg/dL >40 [facility] Comment on above: The drugs N-Acetylcy steine and Metamizole may falsely depress this assay. Reference Range HDL <40 mg/dL Low HDL Cholesterol HDL >or= 60 mg/dL High HDL Cholesterol Cholesterol in LDL [Mass/Vol] 107 mg/dL 0-130 [facility] Albumin/Globulin [Mass ratio] 1.1 {ratio} 0.9-2.4 [facility] ALP [Catalytic activity/Vol] 57 U/L 45-117 [facility] ALT [Catalytic activity/Vol] 28 U/L 13-56 [facility] CO2 [Moles/Vol] 26.0 mmol/L 21.0-32.0 [facility] Globulin (S) [Mass/Vol] 3.7 g/dL 2.2-4.2 [facility] Urea nitrogen/Creatinine [Mass ratio] 8.4 mg/mg 10-20 [facility] Laboratory - Chemistry and C hemistry - challengeOrdered By: Maryse Hyman on 07-31-2023 Magnesium [Mass/Vol] 2.0 mg/dL 1.6-2.6 [facility] Laboratory - Hematology and Cell countsOrdered By: Xin Cardona on 07-31-2023 MCH (RBC) [Entitic mass] 29.7 pg 27.0-32.0 [facility] MCHC (RBC) [Mass/Vol] 34.0 g/dL 32-36 [facility] Nucleated RBC/100 WBC (Bld) [Ratio] 0 % 0-5 [facility] Platelet mean volume (Bld) [Entitic vol] 11.5 fL 6.2-12.0 [facility] Platelets (Bld) [#/Vol] 275 10*3/uL 150-450 [facility] No Panel InformationOrdered By: Xin Cardona on 07-31-2023 VLDL Cholesterol 26 mg/dL 5-40 [facility] Estimated GFR (MDRD) Amer 109 mL/min >60 [facility] Comment on above: GFR Calc Estimated GFR (MDRD) Non-Af Amer 90 mL/min >60 [facility] Comment on above: Non- GFR Calc RBC Auto (Bld) [#/Vol]Ordere d By: Xin Cardona on 07-31-2023 RBC (Bld) [#/Vol] 4.71 10*6/uL 4.2-5.4 [facility] Serum or plasma calcium javier urement (mass/volume)Ordered By: Xin Cardona on 07-31-2023 Calcium [Mass/Vol] 9.5 mg/dL 8.5-10.1 [facility] Serum or plasma creatinine m easurement (mass/volume)Ordered By: Xin Cardona on 07-31-2023 Creatinine [Mass/Vol] 0.83 mg/dL 0.55-1.02 [facility] Comment on above: The validity of the calculated GFR & GFRAA in patients over 70 years has not been determined. Clinical correlation is essential. Serum or plasma urea nitroge n measurement (mass/volume)Ordered By: Xin Cardona on 07-31-2023 Urea nitrogen [Mass/Vol] 7 mg/dL 7-18 [facility] Thin prep Papanicolaou smear with manual screeningOrdered By: Xin Cardona on 07-31-2023 Thin prep Papanicolaou smear with manual screening 4.0 g/dL 3.2-5.0 [facility] Thin prep Papanicolaou smear with manual screening 15 U/L 15-37 [facility] Thin prep Papanicolaou smear with manual screening 5 5-15 [facility] Whole blood hemoglobin A1c/t otal hemoglobin ratio (mass fraction)Ordered By: Xin Cardona on 07-31-2023 HbA1c (Bld) [Mass fraction] 5.2 % 3.8-5.6 [facility] Comment on above: Normal < 5.7 % Predi abetic 5.7 - 6.4 % Diabetic >or= 6.5 % Please note range changes. Absolute lymphocyte countOrd ered By: Chan Lyons on 07-25-2023 Lymphocytes Auto (Unsp spec) [#/Vol] 2.48 10*3/uL 0.83-4.51 [facility] Automated lymphocyte count a s percentage of total leukocytesOrdered By: Chan Lyons on 07-25-2023 Lymphocytes/100 WBC Auto (Unsp spec) 24.6 % 19-41 [facility] Basophil percentageOrdered B y: Chan Lyons on 07-25-2023 Basophils/100 WBC (Bld) 0.9 % 0-1 [facility] Chloride [Moles/Vol] 103 mmol/L 98-107 [facility] Eosinophils/100 WBC (Bld) 0.8 % 0-5 [facility] Glucose [Mass/Vol] 105 mg/dL 74-106 [facility] Comment on above: Fasting Glucose resu lt from 100 to 125 mg/dL suggests IMPAIRED HOMEOSTASIS per A.D.A. criteria. Hemoglobin (Bld) [Mass/Vol] 14.8 g/dL 12.0-15.0 [facility] Monocytes/100 WBC (Bld) 6.2 % 0-10 [facility] Neutrophils (Bld) [#/Vol] 6.8 10*3/uL 2.0-7.7 [facility] Neutrophils/100 WBC (Bld) 67.2 % 47-70 [facility] Potassium [Moles/Vol] 3.1 mmol/L 3.5-5.1 [facility] Sodium [Moles/Vol] 134 mmol/L 136-145 [facility] WBC (Bld) [#/Vol] 10.1 10*3/uL 4.4-11.0 [facility] Determination of erythrocyte mean corpuscular volume (MCV)Ordered By: Chan Lyons on 07-25-2023 MCV (RBC) [Entitic vol] 85.5 fL 81-99 [facility] Erythrocyte distribution wid th ratioOrdered By: Chan Lyons on 07-25-2023 Erythrocyte distribution width (RBC) [Ratio] 11.9 % 11.6-14.6 [facility] Erythrocyte distribution wid th standard deviationOrdered By: Chan Lyons on 07-25-2023 Erythrocyte distribution width (RBC) [Entitic vol] 36.7 fL 35.1-43.9 [facility] Hematocrit Auto (Bld) [Volum e fraction]Ordered By: Chan Lyons on 07-25-2023 Hematocrit (Bld) [Volume fraction] 42.3 % 37-47 [facility] Immature granulocytes/100 WB C Auto (Bld)Ordered By: Chan Lyons on 07-25-2023 Immature granulocytes/100 WBC (Bld) 0.300 % 0.0-0.9 [facility] Comment on above: IG% - Immature Granu locytes (promyelocytes, myelocytes and metamyelocytes) > 1% indicates that a LEFT SHIFT is Present. Laboratory - Chemistry and C hemistry - challengeOrdered By: Chan Lyons on 07-25-2023 CO2 [Moles/Vol] 26.0 mmol/L 21.0-32.0 [facility] Urea nitrogen/Creatinine [Mass ratio] 10.4 mg/mg 10-20 [facility] Laboratory - Hematology and Cell countsOrdered By: Chan Lyons on 07-25-2023 MCH (RBC) [Entitic mass] 29.9 pg 27.0-32.0 [facility] MCHC (RBC) [Mass/Vol] 35.0 g/dL 32-36 [facility] Nucleated RBC/100 WBC (Bld) [Ratio] 0 % 0-5 [facility] Platelet mean volume (Bld) [Entitic vol] 11.1 fL 6.2-12.0 [facility] Platelets (Bld) [#/Vol] 307 10*3/uL 150-450 [facility] No Panel InformationOrdered By: Chan Lyons on 07-25-2023 Estimated Creatinine Clearance Calc 117.72 ml/min [facility] Estimated GFR (MDRD) Amer 104 mL/min >60 [facility] Comment on above: GFR Calc Estimated GFR (MDRD) Non-Af Amer 86 mL/min >60 [facility] Comment on above: Non- GFR Calc RBC Auto (Bld) [#/Vol]Ordere d By: Chan Lyons on 07-25-2023 RBC (Bld) [#/Vol] 4.95 10*6/uL 4.2-5.4 [facility] Serum or plasma calcium javier urement (mass/volume)Ordered By: Chan Lyons on 07-25-2023 Calcium [Mass/Vol] 9.5 mg/dL 8.5-10.1 [facility] Serum or plasma choriogonado tropin detectionOrdered By: Chan Lyons on 07-25-2023 HCG ( test) Ql Negative [facility] Serum or plasma creatinine m easurement (mass/volume)Ordered [facility]: [facility] on 07-25-2023 Creatinine [Mass/Vol] 0.87 mg/dL 0.55-1.02 [facility] Comment on above: The validity of the calculated GFR & GFRAA in patients over 70 years has not been determined. Clinical correlation is essential. Serum or plasma thyroid stim ulating hormone (TSH) measurement (units/volume)Ordered By: [facility] on 07-25-2023 TSH Qn 0.86 uIU/mL 0.358-3.74 [facility] Serum or plasma urea nitroge n measurement (mass/volume)Ordered By: [place] Serena on 07-25-2023 Urea nitrogen [Mass/Vol] 9 mg/dL 7-18 [facility] Thin prep Papanicolaou smear with manual screeningOrdered By: [place] Serena on 07-25-2023 Thin prep Papanicolaou smear with manual screening 5 5-15 [facility] Neisseria gonorrhoeae genita l PCROrdered By: Ladonna Kelly on 02-28-2023 N. 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 This surgery was performed on 11/06/2022. She took ibuprofen for pain because Tramadol did not work. RECALL 09/05/2022: History of present illness: This is the initial visit for this patient who is referred for evaluation of right chronic otitis media and possible right ear cholesteatoma. When asked about ear pain, hearing loss, discharge from ear, tinnitus, dizziness or vertigo, the patient admits to pain, hearing loss, some discharge, vertigo and balance issues. When asked about a significant past otological history including history of prior ear surgery, noise exposure, exposure to ototoxic drugs or agents, and/or family history of hearing loss, the patient admits to prior ear surgery.She underwent a canal wall up tympanomastoidectomy with Dr. Kingston last year. There appears to be residual cholesteatoma based on the recent HRCT. Today her hearing feels okay. The patient?s current medications, active allergies and list of medical problems were reviewed in the EHR and confirmed electronically. Physical Examination: Steri-strips were removed revealing the incision healing well without signs of infection. Ear canal examined using the otomicroscope. Packing was removed. Graft appears to be healing well. There are no signs to suggest an infection. Diagnostic testing: A temporal bone scan available for review showed a cholesteatoma-like lesion in the right ear.Opacification/soft tissue density seen medial to the malleus and incus. The audiogram showed normal hearing across all frequencies bilaterally. I personally reviewed the available patient?s external record and independently reviewed their audiometric testing and radiographic imaging through the appropriate viewing software as detailed in my note and agree with the detailed report. Impression: Right chronic otitis media, active Right conductive hearing loss Right ear cholesteatoma Plan: Maintain dry ear precautions. Schedule a follow up in 2-3 months. This note was created using speech recognition assistant teaching professor software/or Spot[employer] assistant teaching professor services. Despite proofreading, several typographical errors might be present that might affect the meaning of the content. Please call with any questions. By signing my name below, I, Tramaine Benavides, attest that this documentation has been prepared under the direction and in the presence of Dr. Kelvin Jay. All medical record entries made by the Scribe were at my direction and personally dictated by me. I have reviewed the chart and agree that the record accurately reflects my personal performance of the history, physical exam, discussion, and plan. 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 Order Reconciliationon 11-06 Order Reconciliation Page 1 Discharge Reconciliation Document Reconciliation Type: Discharge requested on behalf of Sage Masters (Resident) done by Sage Masters ( (Resident)) Discharge - Reconciliation: 06-Nov-2022 12:32 by: Sage Masters ( (Resident)) Discharge - Reset to Incomplete: 06-Nov-2022 15:11 by: Sage Masters ( (Resident)) Discharge - Reconciliation: 06-Nov-2022 15:13 by: Sage Masters ( (Resident)) Home Medications EnteredHOME MEDICATIONS AT DISCHARGE DateReconciliation Comment/ Additional Information hydroCHLOROthiazide 25 mg oral tablet 1 tab(s) orally once a day 29-Oct-2022 10:28 hydroCHLOROthiazide 25 mg oral tablet 1 tab(s) orally once a day 29-Oct-2022 10:28 hydroCHLOROthiazide 25 mg oral tablet is continued as hydroCHLOROthiazide 25 mg oral tablet Zoloft 50 mg oral tablet 1 tab(s) orally once a day 29-Oct-2022 10:28 Zoloft 50 mg oral tablet 1 tab(s) orally once a day 29-Oct-2022 10:28 Zoloft 50 mg oral tablet is continued as Zoloft 50 mg oral tablet Current OrdersDateHOME MEDICATIONS AT DISCHARGE DateReconciliation Comment/ Additional Information Albuterol 2.5 mg/ 3 mL Nebulizer Soln (PROVENTIL)DOSE = 3 mL Inhalation Once via Nebulizer, PRN Wheezing (PACU)Clinician Notes: Linda-operative order ONLY 06-Nov-2022 10:41 Albuterol 2.5 mg/ 3 mL Nebulizer Soln is not required ceFAZolin 1 gram Vial_IPRO SolutionGive 2 gram(s), IntraVenous, ONCE 06-Nov-2022 15:07 ceFAZolin 1 gram Vial_IPRO is not required DEXAMETHASONE 4MG/1ML 1ML INJ_IPRO SolutionGive 4 mg, IntraVenous, ONCE 06-Nov-2022 15:07 DEXAMETHASONE 4MG/1ML 1ML INJ_IPRO is not required ePHEDrine 50 mg/mL 1 mL Vial_IPRO SolutionGive 10 mg, IntraVenous, ONCE 06-Nov-2022 15:07 ePHEDrine 50 mg/mL 1 mL Vial_IPRO is not required FENTANYL 50MCG/1ML 2ML INJ_IPRO SolutionGive 50 microgram(s), IntraVenous, ONCE 06-Nov-2022 15:07 FENTANYL 50MCG/1ML 2ML INJ_IPRO is not required Glycopyrrolate 0.2 mg/mL Inj 1 mL_IPRO SolutionGive 0.1 mg, IntraVenous, ONCE 06-Nov-2022 15:07 Glycopyrrolate 0.2 mg/mL Inj 1 mL_IPRO is not required HYDROmorphone Injectable (DILAUDID)DOSE = 0.2 mg IntraVenous Push Every 5 Minutes, PRN Pain - Mod (4-6) (PACU) if unable to take oralClinician Notes: Linda-operative order ONLYMax total of 4 mg regardless of dose. 06-Nov-2022 10:41 HYDROmorphone Injectable is not required HYDROmorphone Injectable (DILAUDID)DOSE = 0.4 mg IntraVenous Push Every 5 Minutes, PRN Pain - Severe (7-10) (PACU)Clinician Notes: Linda-operative order ONLYMax total of 4 mg regardless of dose. 06-Nov-2022 10:41 HYDROmorphone Injectable is not required Lactated Ringers Infusion IV Bag Volume = 1,000 mL Run at: 100 mL/hr IntraVenous Clinician Notes: Linda-operative order ONLY 06-Nov-2022 10:41 Lactated Ringers Infusion is not required LIDOCAINE 2% PF 5ML VIAL_IPRO SolutionGive 60 mg, IntraVenous, ONCE 06-Nov-2022 15:07 LIDOCAINE 2% PF 5ML VIAL_IPRO is not required MIDAZOLAM PF 2MG/2ML 2ML INJ_IPRO SolutionGive 2 mg, IntraVenous, ONCE 06-Nov-2022 15:07 MIDAZOLAM PF 2MG/2ML 2ML INJ_IPRO is not required Naloxone Injectable (NARCAN)DOSE = 0.2 mg IntraVenous Push Once, PRN If patient RR below 10, obtunded or unarousableClinician Notes: DO NOT ADMINISTER UNTIL PHYSiCIAN HAS BEEN NOTIFIED AND ASSESSED PATIENT 06-Nov-2022 10:41 Naloxone Injectable is not required ONDANSETRON 4MG/2ML 2ML INJ_IPRO SolutionGive 4 mg, IntraVenous, ONCE 06-Nov-2022 15:07 ONDANSETRON 4MG/2ML 2ML INJ_IPRO is not required Ondansetron Injectable (ZOFRAN)DOSE = 4 mg IntraVenous Push Once, PRN PONV, first lineClinician Notes: Linda-operative order ONLY 06-Nov-2022 10:41 Ondansetron Injectable is not required oxyCODONE Immediate Release Tablet (OXYIR, ROXICODONE)DOSE = 5 mg Oral Every 4 Hours, PRN Pain - Mod (4-6) (PACU) when able to take OralClinician Notes: Linda-operative order ONLY 06-Nov-2022 10:41 oxyCODONE Immediate Release is not required Promethazine IV Piggy Back in Sodium Chloride 0.9% 50 mL (PHENERGAN)DOSE = 6.25 mg Once, PRN persistent PONV if first line ineffectiveRecommended Infusion Time: 15 minute(s)Clinician Notes: Linda-operative order ONLY 06-Nov-2022 10:41 Promethazine IV Piggy Back is not required Propofol 10 mg/mL 50 mL Inj_IPRO SolutionGive 681.6 mg, IntraVenous, ONCE 06-Nov-2022 15:07 Propofol 10 mg/mL 50 mL Inj_IPRO is not required PROPOFOL 10MG/1ML 50ML VIAL_IPRO SolutionGive 200 mg, IntraVenous, ONCE 06-Nov-2022 15:07 PROPOFOL 10MG/1ML 50ML VIAL_IPRO is not required Home Medications Added During Discharge Reconciliation Activity as Tolerated 06-Nov-2022, Routine, Assistance Level: None, Restrictions: None, Limit your activities and rest today. Additional Patient Instructions Additional post-operative instructions were given to the patient by the provider in the pre-op office visit Additional Patient Instructions Do not consume alcoholic beverages for (more content not included)... Normal [facility] [place] Surgical Pathology Depar tmenton 11-06-2022 [facility] Surgical Pathology Department Name PASTORA DOBBS Pathologist: LEE MARIEE MD Date of Procedure: 11/06/2022 Date Received: 11/06/2022 Date Reported 11/19/2022 Submitting Physician: KELVIN JAY M.D. Location: [facility] Other External # FINAL DIAGNOSIS A. SPECIMEN DESIGNATED RIGHT MASTOID CONTENTS: -- CONSISTENT WITH CHOLESTEATOMA. afn Electronically Signed Out By LEE MARIEE MD/AFN By the signature on this report, the individual or group listed as making the Final Interpretation/Diagnosis certifies that they have reviewed this case. Diagnostic interpretation performed at [facility] [id number] [facility]. [facility] [id number] Clinical History: Physician Contact Number: [phone] Fixative (A): Formalin Report Copies To: [id number] Clinical Diagnosis History Patient reviewed right chronic otitis media and possible right ear cholesteatoma. When asked about ear pain, hearing loss, discharge from ear, tinnitus, dizziness or vertigo, the patient admits to pain, hearing loss, some discharge, vertigo and balance issues. When asked about a significant past otological history including history of prior ear surgery, noise exposure, exposure to ototoxic drugs or agents, and/or family history of hearing loss, the patient admits to prior ear surgery. She underwent a canal wall up tympanomastoidectomy with Dr. Kingston last year. Today her hearing feels okay. Specimens Submitted As: A: RIGHT MASTOID CONTENTS Gross Description: Received in formalin, labeled with the patient's name and number and right mastoid contents, are multiple fragments of polanco-white soft to firm tissue aggregating to 1.5 x 1.0 x 0.3 cm. The specimen is submitted in toto in one cassette following decalcification. LMP lmp/11/12/2022 [facility] Department of Pathology [id number] [place] [address] Normal [facility] Comment on above: Performed By: #### [facility] #### [facility] Surgical Pathology Department [address] [place] [address] Patient Profile - Preop v3on 10-29-2022 Patient Profile - Preop v3 Patient Profile - Preop: Initial Info: Patient DemographicsName: PASTORA DOBBS Date: 2000 Address: [address] [place] [address] Date/Time [id number] 11:16 Primary Phone [phone] Instructions Givenanticoagulant meds - patient advised to consult ordering provider, appropriate clothing, bring list of medications, 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 (procedure may be cancelled if no team truck driver), center location, diabetes meds - patient advised to consult ordering provider, insurance information, remove jewerly/piercings, time to arrive How to be AddressedKrissy Spoken Language PreferredEnglish Stated Reason for Admissionright mastoidectomy Primary Contact Name and NumberHeather [phone] Medications Brought to Hospitalno General Health: Weight in kg96 kilogram(s) Weight in huk904.6 pound(s) Weight Methodactual (measured) Scale Typestanding Height in feet5 feet Height in inches6.97 inch(es) Height in cm170.1 centimeter(s) Height Methodstated BMI (kg/m2)33.178 square meter Patient or Family Member Reaction to Anesthesiapatient reaction; denies recent illness denies sob when going up flight of stairs ambulates without use of assistive devices Patient Reaction to Anesthesianausea and vomiting Blood Avoidance/Restrictionsno ne Previous Transfusion Reactionno Health Mgmt: Symptoms[facility]itions [facility]; cardiovascular; gastrointestinal Are You no Are You Currently Breastfeedingno Behavioral Health Symptoms/Conditionsanxie ty Cardiovascular Symptoms/Conditionshyper tension Gastrointestinal Symptoms/Conditionsreflu x/heartburn Barriers to Managing Healthnone Relationship/Environ: Lives Withsignificant other Living Arrangementshouse Resource/Environmental Concernsnone [place]ticipated [place] [facility] Anticipated at Transitionnone Tobacco Use: Tobacco Useyes Last Tobacco [id number] Tobacco Commentvapes daily Pre-op Checklist: Arrival [id number] Arrival Time10:28 Procedure Typeright side tympanomastoidectomy NPOyes Last Food [id number] 23:45 Last Clear Fluid [id number] 23:45 ID Band On Patientpatient ID (name) Consent Signedpending H&P Completepending Anesthesia Assessment Completedpending EKG Performednot ordered Chest X-Ray Performednot ordered Preop Antibioticsnot ordered Type and Screen Resultedn/a HCG Urine TestComplete Chlorhexadine Bath Givennot applicable Nasal Antiseptic Appliednot applicable Soap and Water Bath the Night Before Surgerynot applicable Hair Washed with Shampoonot applicable Surgical Site Infection Preventionyes Pain Scales and Managementyes Additional Information: Information Review: Allergies, Home Meds and Significant Events have been Reviewed and Verified with Patient/Familyyes Allergy, Intolerance, Adverse Event: Allergies: No Known Allergies: Active Electronic Signatures: Cecilia Ames (RN) (Signed 06-Nov-2022 10:38) Authored: Initial Info, General Health, Health Mgmt, Relationship/Environ, Pre-op Checklist, Additional Information Sepideh Pat (LAWANDA) (Signed 05-Nov-2022 11:17) Authored: Initial Info Claudia Medina) (Signed 29-Oct-2022 10:31) Authored: Initial Info, General Health, Health Mgmt, Tobacco Use, Additional Information Last Updated: 06-Nov-2022 10:38 by Cecilia Ames (MARK) Normal [facility] Bacteria identified Aer cx N om (Ear)Ordered By: Dr. Kingston on 09-28-2022 Ear Culture Staphylococcus epidermidis [facility] Gram stain for investigation of transfusion reactionOrdered By: Dr. 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 When asked about ear pain, hearing loss, discharge from ear, tinnitus, dizziness or vertigo, the patient admits to pain, hearing loss, some discharge, vertigo and balance issues. When asked about a significant past otological history including history of prior ear surgery, noise exposure, exposure to ototoxic drugs or agents, and/or family history of hearing loss, the patient admits to prior ear surgery.She underwent a canal wall up tympanomastoidectomy with Dr. Kingston last year. There appears to be residual cholesteatoma based on the recent HRCT. Today her hearing feels okay. The patient?s current medications, active allergies and list of medical problems were reviewed in the EHR and confirmed electronically. Physical Examination: CONSTITUTIONAL: No acute distress VOICE: No hoarseness or other abnormality RESPIRATION: Breathing comfortably, no stridor CV: No clubbing/cyanosis/edema in hands EYES: EOM intact, sclera clear NEURO: Alert and oriented times 3, Cranial nerves II-XII grossly intact and symmetric bilaterally HEAD AND FACE: Symmetric facial features, no masses or lesions RIGHT EAR: Normal external ear and post auricular area. There is an attic cholesteatoma present. The posterior epitympanum is eroded. LEFT EAR: Normal external ear and post auricular area, no visible lesions, external auditory canal patent, tympanic membrane intact, no retraction, no signs of mass, effusion, or infection within the middle ear NOSE: External nose midline, anterior rhinoscopy is normal with limited visualization to the anterior aspect of the interior turbinates, no bleeding or drainage, no lesions ORAL CAVITY/OROPHARYNX/LIPS: Normal mucous membranes, normal floor of mouth/tongue/OP, no masses or lesions PHARYNGEAL YATES: No masses or lesions NECK/LYMPH: No LAD, no thyroid masses, trachea midline SKIN: Neck and facial skin is without scar or injury PSYCH: Alert and oriented with appropriate mood and affect Diagnostic testing: A temporal bone scan available for review showed a cholesteatoma-like lesion in the right ear.Opacification/soft tissue density seen medial to the malleus and incus. The audiogram showed normal hearing across all frequencies bilaterally. I personally reviewed the available patient?s external record and independently reviewed their audiometric testing [and] radiographic imaging through the appropriate viewing software as detailed in my note and agree with the detailed report. Impression: Right chronic otitis media, active Right conductive hearing loss Right ear cholesteatoma Recommendation: Pt has evidence of recurrent right cholesteatoma. We discussed the need for revision tympanomastoidectomy. She currently has normal hearing across all frequencies bilaterally. We discussed the nature of cholesteatoma and high probability of progressive hearing loss and further complications if left untreated. The patient's condition was reviewed and explained. The treatment options and alternatives were outlined. I recommended surgical treatment for eradication of his disease and offered right tympanomastoid surgery. The possibility of a second stage surgery and deferred ossiculoplasty was discussed. The risks discussed included but not limited to bleeding, infection, hearing loss, tinnitus, dizziness, recurrent disease, taste disturbance, graft failure, facial nerve injury and other rare complications. The patient voiced understanding and agreed to proceed. All questions were answered to the patient's satisfaction. I discussed with the patient the complexity of my medical decision making including the treatment and testing rational, indications of their elective procedure and possible adverse effects and/or complications. Based on the provided documentation and my professional assessment of this patient?s chronic progressive conditions, the complexity of evaluation and treatment is moderate. This note was created using speech recognition assistant teaching professor software/or SmartestK12 assistant teaching professor services. Despite proofreading, several typographical errors might be present that might affect the meaning of the content. Please call with any questions. Patient Education: Cholesteatoma: A cholesteatoma is a relatively uncommon benign condition that belongs to the category chronic ear condition. It is a ?tumor-like? cyst that is formed by introduction of epithelial tissue (skin) into the middle ear space. This cyst can follow the path of least resistance and extend into the middle ear cleft, area above the middle ear (epitympanum) and area behind the middle ear (mastoid). As the condition progresses it causes progressive deterioration of hearing, recurrent infection (more content not included)... Normal [facility] Office Visit (Audiology)on 09-05-2022 Follow-up visit Diagnoses/Problems Encounter for hearing examination with abnormal findings (V72.19) (Z01.118) Patient Discussion/Summary Normal hearing, bilaterally. RECOMMENDATIONS 1. Continue medical follow-up with Kelvin Jay MD. 2. Return for audiologic assessment in conjunction with otologic care or annually. The patient and/or guardian received, read, and verbally consented to the Audiology Services notice, indicating all audiology services rendered will be billed separately from any other specialty services (ENT, Craniofacial, etc.) obtained in the same day. TIME: 300-315 Chief Complaint right cholesteatoma Adult Risk ScreeningThere are no spiritual/cultural practices/values/needs that are important to know Domestic Violence Screen: Does not feel threatened or abused physically, emotionally or sexually. Do you feel UNSAFE? The patient feels safe in the home. Depression/Suicide Screening: During the past 2 weeks, the patient has not felt down, depressed or hopeless. During the past 2 weeks, the patient has not felt little interest or pleasure in doing things. Reference Documentation See scanned note audiogram. History of Present Illness Pt report right underwent a canal wall up tympanomastoidectomy in Fall 2021, concerns for right cholesteatoma, occasional drainage, denies hearing loss, tinnitus. reports ongoing imbalance. history of ear infections and PE tubes. Patient's preferred language: Armenian Preferred language of the parent, legal guardian or surrogate decision-maker of this minor or incapacitated patient: Armenian No overt signs of domestic violence/neglect/abuse. No referral made to Supplier Quality Manager. Pain not interfering with optimal level of function or ability to assess and/or treat. Pain Scale rank: 0/10 Pain Scale used: Numeric No referral made to primary care provider (PCP). Factors/Barriers influencing patient's ability to complete assessment or learn: none. Person taught: patient. Readiness to learn: no barriers. Results of Teaching/Counseling: verbalize recall / understanding and teaching complete. Procedure Otoscopy revealed clear ear canals and tympanic membrane visualized, bilaterally. RIGHT Tympanometry revealed normal middle ear pressure, mobility, and ear canal volume. Ipsilateral stapedial acoustic reflexes were present at normal sensation levels 500-2000Hz absent contralaterally 1494-6249 Hz. Behavioral audiometry was completed with supra-aural phones and good reliability revealed hearing sensitivity within the normal hearing range with excellent word recognition (recorded; NU 6 list 5). LEFT Tympanometry revealed normal middle ear pressure, mobility, and ear canal volume. Ipsilateral and contralateral stapedial acoustic reflexes were essentially absent 500-2000Hz. Behavioral audiometry was completed with supra-aural phones and good reliability revealed hearing sensitivity within the normal hearing range with excellent word recognition (recorded; NU 6 list 4). Signatures Electronically signed by : Rajat Garcia; Sep 05 2022 4:26PM EST (Author) Normal [facility] Cervical or vagninal specime n microscopic examination by cytology stain (reported asOrdered By: Ladonna Kelly on 07-31-2022 Cytology report Cyto stain Doc (Cvx/Vag) Comment . [facility] Comment on above: The Pap smear is a s creening test designed to aid in thedetection of premalignant and malignant conditions of theuterine cervix. It is not a diagnostic procedure andshould not be used as the sole means of detecting cervicalcancer. Both false-positive and false-negative reports dooccur. Laboratory - CytologyOrdered By: Ladonna Kelly on 07-31-2022 End Lathe Operator Cyto stain Nom (Cvx/Vag) [ID] Comment . [facility] Comment on above: Jono Booker , Gui Developer (ASCP) Laboratory - Miscellaneous t estsOrdered By: Ladonna Kelly on 07-31-2022 Service comment (Unsp spec) [Interp] TNP [facility] Comment on above: Test not performedTh e Thin Prep(R) Glass Cutter was unable to read this specimen.Therefore a manual review was performed. Service comment (Unsp spec) [Interp] . . [facility] No Panel InformationOrdered By: Ladonna Kelly on 07-31-2022 Human Papillomavirus Screen Comment . [facility] Comment on above: The HPV DNA reflex jose monroe were not met with this specimenresult therefore, no HPV testing was performed.Performed at: [facility] [address] [id number] Director: Silvina Myles MD, Phone: [phone] Pathology report final diagnosis Narrative Comment . [facility] Comment on above: NEGATIVE FOR INTRAEP ITHELIAL LESION OR MALIGNANCY. Laboratory - Microbiology an d Antimicrobial susceptibilityon 07-01-2022 SARS-CoV-2 (COVID-19) RNA LOUISE+probe Ql (Unsp spec) Not detected [facility] Laboratory - Microbiology an d Antimicrobial susceptibilityon 03-21-2022 SARS-CoV-2 (COVID-19) RNA LOUISE+probe Ql (Unsp spec) Not detected [facility] No Panel Informationon 03-21 Influenza Types A,B Rapid (Clinic) Not detected [facility] Laboratory - Chemistry and C hemistry - challengeon 01-22-2022 HCG ( test) Ql (U) Negative [facility] Work Phone: Comment on above: Very dilute urine sp ecimens, as indicated by a low specificgravity, may not contain guest service representative levels of hCG. If is still suspected, a first morning urinespecimen should be collected 48 hours later and tested. Absolute lymphocyte counton 11-16-2021 Lymphocytes Auto (Unsp spec) [#/Vol] 1.41 10*3/uL 0.83-4.51 [facility] Work Phone: Absolute reticulocyte counto n 11-16-2021 Reticulocytes (Bld) [#/Vol] 0.00 10*3/uL 0-5 [facility] Work Phone: Basophil percentageon 2021 Chloride [Moles/Vol] 105 mmol/L 98-107 [facility] Work Phone: Glucose [Mass/Vol] 102 mg/dL 74-106 [facility] Work Phone: Comment on above: Fasting Glucose resu lt from 100 to 125 mg/dL suggests IMPAIRED HOMEOSTASIS per A.D.A. criteria. Potassium [Moles/Vol] 3.9 mmol/L 3.5-5.1 [facility] Work Phone: Sodium [Moles/Vol] 137 mmol/L 136-145 [facility] Work Phone: Basophil percentage 4.6 mg/dL 2.5-4.9 [facility] Work Phone: Bilirubin [Mass/Vol] 0.30 mg/dL 0.20-1.00 [facility] Work Phone: Comment on above: For patients on eltr ombopag therapy, use of Dimension [place]aver TBIL is not recommended. Cholesterol [Mass/Vol] 201 mg/dL <200 [facility] Work Phone: Comment on above: <200 mg/dL Desirable 200-240 mg/dL Borderline >240 mg/dL High Risk Glucose [Mass/Vol] 95 mg/dL 74-106 [facility] Work Phone: Neutrophils (Bld) [#/Vol] 5.2 10*3/uL 2.0-7.7 [facility] Work Phone: Potassium [Moles/Vol] 4.1 mmol/L 3.5-5.1 [facility] Work Phone: Protein [Mass/Vol] 7.2 g/dL 6.4-8.2 [facility] Work Phone: Sodium [Moles/Vol] 139 mmol/L 136-145 [facility] Work Phone: Triglyceride [Mass/Vol] 144 mg/dL <199 [facility] Work Phone: Comment on above: The drugs N-Acetylcy steine and Metamizole may falsely depress this assay.Serum Triglycerides Reference Interval Normal <150 mg/dL Borderline high 150 - 199 mg/dL High 200 - 499 mg/dL Very High > or = 500 mg/dL WBC (Bld) [#/Vol] 7.3 10*3/uL 4.4-11.0 [facility] Work Phone: Bilirubin Test strip Ql (U)o n 11-16-2021 Bilirubin Ql (U) Negative Negative [facility] Work Phone: Blood erythrocytes count (nu mber/volume)on 11-16-2021 RBC (Bld) [#/Vol] 4.53 10*6/uL 4.2-5.4 [facility] Work Phone: Blood hemoglobin measurement (mass/volume)on 11-16-2021 Hemoglobin (Bld) [Mass/Vol] 13.7 g/dL 12.0-15.0 [facility] Work Phone: Blood platelet mean volumeon 11-16-2021 Platelet mean volume (Bld) [Entitic vol] 11.0 fL 6.2-12.0 [facility] Work Phone: Determination of erythrocyte mean corpuscular volume (MCV)on 11-16-2021 MCV (RBC) [Entitic vol] 89.8 fL 81-99 [facility] Work Phone: Direct bilirubinon 2 Bilirubin.direct [Mass/Vol] 0.08 mg/dL 0.00-0.30 [facility] Work Phone: Hematocrit Auto (Bld) [Volum e fraction]on 11-16-2021 Hematocrit (Bld) [Volume fraction] 40.7 % 37-47 [facility] Work Phone: Ketones Test strip Ql (U)on 11-16-2021 Ketones Ql (U) 5 mg/dl Negative [facility] Work Phone: Laboratory - Chemistry and C hemistry - challengeon 11-16-2021 CO2 [Moles/Vol] 28.0 mmol/L 21.0-32.0 [facility] Work Phone: Urea nitrogen/Creatinine [Mass ratio] 7.6 mg/mg 10-20 [facility] Work Phone: ALP [Catalytic activity/Vol] 61 U/L 45-117 [facility] Work Phone: ALT [Catalytic activity/Vol] 21 U/L 13-56 [facility] Work Phone: Cholesterol.total/Chol esterol in HDL [Mass ratio] 5.00 {ratio} [facility] Work Phone: CO2 [Moles/Vol] 27.0 mmol/L 21.0-32.0 [facility] Work Phone: Globulin (S) [Mass/Vol] 3.4 g/dL 2.2-4.2 [facility] Work Phone: Urea nitrogen/Creatinine [Mass ratio] 8.5 mg/mg 10-20 [facility] Work Phone: Laboratory - Hematology and Cell countson 11-16-2021 Erythrocyte distribution width (RBC) [Entitic vol] 39.9 fL 35.1-43.9 [facility] Work Phone: Erythrocyte distribution width (RBC) [Ratio] 12.4 % 11.6-14.6 [facility] Work Phone: MCH (RBC) [Entitic mass] 30.2 pg 27.0-32.0 [facility] Work Phone: Nucleated RBC/100 WBC (Bld) [Ratio] 0 % 0-5 [facility] Work Phone: MCHC Auto (RBC) [Mass/Vol]on 11-16-2021 MCHC (RBC) [Mass/Vol] 33.7 g/dL 32-36 [facility] Work Phone: Nitrite Test strip Ql (U)on 11-16-2021 Nitrite Ql (U) Negative Negative [facility] Work Phone: No Panel Informationon 11-16 Estimated GFR (MDRD) Amer 118 mL/min >60 [facility] Work Phone: Comment on above: GFR Calc Estimated GFR (MDRD) Non-Af Amer 98 mL/min >60 [facility] Work Phone: Comment on above: Non- GFR Calc Estimated GFR (MDRD) Amer 135 mL/min >60 [facility] Work Phone: Comment on above: GFR Calc Estimated GFR (MDRD) Non-Af Amer 111 mL/min >60 [facility] Work Phone: Comment on above: Non- GFR Calc Platelets bldon 11-16-2021 Platelets (Bld) [#/Vol] 243 10*3/uL 150-450 [facility] Work Phone: Protein Test strip Ql (U)on 11-16-2021 Protein Ql (U) 15 mg/dl Negative [facility] Work Phone: Segmented neutrophils/100 WB C Auto (Bld)on 11-16-2021 Segmented neutrophils/100 WBC (Bld) 71.7 % 47-70 [facility] Work Phone: Serum or plasma albumin javier urement (mass/volume)on 11-16-2021 Albumin [Mass/Vol] 3.8 g/dL 3.2-5.0 [facility] Work Phone: Serum or plasma albumin/glob ulin mass ratioon 11-16-2021 Albumin/Globulin [Mass ratio] 1.1 {ratio} 0.9-2.4 [facility] Work Phone: Serum or plasma calcium javier urement (mass/volume)on 11-16-2021 Calcium [Mass/Vol] 8.7 mg/dL 8.5-10.1 [facility] Work Phone: Calcium [Mass/Vol] 9.0 mg/dL 8.5-10.1 [facility] Work Phone: Serum or plasma cholesterol in HDL measurement (mass/volume)on 11-16-2021 Cholesterol in HDL [Mass/Vol] 40 mg/dL >40 [facility] Work Phone: Comment on above: The drugs N-Acetylcy steine and Metamizole may falsely depress this assay. Reference Range HDL <40 mg/dL Low HDL Cholesterol HDL >or= 60 mg/dL High HDL Cholesterol Serum or plasma cholesterol in VLDL measurement (mass/volume)on 11-16-2021 Cholesterol in VLDL [Mass/Vol] 29 mg/dL 5-40 [facility] Work Phone: Serum or plasma creatinine m easurement (mass/volume)on 11-16-2021 Creatinine [Mass/Vol] 0.79 mg/dL 0.55-1.02 [facility] Work Phone: Comment on above: The validity of the calculated GFR & GFRAA in patients over 70 years has not been determined. Clinical correlation is essential. Creatinine [Mass/Vol] 0.70 mg/dL 0.55-1.02 [facility] Work Phone: Comment on above: The validity of the calculated GFR & GFRAA in patients over 70 years has not been determined. Clinical correlation is essential. Serum or plasma low density lipoprotein (LDL) cholesterol measurement (mass/volume)on 11-16-2021 Cholesterol in LDL [Mass/Vol] 132 mg/dL 0-130 [facility] [facility] Work Phone: Serum or plasma urea nitroge n measurement (mass/volume)on 11-16-2021 Urea nitrogen [Mass/Vol] 6 mg/dL 7-18 [facility] Work Phone: Serum or plasma uric acid me asurement (mass/volume)on 11-16-2021 Urate [Mass/Vol] 5.1 mg/dL 2.6-6.0 [facility] Work Phone: Comment on above: The drugs N-Acetylcy steine and Metamizole may falsely depress this assay. Thin prep Papanicolaou smear with manual screeningon 11-16-2021 Thin prep Papanicolaou smear with manual screening 4 5-15 [facility] Work Phone: Thin prep Papanicolaou smear with manual screening 16 U/L 15-37 [facility] Work Phone: Thin prep Papanicolaou smear with manual screening 7 5-15 [facility] Work Phone: Thin prep Papanicolaou smear with manual screening 168 U/L 84-246 [facility] Work Phone: Urine blood detectionon RBC Ql (U) Negative Negative [facility] Work Phone: Urine clarityon 11-16-2021 Clarity (U) Clear Clear [facility] Work Phone: Urine color determinationon 11-16-2021 Color (U) Yellow Yellow [facility] Work Phone: Urine glucose detectionon Glucose Ql (U) Normal mg/dl Normal [facility] Work Phone: Urine leukocyte esterase det ection by dipstickon 11-16-2021 Leukocyte esterase Test strip Ql (U) Negative Negative [facility] Work Phone: Urine pHon 11-16-2021 pH (U) 5.0 [pH] 5.0 - 8.0 [facility] Work Phone: Urine specific gravity measu rementon 11-16-2021 Specific gravity (U) [Rel density] 1.025 1.002-1.030 [facility] Work Phone: Urobilinogen Auto test strip Ql (U)on 11-16-2021 Urobilinogen Ql (U) Normal mg/dl Normal [facility] Work Phone: Absolute lymphocyte counton 10-01-2021 Lymphocytes Auto (Unsp spec) [#/Vol] 2.27 10*3/uL 0.83-4.51 [facility] Work Phone: Basophil percentageon 2021 Basophils/100 WBC (Bld) 0.5 % 0-1 [facility] Work Phone: Chloride [Moles/Vol] 105 mmol/L 98-107 [facility] [place] Work Phone: Eosinophils/100 WBC (Bld) 2.3 % 0-5 [facility] Work Phone: Glucose [Mass/Vol] 107 mg/dL 74-106 [facility] Work Phone: Comment on above: Fasting Glucose resu lt from 100 to 125 mg/dL suggests IMPAIRED HOMEOSTASIS per A.D.A. criteria. Neutrophils (Bld) [#/Vol] 6.5 10*3/uL 2.0-7.7 [facility] Work Phone: Neutrophils/100 WBC (Bld) 67.0 % 47-70 [facility] Work Phone: Potassium [Moles/Vol] 3.3 mmol/L 3.5-5.1 [facility] Work Phone: Sodium [Moles/Vol] 137 mmol/L 136-[address] [facility] Work Phone: WBC (Bld) [#/Vol] 9.7 10*3/uL 4.4-11.0 [facility] Work Phone: Blood erythrocytes count (nu mber/volume)on 10-01-2021 RBC (Bld) [#/Vol] 4.38 10*6/uL 4.2-5.4 [facility]: Blood hemoglobin measurement (mass/volume)on 10-01-2021 Hemoglobin (Bld) [Mass/Vol] 13.2 g/dL 12.0-15.0 [facility] Work Phone: Blood lymphocytes/100 leukoc yteson 10-01-2021 Lymphocytes/100 WBC (Bld) 23.5 % 19-41 [facility] Work Phone: Blood monocytes/100 leukocyt eson 10-01-2021 Monocytes/100 WBC (Bld) 6.4 % 0-10 [facility] Work Phone: Blood platelet mean volumeon 10-01-2021 Platelet mean volume (Bld) [Entitic vol] 10.7 fL 6.2-12.0 [facility] Work Phone: Determination of erythrocyte mean corpuscular volume (MCV)on 10-01-2021 MCV (RBC) [Entitic vol] 87.2 fL 81-99 [facility] Work Phone: Hematocrit Auto (Bld) [Volum e fraction]on 10-01-2021 Hematocrit (Bld) [Volume fraction] 38.2 % 37-47 [facility] Work Phone: Laboratory - Chemistry and C hemistry - challengeon 10-01-2021 CO2 [Moles/Vol] 26.0 mmol/L 21.0-32.0 [facility] Work Phone: Urea nitrogen/Creatinine [Mass ratio] 8.8 mg/mg 10-20 [facility] Work Phone: Laboratory - Hematology and Cell countson 10-01-2021 Erythrocyte distribution width (RBC) [Entitic vol] 38.5 fL 35.1-43.9 [facility] Work Phone: Erythrocyte distribution width (RBC) [Ratio] 12.0 % 11.6-14.6 [facility] Work Phone: Immature granulocytes/100 WBC (Bld) 0.300 % 0.0-0.9 [facility] Work Phone: Comment on above: IG% - Immature Granu locytes (promyelocytes, myelocytes and metamyelocytes) > 1% indicates that a LEFT SHIFT is Present. MCH (RBC) [Entitic mass] 30.1 pg 27.0-32.0 [facility] Work Phone: Nucleated RBC/100 WBC (Bld) [Ratio] 0 % 0-5 [facility] Work Phone: MCHC Auto (RBC) [Mass/Vol]on 10-01-2021 MCHC (RBC) [Mass/Vol] 34.6 g/dL 32-36 [facility] Work Phone: No Panel Informationon 10-01 D-Dimer Quantitative (PE/DVT) 1.72 FEU/ug/m 0.27-0.49 [facility] Work Phone: Comment on above: D-Dimer ELEVATED (>0 .49): Additional studies and clinicalassessments are indicated to conclude diagnosis of:Deep Vein Thrombosis (DVT) or Pulmonary Embolism (PE)CRITICAL VALUE VERIFIED. CALLED TO [id number] Brandan Valery Yanez.RESULTS READ BACK BY SAME . Estimated Creatinine Clearance Calc 105.01 ml/min [facility] Work Phone: Estimated GFR (MDRD) Amer 117 mL/min >60 [facility] Work Phone: Comment on above: GFR Calc Estimated GFR (MDRD) Non-Af Amer 97 mL/min >60 [facility] Work Phone: Comment on above: Non- GFR Calc Troponin I High Sensitivity < 3 pg/mL 3.0-54.0 [facility] Work Phone: Comment on above: Please Note: New Pepper t Units and Gender Specific Reference Ranges. For more information see Policy Stat Procedure [place] High Sensitivity Troponin (TNIH) and attachments. Platelets bldon 10-01-2021 Platelets (Bld) [#/Vol] 257 10*3/uL 150-450 [facility] Work Phone: Serum or plasma calcium javier urement (mass/volume)on 10-01-2021 Calcium [Mass/Vol] 8.6 mg/dL 8.5-10.1 [facility] Work Phone: Serum or plasma creatinine m easurement (mass/volume)on 10-01-2021 Creatinine [Mass/Vol] 0.80 mg/dL 0.55-1.02 [facility] Work Phone: Comment on above: The validity of the calculated GFR & GFRAA in patients over 70 years has not been determined. Clinical correlation is essential. Serum or plasma urea nitroge n measurement (mass/volume)on 10-01-2021 Urea nitrogen [Mass/Vol] 7 mg/dL 7-18 [facility] Work Phone: Thin prep Papanicolaou smear with manual screeningon 10-01-2021 Thin prep Papanicolaou smear with manual screening 6 5-15 [facility] Work Phone: Absolute lymphocyte counton 08-21-2021 Lymphocytes Auto (Unsp spec) [#/Vol] 2.44 10*3/uL 0.83-4.51 [facility] Work Phone: Basophil percentageon 2021 Basophils/100 WBC (Bld) 0.6 % 0-1 [facility] Work Phone: Bilirubin [Mass/Vol] 0.20 mg/dL 0.20-1.00 [facility] [place] Work Phone: Comment on above: For patients on eltr ombopag therapy, use of Dimension [place] TBIL is not recommended. Chloride [Moles/Vol] 103 mmol/L 98-107 [facility] [place] Work Phone: Cholesterol [Mass/Vol] 193 mg/dL <200 [facility] Work Phone: Comment on above: <200 mg/dL Desirable 200-240 mg/dL Borderline >240 mg/dL High Risk Eosinophils/100 WBC (Bld) 3.3 % 0-5 [facility] Work Phone: [phone] Glucose [Mass/Vol] 84 mg/dL 74-106 [facility] Work Phone: Neutrophils (Bld) [#/Vol] 6.8 10*3/uL 2.0-7.7 [facility] Work Phone: Neutrophils/100 WBC (Bld) 66.7 % 47-70 [facility] Work Phone: [phone] Potassium [Moles/Vol] 4.0 mmol/L 3.5-5.1 [facility] Work Phone: Protein [Mass/Vol] 7.5 g/dL 6.4-8.2 [facility] Work Phone: Sodium [Moles/Vol] 138 mmol/L 136-145 [facility] Work Phone: Triglyceride [Mass/Vol] 150 mg/dL <199 [facility] Work Phone: Comment on above: The drugs N-Acetylcy steine and Metamizole may falsely depress this assay.Serum Triglycerides Reference Interval Normal <150 mg/dL Borderline high 150 - 199 mg/dL High 200 - 499 mg/dL Very High > or = 500 mg/dL WBC (Bld) [#/Vol] 10.2 10*3/uL 4.4-11.0 [facility] Work Phone: Blood erythrocytes count (nu mber/volume)on 08-21-2021 RBC (Bld) [#/Vol] 4.29 10*6/uL 4.2-5.4 [facility] Work Phone: Blood hemoglobin measurement (mass/volume)on 08-21-2021 Hemoglobin (Bld) [Mass/Vol] 12.9 g/dL 12.0-15.0 [facility] Work Phone: Blood lymphocytes/100 leukoc yteson 08-21-2021 Lymphocytes/100 WBC (Bld) 23.9 % 19-41 [facility] Work Phone: Blood monocytes/100 leukocyt eson 08-21-2021 Monocytes/100 WBC (Bld) 5.2 % 0-10 [facility] Work Phone: Blood platelet mean volumeon 08-21-2021 Platelet mean volume (Bld) [Entitic vol] 10.8 fL 6.2-12.0 [facility] Work Phone: Determination of erythrocyte mean corpuscular volume (MCV)on 08-21-2021 MCV (RBC) [Entitic vol] 90.7 fL 81-99 [facility] Work Phone: Hematocrit Auto (Bld) [Volum e fraction]on 08-21-2021 Hematocrit (Bld) [Volume fraction] 38.9 % 37-47 [facility] Work Phone: Laboratory - Chemistry and C hemistry - challengeon 08-21-2021 ALP [Catalytic activity/Vol] 62 U/L 45-117 [facility] Work Phone: ALT [Catalytic activity/Vol] 27 U/L 13-56 [facility] Work Phone: CO2 [Moles/Vol] 28.0 mmol/L 21.0-32.0 [facility] Work Phone: Globulin (S) [Mass/Vol] 3.6 g/dL 2.2-4.2 [facility] Work Phone: Urea nitrogen/Creatinine [Mass ratio] 17.5 mg/mg 10-20 [facility] Work Phone: Laboratory - Hematology and Cell countson 08-21-2021 Erythrocyte distribution width (RBC) [Entitic vol] 41.5 fL 35.1-43.9 [facility] Work Phone: Erythrocyte distribution width (RBC) [Ratio] 12.7 % 11.6-14.6 [facility] Work Phone: Immature granulocytes/100 WBC (Bld) 0.300 % 0.0-0.9 [facility] Work Phone: Comment on above: IG% - Immature Granu locytes (promyelocytes, myelocytes and metamyelocytes) > 1% indicates that a LEFT SHIFT is Present. MCH (RBC) [Entitic mass] 30.1 pg 27.0-32.0 [facility] Work Phone: Nucleated RBC/100 WBC (Bld) [Ratio] 0 % 0-5 [facility] Work Phone: MCHC Auto (RBC) [Mass/Vol]on 08-21-2021 MCHC (RBC) [Mass/Vol] 33.2 g/dL 32-36 [facility] Work Phone: No Panel Informationon 08-21 Estimated GFR (MDRD) Amer 139 mL/min >60 [facility] Work Phone: Comment on above: GFR Calc Estimated GFR (MDRD) Non-Af Amer 115 mL/min >60 [facility] Work Phone: Comment on above: Non- GFR Calc Thyroid Stimulating Hormone (TSH) 0.95 uIU/mL 0.358-3.74 [facility] Work Phone: Platelets bldon 08-21-2021 Platelets (Bld) [#/Vol] 250 10*3/uL 150-450 [facility] Work Phone: Serum or plasma albumin javier urement (mass/volume)on 08-21-2021 Albumin [Mass/Vol] 3.9 g/dL 3.2-5.0 [facility] Work Phone: Serum or plasma albumin/glob ulin mass ratioon 08-21-2021 Albumin/Globulin [Mass ratio] 1.1 {ratio} 0.9-2.4 [facility] Work Phone: Serum or plasma calcium javier urement (mass/volume)on 08-21-2021 Calcium [Mass/Vol] 9.0 mg/dL 8.5-10.[address] [facility] Work Phone: Serum or plasma cholesterol in HDL measurement (mass/volume)on 08-21-2021 Cholesterol in HDL [Mass/Vol] 35 mg/dL >40 [facility] Work Phone: Comment on above: The drugs N-Acetylcy steine and Metamizole may falsely depress this assay. Reference Range HDL <40 mg/dL Low HDL Cholesterol HDL >or= 60 mg/dL High HDL Cholesterol Serum or plasma cholesterol in VLDL measurement (mass/volume)on 08-21-2021 Cholesterol in VLDL [Mass/Vol] 30 mg/dL 5-40 [facility] Work Phone: Serum or plasma creatinine m easurement (mass/volume)on 08-21-2021 Creatinine [Mass/Vol] 0.69 mg/dL 0.55-1.02 [facility] Work Phone: Comment on above: The validity of the calculated GFR & GFRAA in patients over 70 years has not been determined. Clinical correlation is essential. Serum or plasma low density lipoprotein (LDL) cholesterol measurement (mass/volume)on 08-21-2021 Cholesterol in LDL [Mass/Vol] 128 mg/dL 0-130 [facility] Work Phone: Serum or plasma urea nitroge n measurement (mass/volume)on 08-21-2021 Urea nitrogen [Mass/Vol] 12 mg/dL 7-18 [facility] Work Phone: Thin prep Papanicolaou smear with manual screeningon 08-21-2021 Thin prep Papanicolaou smear with manual screening 19 U/L 15-37 [facility] Work Phone: Thin prep Papanicolaou smear with manual screening 7 5-15 [facility] Work Phone: Laboratory - Microbiology an d Antimicrobial susceptibilityon 04-09-2021 SARS-CoV-2 (COVID-19) RNA LOUISE+probe Ql (Unsp spec) Detected [facility] Work Phone: Bact/Cand Vag Grm Ston 03-14 Bact/Cand Vag Grm St Sp. Request/Comment : - Swab Smear Result - BACTERIAL VAGINOSIS RESULT: Stain results consistent with normal vaginal daniela. Rare --> ABNORMAL ALERT Budding yeast --> ABNORMAL ALERT Rare Polymorphonuclear leukocytes Critically abnormal [facility] Comment on above: Performed By: #### B VCNSM #### [facility] [address] [id number] Trichomonas Prepon Trichomonas Prep Sp. Request/Comment: - Swab Smear Result - Negative for Trichomonas vaginalis antigen This test was developed and its performance characteristics determined by [facility] [place] ([facility]). It has not been cleared or approved by the FDA. [facility] is regulated under CLIA as qualified to perform high complexity testing. This test is used for clinical purposes. It should not be regarded as investigational or for research. Normal [facility] Comment on above: Performed By: #### T RICHO #### [facility] [employer] [address] [place], [place] [address] CNOVon 03-13-2021 CNOV Office Visit (OBGYWM ) -------- PASTORA DOBBS ([id number]) 1 F Date Time Provider Department 03/13/21 2:00 PM SHERLEY KNUTSON During your visit today, we recorded the following information about you: Blood pressure Weight Last Period 138/74 92.6 kg 03/12/21 Sherley Knutson MD 03/13/2021 2:43 PM Signed Pastora Dobbs is a 20 year old female who presents for concerns. HPI: Patient presents with concerns. She went to the ED last month after having pain with intercourse. Patient followed up the and then went back to the ED for pelvic pain again that was not related to intercourse (about 2 weeks later). She didn't have any additional imaging on her 2nd visit. Patient denies pelvic pain since that time. She reports h/o ovarian cysts when she was younger. Patient is OK with STD screening and reports yellow vaginal discharge. She started menses last night. OB History T0 L0 SAB0 IAB0 Ectopic0 Multiple0 Live Births0 Hrbp History LMP: 03/12/2021, Having periods Age at Menarche: Age at First : Age at Menopause: Hrbp History Comments: Sexual Activity: Yes; Male Contraception: None History reviewed. No pertinent past medical history. PAST SURGICAL HISTORY Procedure Laterality Date - NONE FAMILY HISTORY Problem Relation Age of Onset - No Known Problems Mother - No Known Problems Father - No Known Problems Brother - No Known Problems Maternal Grandmother - Cancer Maternal Grandfather - Cancer Paternal Grandmother - Heart Paternal Grandfather - No Known Problems Brother Social History Tobacco Use - Smoking status: Current Every Day Smoker Types: Cigarettes - Smokeless tobacco: Never Used - Tobacco comment: 4 or 5 cigarettes daily Vaping Use - Vaping Use: Never used Substance Use Topics - Alcohol use: Never - Drug use: Never Current Outpatient Medications Medication Sig - Desogestrel-Ethinyl Estradiol (APRI) 0.15-0.03 mg per tablet Take 1 tablet by mouth once daily. (Patient not taking: Reported on 03/13/2021 ) No current facility-administered medications for this visit. Allergies As of Date: 03/13/2021 (No Known Allergies) Fully Assessed 03/13/2021 Allergies and current medication updated:Yes EXAM: BP 138/74 Wt 204 lb 3.2 oz (92.6kg) LMP 03/12/2021 GENERAL: pleasant, female in no apparent distress CHEST: Normal inspiratory effort ABDOMEN: soft, non-tender and no masses PELVIC: external genitalia normal, normal Bartholin's glands, urethra, [place]'s glands, no vulvar lesions, no cervical lesions, good vaginal support, discharge with scant blood present, normal appearing perineal body and perianal region BIMANUAL: deferred as patient getting US NEURO: alert and oriented x3,exam grossly non-focal EXTREMITIES: normal ASSESSMENT AND PLAN: 20yo female with pelvic pain AND for STD screening Check pelvic US GC/chlam with trich and vaginitis swab Reviewed CT from [facility] on 01/31/21 that showed ovarian follicles. Advised on preconception folic acid use as patient desires Medical Decision Making: Problems: Low: 2+ self-limited or minor problems Data: Unique test result(s) reviewed: 1 Unique test(s) ordered: 3+ Risk: Low: Low risk from testing/treatment Medical Decision Making Level: 3 - Low Sherley Knutson MD Referring Provider: SELF [200] Allergies As of Date: 03/13/2021 (No Known Allergies) Date Reviewed: 03/13/2021 Reviewed by: Sherley Knutson MD - Fully Assessed Reason for Visit: Vaginal Problem [117] Primary Visit Diagnosis:Pelvic pain in female [R10.2] Other Visit Diagnoses:Screening examination for STD (sexually transmitted disease) [Z11.3] Vaginal itching [N89.8] Order(s):BACT/ELIZABETH VAG GRAM STAIN [SQBVCNSM] Order #: [id number] FUTURE TRICHOMONAS PREP/ANTIGEN [SQTRICHO] Order #: [id number] GC/CHLAMYDIA DNA DET [SQGCCAMP] Order #: [id number] PELVIC US WHI [[id number]] Order #: [id number]: 1 FEMALE PELVIS TRANSVAG [[id number]] Order #: [id number] FUTURE FEMALE PELVIS TRANSABD LTD [[id number]] Order #: [id number] FUTURE folic acid 1 mg tabletTake 1 tablet by mouth once daily.Disp: Rfl: Prescriptions as of 03/13/2021 - folic acid 1 mg tablet Take 1 tablet by mouth once daily. - Desogestrel-Ethinyl Estradiol (APRI) 0.15-0.03 mg per tablet Take 1 tablet by mouth once daily. Problem List As Of Date: 03/13/2021 (None) Prescriptions ordered this encounter Disp Refills Start End FOLIC ACID 1 MG TABLET 03/13/2021 Class: Med Update Route: ORAL Sig: Take 1 tablet by mouth once daily. Encounter Status:Closed by SHERLEY KNUTSON on 03/13/21 Normal [facility] GC/Chlamydia Amplifon 2020 Chlamydia Amplif Negative Normal [facility] Comment on above: Performed By: #### G CCT #### [facility] [address] [place], [place] [address] GC Amplification Negative Normal [facility] Comment on above: Performed By: #### G CCT #### [facility] [address] [place], [place] [address] GC/Chlam Amp Source Cervix Normal [facility] Comment on above: Performed By: #### G CCT #### [facility] [address] [place] [address] GC + CHLAMYDIA BY AMPLIFIED DETECTIONon 12-27-2019 CHLAMYDIA TRACH.,AMPLIFIED Canceled Located Within [facility] Comment on above: Order Comment: TEST GC + CHLAMYDIA BY AMPLIFIED DETECTION WAS CANCELLED, 12/27/2019 13:19 NO SPECIMEN RECEIVED IN LAB. Performed By: #### G [facility] #### [facility] [address] [place] [address] N.GONORRHEA,AMPLIFIED Canceled [facility] Comment on above: Order Comment: TEST GC + CHLAMYDIA BY AMPLIFIED DETECTION WAS CANCELLED, 12/27/2019 13:19 NO SPECIMEN RECEIVED IN LAB. Performed By: #### G [facility] #### [facility] [address] [place] [address] TRICHOMONAS,NUCLEIC ACID DET ECTIONon 12-27-2019 TRICHOMONAS VAGINALIS Canceled [facility] Comment on above: Order Comment: TEST TRICHOMONAS,NUCLEIC ACID DETECTION WAS CANCELLED, 12/27/2019 13:19 NO SPECIMEN RECEIVED IN LAB. Performed By: #### T LILIYA #### [facility] [address] [place] [address] GC + CHLAMYDIA BY AMPLIFIED DETECTIONon 12-25-2019 Lab Specimen Source Urine Normal [facility] Comment on above: Order Comment: TEST GC + CHLAMYDIA BY AMPLIFIED DETECTION WAS CANCELLED, 12/27/2019 13:19 NO SPECIMEN RECEIVED IN LAB. Performed By: #### G CCHA #### [facility] [address] [place] [address] Order Comment: TEST TRICHOMONAS,NUCLEIC ACID DETECTION WAS CANCELLED, 12/27/2019 13:19 NO SPECIMEN RECEIVED IN LAB. Performed By: #### T LILIYA #### [facility] [address] [place] [address] HCG,URINEon 12-25-2019 Beta HCG ( test) Ql (U) Negative Normal Negative [facility] Comment on above: Performed By: #### H CGU #### [id number] [place] [id number] Provider Note - ED v2on 12-13 Provider Note - ED v2 Provider Note - ED v2: Chart Review: ED NOTES ED NOTES: Patient has a chief complaint of urinary tract infection. Patient is having painful urination and intermittent frequency and urgency. She also at times feels some itching. She was treated recently for urinary tract infection and yeast infection and completed 5 days of Bactrim and 2 days of Diflucan spread out over a week. Patient states she never really felt like her symptoms improved. She is continued to have burning with urination and intermittent frequency and urgency. She denies fever, hematuria, vomiting, diarrhea, vaginal discharge, new sexual partners, sore throat or cough. HISTORY OF PRESENTING ILLNESS PASTORA is a 19 year old Female and was seen by me at 25-Dec-2019 12:56 for a chief complaint of urinary symptoms (pt was seen here 12/16 for uti. was prescribed antibiotic which she states she took all of it, today symptoms came back)(1). Triage Information: Most recent Vital Sign Value Date Temp (F): 98.2 12-25-2019 13:14 Temp (C): 36.8 12-25-2019 13:14 Heart Rate (beats/min): 94 12-25-2019 13:14 SpO2 (%): 98 12-25-2019 13:14 BP Systolic (mm Hg): 147 12-25-2019 13:14 BP Diastolic (mm Hg): 106 12-25-2019 13:14 PAST MEDICAL HISTORY ATTESTATION: I have reviewed and confirmed nurse's/medic's notes for patient's medications, allergies, medical history, and surgical history ALLERGIES/INTOLERANCES: No Known Allergies HEALTH HISTORY: No documented data. 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: Is : no(1) Is : no(1) REVIEW OF SYSTEMS CONSTITUTIONAL: Negative for: fever and malaise EYES: Negative for: pain and vision changes ENMT Ears: Negative for: pain Nose: Negative for: congestion RESPIRATORY: Negative for: cough GASTROINTESTINAL: Negative for: abdominal pain, nausea and vomiting; change in bowel habits GENITOURINARY: ( reports vaginal itching) POSITIVE for: dysuria; Negative for: frequency, hematuria, urgency, vaginal bleeding and vaginal discharge; urine output decreased and urine output increased MUSCULOSKELETAL: Negative for: back pain and joint pain INTEGUMENTARY: Negative for: itching; rash NEUROLOGICAL: Negative for: dizziness, headache and low extremity numbness; upper extremity numbness HEME/LYMPH: Negative for: easy bleeding RESULTS/VITAL SIGNS RESULTS: Recent Lab Results: I have reviewed these laboratory results: Urine Test 25-Dec-2019 13:09:00 ResultValue HCG, Urine NEGATIVE Urinalysis 25-Dec-2019 13:09:00 ResultValue Color, Urine Yellow Reference Range: STRAW,YELLOW Appearance, Urine HAZY Specific [place], Urine 1.016 pH, Urine 7.0 Protein, Urine NEGATIVE Glucose, Urine NEGATIVE Blood, Urine SMALL(1+) A Ketones, Urine NEGATIVE Bilirubin, Urine NEGATIVE Urobilinogen, Urine <2.0 Nitrite, Urine Negative Leukocyte Esterase, Urine LARGE(3+) A Urinalysis, Microscopic 25-Dec-2019 13:09:00 ResultValue White Cells >182 A WBC Clumps FEW Red Blood Cells None Epithelial Cells, Squamous 7 VITAL SIGNS: T PRBP SpO2O2(LPM) %FiO2 Method 25-Dec-2019 13:14:[id number] 98 PHYSICAL EXAM CONSTITUTIONAL: Well appearing, well nourished, awake, alert, oriented to person, place, time/situation and in no apparent distress. HENMT: Airway patent, Nasal mucosa clear. EYES: Clear bilaterally, pupils equal, round and reactive to light. normal sclera without redness or icterus CARDIOVASCULAR: Normal rate, regular rhythm. No murmurs. normal radial No lower extremity edema, no calf swelling erythema or tenderness palpation. RESPIRATORY: Breath sounds clear and equal bilaterally. no wheezes or rhales. no respiratory distress GASTROINTESTINAL: Abdomen soft, non-distended, no rebound, no guarding. mild suprapubic tenderness Bowel sounds normal in all 4 quadrants. MUSCULOSKELETAL: Spine appears normal, range of motion is not limited, no muscle or joint tenderness. NEUROLOGICAL: Alert and oriented, no focal deficits, normal mentation, facial symmetry normal. Speech is clear. SKIN: Skin normal color for race, warm, dry and intact. No evidence of trauma. MEDICAL DECISION MAKING/ED COURSE MDM/ED COURSE: Patient was treated recently for urinary tract infection and yeast infection. Unfortunately there was no culture done when she was here on December 16. I have ordered cultu (more content not included)... Normal [facility] Risk Screen - Adult Emergenc yo 12-25-2019 Risk Screen - Adult Emergency Preferred Language: Preferred Language: Preferred Language for Discussing Health Care (patient/designee)Joshua gramajo Advanced Directives: Advance Directive/DNRno Family Violence Adult: Abuse Screen: Are you or have you been threatened or abused physically, emotionally, or sexually by anyoneno Learning Assessment (Patient): Learning Assessment (Patient): Patient is Able to be Assessed for Learningyes Factors Influencing Readiness to Learnpain Factors that Impact Ability to Learnnone Devices/Methods Used to Communicatenone Learning Preferenceswritten material Cultural Considerationsnone Developmental Considerationsnone Adventist Considerationsnone Learning Assessment (Other Learner): Learning Assessment (Other Learner): Other learner availableno Pressure Injury/TB/Substance: Pressure Injury: Do you have a coughno Substance Use Current or Former Historynever: e-Cigarette/Vaping, Alcohol, Street Drugs YES: Cigarette/Tobacco Smoking Statuscurrent every day smoker Admission Risk Screen: Significant IndicatorsComplete CAGE: CAGE: Is this an injured patient at a Trauma Center ([facility]/[place] /[place]): no Electronic Signatures: Alana Valentin (MARK) (Signed 25-Dec-2019 13:19) Authored: Preferred Language, Advanced Directives, Family Violence Adult, Learning Assessment (Patient), Learning Assessment (Other Learner), Pressure Injury/TB/Substance, CAGE Last Updated: 25-Dec-2019 13:19 by Alana Valentin (MARK) Located Within [facility] Triage - EDon 12-25-2019 Triage - ED Quick Triage: Are You no Are You Currently Breastfeedingno The patient and/or guardian verbally acknowledges placement for services into the following (when Urgent Care Service hours are operating):emergency department Chart Review: ARRIVAL INFORMATION Mode of Arrival: private vehicle CHIEF COMPLAINT PASTORA DOBBS is a Female patient with a chief complaint of urinary symptoms (pt was seen here 12/16 for uti. was prescribed antibiotic which she states she took all of it, today symptoms came back). Triage Date/Time: 25-Dec-2019 13:14 Pain Rating (0-10): 7 = Severe Vital Signs: Temperature: 98.2F ( 36.8C) taken oral Blood Pressure: 147/106 Mean: Heart Rate: 94 Pulse Oximetry: 98% Weight: 193.3 pounds. Calculated 87.7 kg. Brice Coma Scale: Best Eye Response: (E4) spontaneous Best Motor Response: (M6) obeys commands Best Verbal Response: (V5) oriented Sagola Score: 15 Allergies: no Last menstrual period: 27-Nov-2019 Patient has homicidal thoughts: no JIMENEZ: 4 Risk Screens Suicide Risk Screen In the Past Month: Have you wished you were or wished you could go to sleep and not wake up no In the Past Month: Have you had any actual thoughts of killing yourself no In Your Lifetime: Have you ever done anything, started to do anything, or prepared to do anything to end your life no Marquez Fall Scale Screening Has the patient fallen before (or is the patient in the ED as a result of a fall) has not had a fall Does the patient have an impaired gait does not have impaired gait Is the patient cognitively impaired not cognitively impaired Interventions: Marquez Fall Interventions: LOW INTERVENTIONS: *patient oriented to surroundings and call system, * patient/family falls education completed and documented, *patients fall status communicated during bedside handoff, *whiteboard updated, *mode of toileting discussed with patient, *bed in low position with brakes locked, *call light in reach, * non-skid footwear TRAVEL HISTORY Travel History Coronavirus Screening: no exposure or symptoms PAIN Pain Scale Used: ESEQUIEL Pain Rating (0-10): 7 = Severe Past Medical History: Past Medical History Reviewedyes Electronic Signatures: Alana Valentin) (Signed 25-Dec-2019 13:18) Authored: Triage, Past Medical History Last Updated: 25-Dec-2019 13:18 by Alana Valentin (MARK) Normal [facility] UA MICROSCOPICon 12-25-2019 RBC None Normal 0-[address] [facility] Comment on above: Performed By: #### U AMIC #### [place] [address] SQUAMOUS EPITH. CELLS 7 /HPF Normal [facility] Comment on above: Performed By: #### U AMIC #### [place] [address] WBC (U) [#/Vol] /uL Abnormal 0-[address] [facility] Comment on above: Performed By: #### U AMIC #### [place] [address] WBC CLUMPS FEW Normal [facility] Comment on above: Performed By: #### U AMIC #### [place] [address] URINALYSISon 12-25-2019 Appearance (U) HAZY Normal CLEAR [facility] Comment on above: Performed By: #### U A #### [place] [address] Bilirubin Ql (U) Negative Normal NEGATIVE [facility] Comment on above: Performed By: #### U A #### [place] [address] Color (U) Yellow Normal STRAW,YELLOW [facility] Comment on above: Performed By: #### U A #### [place] [address] Glucose Ql (U) Negative Normal NEGATIVE [facility] Comment on above: Performed By: #### U A #### [place] [address] Hemoglobin Ql (U) SMALL(1+) Abnormal NEGATIVE [facility] Comment on above: Performed By: #### U A #### [place] [id number] Ketones Ql (U) Negative Normal NEGATIVE [facility] Comment on above: Performed By: #### U A #### [place] [id number] Leukocyte esterase Test strip Ql (U) LARGE(3+) Abnormal NEGATIVE [facility] Comment on above: Performed By: #### U A #### [place] [id number] Nitrite Ql (U) Negative Normal NEGATIVE [facility] Comment on above: Performed By: #### U A #### [place] [address] pH (U) 7.0 [pH] Normal 5.0 - 8.[address] [facility] Comment on above: Performed By: #### U A #### [place] [address] Protein Ql (U) Negative Normal NEGATIVE [facility] Comment on above: Performed By: #### U A #### [place] [id number] Specific gravity (U) [Rel density] 1.016 Normal 1.005 - 1.[address] [facility] Comment on above: Performed By: #### U A #### [place] [id number] Urobilinogen (U) [Mass/Vol] mg/dL Normal 0.0 - 1.[address] [facility] Comment on above: Performed By: #### U A #### [place] [id number] URINALYSIS WITH CULTURE IF I NDICATEDon 12-25-2019 Appearance (U) Canceled Normal [facility] Comment on above: Order Comment: TEST URINALYSIS WITH CULTURE IF INDICATED WAS CANCELLED, 12/25/2019 16:08 DUPLICATE ORDER. Performed By: #### U ARFX #### [address] [address] ASCORBIC ACID Canceled Located Within [facility] Comment on above: Order Comment: TEST URINALYSIS WITH CULTURE IF INDICATED WAS CANCELLED, 12/25/2019 16:08 DUPLICATE ORDER. Result Comment: Conc entrations > = 20 mg/dL of ascorbic acid can be expected to cause strong interference in the reactions testing for glucose, nitrite and blood. It is recommended to discontinue Vitamin C administration and retest in 10 hours. Performed By: #### U ARFX #### [place] [id number] Bilirubin Ql (U) Canceled [facility] Comment on above: Order Comment: TEST URINALYSIS WITH CULTURE IF INDICATED WAS CANCELLED, 12/25/2019 16:08 DUPLICATE ORDER. Performed By: #### U ARFX #### [place] [address] Color (U) Canceled Located Within [facility] Comment on above: Order Comment: TEST URINALYSIS WITH CULTURE IF INDICATED WAS CANCELLED, 12/25/2019 16:08 DUPLICATE ORDER. Performed By: #### U ARFX #### [place] [id number] Glucose Ql (U) Canceled Located Within [facility] Comment on above: Order Comment: TEST URINALYSIS WITH CULTURE IF INDICATED WAS CANCELLED, 12/25/2019 16:08 DUPLICATE ORDER. Performed By: #### U ARFX #### [place] [id number] Hemoglobin Ql (U) Canceled [facility] Comment on above: Order Comment: TEST URINALYSIS WITH CULTURE IF INDICATED WAS CANCELLED, 12/25/2019 16:08 DUPLICATE ORDER. Performed By: #### U ARFX #### [place] [id number] Ketones Ql (U) Canceled Located Within [facility] Comment on above: Order Comment: TEST URINALYSIS WITH CULTURE IF INDICATED WAS CANCELLED, 12/25/2019 16:08 DUPLICATE ORDER. Performed By: #### U ARFX #### [place] [id number] Leukocyte esterase Test strip Ql (U) Canceled Located Within [facility] Comment on above: Order Comment: TEST URINALYSIS WITH CULTURE IF INDICATED WAS CANCELLED, 12/25/2019 16:08 DUPLICATE ORDER. Performed By: #### U ARFX #### [place] [address] Nitrite Ql (U) Canceled Located Within [facility] Comment on above: Order Comment: TEST URINALYSIS WITH CULTURE IF INDICATED WAS CANCELLED, 12/25/2019 16:08 DUPLICATE ORDER. Performed By: #### U ARFX #### [place] [id number] pH Canceled Located Within [facility] Comment on above: Order Comment: TEST URINALYSIS WITH CULTURE IF INDICATED WAS CANCELLED, 12/25/2019 16:08 DUPLICATE ORDER. Performed By: #### U ARFX #### [place] [address] Protein Ql (U) Canceled Located [facility] Comment on above: Order Comment: TEST URINALYSIS WITH CULTURE IF INDICATED WAS CANCELLED, 12/25/2019 16:08 DUPLICATE ORDER. Performed By: #### U ARFX #### [place] [address] Specific gravity (U) [Rel density] Canceled Located Within [facility] Comment on above: Order Comment: TEST URINALYSIS WITH CULTURE IF INDICATED WAS CANCELLED, 12/25/2019 16:08 DUPLICATE ORDER. Performed By: #### U ARFX #### [place] [id number] UROBILINOGEN Canceled Located Within [facility] Comment on above: Order Comment: TEST URINALYSIS WITH CULTURE IF INDICATED WAS CANCELLED, 12/25/2019 16:08 DUPLICATE ORDER. Performed By: #### U ARFX #### [place] [id number] URINE CULTURE,BACTERIALon URINE CULTURE,BACTERIAL PATIENT: PASTORA DOBBS LOCATION: [facility]#: [id number] : [birth year] AGE: SEX: F ORDERED BY: RAYSHAWN ALBA SOURCE: URINE COLLECTED: 12/25/19 13:09 ANTIBIOTICS AT JAMES.: RECEIVED : 12/25/19 21:32 SITE: Clean Catch/Voided R E S U L T S URINE CULTURE,BACTERIAL FINAL 12/28/19 08:36 ISOLATE1 : Escherichia coli >100,000 CFU/ML Organism E coli Antibiotic BP INTRP Ampicillin R Amox/Clavulanate S Ceftriaxone S Cefotaxime S Cefazolin S Ciprofloxacin S Nitrofurantoin S Gentamicin S Levofloxacin S Piperc/Tazobact S Trimeth/Sulfa R Tetracycline S S=SUSCEPTIBLE I=INTERMEDIATE R=RESISTANT SDD=SUSCEPTIBLE DOSE DEPENDENT NS=NONSUSCEPTIBLE X=REPORTED IN ERROR Located Within [facility] Comment on above: Performed By: #### U RINC #### [facility] [address] [address] [address] [id number] Renalon 05-04-2018 US Renal Exam Date/Time: 05/04/2018 14:16 EST Reason for Exam: KIDNEY CYST LEFT Report STUDY: US Renal; 05/04/2018 2:16 pm INDICATION: KIDNEY CYST LEFT. COMPARISON: None. ACCESSION NUMBER(S): [id number] ORDERING CLINICIAN: Yi Lipscomb TECHNIQUE: Grayscale and color Doppler ultrasound evaluation of the kidneys and urinary bladder. FINDINGS: RIGHT KIDNEY: The right kidney measures 12.3 cm in length. No hydronephrosis. No mass, calculus, or perinephric abnormality. LEFT KIDNEY: The left kidney measures 11.9 cm in length. No hydronephrosis. 6 mm cyst interpolar region left kidney medially. No calculus or perinephric abnormality. Incidental note is made of the spleen measuring 13.3 cm in length. BLADDER: Partially distended; normal. Incidental note is made of a right ovarian cyst measuring 4.8 cm. IMPRESSION: No nephrolithiasis or hydronephrosis is demonstrated. There is a 6 mm simple left renal cyst, as discussed above. Exam Date/Time: 05/04/2018 14:16 EST Report Incidental note is made of a simple right ovarian cyst measuring 4.8 cm. In the premenopausal patient no further follow-up is suggested for this finding. FINAL REPORT Dictated: 05/04/2018 2:26 pm Joseph Mart MD Signed (Electronic Signature): 05/04/2018 2:26 pm Signed by: Joseph Mart MD Technologist: [facility] Progress Noteon 04-23-2018 Fire Services Plumber Authentication Interface Message Text Pastora Dobbs is a 17 y.o. 5 m.o. female who presents in consultation from Dr. Torres for evaluation of renal cyst. Pastora has a left renal cyst which was found on CT in [place] ED on 07/20/13 during evaluation for abdominal pain. She was followed by Nephrology but has not been seen since 2013. She denies dysuria, hematuria, constipation, UTI or abdominal pain. She does not have a known family hx of renal disease but gaurdians are not her biological parents. She recently re-established care after changing homes and they wanted to have her kidneys checked. ROS: Constitutional: negative for malaise, fatigue or fevers. Eyes: negative for altered vision, discharge, redness or periorbital edema. ENT: negative for altered hearing, ear ache, epistaxis, sore throat or oral lesions. Respiratory: negative for tachypnea, wheezing or cough. Cardiac: negative for SOB, syncope, palpitations, or chest pain. GI: negative for vomiting, diarrhea, constipation, abdominal pain. : negative for dysuria, gross hematuria, urinary frequency, urgency or enuresis. Skin: negative for rash, pruritis or lesions. Musculoskeletal: negative for myalgia, weakness or joint swelling. Hematologic/lymphatic: negative for bruising, bleeding, pallor or lymphadenopathy. Neurologic: negative for muscle weakness, paresthesia, seizures or unusual headaches. Development: age appropriate Past Medical History: Diagnosis Date Abdominal pain Abdominal pain, other specified site Past Surgical History: Procedure Laterality Date NO PAST SURGICAL HISTORY History Full term , no complications during and or delivery. Family History Problem Relation Age of Onset Bipolar Disorder Mother Hemodialysis Dependent Maternal Grandfather due to colon cancer Kidney Disease Maternal Grandfather Social History Socioeconomic History Marital status: Single Spouse name: Not on file Number of children: Not on file Years of education: Not on file Highest education level: Not on file Social Needs Financial resource strain: Not on file Food insecurity - worry: Not on file Food insecurity - inability: Not on file Transportation needs - medical: Not on file Transportation needs - non-medical: Not on file Occupational History Not on file Tobacco Use Smoking status: Never Smoker Smokeless tobacco: Never Used Substance and Sexual Activity Alcohol use: Not on file Drug use: Not on file Sexual activity: Not on file Other Topics Concern Not on file Social History Narrative Not on file Current Outpatient Medications: ibuprofen (MOTRIN) 600 MG tablet, Take 600 mg by mouth every 8 hours as needed for Pain., Disp: , Rfl: Pediatric Agogltly-Weewfxvt-Q (FLINTSTONES GUMMIES) CHEW, Take 2 tablets by mouth daily., Disp: , Rfl: ranitidine (ZANTAC) 75 MG tablet, Take 75 mg by mouth as needed. , Disp: , Rfl: Acetaminophen (TYLENOL PO), Take 650 mg by mouth as needed. , Disp: , Rfl: polyethylene glycol (MIRALAX;GLYCOLAX) powder, Take 17 g by mouth daily., Disp: 527 g, Rfl: 2 Vitals: 04/23/18 1114 04/23/18 1117 BP: (!) 155/93 (!) 144/84 Pulse: 97 94 Weight: 89.6 kg Physical Exam Constitutional: Well appearing and well-nourished. No distress. Head: Normocephalic. Mouth/Throat: No oropharyngeal exudate. MMM. Eyes: Pupils are equal, round, and reactive to light. No scleral icterus. Ears: No external swelling or pits. Cardiovascular: Normal rate and rhythm. Normal heart sounds. No murmur. Pulmonary/Chest: Effort normal and breath sounds normal. No respiratory distress. Abdominal: Soft. No distension, hepatosplenomegaly or mass. Non-tender to palpation. Musculoskeletal: Extremities are warm and well perfused. No edema or tenderness. Skin: No rash or lesion noted. Labs/Imaging: I have independently reviewed any labs and imaging Results for PASTORA DOBBS ( ) as of 04/30/2018 11:12 Ref. Range 03/21/2014 13:55 04/23/2018 11:23 Sodium Latest Ref Range: 133 - 145 mEq/L 139 Potassium Latest Ref Range: 3.3 - 5.1 mEq/L 4.4 Chloride Latest Ref Range: 96 - 108 mEq/L 107 Carbon Dioxide Latest Ref Range: 22.0 - 29.0 mEq/L 27.8 BUN Latest Ref Range: 4 - 19 mg/dL 14 Glucose Latest Ref Range: 70 - 99 mg/dL 96 Calcium Latest Ref Range: 7.6 - 11.0 mg/dL 9.1 Albumin Latest Ref Range: 3.2 - 4.5 g/dL 3.9 Creatinine Latest Ref Range: 0.5 - 0.8 mg/dL 0.6 Phosphorus Latest Ref Range: 2.7 - 4.5 mg/dL 4.7 (H) POCT Color UR Unknown Light Yellow POCT Characteristic UR Unknown Clear POCT Specific [place], Urine Latest Ref Range: 1.000 - 1.035 1.025 POCT, Leukocytes, Urine Latest Ref Range: Negative Negative POCT Nitrite, Urine Latest Ref Range: Negative Negative POCT pH Urine Latest Ref Range: 5.0 - 7.5 pH 6.0 POCT Blood, Urine Latest Ref Range: Negative Negative POCT Protein, Urine Latest Ref Range: Negative - Trace mg/dl Negative POCT Glucose, Urine Latest Ref Range: Negative mg/dl Negative POCT Ketones, Urine Latest Ref Range: Negative mg/dl Trace (5mg/dL) (A) Assessment: Pastora Dobbs is a 17 y.o. 5 m.o. female who presents for follow up of previously seen left renal cyst Plan: -discussed that her UA is clean and her BP normal in clinic today -would recommend rechecking renal ultrasound to ensure that she has not developed more cysts which could be concerning for possible ADPKD, but that as long as she only has one simple cyst she should not have problems group home -would not repeat blood work unless renal ultrasound is concerning F/u in 2 years if renal ultrasound is stable Normal [facility] C Throaton 03-06-2018 C Throat Final Report: Light growth of Group C Streptococcus and Normal throat daniela isolated Normal [facility] Comment on above: Performed By: #### 2 [id number] #### [facility] Microbiology Subsection [address] [place] [address] Group A Strep rRNA GenProbeo n 07-22-2017 GenProbe Group A Streptococcus Negative for group A Streptococcus nucleic acid. This test does not detect other possible agents of bacterial pharyngitis including groups C and G Streptococcus and Arcanobacterium haemolyticum. This test is valid for THROAT specimens only. Normal NGAS3 [facility] Vital Signs Date Time Vital Sign Value Performing Clinician Facility 12-01-2024 08:56-0400 Body height 170.[address] Xin Cardona MD Work Phone: [facility] 12-01-2024 08:56-0400 Body mass index (BMI) [Ratio] 32.7 kg/m2 Dr. Xin Cardona MD Work Phone: [facility] 12-01-2024 08:56-0400 Body temperature 96.9 [degF] Dr. Xin Cardona MD Work Phone: [facility] 12-01-2024 08:56-0400 Body weight 94.[address] Xin Cardona MD Work Phone: [facility] 12-01-2024 08:56-0400 Diastolic blood pressure 88 mm[Hg] Dr. Xni Cardona MD Work Phone: [facility] 12-01-2024 08:56-0400 Heart rate 98 /min Dr. Xin Cardona MD Work Phone: [facility] 12-01-2024 08:56-0400 Respiratory rate 18 /min Dr. Xin Cardona MD Work Phone: [facility] 12-01-2024 08:56-0400 SaO2% (BldA) [Mass fraction] 98 % Dr. Xin Cardona MD Work Phone: [facility] 12-01-2024 08:56-0400 Systolic blood pressure 136 mm[Hg] Dr. Xin Cardona MD Work Phone: [facility] 11-03-2024 08:50-0400 Body height 170.[address] Xin Cardona MD Work Phone: [facility] 11-03-2024 08:50-0400 Body mass index (BMI) [Ratio] 32.9 kg/m2 Dr. Xin Cardona MD Work Phone: [facility] 11-03-2024 08:50-0400 Body temperature 97.3 [degF] Dr. Xin Cardona MD Work Phone: [facility] 11-03-2024 08:50-0400 Body weight 95.[address] Xin Cardona MD Work Phone: [facility] 11-03-2024 08:50-0400 Diastolic blood pressure 78 mm[Hg] Dr. Xin Cardona MD Work Phone: [facility] 11-03-2024 08:50-0400 Heart rate 83 /min Dr. Xin Cardona MD Work Phone: [facility] 11-03-2024 08:50-0400 Respiratory rate 18 /min Dr. Xin Cardona MD Work Phone: [facility] 11-03-2024 08:50-0400 SaO2% (BldA) [Mass fraction] 97 % Dr. Xin Cardona MD Work Phone: [facility] 11-03-2024 08:50-0400 Systolic blood pressure 118 mm[Hg] Dr. Xin Cardona MD Work Phone: [facility] 08-13-2024 10:59-0400 Body height 170.[address] Xin aCrdona MD Work Phone: [facility] 08-13-2024 10:59-0400 Body mass index (BMI) [Ratio] 31.9 kg/m2 Dr. Xin Cardona MD Work Phone: [facility] 08-13-2024 10:59-0400 Body weight 92.[address] Xin Cardona MD Work Phone: [facility] 08-13-2024 10:59-0400 Diastolic blood pressure 101 mm[Hg] Dr. Xin Cardona MD Work Phone: [facility] 08-13-2024 10:59-0400 Heart rate 74 /min Dr. Xin Cardona MD Work Phone: [facility] 08-13-2024 10:59-0400 Respiratory rate 16 /min Dr. Xin Cardona MD Work Phone: [facility] 08-13-2024 10:59-0400 SaO2% (BldA) [Mass fraction] 98 % Dr. Xin Cardona MD Work Phone: [facility] 08-13-2024 10:59-0400 Systolic blood pressure 158 mm[Hg] Dr. Xin Cardona MD Work Phone: [facility] 06-29-2024 13:02-0400 Diastolic blood pressure 98 mm[Hg] Dr. Xin Cardona MD Work Phone: [facility] 06-29-2024 13:02-0400 Heart rate 55 /min Dr. Xin Cardona MD Work Phone: [facility] 06-29-2024 13:02-0400 Respiratory rate 18 /min Dr. Xin Cardona MD Work Phone: [facility] 06-29-2024 13:02-0400 SaO2% (BldA) [Mass fraction] 100 % Dr. Xin Cardona MD Work Phone: [facility] 06-29-2024 13:02-0400 Systolic blood pressure 160 mm[Hg] Dr. Xin Cardona MD Work Phone: [facility] 06-10-2024 10:49-0500 Diastolic blood pressure 84 mm[Hg] Dr. Xin Cardona MD Work Phone: [facility] 06-10-2024 10:49-0500 Systolic blood pressure 148 mm[Hg] Dr. Xin Cardona MD Work Phone: [facility] 06-10-2024 10:42-0500 Body mass index (BMI) [Ratio] 33.2 kg/m2 Dr. Xin Cardona MD Work Phone: [facility] 06-10-2024 10:42-0500 Body weight 96.[address] Xin Cardona MD Work Phone: [facility] 05-26-2024 11:27-0500 Body mass index (BMI) [Ratio] 32.3 kg/m2 Dr. Xin Cardona MD Work Phone: [facility] 05-26-2024 11:27-0500 Body temperature 96.2 [degF] Dr. Xin Cardona MD Work Phone: [facility] 05-26-2024 11:27-0500 Body weight 93.[address] Xin Cardona MD Work Phone: [facility] 05-26-2024 11:27-0500 Diastolic blood pressure 88 mm[Hg] Dr. Xin Cardona MD Work Phone: [facility] 05-26-2024 11:27-0500 Heart rate 92 /min Dr. Xin Cardona MD Work Phone: [facility] 05-26-2024 11:27-0500 Respiratory rate 16 /min Dr. Xin Cardona MD Work Phone: [facility] 05-26-2024 11:27-0500 SaO2% (BldA) [Mass fraction] 99 % Dr. Xin Cardona MD Work Phone: [facility] 05-26-2024 11:27-0500 Systolic blood pressure 138 mm[Hg] Dr. Xin Cardona MD Work Phone: [facility] 05-10-2024 16:45-0500 Diastolic blood pressure 90 mm[Hg] Dr. Xin Cardona MD Work Phone: [facility] 05-10-2024 16:45-0500 Heart rate 89 /min Dr. Xin Cardona MD Work Phone: [facility] 05-10-2024 16:45-0500 Respiratory rate 16 /min Dr. Xin Cardona MD Work Phone: [facility] 05-10-2024 16:45-0500 SaO2% (BldA) [Mass fraction] 96 % Dr. Xin Cardona MD Work Phone: [facility] 05-10-2024 16:45-0500 Systolic blood pressure 142 mm[Hg] Dr. Xin Cardona MD Work Phone: [facility] 05-10-2024 13:54-0500 Body mass index (BMI) [Ratio] 33.5 kg/m2 Dr. Xin Cardona MD Work Phone: [facility] 05-10-2024 13:54-0500 Body weight 96.[address] Xin Cardona MD Work Phone: [facility] 05-10-2024 13:45-0500 Body temperature 98.1 [degF] Dr. Xin Cardona MD Work Phone: [facility] 05-10-2024 13:02-0500 Body mass index (BMI) [Ratio] 33.5 kg/m2 Dr. Xin Cardona MD Work Phone: [facility] 05-10-2024 13:02-0500 Body weight 97.[address] Xin Cardona MD Work Phone: [facility] 05-10-2024 13:02-0500 Diastolic blood pressure 107 mm[Hg] Dr. Xin Cardona MD Work Phone: [facility] 05-10-2024 13:02-0500 Systolic blood pressure 174 mm[Hg] Dr. Xin Cardona MD Work Phone: [facility] 05-04-2024 13:26-0500 Diastolic blood pressure 93 mm[Hg] Dr. Xin Cardona MD Work Phone: [facility] 05-04-2024 13:26-0500 Systolic blood pressure 155 mm[Hg] Dr. Xin Cardona MD Work Phone: [facility] 05-04-2024 13:22-0500 Body mass index (BMI) [Ratio] 35 kg/m2 Dr. Xin Cardona MD Work Phone: [facility] 05-04-2024 13:22-0500 Body weight 101.[address] Xin Cardona MD Work Phone: [facility] 05-03-2024 15:29-0500 Body temperature 98 [degF] Dr. Xin Cardona MD Work Phone: [facility] 05-03-2024 15:29-0500 Diastolic blood pressure 92 mm[Hg] Dr. Xin Cardona MD Work Phone: [facility] 05-03-2024 15:29-0500 Heart rate 70 /min Dr. Xin Cardona MD Work Phone: [facility] 05-03-2024 15:29-0500 Respiratory rate 16 /min Dr. Xin Cardona MD Work Phone: [facility] 05-03-2024 15:29-0500 SaO2% (BldA) [Mass fraction] 100 % Dr. Xin Cardona MD Work Phone: [facility] 05-03-2024 15:29-0500 Systolic blood pressure 148 mm[Hg] Dr. Xin Cardona MD Work Phone: [facility] 05-03-2024 10:50-0500 Body mass index (BMI) [Ratio] 35.5 kg/m2 Dr. Xin Cardona MD Work Phone: [facility] 05-03-2024 10:50-0500 Body weight 102.[address] Xin Cardona MD Work Phone: [facility] 07-31-2023 13:28-0400 Body height 170.[address] Xin Cardona Work Phone: [facility] 07-31-2023 13:28-0400 Body mass index (BMI) [Ratio] 32.4 kg/m2 Dr. Xin Cardona Work Phone: [facility] 07-31-2023 13:28-0400 Body temperature 97.6 [degF] Dr. Xin Cardona Work Phone: [facility] 07-31-2023 13:28-0400 Body weight 93.[address] Xin Cardona Work Phone: [facility] 07-31-2023 13:28-0400 Diastolic blood pressure 72 mm[Hg] Dr. Xin Cardona Work Phone: [facility] 07-31-2023 13:28-0400 Heart rate 75 /min Dr. Xin Cardona Work Phone: [facility] 07-31-2023 13:28-0400 Respiratory rate 16 /min Dr. Xin Cardona Work Phone: [facility] 07-31-2023 13:28-0400 Systolic blood pressure 122 mm[Hg] Dr. Xin Cardona Work Phone: [facility] 07-25-2023 18:33-0400 Body temperature 98.9 [degF] [facility] 07-25-2023 18:33-0400 Diastolic blood pressure 80 mm[Hg] [facility] 07-25-2023 18:33-0400 Heart rate 70 /min [facility] 07-25-2023 18:33-0400 Respiratory rate 16 /min [facility] 07-25-2023 18:33-0400 SaO2% (BldA) [Mass fraction] 98 % [facility] 07-25-2023 18:33-0400 Systolic blood pressure 134 mm[Hg] [facility] 07-25-2023 16:09-0400 Body height 170.18 cm [facility] 07-25-2023 16:09-0400 Body mass index (BMI) [Ratio] 31.5 kg/m2 [facility] 07-25-2023 16:09-0400 Body weight 91.4 kg [facility] 06-26-2023 14:20-0400 Body mass index (BMI) [Ratio] 32.58 kg/m2 Kelvin Jay MD Work Phone: [facility] 06-26-2023 14:20-0400 Body weight 94.35 kg Kelvin Jay MD Work Phone: [facility] 02-28-2023 09:57-0500 Body height 170.[address] Xin Cardona Work Phone: [facility] 02-28-2023 09:56-0500 Body mass index (BMI) [Ratio] 34 kg/m2 Dr. Xin Cardona Work Phone: [facility] 02-28-2023 09:56-0500 Body weight 98.[address] Xin Cardona Work Phone: [facility] 02-28-2023 09:56-0500 Diastolic blood pressure 92 mm[Hg] Dr. Xin Cardona Work Phone: [facility] 02-28-2023 09:56-0500 Systolic blood pressure 146 mm[Hg] Dr. Xin Cardona Work Phone: [facility] 12-17-2022 13:11-0400 Body mass index (BMI) [Ratio] 33.3 kg/m2 Dr. Xin Cardona Work Phone: [facility] 12-17-2022 13:11-0400 Body temperature 97.5 [degF] Dr. Xin Cardona Work Phone: [facility] 12-17-2022 13:11-0400 Body weight 96.[address] Xin Cardona Work Phone: [facility] 12-17-2022 13:11-0400 Diastolic blood pressure 107 mm[Hg] Dr. Xin Cardona Work Phone: [facility] 12-17-2022 13:11-0400 Heart rate 80 /min Dr. Xin Cardona Work Phone: [facility] 12-17-2022 13:11-0400 Respiratory rate 16 /min Dr. Xin Cardona Work Phone: [facility] 12-17-2022 13:11-0400 SaO2% (BldA) [Mass fraction] 97 % Dr. Xin Cardona Work Phone: [facility] 12-17-2022 13:11-0400 Systolic blood pressure 160 mm[Hg] Dr. Xin Cardona Work Phone: [facility] 12-05-2022 14:52-0400 Body weight 96.71 kg No PCP None MG-Otolaryngolog y-T ximena Work Phone: 08-02-2022 08:50-0400 Body height 170.[address] Xin Cardona Work Phone: [facility] 08-02-2022 08:50-0400 Body mass index (BMI) [Ratio] 32.7 kg/m2 Dr. Xin Cardona Work Phone: [facility] 08-02-2022 08:50-0400 Body temperature 98.9 [degF] Dr. Xin Cardona Work Phone: [facility] 08-02-2022 08:50-0400 Body weight 94.[address] Xin Cardona Work Phone: [facility] 08-02-2022 08:50-0400 Diastolic blood pressure 80 mm[Hg] Dr. Xin Cardona Work Phone: [facility] 08-02-2022 08:50-0400 Heart rate 92 /min Dr. Xin Cardona Work Phone: [facility] 08-02-2022 08:50-0400 Respiratory rate 16 /min Dr. Xin Cardona Work Phone: [facility] 08-02-2022 08:50-0400 SaO2% (BldA) [Mass fraction] 98 % Dr. Xin Cardona Work Phone: [facility] 08-02-2022 08:50-0400 Systolic blood pressure 122 mm[Hg] Dr. Xin Cardona Work Phone: [facility] 07-31-2022 14:14-0400 Body mass index (BMI) [Ratio] 32.9 kg/m2 Dr. Xin Cardona Work Phone: [facility] 07-31-2022 14:14-0400 Body weight 95.[address] Xin Cardona Work Phone: [facility] 07-31-2022 14:14-0400 Diastolic blood pressure 95 mm[Hg] Dr. Xin Cardona Work Phone: [facility] 07-31-2022 14:14-0400 Systolic blood pressure 145 mm[Hg] Dr. Xin Cardona Work Phone: [facility] 07-07-2022 15:48-0400 Diastolic blood pressure 105 mm[Hg] Dr. Xin Cardona Work Phone: [facility] 07-07-2022 15:48-0400 Systolic blood pressure 168 mm[Hg] Dr. Xin Cardona Work Phone: [facility] 07-07-2022 14:38-0400 Body height 170.[address] Xin Cardona Work Phone: [facility] 07-07-2022 14:38-0400 Body mass index (BMI) [Ratio] 32.3 kg/m2 Dr. Xin Cardona Work Phone: [facility] 07-07-2022 14:38-0400 Body temperature 98 [degF] Dr. Xin Cardona Work Phone: [facility] 07-07-2022 14:38-0400 Body weight 93.[address] Xin Cardona Work Phone: [facility] 07-07-2022 14:38-0400 Heart rate 138 /min Dr. Xin Cardona Work Phone: [facility] 07-07-2022 14:38-0400 Respiratory rate 18 /min Dr. Xin Cardona Work Phone: [facility] 07-07-2022 14:38-0400 SaO2% (BldA) [Mass fraction] 99 % Dr. Xin Cardona Work Phone: [facility] 06-24-2022 21:15-0400 Body height 170.[address] Xin Cardona Work Phone: [facility] 06-24-2022 21:15-0400 Body mass index (BMI) [Ratio] 33.3 kg/m2 Dr. Xin Cardona Work Phone: [facility] 06-24-2022 21:15-0400 Body temperature 96.5 [degF] Dr. Xin Cardona Work Phone: [facility] 06-24-2022 21:15-0400 Body weight 96.[address] Xin Cardona Work Phone: [facility] 06-24-2022 21:15-0400 Diastolic blood pressure 107 mm[Hg] Dr. Xin Cardona Work Phone: [facility] 06-24-2022 21:15-0400 Heart rate 86 /min Dr. Xin Cardona Work Phone: [facility] 06-24-2022 21:15-0400 Respiratory rate 18 /min Dr. Xin Cardona Work Phone: [facility] 06-24-2022 21:15-0400 SaO2% (BldA) [Mass fraction] 100 % Dr. Xin Cardona Work Phone: [facility] 06-24-2022 21:15-0400 Systolic blood pressure 183 mm[Hg] Dr. Xin Cardona Work Phone: [facility] 04-19-2022 12:58-0500 Body temperature 97.8 [degF] Dr. Xin Cardona Work Phone: [facility] 04-19-2022 12:58-0500 Diastolic blood pressure 102 mm[Hg] Dr. Xin Cardona Work Phone: [facility] 04-19-2022 12:58-0500 Heart rate 93 /min Dr. Xin Cardona Work Phone: [facility] 04-19-2022 12:58-0500 Respiratory rate 20 /min Dr. Xin Cardona Work Phone: [facility] 04-19-2022 12:58-0500 SaO2% (BldA) [Mass fraction] 99 % Dr. Xin Cardona Work Phone: [facility] 04-19-2022 12:58-0500 Systolic blood pressure 150 mm[Hg] Dr. Xin Cardona Work Phone: [facility] 03-21-2022 15:10-0500 Body height 170.[address] Xin Cardona Work Phone: [facility] 03-21-2022 15:10-0500 Body mass index (BMI) [Ratio] 32.8 kg/m2 Dr. Xin Cardona Work Phone: [facility] 03-21-2022 15:10-0500 Body temperature 98.2 [degF] Dr. Xin Cardona Work Phone: [facility] 03-21-2022 15:10-0500 Body weight 95.[address] Xin Cardona Work Phone: [facility] 03-21-2022 15:10-0500 Diastolic blood pressure 82 mm[Hg] Dr. Xin Cardona Work Phone: [facility] 03-21-2022 15:10-0500 Heart rate 72 /min Dr. Xin Cardona Work Phone: [facility] 03-21-2022 15:10-0500 Respiratory rate 16 /min Dr. Xin Cardona Work Phone: [facility] 03-21-2022 15:10-0500 SaO2% (BldA) [Mass fraction] 98 % Dr. Xin Cardona Work Phone: [facility] 03-21-2022 15:10-0500 Systolic blood pressure 134 mm[Hg] Dr. Xin Cardona Work Phone: [facility] 02-20-2022 23:11-0500 Body height 167.64 cm No Primary Care Physician [facility] Work Phone: 02-20-2022 23:11-0500 Body mass index (BMI) [Ratio] 33.7 kg/m2 No Primary Care Physician [facility] Work Phone: 02-20-2022 23:11-0500 Body temperature 98 [degF] No Primary Care Physician [facility] Work Phone: 02-20-2022 23:11-0500 Body weight 94.8 kg No Primary Care Physician [facility] Work Phone: 02-20-2022 23:11-0500 Diastolic blood pressure 102 mm[Hg] No Primary Care Physician [facility] Work Phone: 02-20-2022 23:11-0500 Heart rate 86 /min No Primary Care Physician [facility] Work Phone: 02-20-2022 23:11-0500 Respiratory rate 16 /min No Primary Care Physician [facility] Work Phone: 02-20-2022 23:11-0500 SaO2% (BldA) [Mass fraction] 100 % No Primary Care Physician [facility] Work Phone: 02-20-2022 23:11-0500 Systolic blood pressure 167 mm[Hg] No Primary Care Physician [facility] Work Phone: 01-22-2022 18:26-0400 Body temperature 98 [degF] No Primary Care Physician [facility] Work Phone: 01-22-2022 18:26-0400 Diastolic blood pressure 78 mm[Hg] No Primary Care Physician [facility] Work Phone: 01-22-2022 18:26-0400 Heart rate 82 /min No Primary Care Physician [facility] Work Phone: 01-22-2022 18:26-0400 Respiratory rate 16 /min No Primary Care Physician [facility] Work Phone: 01-22-2022 18:26-0400 SaO2% (BldA) [Mass fraction] 97 % No Primary Care Physician [facility] Work Phone: 01-22-2022 18:26-0400 Systolic blood pressure 139 mm[Hg] No Primary Care Physician [facility] Work Phone: 01-22-2022 11:34-0400 Body mass index (BMI) [Ratio] 31.7 kg/m2 No Primary Care Physician [facility] Work Phone: 01-22-2022 11:34-0400 Body weight 92 kg No Primary Care Physician [facility] Work Phone: 01-18-2022 09:47-0400 Body mass index (BMI) [Ratio] 33.4 kg/m2 No Primary Care Physician [facility] Work Phone: 01-18-2022 09:47-0400 Body temperature 98 [degF] No Primary Care Physician [facility] Work Phone: 01-18-2022 09:47-0400 Body weight 93.89 kg No Primary Care Physician [facility] Work Phone: 01-18-2022 09:47-0400 Diastolic blood pressure 90 mm[Hg] No Primary Care Physician [facility] Work Phone: 01-18-2022 09:47-0400 Heart rate 83 /min No Primary Care Physician [facility] Work Phone: 01-18-2022 09:47-0400 Respiratory rate 16 /min No Primary Care Physician [facility] Work Phone: 01-18-2022 09:47-0400 SaO2% (BldA) [Mass fraction] 98 % No Primary Care Physician [facility] Work Phone: 01-18-2022 09:47-0400 Systolic blood pressure 140 mm[Hg] No Primary Care Physician [facility] Work Phone: 12-21-2021 09:42-0400 Body mass index (BMI) [Ratio] 32.9 kg/m2 No Primary Care Physician [facility] Work Phone: 12-21-2021 09:42-0400 Body temperature 97.3 [degF] No Primary Care Physician [facility] Work Phone: 12-21-2021 09:42-0400 Body weight 92.53 kg No Primary Care Physician [facility] Work Phone: 12-21-2021 09:42-0400 Diastolic blood pressure 82 mm[Hg] No Primary Care Physician [facility] Work Phone: 12-21-2021 09:42-0400 Heart rate 103 /min No Primary Care Physician [facility] Work Phone: 12-21-2021 09:42-0400 Respiratory rate 18 /min No Primary Care Physician [facility] Work Phone: 12-21-2021 09:42-0400 SaO2% (BldA) [Mass fraction] 98 % No Primary Care Physician [facility] Work Phone: 12-21-2021 09:42-0400 Systolic blood pressure 140 mm[Hg] No Primary Care Physician [facility] Work Phone: 11-16-2021 10:17-0400 Body height 167.64 cm No Primary Care Physician [facility] Work Phone: 11-16-2021 10:17-0400 Body mass index (BMI) [Ratio] 32.8 kg/m2 No Primary Care Physician [facility] Work Phone: 11-16-2021 10:17-0400 Body temperature 98.1 [degF] No Primary Care Physician [facility] Work Phone: 11-16-2021 10:17-0400 Body weight 92.07 kg No Primary Care Physician [facility] Work Phone: 11-16-2021 10:17-0400 Diastolic blood pressure 80 mm[Hg] No Primary Care Physician [facility] Work Phone: 11-16-2021 10:17-0400 Heart rate 87 /min No Primary Care Physician [facility] Work Phone: 11-16-2021 10:17-0400 Respiratory rate 18 /min No Primary Care Physician [facility] Work Phone: 11-16-2021 10:17-0400 SaO2% (BldA) [Mass fraction] 97 % No Primary Care Physician [facility] Work Phone: 11-16-2021 10:17-0400 Systolic blood pressure 136 mm[Hg] No Primary Care Physician [facility] Work Phone: 10-01-2021 20:30-0400 Diastolic blood pressure 80 mm[Hg] No Primary Care Physician [facility] Work Phone: 10-01-2021 20:30-0400 Heart rate 73 /min No Primary Care Physician [facility] Work Phone: 10-01-2021 20:30-0400 Systolic blood pressure 147 mm[Hg] No Primary Care Physician [facility] Work Phone: 10-01-2021 18:14-0400 Respiratory rate 17 /min No Primary Care Physician [facility] Work Phone: 10-01-2021 18:14-0400 SaO2% (BldA) [Mass fraction] 99 % No Primary Care Physician [facility] Work Phone: 10-01-2021 18:05-0400 Body height 167.64 cm No Primary Care Physician [facility] Work Phone: 10-01-2021 18:05-0400 Body mass index (BMI) [Ratio] 32.3 kg/m2 No Primary Care Physician [facility] Work Phone: 10-01-2021 18:05-0400 Body temperature 97.6 [degF] No Primary Care Physician [facility] Work Phone: 10-01-2021 18:05-0400 Body weight 90.71 kg No Primary Care Physician [facility] Work Phone: 08-21-2021 16:07-0400 Body mass index (BMI) [Ratio] 32.8 kg/m2 No Primary Care Physician [facility] Work Phone: 08-21-2021 16:07-0400 Body temperature 98.2 [degF] No Primary Care Physician [facility] Work Phone: 08-21-2021 16:07-0400 Body weight 92.07 kg No Primary Care Physician [facility] Work Phone: 08-21-2021 16:07-0400 Diastolic blood pressure 94 mm[Hg] No Primary Care Physician [facility] Work Phone: 08-21-2021 16:07-0400 Heart rate 82 /min No Primary Care Physician [facility] Work Phone: 08-21-2021 16:07-0400 Respiratory rate 14 /min No Primary Care Physician [facility] Work Phone: 08-21-2021 16:07-0400 SaO2% (BldA) [Mass fraction] 99 % No Primary Care Physician [facility] Work Phone: 08-21-2021 16:07-0400 Systolic blood pressure 162 mm[Hg] No Primary Care Physician [facility] Work Phone: 08-21-2021 16:07-0400 Body height 167.64 cm No Primary Care Physician [facility] Work Phone: 08-21-2021 16:07-0400 Body mass index (BMI) [Ratio] 32.8 kg/m2 No Primary Care Physician [facility] Work Phone: 08-21-2021 16:07-0400 Body temperature 98.2 [degF] No Primary Care Physician [facility] Work Phone: 08-21-2021 16:07-0400 Body weight 92.07 kg No Primary Care Physician [facility] Work Phone: 08-21-2021 16:07-0400 Diastolic blood pressure 94 mm[Hg] No Primary Care Physician [facility] Work Phone: 08-21-2021 16:07-0400 Heart rate 82 /min No Primary Care Physician [facility] Work Phone: 08-21-2021 16:07-0400 Respiratory rate 14 /min No Primary Care Physician [facility] Work Phone: 08-21-2021 16:07-0400 SaO2% (BldA) [Mass fraction] 99 % No Primary Care Physician [facility] Work Phone: 08-21-2021 16:07-0400 Systolic blood pressure 162 mm[Hg] No Primary Care Physician [facility] Work Phone: 08-20-2021 15:27-0400 Body mass index (BMI) [Ratio] 32.9 kg/m2 No Primary Care Physician [facility] Work Phone: 08-20-2021 15:27-0400 Body weight 92.53 kg No Primary Care Physician [facility] Work Phone: 08-20-2021 15:27-0400 Diastolic blood pressure 100 mm[Hg] No Primary Care Physician [facility] Work Phone: 08-20-2021 15:27-0400 Systolic blood pressure 158 mm[Hg] No Primary Care Physician [facility] Work Phone: 08-20-2021 15:27-0400 Body mass index (BMI) [Ratio] 32.9 kg/m2 No Primary Care Physician [facility] Work Phone: 08-20-2021 15:27-0400 Body weight 92.53 kg No Primary Care Physician [facility] Work Phone: 08-20-2021 15:27-0400 Diastolic blood pressure 100 mm[Hg] No Primary Care Physician [facility] Work Phone: 08-20-2021 15:27-0400 Systolic blood pressure 158 mm[Hg] No Primary Care Physician [facility] Work Phone: 08-07-2021 17:40-0400 Body height 167.64 cm No Primary Care Physician [facility] Work Phone: 08-07-2021 17:40-0400 Body mass index (BMI) [Ratio] 32.3 kg/m2 No Primary Care Physician [facility] Work Phone: 08-07-2021 17:40-0400 Body temperature 96.6 [degF] No Primary Care Physician [facility] Work Phone: 08-07-2021 17:40-0400 Body weight 90.71 kg No Primary Care Physician [facility] Work Phone: 08-07-2021 17:40-0400 Diastolic blood pressure 108 mm[Hg] No Primary Care Physician [facility] Work Phone: 08-07-2021 17:40-0400 Heart rate 68 /min No Primary Care Physician [facility] Work Phone: 08-07-2021 17:40-0400 Respiratory rate 18 /min No Primary Care Physician [facility] Work Phone: 08-07-2021 17:40-0400 SaO2% (BldA) [Mass fraction] 98 % No Primary Care Physician [facility] Work Phone: 08-07-2021 17:40-0400 Systolic blood pressure 169 mm[Hg] No Primary Care Physician [facility] Work Phone: 05-24-2021 13:13-0500 Body mass index (BMI) [Ratio] 31.5 kg/m2 No Primary Care Physician [facility] Work Phone: 05-24-2021 13:13-0500 Body weight 91.28 kg No Primary Care Physician [facility] Work Phone: 05-24-2021 13:13-0500 Diastolic blood pressure 70 mm[Hg] No Primary Care Physician [facility] Work Phone: 05-24-2021 13:13-0500 Systolic blood pressure 124 mm[Hg] No Primary Care Physician [facility] Work Phone: 04-11-2021 15:47-0500 Body temperature 98.3 [degF] No Primary Care Physician [facility] Work Phone: 04-11-2021 15:47-0500 Diastolic blood pressure 91 mm[Hg] No Primary Care Physician [facility] Work Phone: 04-11-2021 15:47-0500 Heart rate 76 /min No Primary Care Physician [facility] Work Phone: 04-11-2021 15:47-0500 Respiratory rate 16 /min No Primary Care Physician [facility] Work Phone: 04-11-2021 15:47-0500 SaO2% (BldA) [Mass fraction] 100 % No Primary Care Physician [facility] Work Phone: 04-11-2021 15:47-0500 Systolic blood pressure 133 mm[Hg] No Primary Care Physician [facility] Work Phone: 04-11-2021 14:18-0500 Body mass index (BMI) [Ratio] 32.4 kg/m2 No Primary Care Physician [facility] Work Phone: 04-11-2021 14:18-0500 Body weight 91.17 kg No Primary Care Physician [facility] Work Phone: Encounters Encounter Date Encounter Type Care Provider Facility Start: 12-01-2024 End: 12-01-2024 Patient encounter procedure Alex HOWARD -[facility] Work Phone: Start: 12-01-2024 End: 12-01-[address] Xin Cardona MD Work Phone: -[facility] Start: 11-03-2024 End: 11-03-2024 Patient encounter procedure Alex HOWARD -[facility] Work Phone: Start: 11-03-2024 End: 11-03-[address] Xin Cardona MD Work Phone: -[facility] Start: 08-25-2024 Non-patient / Non-visit Dr. Jan louis MD -[facility] Start: 08-25-2024 End: 08-25-[address] Xin Cardona MD Work Phone: [facility] Work Phone: Start: 08-25-2024 End: 08-25-[address] Neftali Shukla MD -Cardiovascular Services Work Phone: Start: 08-25-2024 End: 08-25-2024 ambulatory Neftali Shukla Facility:[facility] Start: 08-13-2024 End: 08-13-[address] Neftali Shukla MD -[facility] Work Phone: Start: 08-13-2024 End: 08-13-2024 ambulatory Neftali Shukla Facility:[facility] Start: 06-29-2024 End: 06-29-[address] Xin Cardona MD -[facility] Work Phone: Start: 06-29-2024 End: 06-29-2024 ambulatory Xin Cardona Facility:[facility] Start: 06-10-2024 End: 06-10-2024 Patient encounter procedure Anna WORRELL -[facility] Work Phone: Start: 06-10-2024 End: 06-10-2024 ambulatory Anna Betancur NP Facility:[facility] Start: 05-26-[address] Claudio Cardona MD Work Phone: [facility] Start: 05-26-2024 End: 05-26-2024 Patient encounter procedure Alex HOWARD -[facility] Work Phone: Start: 05-26-2024 End: 05-26-2024 Patient encounter status Alex HOWARD [facility] Start: 05-26-2024 End: 05-26-2024 ambulatory Alex HOWARD Facility[facility] Start: 05-10-2024 ambulatory Shirlene Mittal Faci lity:[facility] Start: 05-10-2024 Non-patient / Non-visit Dr. Oly Mittal MD -[facility] Start: 05-10-2024 End: 05-10-[address] Shirlene Mittal MD -[facility] Work Phone: Start: 05-10-2024 End: 05-10-2024 ambulatory Shirlene Mittal Facility:[facility] Start: 05-04-2024 End: 05-04-2024 Patient encounter procedure Anna Betancur IN FLIGHT TECHNICIAN-C -Laboratory Specimen Work Phone: Start: 05-04-2024 End: 05-04-2024 Patient encounter procedure Anna Betancur IN FLIGHT TECHNICIAN-C -[facility] Work Phone: Start: 05-04-2024 End: 05-04-2024 ambulatory Anna Betancur IN FLIGHT TECHNICIAN Facility[facility] Start: 05-04-2024 End: 05-04-2024 ambulatory Anna Bais IN FLIGHT TECHNICIAN Facility:[facility] Start: 05-03-2024 End: 05-03-2024 Emergency department patient visit Dr. Anthony Reich MD -Emergency Department Work Phone: Start: 04-29-2024 ambulatory Annette Simmons Facility :[facility] Start: 04-26-2024 End: 04-30-2024 Evaluation and management of inpatient Xin Cardona Facility:[facility] Start: 04-26-2024 End: 04-26-2024 ambulatory Shirlene Mittal Facility:[facility] Start: 04-24-2024 ambulatory Lillie Garcia cility:[facility] Start: 04-22-2024 End: 04-22-2024 ambulatory Rayshawn Garsia IN FLIGHT TECHNICIAN Facility:[facility] Start: 04-22-2024 End: 04-22-2024 ambulatory Efewongbe Oleghe Facility:[facility] Start: 04-21-2024 End: 04-21-2024 ambulatory Annette Simmons Facility:[facility] Start: 04-19-2024 End: 04-19-2024 ambulatory Efewongbe Oleghe Facility:[facility] Start: 04-19-2024 End: 04-19-2024 ambulatory Efewongbe Oleghe Facility:[facility] Start: 04-15-2024 End: 04-15-2024 ambulatory Annette Simmons Facility:[facility] Start: 04-15-2024 End: 04-15-2024 ambulatory Annette Simmons Facility:[facility] Start: 04-13-2024 End: 04-13-2024 ambulatory Rayshawn Garsia IN FLIGHT TECHNICIAN Facility:[facility] Start: 04-12-2024 End: 04-12-2024 ambulatory Lillie Leonard Facility:[facility] Start: 04-08-2024 End: 04-08-2024 ambulatory Anna Betancur NP Facility:[facility] Start: 04-05-2024 End: 04-05-2024 ambulatory Annette Simmons Facility:[facility] Start: 04-04-2024 ambulatory Efewongbe Oleghe Facili ty:[facility] Start: 04-03-2024 End: 04-03-2024 ambulatory Efewongbe Oleghe Facility:[facility] Start: 04-02-2024 ambulatory Efewongbe Oleghe Facili ty:[facility] Start: 04-02-2024 End: 04-02-2024 ambulatory Efewongbe Oleghe Facility:[facility] Start: 03-30-2024 End: 03-30-2024 ambulatory Anna Betancur NP Facility[facility] Start: 03-24-2024 End: 03-24-2024 ambulatory Annette Simmons Facility:[facility] Start: 03-22-2024 End: 04-13-2024 ambulatory Lillie Leonard Facility:[facility] Start: 03-19-2024 End: 03-19-2024 ambulatory Lillie Leonard Facility[facility] Start: 03-08-2024 End: 03-13-2024 ambulatory Lillie Leonard Facility:[facility] Start: 03-01-2024 End: 03-01-2024 ambulatory Kleber HOWARD Facility:[facility] Start: 02-26-2024 End: 02-26-2024 ambulatory Lillie Vargas Jazmine Facility:[facility] Start: 02-26-2024 End: 02-26-2024 ambulatory Lillie Vargas Jazmine Facility:[facility] Start: 02-04-2024 End: 02-04-2024 ambulatory Anna Betancur NP Facility[facility] Start: 01-15-2024 End: 01-15-2024 ambulatory Annette Simmons Facility:[facility] Start: 01-07-2024 End: 01-07-2024 ambulatory Kleber HOWARD Facility:[facility] Start: 12-31-2023 End: 12-31-2023 ambulatory Lillie Pyleclaudio Lucero Facility:[facility] Start: 12-10-2023 End: 12-10-2023 ambulatory Lillie Pyleclaudio Lucero Facility:[facility] Start: 08-14-2023 End: 08-14-[address] Xin Cardona Work Phone: [facility] Work Phone: Start: 08-14-2023 End: 08-14-[address] Xin Cardona Work Phone: [facility]-Laboratory Work Phone: Start: 08-04-2023 ambulatory [facility] Start: 07-31-2023 End: 07-31-[address] Xin Cardona Work Phone: [facility] Work Phone: Start: 07-31-2023 End: 07-31-[address] Xin Cardona Work Phone: [facility] Work Phone: Start: 07-25-2023 End: 07-25-2023 ambulatory [facility] Work Phone: Start: 07-25-2023 End: 07-25-2023 Patient encounter procedure [facility]-Cardiovascul ar Services Work Phone: Start: 07-25-2023 End: 07-25-2023 Emergency department patient visit [facility]-Emergency Department Work Phone: Start: 06-26-2023 End: 06-26-2023 Encounter for other preprocedural examination [facility] Ambulatory Start: 06-26-2023 End: 06-26-2023 ambulatory [facility] Ambulatory Start: 06-26-2023 End: 06-26-2023 Office outpatient visit 15 minutes Kelvin Jay MD Work Phone: [facility] Comment on above: Preoperative testing ; Perforation of right tympanic membrane; Cholesteatoma of right ear; Conductive hearing loss, bilateral Start: 06-26-2023 End: 06-26-2023 Patient encounter status Kelvin Jay MD Work Phone: [facility] Start: 02-28-2023 End: 02-28-[address] Xin Cardona Work Phone: [facility] Work Phone: Start: 02-28-2023 End: 02-28-[address] Xin Cardona Work Phone: [facility]-Laboratory, Specimen Work Phone: Start: 02-28-2023 End: 02-28-[address] Xin Cardona Work Phone: [facility] Work Phone: Start: 02-06-2023 End: 02-06-2023 ambulatory [facility] Ambulatory Start: 02-06-2023 End: 02-06-2023 Office outpatient visit 15 minutes Kelvin Jay MD Work Phone: [facility] Comment on above: Cholesteatoma of rig ht ear (Primary Dx); Right chronic otitis media Start: 01-21-2023 End: 01-21-[address] Xin Cardona Work Phone: [facility] Work Phone: Start: 12-19-2022 Chart Update No PCP None [facility] Work Phone: Start: 12-17-2022 End: 12-17-[address] Xin Cardona Work Phone: [facility] Work Phone: Start: 12-05-2022 Postop follow up vis it related to original px No PCP None [facility] [place] Work Phone: Start: 12-05-[address] Kelvin Jay Facility:[id number] Start: 11-06-2022 End: 11-06-[address] Kelvin Jay Facility:[facility] [place] [facility] Start: 09-25-2022 End: 09-25-[address] Xin Cardona Work Phone: [facility] Work Phone: Start: 09-25-2022 End: 09-25-[address] Xin Cardona Work Phone: [facility]-Laboratory, Specimen Start: 09-05-[address] Shaheed Kingston Facility:[id number] Start: 09-05-2022 Encounter for examination of ears and hearing with other abnormal findings Joseline Erin Soliz [facility] Start: 08-02-2022 End: 08-02-[address] Xin Cardona Work Phone: [facility] Internal Medicine Start: 07-31-2022 End: 07-31-[address] Xin Cardona Work Phone: [facility] Work Phone: Start: 07-31-2022 End: 07-31-[address] Xin Cardona Work Phone: [facility]-Laboratory, Specimen Start: 07-31-2022 End: 07-31-[address] Xin Cardona Work Phone: [facility] Start: 07-07-2022 End: 07-07-2022 Emergency department [facility] Start: 07-01-2022 End: 07-01-[address] Xin Cardona Work Phone: [facility] Start: 06-24-2022 End: 06-24-2022 Emergency department patient visit Dr. Xin Cardona Work Phone: [facility]-Emergency Department Start: 06-18-2022 End: 06-18-[address] Xin Cardona Work Phone: [facility] Work Phone: Start: 06-18-2022 End: 06-18-[address] Xin Cardona Work Phone: [facility] Start: 04-19-2022 End: 04-19-[address] Xin Cardona Work Phone: [facility] Start: 03-21-2022 End: 03-21-[address] Xin Cardona Work Phone: [facility] Start: 02-20-2022 End: 02-21-2022 Emergency department patient visit No [facility] Start: 01-22-2022 End: 01-22-2022 Admission to same day surgery center No Primary Care Physician [facility]-Surgical Day Care Start: 01-18-2022 End: 01-18-2022 Patient encounter procedure No Primary Care Physician [facility] Internal Medicine Start: 12-21-2021 End: 12-21-2021 Patient encounter procedure No Primary Care Physician [facility] Internal Medicine Start: 11-22-2021 End: 11-22-2021 Patient encounter procedure No Primary Care Physician [facility] Start: 11-16-2021 Registered Referred No Primary Care Physician [facility] Start: 11-16-2021 End: 11-16-2021 Patient encounter procedure No Primary Care Physician [facility] Internal Medicine Start: 10-01-2021 End: 10-01-2021 Emergency department patient visit No [facility] Start: 08-21-2021 End: 08-21-2021 Patient encounter procedure No Primary Care Physician [facility] Internal Medicine Start: 08-20-2021 End: 08-20-2021 Patient encounter procedure No Primary Care Physician [facility] Women's Care Start: 08-07-2021 End: 08-07-2021 Emergency department patient visit No Primary Care Physician [facility]-Emergency Department Start: 06-01-2021 End: 06-01-2021 Patient encounter procedure No Primary Care Physician [facility] Start: 05-24-2021 End: 05-24-2021 Patient encounter procedure No Primary Care Physician [facility] Start: 04-11-2021 End: 04-11-2021 Patient encounter procedure No Primary Care Physician [facility]-Medical Surgical 3 Outp Start: 04-09-2021 End: 04-09-2021 Patient encounter procedure No Primary Care Physician [facility] Start: 09-30-2019 End: 09-30-2019 Patient encounter procedure CANDACE TERRY [facility] Ambulatory Start: 09-30-2019 End: 09-30-2019 Office outpatient new 20 minutes Candace Terry Work Phone: [facility] Comment on above: Tendinitis of wrist (Primary Dx) Start: 08-10-2018 End: 08-10-2018 Emergency department patient visit Kleber Fernandesn Facility:[place] Start: 05-04-2018 End: 05-05-2018 Patient encounter procedure Yi Lipscomb Facility:[place] Start: 04-23-2018 End: 04-23-2018 [facility] Start: 03-04-2018 End: 03-05-2018 Patient encounter procedure Nilton Ervin Facility:[place] Start: 07-22-2017 End: 07-22-2017 Ambulatory JOAN BARBY [facility] Patient encounter status No PCP None - Otolaryngology-[facility] naomi Work Phone: Procedures Date Procedure Procedure Detail Performing Clinician Start: 08-13-2024 Evaluation of diagno stic study results Dr. Xin Cardona MD Work Phone: Start: 05-10-[address] Xin Cardona MD Work Phone: Start: 05-10-2024 Measurement of renal function Dr. Xin Cardona MD Work Phone: Comment on above: GFR Calc Start: 05-03-2024 CT angiography of ch est with contrast Dr. Xin Cardona MD Work Phone: Start: 05-03-[address] Xin Cardona MD Work Phone: Start: 05-03-2024 Measurement of renal function Dr. Xin Cardona MD Work Phone: Comment on above: GFR Calc Start: 06-26-2023 CASE REQUEST OPERATING ROOM KELVIN JAY Start: 02-28-2023 Bacterial nucleic ac id assay Dr. Xin Cardona Work Phone: Start: 02-28-2023 Chlamydia trachomatis (PCR) Dr. Xin Cardona Work Phone: Start: 02-06-2023 Follow-up visit Follow-up KELVIN JAY Start: 06-18-2022 CT of head without contrast Dr. Xin Cardona Work Phone: Start: 11-22-2021 CT of head without contrast No Primary Care Physician Start: 10-01-2021 CT angiography of ch est with contrast No Primary Care Physician Start: 10-01-2021 Plain chest X-ray No Pr imary Care Physician Start: 08-07-2021 Radiography of ankle No Primary Care Physician Start: 06-01-2021 Pelvic echography No Pr imary Care Physician Start: 06-01-2021 Transvaginal echography No Primary Care Physician Aerobic microbial culture Dr Yassine Cardona Work Phone: Investigation of transfusion reaction Dr. Xin Cardona Work Phone: Plan of Treatment Date Care Activity Detail Author Start: 2050 Zoster Vaccines (1 of 2) Zoster Vaccines (1 of 2) [facility] Start: 05-10-2024 Catheterization of vein [facility] Start: 05-10-2024 [facility] Start: 05-10-2024 Patient discharge [facility] Start: 05-03-2024 End: 05-03-2024 [facility] Start: 05-03-2024 [facility] Start: 11-04-2023 DTaP/Tdap/Td Vaccines (7 - Td or Tdap) DTaP/Tdap/Td Vaccines (7 - Td or Tdap) [facility] Start: 11-04-2023 Tetanus vaccination Tetanus: Every 10yrs [facility] Start: 09-15-2023 End: 09-15-2023 Patient encounter procedure 09/15/2023 2:45 PM EDT Office Visit [facility] [address] [place] [address] Kelvin Jay MD [address] [place] [address] [facility] Start: 08-26-2023 Subsequent hospital visit by physician 08/26/[address] [facility] [address] [place] [id number] Kelvin Jay MD [address] [facility] [address] [place] [address] [facility] OR Start: 07-25-2023 Ambulatory ECG [facility] Start: 06-26-2023 End: 06-26-2023 Patient encounter procedure 06/26/2023 2:45 PM EDT Office Visit [facility] [address] [place] [id number] Kelvin Jay MD [address] [facility] [address] [place] [address] [facility] Start: 02-06-2023 FUV, Provider: Kelvin Jay, Status: Pen, Time: 2:45 PM FUV, Provider: Kelvin Jay, Status: Pen, Time: 2:45 PM [facility]bf[facility]lpumqt[facility] [place] Work Phone: Start: 12-13-2022 COVID-19 Vaccine ( season) COVID-19 Vaccine ( season) [facility] Start: 07-31-2022 Liquid based cervical cytology screening [facility] Start: 07-07-2022 [facility] Start: 01-22-2022 Anesthesia external middle & inner ear w/bx nos ANESTH EAR SURGERY [facility] Work Phone: Start: 01-22-2022 Transmastoid antrotomy MASTOIDECTOMY [facility] Work Phone: Start: 01-22-2022 Patient discharge [facility] Work Phone: Start: 12-21-2021 Patient referral [facility] Work Phone: Start: 2021 Screening for malignant neoplasm of cervix [facility] Start: 10-01-2021 Blood chemistry [facility] Work Phone: Start: 10-01-2021 End: 10-01-2021 [facility] Work Phone: Start: 05-30-2021 COVID-19 Vaccine (3 - Pfizer series) COVID-19 Vaccine (3 - Pfizer series) [facility] Start: 12-14-2019 Influenza vaccination given Sequential Influenza Vaccine (Season Ended) [facility] Start: 2018 Hepatitis C screening Hepatitis C Screening [facility] Start: 09-01-2018 HPV Vaccines (3 - 3-dose series) HPV Vaccines (3 - 3-dose series) [facility] Start: 10-31-2003 History and physical examination, annual for health maintenance Wellness Visit [facility] Start: 2000 Depression screening using PHQ-9 (Patient Health Questionnaire 9) score Depression Screening (PHQ9) [facility] Start: 2000 HIV screening HIV Screening [facility] Start: 2000 Lipid panel Lipid Panel [facility] Start: 2000 Screening for Chlamydia trachomatis Chlamydia Screening [facility] Start: 2000 Yearly Adult Physical Yearly Adult Physical [facility] Anaerobic microbial culture Anaerobic Cul ture [facility] Blood chemistry [facility] Work Phone: CBC W Auto Different ial panel - Blood [facility] Comprehensive metabo lic 2000 panel - Serum or Plasma [facility] Electrocardiographic procedure [facility] Work Phone: Glucose [Mass/volume ] in Serum or Plasma --2 hours post dose glucose [facility] Hemoglobin A1c/Hemoglobin.total in Blood [facility] Patient Education [facility] Work Phone: Patient referral [facility] Work Phone: T4 free measurement [facility] Thyroid stimulating hormone measurement [facility] Tmpp mastoidect ntc/ rcnsted canal wall ocr Ossiculoplasty Cholesteatoma of right ear Conductive hearing loss, bilateral [facility] Work Phone: Triiodothyronine, fr ee measurement [facility] Immunizations Immunization Date Immunization Notes Care Provider Fa cility 03-19-2024 tetanus toxoid, redu misty diphtheria toxoid, and acellular pertussis vaccine, adsorbed Dr. Xin Cardona MD Work Phone: [facility] 02-11-2024 influenza, seasonal, injectable, preservative free Dr. Xin Cardona MD Work Phone: [facility] 01-30-2023 influenza, injectabl e, quadrivalent, preservative free Kelvin Jay MD Work Phone: [facility] Work Phone: 02-28-2022 influenza, injectabl e, quadrivalent, preservative free Dr. Xin Cardona Work Phone: [facility] 02-28-2022 influenza, seasonal, injectable Dr. Xin Cardona Work Phone: [facility] 04-04-2021 Covid (Pfizer) No Primary Ca re Physician [facility] 03-14-2021 Covid (Pfizer) No Primary Ca re Physician [facility] 01-09-2021 influenza, injectabl e, quadrivalent, preservative free Dr. Xin Cardona Work Phone: [facility] 01-09-2021 influenza, seasonal, injectable No Primary Care Physician [facility] 01-09-2021 influenza, seasonal, injectable, preservative free No PCP None ZT-Dsdbmtliymamdf-[facility] [place] Work Phone: 03-06-2020 influenza, injectabl e, quadrivalent, preservative free Dr. Xin Cardona Work Phone: [facility] 03-06-2020 influenza, seasonal, injectable No Primary Care Physician [facility] 03-06-2020 influenza, seasonal, injectable, preservative free No PCP None CD-Wgufbaqsivblyd-[facility] [place] Work Phone: 12-29-2019 hepatitis B vaccine, adult dosage No Primary Care Physician [facility] 05-04-2018 Human Papillomavirus 9-valent vaccine No PCP None [facility] Work Phone: 05-04-2018 measles, mumps and rubella virus vaccine No PCP None [facility] Work Phone: 05-04-2018 varicella virus vaccine No PCP None [facility] Work Phone: 05-04-2018 HPV, unspecified formulation Kelvin Jay MD Work Phone: [facility] Work Phone: 03-02-2018 Human Papillomavirus 9-valent vaccine No PCP None DV-Xeksvzpniuoahe-E [place] Work Phone: 03-02-2018 meningococcal B vacc ine, fully recombinant No PCP None [facility] Work Phone: 03-02-2018 meningococcal polysaccharide (groups A, C, Y and W-135) diphtheria toxoid conjugate vaccine (MCV4P) No PCP None [facility] Work Phone: 06-19-2015 hepatitis A vaccine, pediatric/adolescent dosage, 2 dose schedule No PCP None [facility] Work Phone: 03-21-2014 influenza, injectabl e, quadrivalent, preservative free No PCP None [facility] Work Phone: 11-03-2013 hepatitis A vaccine, pediatric/adolescent dosage, 2 dose schedule No PCP None [facility] Work Phone: 11-03-2013 meningococcal polysaccharide (groups A, C, Y and W-135) diphtheria toxoid conjugate vaccine (MCV4P) No PCP None [facility] Work Phone: 11-03-2013 tetanus toxoid, redu misty diphtheria toxoid, and acellular pertussis vaccine, adsorbed No PCP None MY-Gtsueeraxynilk-[facility] [place] Work Phone: 11-14-2005 diphtheria, tetanus toxoids and acellular pertussis vaccine No PCP None [facility] Work Phone: 11-14-2005 measles, mumps and rubella virus vaccine No PCP None [facility] Work Phone: 11-14-2005 poliovirus vaccine, inactivated No PCP None [facility] Work Phone: 11-14-2005 varicella virus vaccine No PCP None [facility] Work Phone: 02-03-2004 diphtheria, tetanus toxoids and acellular pertussis vaccine, unspecified formulation No PCP None [facility] Work Phone: 02-03-2004 pneumococcal conjuga te vaccine, 7 valent No PCP None [facility] Work Phone: 03-23-2002 haemophilus influenz ae type b vaccine, PRP-T conjugate No PCP None [facility] Work Phone: 11-01-2001 haemophilus influenz ae type b vaccine, PRP-T conjugate No PCP None [facility] Work Phone: 10-21-2001 haemophilus influenz ae type b vaccine, conjugate unspecified formulation No PCP None [facility] Work Phone: 10-21-2001 hepatitis B vaccine, pediatric or pediatric/adolescent dosage No PCP None [facility] Work Phone: 10-21-2001 measles, mumps and rubella virus vaccine No PCP None [facility] Work Phone: 10-21-2001 pneumococcal conjuga te vaccine, 7 valent No PCP None [facility] [place] Work Phone: 10-21-2001 poliovirus vaccine, unspecified formulation No PCP None [facility]: 10-21-2001 varicella virus vaccine No PCP None [facility] Work Phone: 06-10-2001 diphtheria, tetanus toxoids and acellular pertussis vaccine, unspecified formulation No PCP None [facility] Work Phone: 06-10-2001 pneumococcal conjuga te vaccine, 7 valent No PCP None [facility] Work Phone: 03-23-2001 diphtheria, tetanus toxoids and acellular pertussis vaccine, unspecified formulation No PCP None [facility] Work Phone: 03-23-2001 haemophilus influenz ae type b vaccine, conjugate unspecified formulation No PCP None [facility] Work Phone: 03-23-2001 hepatitis B vaccine, pediatric or pediatric/adolescent dosage No PCP None [facility] Work Phone: 03-23-2001 poliovirus vaccine, unspecified formulation No PCP None [facility] Work Phone: 01-23-2001 pneumococcal conjuga te vaccine, 7 valent No PCP None [facility] Work Phone: 01-05-2001 diphtheria, tetanus toxoids and acellular pertussis vaccine, unspecified formulation No PCP None [facility]: 01-05-2001 haemophilus influenz ae type b vaccine, conjugate unspecified formulation No PCP None [facility] Work Phone: 01-05-2001 hepatitis B vaccine, pediatric or pediatric/adolescent dosage No PCP None [facility]Csmkoaxrtkykgg-R [facility] Work Phone: 01-05-2001 poliovirus vaccine, unspecified formulation No PCP None [facility] y[facility]T [facility] Work Phone: 2000 hepatitis B vaccine, pediatric or pediatric/adolescent dosage No PCP None TP-Avyqocpuaummyx-A [facility] Work Phone: Payers Date Payer Category Payer Self-pay [id number] 2022 Private Health Insurance [employer] [id number] 2022-Present Dilcia Camejo [id number] [place] [address] [id number] 2022 Unknown [id number] 2018 Unknown 2016 Medicaid [facility] xxxxxxxxxxx 2016-Present [id number] 2016 Unknown [id number] 2000 Unknown [id number] 2.16.840.1.640676.3.579.2 .903 2000 Unknown [id number] 2.16.840.1.073460.3.579.2 .356 2000 Unknown [id number] 2.16.840.1.392983.3.579.2 .356 2000 Unknown [id number] 2.16.840.1.626587.3.579.2 .356 2000 Unknown [id number] 2.16.840.1.586932.3.579.2 .356 2000 Unknown [id number] 2.840.1.746546.3.579.2 .124 2000 Unknown [id number] 2.840.1.149102.3.579.2 .1243 2000 Unknown [id number] 2.840.1.790335.3.579.2 .1244 2000 Unknown [id number] 2.840.1.070360.3.579.2 .1244 1971 Unknown [id number] .840.1.507446.3.579.2 .1971 Unknown [id number] .840.1.776287.3.579.2 .1971 Unknown [id number] .1.493568.3.579.2 . Unknown [id number] 840.1.070198.3.579.2 .479 Medicaid [facility] 1 [id number] Medicaid [id number] Unknown [id number] Unknown [id number] Unknown [facility] [id number] Unknown [id number] 05.30.830.1.296335.3.579.2 .462 Unknown [id number] 840.1.514210.3.579.2 .462 Unknown [id number] 840.1.790463.3.579.2 .462 Unknown [id number] .1.669953.3.579.2 .462 Unknown [id number] 2.16.840.1.274136.3.579.2 .462 Unknown [id number] 2.16.840.1.468103.3.579.2 .462 Unknown [id number] 2.16.840.1.936663.3.579.2 .462 Unknown [id number] 2.16.840.1.401211.3.579.2 .462 Unknown [id number] 2.16.840.1.927220.3.579.2 .462 Unknown [id number] 2.16.840.1.925588.3.579.2 .462 Unknown [id number] 2.16.840.1.820422.3.579.2 .462 Unknown [id number] 2.16.840.1.346576.3.579.2 .462 Unknown [id number] 2.16.840.1.146760.3.579.2 .462 Unknown [id number] 2.16.840.1.499729.3.579.2 .462 Unknown [id number] 2.16.840.1.218126.3.579.2 .462 Unknown [id number] 2.16.840.1.122279.3.579.2 .462 Unknown [id number] 2.16.840.1.432672.3.579.2 .462 Unknown [id number] 2.16.840.1.039918.3.579.2 .462 Unknown [id number] 2.16.840.1.156553.3.579.2 .462 Unknown [id number] 2.16.840.1.979692.3.579.2 .462 Unknown [id number] 2.16.840.1.232756.3.579.2 .462 Unknown [id number] 2.16.840.1.436140.3.579.2 .462 Unknown [id number] 2.16.840.1.216415.3.579.2 .462 Unknown [id number] 2.16.840.1.151325.3.579.2 .462 Unknown [id number] 2.16.840.1.435720.3.579.2 .462 Unknown [id number] 2.16.840.1.787320.3.579.2 .462 Unknown [id number] 2.16.840.1.568455.3.579.2 .462 Unknown [id number] 2.16.840.1.093745.3.579.2 .462 Unknown [id number] 2.16.840.1.152259.3.579.2 .462 Unknown [id number] 2.16.840.1.898737.3.579.2 .462 Unknown [id number] 2.16.840.1.013894.3.579.2 .462 Unknown [id number] 2.16.840.1.764815.3.579.2 .462 Unknown [id number] 2.16.840.1.910932.3.579.2 .462 Unknown [id number] 2.16.840.1.285194.3.579.2 .462 Unknown [id number] 2.16.840.1.784004.3.579.2 .462 Unknown [id number] 2.16.840.1.680664.3.579.2 .462 Unknown [id number] 2.16.840.1.779617.3.579.2 .462 Unknown [id number] 2.16.840.1.489992.3.579.2 .462 Unknown [id number] 2.16.840.1.708558.3.579.2 .462 Unknown [id number] 2.16.840.1.618775.3.579.2 .462 Unknown [id number] 2.16.840.1.751553.3.579.2 .462 Unknown [id number] 2.16.840.1.645704.3.579.2 .462 Unknown [id number] 2.16.840.1.751773.3.579.2 .462 Unknown [id number] 2.16.840.1.706317.3.579.2 .462 Unknown [id number] 2.16.840.1.326923.3.579.2 .462 Unknown [id number] 2.16.840.1.409439.3.579.2 .462 Unknown [id number] 2.16.840.1.043213.3.579.2 .462 Unknown [id number] 2.16.840.1.890381.3.579.2 .462 Unknown [id number] 2.16.840.1.597818.3.579.2 .462 Unknown [id number] 2.16840.1.260961.3.579.2 .462 Unknown [id number] 2.16.840.1.991559.3.579.2 .462 Unknown [id number] 2.16.840.1.919103.3.579.2 .462 Unknown [id number] 2.16840.1.791776.3.579.2 .462 Unknown [id number] 2.16840.1.229395.3.579.2 .462 Unknown [id number] 2.16840.1.950763.3.579.2 .462 Unknown [id number] 2.16840.1.006275.3.579.2 .462 Unknown [id number] 2.16840.1.056199.3.579.2 .462 Social History Date Type Detail Facility Start: 10-03-2019 Tobacco smoking status MEIS Current every day smoker [facility] Start: 10-03-2019 Alcohol intake Ex-drinker (finding) [facility] Start: 2000 Sex Assigned At Not on file [facility] Start: 01-27-2023 End: 03-14-2024 Exposure to SARS-CoV-2 (event) Not sure [facility] Start: 08-07-2021 End: 07-25-2023 Tobacco smoking status NHIS Unknown if ever smoked [facility] Start: 2000 Sex Assigned At Female [facility] Start: 02-06-2023 Tobacco smoking status NHIS Never smoked tobacco [facility] Work Phone: Start: 02-06-2023 Tobacco use and exposure Smokeless tobacco non-user [facility] Work Phone: Start: 02-06-2023 End: 06-26-2023 Alcohol intake Lifetime non-drinker (finding) [facility] Work Phone: Start: 02-06-2023 End: 06-26-2023 History of Social function [facility] Work Phone: Start: 02-06-2023 End: 06-26-2023 Tobacco use panel [facility] Work Phone: Start: 05-03-2024 Tobacco smoking status NHIS Ex-smoker (finding) [facility] NEGATED: Highlighted row [facility] Medical Equipment Procedure Code Equipment Code Equipment Origin al Text Equipment Identifier Dates Blood Sugar Diagnostic (Blood Glucose Test) strip Start: 03-09-2024 End: 05-10-2024 Lancets (Droplet Lancets) 30 gauge misc Start: 03-09-2024 End: 05-10-2024 Blood Sugar Diagnostic (Blood Glucose Test) strip Start: 03-09-2024 End: 05-10-2024 Lancets (Droplet Lancets) 30 gauge misc Start: 03-09-2024 End: 05-10-2024 Blood Sugar Diagnostic (Blood Glucose Test) strip Start: 03-09-2024 End: 05-10-2024 Lancets (Droplet Lancets) 30 gauge misc Start: 03-09-2024 End: 05-10-2024 Goals Date Patient Goal Desired Activity /State Mental Status Date Assessment Result Facility 05-10-2024 Cognitive function Appropriate;Cooperativ e [facility] Work Phone: 01-22-2022 Cognitive function Level Of Cons ciousness Awake;Alert;Appropriate [facility] Work Phone: 01-22-2022 Cognitive function Patient Roldan norman Person;Place;Time [facility] Work Phone: 10-01-2021 Cognitive function Voice/Name [facility] Work Phone: 04-11-2021 Cognitive function Voice/Name [facility] Work Phone: Clinical Notes 03-13-2021 to 08-13-2024 Note Date & Type Note Facility 08-13-2024 Evaluation note Diagnosis Onset Date Resolution History of palpitations chronic M 2024 10:50am Hypertension chronic August 13 10:50am [facility] Work Phone: 1(395) 906-841505-02-2025 Evaluation note* Diagnosis Onset Date Resolution Status Admit Date History of palpitations chronic M 2024 10:50am Hypertension chronic August 13 10:50am Anxiety acute November 03 8:43am Inner ear dysfunction acute Oct 8:43am [facility] Work Phone: 1(869) 103-662901-21-2025 Evaluation note* Diagnosis Onset Date Resolution Status Admit Date Pre-eclampsia added to pre-existing hypertension resolved 2024 1:16pm Chronic hypertension inactive 2024 1:16pm Pre-eclampsia added to pre-existing hypertension resolved 2024 12:51pm Anxiety acute May 26, 2024 11:20am Hyperlipidemia acute May 152024 11:20am Hypertension chronic May 11:20am Routine adult health maintenance resolved May 26 11:20am History of gestational diabetes acute June 10 10:40am Hypertension chronic May 10:40am Routine Follow-Up noneact [place] June 10, 2024 10:40am Hypertension chronic June 29, 2024 12:59pm History of palpitations chronic M 2024 10:50am Hypertension chronic August 13 10:50am [facility] Work Phone: 1(692) 705-254201-17-2025 [facility]03-14-2024 History of Present illness Narrative* Kelvin Jay MD - 06/26/2023 2:45 PM EDT History of present illness: Pastora Dobbs is a 22 y.o. female presenting today for follow-up. She reports she has been experiencing a sharp pain located at the mastoid area which describes to last for a second. RECALL: 02/06/2023 Pastora Dobbs is a 22 y.o. female presenting today for her second postoperative visit. She complains of intermittent dizziness when she moves her head quickly. Also this occurs when she is coughing. Recall: 12/05/2022 The patient is presenting for their first post-op visit s/p right intact canal wall revision tympanomastoidectomy with removal of cholesteatoma without ossiculoplasty. This surgery was performed on 11/06/2022. She took ibuprofen for pain because Tramadol did not work. RECALL 09/05/2022: This is the initial visit for this patient who is referred for evaluation of right chronic otitis media and possible right ear cholesteatoma. When asked about ear pain, hearing loss, discharge from ear, tinnitus, dizziness or vertigo, the patient admits to pain, hearing loss, some discharge, vertigo and balance issues. When asked about a significant past otological history including history of prior ear surgery, noise exposure, exposure to ototoxic drugs or agents, and/or family history of hearing loss, the patientadmits to prior ear surgery. She underwent a canal wall up tympanomastoidectomy with Dr. Kingston last year. There appears to be residual cholesteatoma based on the recent HRCT. Today her hearing feels okay. The patient's current medications, active allergies and list of medical problems were reviewed in the EHR and confirmed electronically there are as follows; Allergies: No Known Allergies Current list of medications: Current Outpatient Medications Medication Sig Dispense Refill acetaminophen (Tylenol) 500 mg tablet TAKE 2 TABLETS BY MOUTH EVERY 8 HOURS 90 tablet 0 adapalene (Differin) 0.3 % gel cephalexin (Keflex) 500 mg capsule TAKE 1 CAPSULE BY MOUTH TWO TIMES A DAY 14 capsule 0 ciprofloxacin-dexamethasone (CiproDEX) otic suspension INSTILL 4 DROPS IN THE RIGHT EAR TWO TIMES ADAY, START 11/12/22 7.5 mL 1 clindamycin (Cleocin T) 1 % gel sennosides (Senokot) 8.6 mg tablet TAKE 1 TABLET BY MOUTH AT BEDTIME 10 tablet 0 sertraline (Zoloft) 50 mg tablet Take by mouth. spironolactone (Aldactone) 25 mg tablet triamterene-hydrochlorothiazid (Maxzide-25) 37.5-25 mg tablet Take by mouth. No current facility-administered medications for this visit. Problem list: Patient Active Problem List Diagnosis Cholesteatoma of right ear Physical Examination: CONSTITUTIONAL: No acute distress VOICE: No hoarseness or other abnormality RESPIRATION: Breathing comfortably, no stridor CV: No clubbing/cyanosis/edema in hands EYES: EOM intact, sclera clear NEURO: Alert and oriented times 3, Cranial nerves II-XII grossly intact and symmetric bilaterally HEAD AND FACE: Symmetric facial features, no masses or lesions RIGHT EAR: Graft is well healed, cartilage in place, no visible cholesteatoma. LEFT EAR: Normal external ear and post auricular area, no visible lesions, external auditory canal patent, tympanic membrane intact, no retraction, no signs of mass, effusion, or infection within themiddle ear NOSE: Anterior rhinoscopy clear, no significant external deformity. ORAL CAVITY/OROPHARYNX/LIPS: normal lining, mobile tongue. PHARYNGEAL YATES: Moist mucosal lining, good palatal elevation NECK/LYMPH: No LAD, no thyroid masses, trachea midline SKIN: Neck and facial skin is without scar or injury PSYCH: Alert and oriented with appropriate mood and affect Diagnostic testing: Audiometry: Audiometry testing done on 06/26/23 reveals: On the right: moderate right sided conductive hearing loss I personally reviewed the available patient's external record and independently reviewed their audiometric testing [and] radiographic imaging through the appropriate viewing software as detailed in my note and agree with the detailed report. Impression: Right chronic otitis media with cholesteatoma Right conductive hearing loss Recommendation: We will proceed to schedule the second look procedure which is right revision tympanomastoidectomy with ossiculoplasty. I discussed with the patient the complexity of my medical decision making including the treatment and testing rational, indications of their elective procedure and possible adverse effects and/or complications. Based on the provided documentation and my professional assessment of this patient's [acute condition/acute exacerbation of their chronic condition/newly diagnosed condition/progression oftheir condition/complicated course of their medical condition], the complexity of evaluation and treatment is low. This note was created using speech recognition assistant teaching professor software. Despite proofreading, several typographical errors might be present that might affect the meaning of the content. Please call with any questions. Scribe Attestation By signing my name below, IChiara Tierra, [employer] attest that this documentation has been prepared under the direction and in the presence of Kelvin Jay MD. documented in this [facility] Work Phone: 1(859) 937-675010-26-2023 History of Present illness Narrative* Kelvin Jay MD - 02/06/2023 2:45 PM EDT History of present illness: Pastora Dobbs is a 22 y.o. female presenting today for second postoperative visit. She complains ofintermittent dizziness when she moves her head quickly. Also this occurs when she is coughing. E/M of The patient's current medications, active allergies and list of medical problems were reviewed in the EHR and confirmed electronically there are as follows; Allergies: No Known Allergies Current list of medications: Current Outpatient Medications Medication Sig Dispense Refill acetaminophen (Tylenol) 500 mg tablet TAKE 2 TABLETS BY MOUTH EVERY 8 HOURS 90 tablet 0 adapalene (Differin) 0.3 % gel cephalexin (Keflex) 500 mg capsule TAKE 1 CAPSULE BY MOUTH TWO TIMES A DAY 14 capsule 0 ciprofloxacin-dexamethasone (CiproDEX) otic suspension INSTILL 4 DROPS IN THE RIGHT EAR TWO TIMES ADAY, START 11/12/22 7.5 mL 1 clindamycin (Cleocin T) 1 % gel sennosides (Senokot) 8.6 mg tablet TAKE 1 TABLET BY MOUTH AT BEDTIME 10 tablet 0 sertraline (Zoloft) 50 mg tablet Take by mouth. spironolactone (Aldactone) 25 mg tablet traMADol (Ultram) 50 mg tablet TAKE 1 TABLET BY MOUTH EVERY 6 HOURS 20 tablet 0 triamterene-hydrochlorothiazid (Maxzide-25) 37.5-25 mg tablet Take by mouth. No current facility-administered medications for this visit. Problem list: Patient Active Problem List Diagnosis Cholesteatoma of right ear Physical Examination: CONSTITUTIONAL: No acute distress VOICE: No hoarseness or other abnormality RESPIRATION: Breathing comfortably, no stridor CV: No clubbing/cyanosis/edema in hands EYES: EOM intact, sclera clear NEURO: Alert and oriented times 3, Cranial nerves II-XII grossly intact and symmetric bilaterally HEAD AND FACE: Symmetric facial features, no masses or lesions RIGHT EAR: Postauricular incision is well-healed. Nasal graft is well-healed. No evidence of residual perforation. Cartilage in good placement. LEFT EAR: Normal external ear and post auricular area, no visible lesions, external auditory canal patent, tympanic membrane intact, no retraction, no signs of mass, effusion, or infection within themiddle ear NOSE: Anterior rhinoscopy clear, no significant external deformity. ORAL CAVITY/OROPHARYNX/LIPS: normal lining, mobile tongue. PHARYNGEAL YATES: Moist mucosal lining, good palatal elevation NECK/LYMPH: No LAD, no thyroid masses, trachea midline SKIN: Neck and facial skin is without scar or injury PSYCH: Alert and oriented with appropriate mood and affect Impression: Right chronic otitis media with cholesteatoma Right conductive hearing loss Recommendation: Doing well. Return in 4 months. We will plan her second look operation with right revision tympanomastoidectomy and ossiculoplasty. She will need an audiogram. I discussed with the patient the complexity of my medical decision making including the treatment and testing rational, indications of their elective procedure and possible adverse effects and/or complications. Based on the provided documentation and my professional assessment of this patient's chronic stable condition, the complexity of evaluation and treatment is [[id number]]. This note was created using speech recognition assistant teaching professor software. Despite proofreading, several typographical errors might be present that might affect the meaning of the content. Please call with any questions. documented in this [facility] Work Phone: 1(891) 750-736607-26-2023 NotePost Operative Note: PreOp Diagnosis: Right Cholesteatoma Post-Procedure Diagnosis: Right Cholesteatoma Procedure: 1. Right revision tympanomastoidectomy 2. Right temporalis fascia graft 3. Right tragal cartilage graft 4. Facial nerve monitoring 5. Microsurgical add-on Surgeon: Pierre Resident/Fellow/Other [employer] Worker: Guerrero Anesthesia: General - LMA Estimated Blood Loss (mL): 5 Specimen: yes. mastoid contents, middle ear contents Complications: None apparent at end of case Findings: please see operative report for full findings Patient Returned To/Condition: PACU/Stable Operative Report Dictated: Dictation: not applicable - note contains Operative Report Operative Report: PRE-OPERATIVE DIAGNOSIS: Right chronic otitis media with acquired cholesteatoma Right conductive hearing loss. POST-OPERATIVE DIAGNOSIS: Right chronic otitis media with acquired cholesteatoma Right conductive hearing loss. PROCEDURE: Right intact canal wall tympanoplasty with mastoidectomy with removal of cholesteatoma without ossiculoplasty. Intraoperative facial nerve monitoring. Microsurgical dissection techniques requiring use of operating microscope. SURGEON: Kelvin Jay MD DOCUMENTATION ENGINEER SURGEON: Sage Masters MD ANESTHESIA: General with endotracheal intubation ESTIMATED BLOOD LOSS: 5mL HISTORY: This patient was referred for management of right chronic otitis media with cholesteatoma. Physical examination confirmed the presence of a right recurrrent cholesteatoma. Audiometric evaluation revealed a right-sided conductive hearing loss. The HRCT of the temporal bone showed a cholesteatoma like-lesion in the affected ear with erosion of the ossicles and without radiographic evidence of labyrinthine fistula. Based on these findings, treatment options were discussed in length explaining the pathology, possible recidivism and hearing outcomes. The possibility of a two-staged procedure and deferred ossiculoplasty was discussed. The patient was offered tympanomastoid surgery with the primary goal to eradicate his cholesteatoma and achieve a safe and dry ear. The risks, alternatives and benefits were all discussed. The risks outlined included but were not limited to bleeding, surgical site infection, hearing loss, dizziness, tinnitus, taste disturbance, recurrent disease, graft failure and facial paralysis. The patient agreed to proceed with the planned operations. OPERATIVE FINDINGS: Examination of the tympanic membrane and middle ear revealed: superior posterior tympanic membrane perforation with scutum erosion. Examination of the mastoid revealed: granulation tissue and cholesteatoma involving the antrum and extending into the epitympanum, and mesotympanum, An intact canal wall tympanomastoid approach with extended facial recess dissection was performed in order to achieve total removal of macroscopic cholesteatoma. The cholesteatoma appeared to arise from the epitympanum and extended to involve the antrum, mastoid cavity and mesotympanum. Assessment of the ossicles revealed close relation to the incudostapedial joingt. Ossicular chain reconstruction was deferred The chorda tympani was sacrificed due to involvement witht he cholesteatoma matrix. The facial nerve was intact. The tegmen was intact. Reconstruction of the tympanic membrane reconstruction was done using a composite graft from temporalis fascia, tragal perichondrium and tragal cartilage. The Attic wall defect was reconstructed with tragal cartilage. A silastic sheet was placed into the middle ear space and mastoid cavity. OPERATIVE PROCEDURE: The patient was evaluated in the pre-operative area. The correct site of surgery was marked, and the informed consent was signed. The patient was taken to the operative suite and laid on the operating table. A time out was performed according to the protocol. After induction of anesthesia, endotracheal intubation was done. Intraoperative intravenous antibiotics were administered. The table was tilted 180 degrees and the surgical site was exposed. An appropriate amount of hair was clipped from the post-auricular region. The electrodes of the facial nerve monitoring system were inserted percutaneously in their corresponding position and adequate functioning of the system was confirmed. The patient was supported to the surgical bed with tapes and belts. A grounding pad was applied. The skin was prepped and draped using the standard sterile techniques. Local anesthetics using a mixture of 1% lidocaine and 1/100.000 epinephrine was infiltrated in the post-auricular region. Next, the operative microscope was brought into the field and utilized throughout the case to provide high-powered magnification. An appropriately sized ear speculum was placed in the ear canal. The pathological findings of the middle ear were confirmed. Four-quadrant canal injections were then carried o (more content not included)...[facility]07-26-2023 History of Present illness Narrative* UPDATE: * Post-op visit: * The patient is presenting for their first post-op visit s/p right intact canal wall revision tympanomastoidectomy with removal of cholesteatoma without ossiculoplasty. This surgery was performed on 11/06/2022. She took ibuprofen for pain because Tramadol did not work. * RECALL 09/05/2022: * History of present illness: * This is the initial visit for this patient who is referred for evaluation of right chronic otitis media and possible right ear cholesteatoma. * When asked about ear pain, hearing loss, discharge from ear, tinnitus, dizziness or vertigo, the patient admits to pain, hearing loss, some discharge, vertigo and balance issues. * When asked about a significant past otological history including history of prior ear surgery, noise exposure, exposure to ototoxic drugs or agents, and/or family history of hearing loss, the patientadmits to prior ear surgery. She underwent a canal wall up tympanomastoidectomy with Dr. Kingston last year. There appears to be residual cholesteatoma based on the recent HRCT. * Today her hearing feels okay. * The patient s current medications, active allergies and list of medical problems were reviewed in the EHR and confirmed electronically. * Physical Examination: * Steri-strips were removed revealing the incision healing well without signs of infection. * Ear canal examined using the otomicroscope. Packing was removed. Graft appears to be healing well. * There are no signs to suggest an infection. * Diagnostic testing: * A temporal bone scan available for review showed a cholesteatoma-like lesion in the right ear. Opacification/soft tissue density seen medial to the malleus and incus. * The audiogram showed normal hearing across all frequencies bilaterally. * I personally reviewed the available patient s external record and independently reviewed their audiometric testing and radiographic imaging through the appropriate viewing software as detailed in my note and agree with the detailed report. * Impression: * Right chronic otitis media, active * Right conductive hearing loss * Right ear cholesteatoma * Plan: * Maintain dry ear precautions. Schedule a follow up in 2-3 months. * This note was created using speech recognition assistant teaching professor software/or Spotstere assistant teaching professor services. Despite proofreading, several typographical errors might be present that might affect the meaning of the content. Please call with any questions. * By signing my name below, I, Tramaine Benavides, attest that this documentation has been prepared under the direction and in the presence of Dr. Kelvin Jay. All medical record entries made by the Tramaine were at my direction and personally dictated by me. I have reviewed the chart and agree that the record accurately reflects my personal performance of the history, physical exam, discussion, and plan. [facility] Work Phone: 1(671) 394-637307-26-2023 NoteHistory of Present Illness: /Lactating: Are You no Are You Currently Breastfeedingno History Present Illness: Reason for surgery: Right Tympanomastoidectomy HPI: Patient reviewed right chronic otitis media and possible right ear cholesteatoma. When asked about ear pain, hearing loss, discharge from ear, tinnitus, dizziness or vertigo, the patient admits to pain, hearing loss, some discharge, vertigo and balance issues. When asked about a significant past otological history including history of prior ear surgery, noise exposure, exposure to ototoxic drugs or agents, and/or family history of hearing loss, the patient admits to prior ear surgery. She underwent a canal wall up tympanomastoidectomy with Dr. Kingston last year. Today her hearing feels okay. Imaging: A temporal bone scan available for review showed a cholesteatoma-like lesion in the right ear. Opacification/soft tissue density seen medial to the malleus and incus. Audiogram: The audiogram showed normal hearing across all frequencies bilaterally. Allergies: Allergies: No Known Allergies: Home Medication Review: Home Medications Reviewed: yes Impression/Procedure: Impression and Planned Procedure: Right Tympanomastoidectomy ERAS (Enhanced Recovery After Surgery): ERAS Patient: no Physical Exam by System: Constitutional: Well developed, awake/alert/oriented x3, no distress, alert and cooperative Eyes: PERRL, EOMI, clear sclera ENMT: mucous membranes moist, no apparent injury, no lesions seen Head/Neck: Neck supple, no apparent injury, thyroid without mass or tenderness, No JVD, trachea midline, no bruits Respiratory/Thorax: Patent airways, CTAB, normal breath sounds with good chest expansion, thorax symmetric Cardiovascular: Regular, rate and rhythm, no murmurs, 2+ equal pulses of the extremities, normal S 1and S 2 Gastrointestinal: Nondistended, soft, non-tender, no rebound tenderness or guarding, no masses palpable, no organomegaly, +BS, no bruits Musculoskeletal: ROM intact, no joint swelling, normal strength Extremities: normal extremities, no cyanosis edema, contusions or wounds, no clubbing Neurological: alert and oriented x3, intact senses, motor, response and reflexes, normal strength Lymphatic: No significant lymphadenopathy Psychological: Appropriate mood and behavior Skin: Warm and dry, no lesions, no rashes Consent: COVID-19 Consent: COVID-19 Risk ConsentSurgeon has reviewed garcia risks related to the risk of al COVID-19 and if they contract COVID-19 what the risks are. Attestation: Note Completion: Electronic Signatures: Kelvin Jay) (Signed 06-Nov-2022 09:16) Authored: Note Completion Co-Signer: History of Present Illness, Allergies, Home Medication Review, Impression/Procedure, ERAS, Physical Exam, Consent, Note Completion Sage Masters (Resident)) (Signed 06-Nov-2022 09:07) Authored: History of Present Illness, Allergies, Home Medication Review, Impression/Procedure, ERAS, Physical Exam, Consent, Note Completion Last Updated: 06-Nov-2022 09:16 by Kelvin Jay)[facility]04-19-2023 NotePap Smear Specimen AdequacyApril 2022 4:41pmComment. Satisfactory for evaluation. No endocervical component is identified.[facility] A#[id number] Grant [facility] CenterComcore[facility] on above:Satisfactory for evaluation. No endocervical component is identified.07-31-2022 NotePap Smear Specimen AdequacyApril 2022 4:41pmComment.Satisfactory for evaluation. No endocervical component is identified.[facility] A#[id number] Grant Medical CenterComcorewell [facility] on above:Satisfactory for evaluation. No endocervical component is identified.06-24-[address] Andrade [facility] June 24, 2022 9:48pm Note Date/Time June 24, 2022 9:3 2pm [facility] Medical Records Department [address] [place] [address] Emergency Department Summary 06/24/22 MR#: [id number] Acct: [id number] Name: PASTORA ODBBS Rep #:[id number] : 2000 21 From: Joseph Andrade MD PCP: Dr. Xin Cardona MD Status:R EG ER Location: ED HPI HPI - GI History of Present Illness Chief Complaint: GI Bleed Informant: patient Narrative Narrative: Patient presents with bright red blood per rectum. About 30 minutes ago she had some bright red blood on the tissue when she was wiping. It was about an area inch to inch and half around. No clots. She had had a firm bowel movement a few hours earlier. Her stools have been harder recently. She has had this happen before but normally it is only a small streakof blood on the tissue and this was a larger amount. She does not have diarrhea. She does not have nausea vomiting. No history of abdominal surgery. No urinary symptoms. Last menstrual period ended on about the 10th she is not having bleeding or discharge now. There is no family history of ulcerative colitis or Crohn's disease. She has never had irritable bowel or chronic bowel problems. She is not on any blood thinners. She states that there is soreness at the rectum now. It does hurt a bit. She has not felt a mass. There is beenno fevers or chills. [facility] Medical History Anxiety Contact with and (suspected) exposure to other viral communicable diseases Former smoker Generalized anxiety disorder with panic attacks Heartburn Hypertension Restless legs Smoker Tobacco abuse counseling URI (upper respiratory infection) Home Medications multivitamin with minerals-folic acid 200 mcg chewable tablet (Women's Multivitamin Gummies) 1 tab PO DAILY 05/24/21 [History Last Taken Unknown] triamterene 37.5 mg-hydrochlorothiazide 25 mg tablet 2 tab PO QAM 01/22/22 [History Last Taken Unknown] sertraline 25 mg tablet 25 mg PO DAILY #90 tabs 03/13/22 [Rx Last Taken Unknown] prednisone 10 mg tablet 10 mg PO BID #10 tabs 03/21/22 [Rx Last Taken Unknown] Allergy/AdvReac Type Severity Reaction Status Date / Time No Known Allergies Allergy Verified 06/24/22 21:16 Family History Father Hypertension Grandfather Myocardial infarction Surgical History No pertinent past surgical history Social History household members: significant other and none number of children: 0 current occupational status: employed current occupation: [employer] Smoking Status: Light Smoker (<10/day) Electronic Cigarette Use: with nicotine alcohol intake: never substance use type: does not use what type of physical activity do you participate in: running and bicycling frequency: 1-2 times per week seatbelt use: always do you feel safe at home: Yes additional social history: single ROS ROS ED Constitutional Constitutional ED: Denies chills or fever(s) Cardiovascular Cardiovascular: Denies chest pain or racing heartbeat Respiratory/Chest Respiratory/Chest: Denies cough or dyspnea Gastrointestinal Gastrointestinal: Reports constipation and other Details: See history of presentillness ; Denies abdominal pain, diarrhea, melena, nausea or vomiting Genitourinary Genitourinary ED: Denies hematuria Musculoskeletal Musculoskeletal: Denies back pain Integumentary Denies Abrasions Neurologic Neurologic: Denies headache(s) Psychiatric Psychiatric: Denies anxiety Endocrine Endocrinology: Denies polyphagia or polyuria Hematologic/Lymphatic Hematologic/Lymphatic: Denies easy bleeding or easy bruising Allergic/Immunologic Allergic/Immunologic ED: Denies urticaria EXAM Physical Exam Narrative Exam Narrative: Patient awake alert no acute distress. She walked back to the room without any difficulties. HEENT shows moist mucous membranes. No rashes or trauma. Eyes show no pallor. Lungs are clear bilaterally. Saturations are 100% on room air. Heart is regular. Pulse is about 80. No murmur. Abdomen is soft completely nontender no rebound or guarding. Rectal exam will be done separately with nurse in attendance. Extremities show no tenderness or pallor Skin is not diaphoretic pale showing petechiae or purpura. Const Vital Signs: 06/24/22 21:15 Temperature 96.5 F L Temperature Source Temporal Pulse Rate 86 Respiratory Rate 18 Blood Pressure 183/107 H Blood Pressure Mean 132 Pulse Ox 100 Oxygen Delivery Method Room Air MDM MDM MDM Narrative Medical decision making narrative: Rectal exam was done with nurse Lynette in attendance. I explained the process to the patient. We kept her is covered as possible. Exam shows no sign at all of infection. There is no hemorrhoid. There is really no notable tenderness. There is no bleeding. She does have both a skin tag as a sign of a prior fissure and what looks to be an acute fissure. It is alittle bit red and irritated. But is not bleeding at this time. Since she had a small amount of blood, no clots, her conjunctive is not pale andpalms are not pale, heart rate is not high and she has no orthostatic symptoms, I do not think we need to do a CBC. I think we need to treat this fissure. It was explained that she can get djtr-anj-mhekptk medicine such as Preparation H will will calm the area down. But the primary treatment is hydration and stool softeners to avoid straining with hard stool. Discharge Plan Triage Chief Complaint: GI Bleed ED Provider: Joseph Andrade Dx/Rx/DC Orders Clinical Impression: Rectal fissure, History of rectal bleeding Instructions: ED Understanding Anal Fissures Prescriptions: No Action Women's Multivitamin Gummies 200 mcg tablet,chewable 1 tab PO DAILY prednisone 10 mg tablet 10 mg PO BID Qty: 10 0RF diphenhydramine HCl [Benadryl] 25 mg capsule 25 mg PO QHS PRN naproxen sodium [Aleve] 220 mg capsule 220 mg PO BID PRN triamterene-hydrochlorothiazid 37.5-25 mg tablet 2 tab PO QAM sertraline 25 mg tablet 25 mg PO DAILY Qty: 90 1RF Primary Care Provider: Xin Cardona Referrals: Xin Cardona MD [Primary Care Provider] - 1 Week Activity Restrictions/Additional Instructions: Increased water and fiber in diet. May use MiraLAX to keep stools soft. Disposition Disposition: Home, Self Care What to do if you have Problems For any increased pain, shortness of breath, bleeding, nausea or vomiting, chestpain, or any unexpected problems, contact your Primary Care Provider. Call [facility] ([phone]) or report to the closest Emergency Room. Call 911 if necessary. 06/24/222147 <Electronically signed by Joseph Andrade MD> Cosigner Signature (if applicable): CC: Dr. Xin Cardona MD ~ Signed [facility] Work Phone: 1(824) 234-624711-30-2021 NoteHNO ID: [id number] Author: Sherley Knutson MD Service: ? Author Type: Physician Type: Progress Notes Filed: 03/13/2021 2:43 PM Note Text: Pastora Dobbs is a 20 year old female who presents for concerns. HPI: Patient presents with concerns. She went to the ED last month after having pain with intercourse. Patient followed up the and then went back to the ED for pelvic pain again that was not related to intercourse (about 2 weeks later). She didn't have any additional imaging on her 2nd visit. Patient denies pelvic pain since that time. She reports h/o ovarian cysts when she was younger. Patient is OK with STD screening and reports yellow vaginal discharge. She started menses last night. OB History T0 L0 SAB0 IAB0 Ectopic0 Multiple0 Live Births0 Hrbp History LMP: 03/12/2021, Having periods Age at Menarche: Age at First : Age at Menopause: Hrbp History Comments: Sexual Activity: Yes; Male Contraception: None History reviewed. No pertinent past medical history. PAST SURGICAL HISTORY Procedure Laterality Date - NONE FAMILY HISTORY Problem Relation Age of Onset - No Known Problems Mother - No Known Problems Father - No Known Problems Brother - No Known Problems Maternal Grandmother - Cancer Maternal Grandfather - Cancer Paternal Grandmother - Heart Paternal Grandfather - No Known Problems Brother Social History Tobacco Use - Smoking status: Current Every Day Smoker Types: Cigarettes - Smokeless tobacco: Never Used - Tobacco comment: 4 or 5 cigarettes daily Vaping Use - Vaping Use: Never used Substance Use Topics - Alcohol use: Never - Drug use: Never Current Outpatient Medications Medication Sig - Desogestrel-Ethinyl Estradiol (APRI) 0.15-0.03 mg per tablet Take 1 tablet by mouth once daily. (Patient not taking: Reported on 03/13/2021 ) No current facility-administered medications for this visit. Allergies As of Date: 03/13/2021 (No Known Allergies) Fully Assessed 03/13/2021 Allergies and current medication updated:Yes EXAM: BP 138/74 Wt 204 lb 3.2 oz (92.6kg) LMP 03/12/2021 GENERAL: pleasant, female in no apparent distress CHEST: Normal inspiratory effort ABDOMEN: soft, non-tender and no masses PELVIC: external genitalia normal, normal Bartholin's glands, urethra, [place]'s glands, no vulvar lesions, no cervical lesions, good vaginal support, discharge with scant blood present, normal appearing perineal body and perianal region BIMANUAL: deferred as patient getting US NEURO: alert and oriented x3,exam grossly non-focal EXTREMITIES: normal ASSESSMENT AND PLAN: 20yo female with pelvic pain AND for STD screening Check pelvic US GC/chlam with trich and vaginitis swab Reviewed CT from [facility] on 01/31/21 that showed ovarian follicles. 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 ANKLE PAIN Reason for Visit History of ovarian c yst Pelvic pain [facility] Work Phone: Chief complaint+Reason for visit Narrative* Chief Complaint COUGH, CONGESTED, SO RE THROAT Cholesteatoma of attic, right ear GI BLEED COVID-19 ear 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 Reason for Visit COVID-19 Encounter for routine gynecological examination Generalized anxiety disorder with panic attacks Hypertension [facility] Work Phone: Chief complaint+Reason for visit Narrative* Chief Complaint Cholesteatoma of att ic, right ear GI BLEED COVID-19 ear 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 Reason for Visit Encounter for routin e gynecological examination Generalized anxiety disorder with panic attacks Hypertension [facility] Work Phone: Chief complaint+Reason for visit Narrative* Chief Complaint LEFT HAND/TINGLING I N RING/LITTLE FINGER COVID-19 QUESTIONS Reason for Visit Strain of left elbow Infertility associated with anovulation [facility] Work Phone: Evaluation note* Diagnosis Onset Date Resolution Status History of ovarian cyst acut e Pelvic pain acute [facility] Work Phone: Evaluation note* Diagnosis Onset Date Resolution Status History of ovarian cyst acut e Pelvic pain acute History of ovarian cyst acut e Pelvic pain acute BMI 32.0-32.9,adult acute [facility] Work Phone: Evaluation note* Diagnosis Onset Date Resolution Status History of ovarian cyst acut e Pelvic pain acute Elevated blood pressure reading noneactive BMI 32.0-32.9,adult acute Tobacco abuse noneactive Hypertension noneactive [facility] Work Phone: Evaluation note* Diagnosis Onset Date Resolution Status History of ovarian cyst acut e Pelvic pain acute Elevated blood pressure reading noneactive BMI 32.0-32.9,adult acute Tobacco abuse noneactive Hypertension noneactive Tobacco abuse counseling acu te Hypertension chronic [facility] Work Phone: Evaluation note* Diagnosis Onset Date Resolution Status Tobacco abuse counseling acu te Hypertension chronic Generalized anxiety disorder with panic attacks chronic Hypertension chronic Generalized anxiety disorder with panic attacks chronic Hypertension [facility] Work Phone: Evaluation note* Diagnosis Onset Date Resolution Status Contact with and (suspected) exposure to other viral communicable diseases acute URI (upper respiratory infection) acute COVID-19 acute [facility] Work Phone: Evaluation note* Diagnosis Onset Date Resolution Status COVID-19 acute Encounter for routine gynecological examination noneactive Generalized anxiety disorder with panic attacks chronic Hypertension [facility] Work Phone: Evaluation note* Diagnosis Onset Date Resolution Status Encounter for routine gynecological examination noneactive Generalized anxiety disorder with panic attacks chronic Hypertension [facility] Work Phone: Evaluation note* Diagnosis Cholesteatoma of right ear- Primary Right chronic otitis media Unspecified otitis media documented in this encounter [facility] Work Phone: Evaluation note* Diagnosis Onset Date Resolution Status Strain of left elbow acute Infertility associated with anovulation acute [facility] Work Phone: Evaluation note* Diagnosis Preoperative testing Unspecified pre-operative examination Perforation of right tympanic membrane Cholesteatoma of right ear Conductive hearing loss, bilateral Conductive hearing loss, bilateral- Primary Cholesteatoma of right ear documented in this encounter [facility] Work Phone: Evaluation noteNo assessment information available [facility] Work Phone: Evaluation note* Diagnosis Onset Date Resolution Status Hypertension chronic [facility] Work Phone: Hospital Discharge instructions Additional Instructions Increased water and fiber in diet. May use MiraLAX to keep stools soft.[facility] Work Phone: Hospital Discharge instructions Additional Instructions Apply 10 drops to the right ear once daily for the next 7 days.[facility] Work Phone: Reason for referral (narrative)No reason for [facility] Work [facility]: Summary Purpose Family History No Family History Records Found Relationship Condition Age at Onset Recorded Date/T lili father Hypertension Unknown grandfather Myocardial infarction Unknown Relationship Condition Age at Onset Recorded Date/T lili father Hypertension Unknown grandfather Myocardial infarction Unknown grandmother Malignant neoplasm Unknown Advance Directives No Advanced Directives Records FoundDocuments on File Type Date Recorded 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 Advance Directives and Living Will Advance Directive Response Recorded Date/ Time Living Will No August 07, 2021 6:10pm Power of Zipper Trimmer Hand No August 07 6:10pm Advance Directive Response Recorded Date/ Time Living Will No October 01, 2021 6:14pm Power of Zipper Trimmer Hand No October 01 6:14pm Advance Directive Response Recorded Date/ Time Living Will No February 20 11:28pm Power of Zipper Trimmer Hand No February 20, 2022 11:28pm Advance Directive Response Recorded Date/ Time Living Will No June 24, 2022 9:44pm Power of Zipper Trimmer Hand No June 24 9:44pm Advance Directive Response Recorded Date/ Time Living Will No July 07, 2022 2:52pm Power of Zipper Trimmer Hand No July 07 2:52pm Advance Directive Response Recorded Date/ Time Living Will No July 09, 2022 3:14pm Power of Zipper Trimmer Hand No July 09 3:14pm Documents on File Type Date Recorded 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 No May 03, 2024 1:57pm History of Present Illness * Candace Terry, OREN - 10/03/2019 11:53 AM EDT [facility] [address] [facility] [address] [facility] [id number] Chief Complaint Patient presents with Right Wrist - Pain Pastora Dobbs, 18 year old female presents to the office today with pain in her right wrist. She states that she was working in her yard about a month ago and then started having pain in the right wrist. She denies any one specific injury, just that after the yardwork, the wrist started hurting. She tried to take OTC pain relief which took the edge off. She ended up going to the ER because her Aunttold her she needed to get it checked out. She had x-rays which she was told were ok. She was then told to follow up with ortho. She is wearing a wrap splint on the right wrist which she states does help especially while she works. The wrist has improved but it still isn't 100 percent. The patient's past medical history, surgical history, social history, family history, medications and allergies were reviewed with the patient today and are available in the chart for further review. No Known Allergies No current outpatient medications on file. No past medical history on file. No past surgical history on file. Social History Socioeconomic History Marital status: Single Spouse name: Not on file Number of children: Not on file Years of education: Not on file Highest education level: Not on file Occupational History Not on file Social Needs Financial resource strain: Not on file Food insecurity Worry: Not on file Inability: Not on file Transportation needs Medical: Not on file Non-medical: Not on file Tobacco Use Smoking status: Current Every Day Smoker Smokeless tobacco: Current User Substance and Sexual Activity Alcohol use: Not Currently Drug use: Not on file Sexual activity: Not on file Lifestyle Physical activity Days per week: Not on file Minutes per session: Not on file Stress: Not on file Relationships Social connections Talks on phone: Not on file Gets together: Not on file Attends mu-ism service: Not on file Active member of club or organization: Not on file Attends meetings of clubs or organizations: Not on file Relationship status: Not on file Other Topics Concern Not on file Social History Narrative Not on file ROS: Review of Systems Constitutional: Negative for activity change, chills and fatigue. HENT: Negative for congestion, hearing loss and trouble swallowing. Eyes: Negative for visual disturbance. Respiratory: Negative for chest tightness and shortness of breath. Cardiovascular: Negative for chest pain and palpitations. Gastrointestinal: Negative for abdominal pain, diarrhea, nausea and vomiting. Endocrine: Negative for polydipsia, polyphagia and polyuria. Genitourinary: Negative for decreased urine volume, difficulty urinating and hematuria. Musculoskeletal: Positive for arthralgias. Negative for joint swelling and myalgias. Skin: Negative for color change, rash and wound. Allergic/Immunologic: Negative for immunocompromised state. Neurological: Negative for dizziness, weakness, light-headedness and numbness. Hematological: Does not bruise/bleed easily. Psychiatric/Behavioral: Negative for confusion and sleep disturbance. The patient is not nervous/anxious. PE: Physical Exam Constitutional: She is oriented to person, place, and time. She appears well- developed and well-nourished. HENT: Head: Normocephalic. Eyes: Pupils are equal, round, and reactive to light. Neck: Normal range of motion. Neck supple. Cardiovascular: Normal rate and regular rhythm. Pulmonary/Chest: Effort normal and breath sounds normal. Abdominal: Soft. Bowel sounds are normal. Musculoskeletal: Normal range of motion. Right wrist: She exhibits tenderness. Neurological: She is alert and oriented to person, place, and time. Skin: Skin is warm and dry. ORTHO: Right Hand Exam Tenderness The patient is experiencing tenderness in the radial area. Range of Motion The patient has normal right wrist ROM. Muscle Strength The patient has normal right wrist strength. Tests Phalen s Sign: negative Tinel's sign (median nerve): negative Geovanna's test: negative Other Erythema: absent Scars: absent Sensation: normal Pulse: present Imaging: R Wrist shows no acute fracture, no dislocation or osseous abnormality. Assessment/Plan: After examination and reviewing of the patient x-ray images, I put her in a different wrist splint for her to wear, especially while working. She is to continue range of motion exercises for the right wrist. She is also to continue OTC pain relievers especially NSAIDs for pain and inflammation. I did explain that if the pain continues, we could always try a cortisone injection to the wrist. She adamantly declined this stating that there was no way she could get a shot. If thereis no improvement, she is to follow up. The patient verbalizes understanding and is in agreement with the treatment plan. 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) PELVIC PAIN ANKLE PAIN 3 MO FU ACUTE ONLY - BP CHK, THEN ESTABLISH Reason for Visit History of ovarian c yst Pelvic pain History of ovarian cyst Pelvic pain BMI 32.0-32.9,adult Chief Complaint ANKLE PAIN 3 MO FU ACUTE ONLY - BP CHK, THEN ESTABLISH CP Reason for Visit History of ovarian c yst Pelvic pain Elevated blood pressure reading BMI 32.0-32.9,adult Tobacco abuse Hypertension Chief Complaint ANKLE PAIN 3 MO FU ACUTE ONLY - BP CHK, THEN ESTABLISH CP bp issues Reason for Visit History of ovarian c yst Pelvic pain Elevated blood pressure reading BMI 32.0-32.9,adult Tobacco abuse Hypertension Tobacco abuse counseling Hypertension Chief Complaint ANKLE PAIN 3 MO FU ACUTE ONLY - BP CHK, THEN ESTABLISH CP bp issues RIGHT CHOLESTEAMOMA *IAC* Reason for Visit History of ovarian c yst Pelvic pain Elevated blood pressure reading BMI 32.0-32.9,adult Tobacco abuse Hypertension Tobacco abuse counseling Hypertension Chief Complaint bp issues RIGHT CHOLESTEAMOMA *IAC* 1 m fu 1 M FU MASTOIDECTOMY RIGHT WOUND CHECK Reason for Visit Tobacco abuse counse ling Hypertension Generalized anxiety disorder with panic attacks Hypertension Generalized anxiety disorder with panic attacks Hypertension Chief Complaint HEADACHE, SORE THROA T COUGH, CONGESTED, SORE THROAT Cholesteatoma of attic, right ear Reason for Visit Contact with and (venegas spected) exposure to other viral communicable diseases URI (upper respiratory infection) COVID-19 Chief Complaint HEADACHE, SORE THROA T COUGH, CONGESTED, SORE THROAT Cholesteatoma of attic, right ear GI BLEED Reason for Visit Contact with and (venegas spected) exposure to other viral communicable diseases URI (upper respiratory infection) COVID-19 Chief Complaint HEADACHE, SORE THROA T COUGH, CONGESTED, SORE THROAT Cholesteatoma of attic, right ear GI BLEED COVID-19 ear Reason for Visit Contact with and (venegas spected) exposure to other viral communicable diseases URI (upper respiratory infection) COVID-19 Chief Complaint 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 Chief Complaint 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 ED follow up Reason for Visit Hypertension Chief Complaint Admit Date HURTS TO TAKE DEEP BREATH May 03, 2024 10:49am 1 wk BP check May 04, 2024 1 :16pm PP BP CK May 10, 2024 1 2:51pm HIGH BLOOD PRESSURE- April 152024 1:25pm HIGH BLOOD PRESSURE- April 152024 5:54pm ACUTE - PHYSICAL May 26, 2024 11:20am visit (obstetrics) May 162024 10:40am BP CHECK June 29, 2024 12: 59pm BP ISSUES/Dizziness August 13, 2024 10:50a m ESSENTIAL PRIMARY HYPERTENTION August 25, 2024 8:53am Reason for Visit Admit Date Pre-eclampsia added to pre-existing hype rtension May 04, 2024 1:16pm Chronic hypertension May 04, 2024 1:16pm Pre-eclampsia added to pre-existing hype rtension May 10, 2024 12:51pm Anxiety May 26, 2024 11:20am Hyperlipidemia May 26, 2024 11:20am Hypertension May 26, 2024 11:20am Routine adult health maintenance 2024 11:20am History of gestational diabetes June 10, 2024 10:40am Hypertension June 10, 2024 10:40am Routine Follow-Up June 102024 10:40am Hypertension June 29, 2024 12: 59pm History of palpitations August 13, 2024 10 :50am Hypertension August 13, 2024 10:50a m Chief Complaint Admit Date BP ISSUES/Dizziness August 13, 2024 10:50a m ESSENTIAL PRIMARY HYPERTENTION August 25, 2024 8:53am ACUTE ANXIETY November 03, 2024 8:43 am Reason for Visit Admit Date History of palpitations August 13, 2024 10 :50am Hypertension August 13, 2024 10:50a m Chief Complaint Admit Date BP ISSUES/Dizziness August 13, 2024 10:50a m ESSENTIAL PRIMARY HYPERTENTION August 25, 2024 8:53am ACUTE ANXIETY November 03, 2024 8:43 am 1 M FU December 01, 2024 8: 46am Reason for Visit Admit Date History of palpitations August 13, 2024 10 :50am Hypertension August 13, 2024 10:50a m Anxiety November 03, 2024 8:43 am Inner ear dysfunction November 03, 2024 8: 43am Chief Complaint Post op visit s/p right revision tympanomastoidectomy Additional Source Comments INFORMATION SOURCE (unrecogn ized section and content) DATE CREATED AUTHOR 10/02/2017 [facility] DATE CREATED AUTHOR AUTHOR'S ORGANIZ ATION 05/07/2018 [facility] DATE CREATED AUTHOR AUTHOR'S ORGANIZ ATION 08/14/2018 [facility] DATE CREATED AUTHOR AUTHOR'S ORGANIZ ATION 10/05/2019 [facility] DATE CREATED AUTHOR AUTHOR'S ORGANIZ ATION 12/19/2020 [facility] DATE CREATED AUTHOR AUTHOR'S ORGANIZ ATION 05/24/2021 [facility] DATE CREATED AUTHOR AUTHOR'S ORGANIZ ATION 12/07/2022 [facility] DATE CREATED AUTHOR AUTHOR'S ORGANIZ ATION 12/20/2022 [facility] DATE CREATED AUTHOR AUTHOR'S ORGANIZ ATION 06/28/2023 [facility] DATE CREATED AUTHOR AUTHOR'S ORGANIZ ATION 08/05/2023 [facility] DATE CREATED AUTHOR AUTHOR'S ORGANIZ ATION 12/04/2024 [facility] Reason for Visit (unrecogniz ed section and content) Reason Comments Pain Reason Comments Follow-up Goals (unrecognized section and content) Goals may be documented in a n alternate sectionGoals may be documented in an alternate sectionGoals may be documented in an alternate sectionGoals may be documented in an alternate sectionGoals may be documented in an alternate sectionGoals may be documented in an alternate sectionGoals may be documented in an alternate sectionGoals may be documented in an alternate sectionGoals may be documented in an alternate sectionGoals may be documented in an alternate sectionGoals may be documented in an alternate sectionGoals may be documented in an alternate sectionGoals may be documented in an alternate sectionGoals may be documented in an alternate sectionGoals may be documented in an alternate sectionGoals may be documented in an alternate sectionGoals may be documented in an alternate sectionGoals may be documented in an alternate section Care Teams (unrecognized sec tion and content) Team Status: Active Member Role Status Dates Dr. Xin Cardona MD Primary Care Provider Active Team Status: Inactive Member Role Status Dates Dr. Xin Cardona MD Primary Care Provider Active Dr. Chan Lyons DO Attending Provider, Referring Pro vider Active Team Status: Inactive Member Role Status Dates Dr. Xin Cardona MD Primary Care Provider Active Dr. Chan Lyons DO Emergency Provider Active Team Status: Active Member Role Status Dates Dr. Xin Cardona MD Primary Care Provider Active Dr. Chan Lyons DO Attending Provider, Referring Pro vider Active Team Status: Inactive Member Role Status Dates Dr. Xin Cardona MD Primary Care Provider, Refer ring Provider Active Kleber HOWARD, PA Attending Provider Active Team Status: Inactive Member Role Status Dates Dr. Xin Cardona MD Primary Care Provider, Refer ring Provider Active Cresencio Myrick PA, PA Attending Provider Active Team Status: Inactive Member Role Status Dates Dr. Xin Cardona MD Primary Care Provider Active Dr. Joel Kingston MD Attending Provider, Refe rring Provider Active Team Status: Inactive Member Role Status Dates Dr. Xin Cardona MD Primary Care Provider Active Dr. Joseph Andrade MD Emergency Provider Active Team Status: Inactive Member Role Status Dates Dr. Xin Cardona MD Primary Care Provider Active Dr. Joseph Andrade MD Attending Provider, Emergency Provider Active Team Status: Inactive Member Role Status Dates Dr. Xin Cardona MD Primary Care Provider Active Dr. Luis Enrique Irizarry MD Emergency Provider Active Team Status: Inactive Member Role Status Dates Dr. Xin Cardona MD Primary Care Provider, Refer ring Provider Active Ladonna Kelly CNM Attending Provider Active Team Status: Inactive Member Role Status Dates Dr. Xin Cardona MD Primary Care Provider, Refer ring Provider Active Kolby Javed IN FLIGHT TECHNICIAN, IN FLIGHT TECHNICIAN-C Attending Provider Active Team Status: Inactive Member Role Status Dates Dr. Xin Cardona MD Primary Care Provider Active Dr. Luis Enrique Irizarry MD Attending Provider, Emergency Provider Active Team Status: Inactive Member Role Status Dates Dr. Xin Cardona MD Primary Care Provider Active Ladonna Kelly CNM Attending Provider, Referring Pr ovider Active Team Status: Inactive Member Role Status Dates Dr. Xin Cardona MD Primary Care Provider Active Dr. Joel Kingston MD Attending Provider Activ e Team Status: Inactive Member Role Status Dates Dr. Xin Cardona MD Primary Care Provider, Refer ring Provider Active Maryse Hyman NP-C Attending Provider Active Team Status: Inactive Member Role Status Dates Dr. Xin Cardona MD Primary Care Provider Active Maryse Hyman NP-C Attending Provider, Referring Pro vider Active Team Status: Inactive Member Role Status Dates Dr. Xin Cardona MD Primary Care Provider Active Dr. Chan Lyons DO Attending Provider, Emergency Pro vider Active Team Status: Inactive Member Role Status Dates Dr. Xin Cardona MD Primary Care Provider Active Start: May 03, 2024 End: May 03, 2024 Dr. Anthony Reich MD Attending Provider Active S tart: May 03, 2024 End: May 03, 2024 Dr. Anthony Reich MD Emergency Provider Active S tart: May 03, 2024 End: May 03, 2024 Team Status: Inactive Member Role Status Dates Dr. Xin Cardona MD Primary Care Provider Active Start: May 04, 2024 End: May 04, 2024 Dr. Xin Cardona MD Referring Provider Active Start: May 04, 2024 End: May 04, 2024 Anna Betancur IN FLIGHT TECHNICIAN, IN FLIGHT TECHNICIAN-C Attending Provider Active Start: May 04, 2024 End: May 04, 2024 Team Status: Inactive Member Role Status Dates Dr. Xin Cardona MD Primary Care Provider Active Start: May 04, 2024 End: May 04, 2024 Anna Betancur IN FLIGHT TECHNICIAN, IN FLIGHT TECHNICIAN-C Attending Provider Active Start: May 04, 2024 End: May 04, 2024 Anna Betancur IN FLIGHT TECHNICIAN, IN FLIGHT TECHNICIAN-C Referring Provider Active Start: May 04, 2024 End: May 04, 2024 Team Status: Inactive Member Role Status Dates Dr. Xin Cardona MD Primary Care Provider Active Start: May 10, 2024 End: May 10, 2024 Dr. Xin Cardona MD Referring Provider Active Start: May 10, 2024 End: May 10, 2024 Anna Betancur IN FLIGHT TECHNICIAN, IN FLIGHT TECHNICIAN-C Attending Provider Active Start: May 10, 2024 End: May 10, 2024 Team Status: Inactive Member Role Status Dates Dr. Xin Cardona MD Primary Care Provider Active Start: May 10, 2024 End: May 10, 2024 Dr. Shirlene Mittal MD Attending Provider Active Start: May 10, 2024 End: May 10, 2024 Dr. Shirlene Mittal MD Referring Provider Active Start: May 10, 2024 End: May 10, 2024 Team Status: Active Member Role Status Dates Dr. Xin Cardona MD Primary Care Provider Active Start: May 10, 2024 Dr. Shirlene Mittal MD Attending Provider Active Start: May 10, 2024 Dr. Shirlene Mittal MD Referring Provider Active Start: May 10, 2024 Dr. Shirlene Mittal MD Other Provider Active Start: May 10, 2024 Team Status: Inactive Member Role Status Dates Dr. Xin Cardona MD Primary Care Provider Active Start: May 26, 2024 End: May 26, 2024 Dr. Xin Cardona MD Referring Provider Active Start: May 26, 2024 End: May 26, 2024 ANITA Vogel Attending Provider Active St art: May 26, 2024 End: May 26, 2024 Team Status: Inactive Member Role Status Dates Dr. Xin Cardona MD Primary Care Provider Active Start: June 10, 2024 End: June 10, 2024 Dr. Xin Cardona MD Referring Provider Active Start: June 10, 2024 End: June 10, 2024 Anna Betancur IN FLIGHT TECHNICIAN, IN FLIGHT TECHNICIAN-C Attending Provider Active Start: June 10, 2024 End: June 10, 2024 Team Status: Inactive Member Role Status Dates Dr. Xin Cardona MD Primary Care Provider Active Start: June 29, 2024 End: June 29, 2024 Dr. Xin Cardona MD Attending Provider Active Start: June 29, 2024 End: June 29, 2024 Dr. Xin Cardona MD Referring Provider Active Start: June 29, 2024 End: June 29, 2024 Team Status: Inactive Member Role Status Dates Dr. Xin Cardona MD Primary Care Provider Active Start: August 13, 2024 End: August 13, 2024 Dr. Xin Cardona MD Referring Provider Active Start: August 13, 2024 End: August 13, 2024 Dr. Neftali Shukla MD Attending Provider Active Start: August 13, 2024 End: August 13, 2024 Team Status: Inactive Member Role Status Dates Dr. Xin Cardona MD Primary Care Provider Active Start: August 25, 2024 End: August 25, 2024 Dr. Neftali Shukla MD Attending Provider Active Start: August 25, 2024 End: August 25, 2024 Dr. Neftali Shukla MD Referring Provider Active Start: August 25, 2024 End: August 25, 2024 Team Status: Active Member Role Status Dates Dr. Xin Cardona MD Primary Care Provider Active Start: August 25, 2024 Dr. Jan Perry MD Attending Provider Active S tart: August 25, 2024 Team Status: Active Member Role/Relationship Status Dates Dr. Xin Cardona MD Primary Care Provider Active Team Status: Inactive Member Role/Relationship Status Dates Dr. Xin Cardona MD Primary Care Provider Active Start: August 13, 2024 End: August 13, 2024 Dr. Xin Cardona MD Referring Provider Active Start: August 13, 2024 End: August 13, 2024 Dr. Neftali Shukla MD Attending Provider Active Start: August 13, 2024 End: August 13, 2024 Team Status: Inactive Member Role/Relationship Status Dates Dr. Xin Cardona MD Primary Care Provider Active Start: August 25, 2024 End: August 25, 2024 Dr. Neftali Shukla MD Attending Provider Active Start: August 25, 2024 End: August 25, 2024 Dr. Neftali Shukla MD Referring Provider Active Start: August 25, 2024 End: August 25, 2024 Team Status: Active Member Role/Relationship Status Dates Dr. Xin Cardona MD Primary Care Provider Active Start: August 25, 2024 Dr. Jan Perry MD Attending Provider Active S tart: August 25, 2024 Dr. Neftali Shukla MD Referring Provider Active Start: August 25, 2024 Team Status: Inactive Member Role/Relationship Status Dates Dr. Xin Cardona MD Primary Care Provider Active Start: November 03, 2024 End: November 03, 2024 Dr. Xin Cardona MD Referring Provider Active Start: November 03, 2024 End: November 03, 2024 ANITA Vogel Attending Provider Active St art: November 03, 2024 End: November 03, 2024 Team Status: Inactive Member Role/Relationship Status Dates Dr. Xin Cardona MD Primary Care Provider Active Start: December 01, 2024 End: December 01, 2024 Dr. Xin Cardona MD Referring Provider Active Start: December 01, 2024 End: December 01, 2024 ANITA Vogel Attending Provider Active St art: December 01, 2024 End: December 01, 2024 FOR RECORDS PERTAINING TO PATIENTS WHO ARE OR HAVE BEEN ENROLLED IN A CHEMICAL DEPENDENCY/SUBSTANCEABUSE PROGRAM, SOME INFORMATION MAY BE OMITTED. This clinical summary was aggregated from multiple sources. Caution should be exercised in using it in the provision of clinical care. This summary normalizes information from multiple sources, and as a consequence, information in this document may materially change the coding, format and clinical context of patient data. In addition, data may be omitted in some cases. CLINICAL DECISIONS SHOULD BE BASED ON THE PRIMARY CLINICAL RECORDS. [facility] [employer] provides no warranty or guarantee of the accuracy or completeness of information in this document.
== END | disposition home or self-care (01) ==
LOC: SL 19:48
PROVIDERS: PCP Internal Medicine; Referring Provider Physician Assistant; Visit Provider Physician Assistant
DX: G47.10 Hypersomnia, unspecified (principal)
CPT/HCPCS: 95810